=== PATIENT | male | born 1930 | race Caucasian/White ===

== ENCOUNTER 2017-08-28 18:42 | Inpatient (IN) | payer MEDICARE, MEDICAID ==
[~2017-08-28] VITALS: Ht 177.8 cm; Wt 51.3 kg
[2017-08-28 18:55] VITALS: BP 104/70
[2017-08-28] MEDS ORDERED: NS 1000ml 1,600 ML IVLG ONE (19:00)
[2017-08-28] MEDS ORDERED: Piperacillin/Tazobactam 3.375 GM in NS 55 ML IVPB ONE (19:00)
--- NOTE | 2017-08-28 19:00 | Emergency Room Report ---
History of Present Illness General Chief Complaint: Dyspnea/Respdistress Source: Patient, EMS Present Illness HPI Patient was brought in by paramedics for respiratory distress Upon arrival the patient is in acute respiratory failure Muscle retractions Accessory muscle use Not verbal Appears ill Patient required emergent airway intubation History of present illness is significantly limited Patient appears to have history of atrial fibrillation Recent hospitalization with CHF And aspiration pneumonia Allergies: Coded Allergies: No Known Allergies (Unverified , 08/28/17) Patient History Limited by: medical condition Past Medical History: see triage record Pertinent Family History: unable to obtain Reviewed Nursing Documentation: PMH: Agreed, PSxH: Agreed Nursing Documentation-PMH Hx Cardiac Problems: Yes - A-fib; HEP B Hx Dialysis: No - CKD History Of Psychiatric Problem: Yes - Dementia Hx Neurological Problems: Yes - Encephalopathy Review of Systems All Other Systems: limited - Other than the ones mentioned in the history of present illness all others are reviewed however they do stay limited due to the patient's mental status Physical Exam Vital Signs Date Time Temp Pulse Resp B/P (MAP) Pulse Ox O2 Delivery O2 Flow Rate FiO2 08/28/17 18:45 115 36 104/70 86 Non-Rebreather Sp02 EP Interpretation: reviewed, abnormal - Interpretations low at 86% on a nonrebreather, patient require airway intubation on 100% oxygen saturating at 100% which is a normal percentage General Appearance: severe distress - Acute respiratory failure Head: normocephalic, atraumatic Eyes: bilateral eye PERRL ENT: dry mucus membranes Neck: supple, thyroid normal Respiratory: accessory muscle use, other - Acute distress and pending failure Cardiovascular #1: tachycardia, irregularly irregular Gastrointestinal: soft, other - cachectic appearing Musculoskeletal: other - Patient has an acute distress not following commands, Neurologic: other - GCS is significantly decreased patient responds minimally to physical stimuli, otherwise not verbal decreased muscle tone Skin: other - Poor skin turgor Lymphatic: no adenopathy Procedures Critical Care Time Critical Care Time 50 minutes for multiple re\re evaluations, initial critical presentation, findings concerning for respiratory failure and possible , not including any procedural time Intubation Intubation : Consent: Emergent Intubation Method: orotracheal Tube Size (cm): 8.0 Medications: Succinylcholine Breath Sounds after Intubation: equal Intubation Complications: no complications Post Intubation Xray: Yes Progress/Xray Impression: refer to her report Attempts: One Patient Tolerated: Well Complications: None Medical Decision Making Diagnostic Impression: Primary Impression: Respiratory failure Additional Impressions: Atrial fibrillation with rapid ventricular response Aspiration pneumonia ER Course Patient is brought in in critical condition Respiratory failure Required airway intubation upon arrival Patient receiving IV hydration as he clinically appears dehydrated Patient is also tachycardic he does have a history of nature fibrillation however given the respiratory presentation tachycardia Evaluation is made for pulmonary embolism as well Patient was given Lovenox which is providing coverage for the irregular heart rate and also preemptively for concerns of pulmonary embolism patient received IV antibiotics hydration at this time the blood pressure is remaining appropriate Patient is however extremely critical and admitted for further care , Labs Test 08/28/17 18:40 08/28/17 19:29 White Blood Count 7.9 K/UL (4.8-10.8) Red Blood Count 5.05 M/UL (4.70-6.10) Hemoglobin 15.8 G/DL (14.2-18.0) Hematocrit 49.2 % (42.0-52.0) Mean Corpuscular Volume 97 FL (80-99) Mean Corpuscular Hemoglobin 31.3 PG (27.0-31.0) Mean Corpuscular Hemoglobin Concent 32.1 G/DL (32.0-36.0) Red Cell Distribution Width 13.9 % (11.6-14.8) Platelet Count 387 K/UL (150-450) Mean Platelet Volume 6.2 FL (6.5-10.1) Neutrophils (%) (Auto) 84.1 % (45.0-75.0) Lymphocytes (%) (Auto) 4.4 % (20.0-45.0) Monocytes (%) (Auto) 9.7 % (1.0-10.0) Eosinophils (%) (Auto) 0.0 % (0.0-3.0) Basophils (%) (Auto) 1.8 % (0.0-2.0) Prothrombin Time 12.3 SEC (9.30-11.50) Prothromb Time International Ratio 1.2 (0.9-1.1) Activated Partial Thromboplast Time 29 SEC (23-33) Sodium Level 143 MMOL/L (136-145) Potassium Level 5.3 MMOL/L (3.5-5.1) Chloride Level 109 MMOL/L (98-107) Carbon Dioxide Level 23 MMOL/L (21-32) Anion Gap 11 mmol/L (5-15) Blood Urea Nitrogen 41 mg/dL (7-18) Creatinine 1.2 MG/DL (0.55-1.30) Estimat Glomerular Filtration Rate mL/min (>60) Glucose Level 163 MG/DL (74-106) Lactic Acid Level 3.00 mmol/L (0.66-2.22) Calcium Level 9.0 MG/DL (8.5-10.1) Phosphorus Level 5.5 MG/DL (2.5-4.9) Magnesium Level 2.3 MG/DL (1.8-2.4) Total Bilirubin 0.8 MG/DL (0.2-1.0) Aspartate Amino Transf (AST/SGOT) 14 U/L (15-37) Alanine Aminotransferase (ALT/SGPT) 8 U/L (12-78) Alkaline Phosphatase 70 U/L (46-116) Total Creatine Kinase 20 U/L (26-308) Creatine Kinase MB 1.5 NG/ML (0.0-3.6) Creatine Kinase MB Relative Index 7.5 Troponin I 0.048 ng/mL (0.000-0.056) Pro-B-Type Natriuretic Peptide 7012 pg/mL (0-125) Total Protein 8.5 G/DL (6.4-8.2) Albumin 2.6 G/DL (3.4-5.0) Globulin 5.9 g/dL Albumin/Globulin Ratio 0.4 (1.0-2.7) Lipase 42 U/L (73-393) Urine Color Yellow Urine Appearance Clear Urine pH 5 (4.5-8.0) Urine Specific [place] 1.020 (1.005-1.035) Urine Protein 3+ (NEGATIVE) Urine Glucose (UA) Negative (NEGATIVE) Urine Ketones Negative (NEGATIVE) Urine Occult Blood 5+ (NEGATIVE) Urine Nitrite Negative (NEGATIVE) Urine Bilirubin Negative (NEGATIVE) Urine Urobilinogen 1 MG/DL (0.0-1.0) Urine Leukocyte Esterase 1+ (NEGATIVE) Urine RBC 10-15 /HPF (0 - 0) Urine WBC 5-10 /HPF (0 - 0) Urine Squamous Epithelial Cells None /LPF (NONE/OCC) Urine Amorphous Sediment Few /LPF (NONE) Urine Bacteria Many /HPF (NONE) EKG Diagnostic Results Rate: tachycardiac Rhythm: other ST Segments: other - atrial fibrillation rvr, nonspecific st changes Rhythm Strip Diag. Results EP Interpretation: yes Rate: 120 Rhythm: no PVC's, no ectopy, other - A. fib RVR Chest X-Ray Diagnostic Results Chest X-Ray Diagnostic Results : Chest X-Ray Ordered: Yes # of Views/Limited/Complete: 1 View Indication: Shortness of Breath EP Interpretation: Yes Interpretation: no pneumothorax, other - Bilateral right mid and left upper atelectasis, nonspecific markings, possible infiltrate versus chronicity, and other nonspecific markings Impression: Other - Pneumonia versus other Last Vital Signs Date Time Temp Pulse Resp B/P (MAP) Pulse Ox O2 Delivery O2 Flow Rate FiO2 08/28/17 18:45 115 36 104/70 86 Non-Rebreather Status: improved Disposition: ADMITTED INPATIENT Condition: Critical MAURA SAVAGE D.O. Aug 28, 2017 19:00
[2017-08-28] MEDS ORDERED: Zosyn 3.375gm inj ONE (19:16)
[2017-08-28 19:20] LABS: BASOPHILS % (AUTO) 1.8 % (0.0-2.0); HEMATOCRIT 49.2 % (42.0-52.0); HEMOGLOBIN 15.8 G/DL (14.2-18.0); LYMPHOCYTES % (AUTO) 4.4 % (20.0-45.0); MEAN CORPUSCULAR VOLUME 97 FL (80-99); MONOCYTES % (AUTO) 9.7 % (1.0-10.0); NEUTROPHILS % (AUTO) 84.1 % (45.0-75.0); PLATELET COUNT 387 K/UL (150-450); RED BLOOD COUNT 5.05 M/UL (4.70-6.10); RED CELL DISTRIBUTION WIDTH 13.9 % (11.6-14.8); WHITE BLOOD COUNT 7.9 K/UL (4.8-10.8)
[2017-08-28 19:25] LABS: INR 1.2 (0.9-1.1)
[2017-08-28 19:30] LABS: ANION GAP 11 mmol/L (5-15); BLOOD UREA NITROGEN 41 mg/dL (7-18); CARBON DIOXIDE 23 MMOL/L (21-32); CHLORIDE 109 MMOL/L (98-107); CREATININE 1.2 MG/DL (0.55-1.30); POTASSIUM 5.3 MMOL/L (3.5-5.1); SODIUM 143 MMOL/L (136-145)
[2017-08-28 19:45] LABS: ALANINE AMINOTRANSFERASE 8 U/L (12-78); ALBUMIN 2.6 G/DL (3.4-5.0); ALBUMIN/GLOBULIN RATIO 0.4 (1.0-2.7); ALKALINE PHOSPHATASE 70 U/L (46-116); ASPARTATE AMINO TRANSFERASE 14 U/L (15-37); BILIRUBIN,TOTAL 0.8 MG/DL (0.2-1.0); CKMB 1.5 NG/ML (0.0-3.6); CREATINE KINASE 20 U/L (26-308); PHOSPHORUS 5.5 MG/DL (2.5-4.9)
[2017-08-28 19:50] LABS: APPEARANCE,URINE CLEAR; BILIRUBIN, URINE NEGATIVE (NEGATIVE); GLUCOSE, URINE (UA) NEGATIVE (NEGATIVE); KETONES,URINE NEGATIVE (NEGATIVE); LEUKOCYTE ESTERASE ,URINE 1+ (NEGATIVE); NITRITE,URINE NEGATIVE (NEGATIVE); PH,URINE 5 (4.5-8.0); PROTEIN,URINE 3+ (NEGATIVE); UROBILINOGEN,URINE 1 MG/DL (0.0-1.0)
[2017-08-28 19:53] LABS: COLOR,URINE YELLOW
[2017-08-28 19:58] VITALS: BP 99/60
--- NOTE | 2017-08-28 20:29 | Pulmonolgy Critical Care Note ---
Critical Care - Asmt/Plan Problems: (1) Respiratory failure (2) Ventilator dependence (3) Failure to thrive (4) Cachexia (5) Lactic acid acidosis (6) CHF (congestive heart failure) (7) Atrial fibrillation with rapid ventricular response (8) Aspiration pneumonia (9) HCAP (healthcare-associated pneumonia) Assessment/Plan: -Admit to ICU -Continue current vent settings -F/U repeat ABG -Vancomycin/Zosyn -Agree with Lovenox for now -F/U CT-A when able -IVF hydration as tolerated -Monitor rate with IVF -Dig, Dil -Trend trop/ECG -F/U lactic acid -Cards eval -Once stable will start enteral feeds -DVT Px: A/C -FC, address GO D/W ER Respiratory: ABG, other Critical Care - Objective Last 24 Hour Vital Signs Date Time Temp Pulse Resp B/P (MAP) Pulse Ox O2 Delivery O2 Flow Rate FiO2 08/28/17 19:58 99.5 129 31 99/60 100 Non-Rebreather 15.0 100 08/28/17 19:26 133 31 100 08/28/17 19:00 100 08/28/17 18:55 115 36 Non-Rebreather 15.0 100 08/28/17 18:55 99.5 131 31 104/70 87 Non-Rebreather 15.0 08/28/17 18:45 115 36 104/70 86 Non-Rebreather Status: obtunded Condition: critical HEENT: atraumatic, normocephalic, other - ETT Lungs: rhonchi Heart: HR/BP stable Abdomen: soft, non-tender, active bowel sounds Extremities: no C/C/E Critical Care - Subjective ROS Limited/Unobtainable: Yes ICU Day: 1 Intubation Day: 1 Interval Events: BIB EMS for SNF in [place] and AFcRVR, intubated by ER H/O AF not on A/C, CHF, Dementia H/O CHF, Elevated BNP but clinically dehydrated, getting IVF Rate better now, sedated LA elevated Condition: critical IV Access: peripheral EKG Rhythm: Atrial Fibrillation FI02: 100 Vent Support Breath Rate: 20 Vent Support Mode: AC Vent Tidal Volume: 450 Sputum Amount: Moderate PEEP: 5.0 PIP: 21 CXR: B interstitial opacities ET-Tube: 8.0 ET Position: 22 Labs: Laboratory Tests Test 08/28/17 18:40 08/28/17 19:29 White Blood Count 7.9 K/UL (4.8-10.8) Red Blood Count 5.05 M/UL (4.70-6.10) Hemoglobin 15.8 G/DL (14.2-18.0) Hematocrit 49.2 % (42.0-52.0) Mean Corpuscular Volume 97 FL (80-99) Mean Corpuscular Hemoglobin 31.3 PG (27.0-31.0) H Mean Corpuscular Hemoglobin Concent 32.1 G/DL (32.0-36.0) Red Cell Distribution Width 13.9 % (11.6-14.8) Platelet Count 387 K/UL (150-450) Mean Platelet Volume 6.2 FL (6.5-10.1) L Neutrophils (%) (Auto) 84.1 % (45.0-75.0) H Lymphocytes (%) (Auto) 4.4 % (20.0-45.0) L Monocytes (%) (Auto) 9.7 % (1.0-10.0) Eosinophils (%) (Auto) 0.0 % (0.0-3.0) Basophils (%) (Auto) 1.8 % (0.0-2.0) Prothrombin Time 12.3 SEC (9.30-11.50) H Prothromb Time International Ratio 1.2 (0.9-1.1) H Activated Partial Thromboplast Time 29 SEC (23-33) Sodium Level 143 MMOL/L (136-145) Potassium Level 5.3 MMOL/L (3.5-5.1) H Chloride Level 109 MMOL/L (98-107) H Carbon Dioxide Level 23 MMOL/L (21-32) Anion Gap 11 mmol/L (5-15) Blood Urea Nitrogen 41 mg/dL (7-18) H Creatinine 1.2 MG/DL (0.55-1.30) Estimat Glomerular Filtration Rate mL/min (>60) Glucose Level 163 MG/DL (74-106) H Lactic Acid Level 3.00 mmol/L (0.66-2.22) H Calcium Level 9.0 MG/DL (8.5-10.1) Phosphorus Level 5.5 MG/DL (2.5-4.9) H Magnesium Level 2.3 MG/DL (1.8-2.4) Total Bilirubin 0.8 MG/DL (0.2-1.0) Aspartate Amino Transf (AST/SGOT) 14 U/L (15-37) L Alanine Aminotransferase (ALT/SGPT) 8 U/L (12-78) L Alkaline Phosphatase 70 U/L (46-116) Total Creatine Kinase 20 U/L (26-308) L Creatine Kinase MB 1.5 NG/ML (0.0-3.6) Creatine Kinase MB Relative Index 7.5 Troponin I 0.048 ng/mL (0.000-0.056) Pro-B-Type Natriuretic Peptide 7012 pg/mL (0-125) H Total Protein 8.5 G/DL (6.4-8.2) H Albumin 2.6 G/DL (3.4-5.0) L Globulin 5.9 g/dL Albumin/Globulin Ratio 0.4 (1.0-2.7) L Lipase 42 U/L (73-393) L Urine Color Yellow Urine Appearance Clear Urine pH 5 (4.5-8.0) Urine Specific [place] 1.020 (1.005-1.035) Urine Protein 3+ (NEGATIVE) H Urine Glucose (UA) Negative (NEGATIVE) Urine Ketones Negative (NEGATIVE) Urine Occult Blood 5+ (NEGATIVE) H Urine Nitrite Negative (NEGATIVE) Urine Bilirubin Negative (NEGATIVE) Urine Urobilinogen 1 MG/DL (0.0-1.0) H Urine Leukocyte Esterase 1+ (NEGATIVE) H Urine RBC 10-15 /HPF (0 - 0) H Urine WBC 5-10 /HPF (0 - 0) H Urine Squamous Epithelial Cells None /LPF (NONE/OCC) Urine Amorphous Sediment Few /LPF (NONE) H Urine Bacteria Many /HPF (NONE) H LONNY HART M.D. Aug 28, 2017 20:29
[2017-08-28] MEDS ORDERED: Enoxaparin 60mg Inj SUBQ ONE (20:30)
[2017-08-28] MEDS ORDERED: dilTIAZem HCl 25mg/5ml Inj IVP ONE (20:30)
[2017-08-28] MEDS ORDERED: Ipratropium 0.02% Inh Soln 2.5ml UD HHN PRN (20:30)
[2017-08-28] MEDS ORDERED: DIGOXIN0.125 MG/1 PO (21:39)
[2017-08-28] MEDS ORDERED: LISINOPRIL1 GM MC (21:39)
[2017-08-28] MEDS ORDERED: DULCOLAX10 MG RC (21:39)
[2017-08-28] MEDS ORDERED: MINERAL OIL EN133 ML RC (21:39)
[2017-08-28] MEDS ORDERED: FAMOTIDINE20 MG ORAL (21:39)
[2017-08-28] MEDS ORDERED: ASPIRIN500 MG ORAL (21:39)
[2017-08-28] MEDS ORDERED: PROSCAR5 MG ORAL (21:39)
[2017-08-28] MEDS ORDERED: LEVOTHYROXINE200 MCG IV (21:39)
[2017-08-28] MEDS ORDERED: FUROSEMIDE40 MG ORAL (21:39)
[2017-08-28] MEDS ORDERED: Vancomycin 1gm/D5W 275ml IVPB SCH ×2 (23:00)
[2017-08-29] VITALS (40 sets, daily range): BP systolic 77–133; BP diastolic 47–93
[2017-08-29] MEDS ORDERED: Zosyn 3.375gm inj ONE (00:57)
[2017-08-29] MEDS ORDERED: Vancomycin 1gm inj IVPB ONE (00:57)
[2017-08-29] MEDS ORDERED: Piperacillin/Tazobactam 3.375 GM in NS 55 ML IVPB SCH (01:00)
[2017-08-29] MEDS: Vancomycin 1gm/D5W 275ml IVPB SCH ×2 (01:04)
[2017-08-29] MEDS: Ipratropium 0.02% Inh Soln 2.5ml UD HHN SCH ×4 (01:41→19:00)
[2017-08-29] MEDS: Piperacillin/Tazobactam 3.375 GM in NS 55 ML IVPB SCH ×3 (02:11→18:13)
--- NOTE | 2017-08-29 07:53 | Consultation ---
Consult Note Consult Note Cardiology for Dr. Matthew Full consult dictated # [id number] Assessment: Elderly WM w/ hx of dementia, AF ( ? chronic), hypothyroidism, hx of aspiration pneumonia, L humeral fx (10/2016), and chronic hep B. Also ? hx of chf. He is adm w/ respiratory failure, possible pneumonia. He is in AF w/ RVR and has mild trop elevation. ? demand ischemia. BNP is elevated, but he appears intravascularly vol depleted. REC: agree w/ iv abx, iv hydration. Will obtain EKG, troponins to r/o [place]. ECHO to assess LV systolic function. For AF, agree w/ lovenox for cva prevention and will start iv diltiazem for rate control. TAMY DIALLO Aug 29, 2017 07:53
--- NOTE | 2017-08-29 08:12 | Pulmonolgy Critical Care Note ---
Critical Care - Asmt/Plan Problems: (1) Respiratory failure (2) Ventilator dependence (3) Failure to thrive (4) Cachexia (5) Lactic acid acidosis (6) CHF (congestive heart failure) (7) Atrial fibrillation with rapid ventricular response (8) Aspiration pneumonia (9) HCAP (healthcare-associated pneumonia) Assessment/Plan: -Continue ICU care -Continue current vent settings (unclear if last ABG on current settings), F/U STAT ABG and adjust PRN -Vancomycin/Zosyn -Lovenox -Dilt gtt per cards, F/U TTE, IVF, R/O ACS -F/U CT-A when able -Monitor rate with IV -F/U lactic acid -Consider enteral feeds -DVT Px: A/C -FC, address [facility] Critical Care - Objective Last 24 Hour Vital Signs Date Time Temp Pulse Resp B/P (MAP) Pulse Ox O2 Delivery O2 Flow Rate FiO2 08/29/17 08:00 98.0 126 26 119/75 97 Mechanical Ventilator 95 08/29/17 07:19 122 22 100 Mechanical Ventilator 80 08/29/17 07:17 115 22 80 08/29/17 07:10 115 22 98 Mechanical Ventilator 80 08/29/17 07:00 126 21 102/62 97 Mechanical Ventilator 95 08/29/17 06:00 125 23 89/58 98 Mechanical Ventilator 95 08/29/17 05:00 125 26 97/49 97 Mechanical Ventilator 95 08/29/17 04:55 128 26 80 08/29/17 04:00 98.0 123 24 96/64 97 Mechanical Ventilator 08/29/17 04:00 80 08/29/17 03:26 122 26 80 08/29/17 03:07 115 08/29/17 03:00 125 28 115/47 97 Mechanical Ventilator 95 08/29/17 02:30 118 26 105/51 98 Mechanical Ventilator 95 08/29/17 02:00 112 26 109/54 99 Mechanical Ventilator 95 08/29/17 01:50 80 08/29/17 01:49 105 22 100 Mechanical Ventilator 80 08/29/17 01:40 114 26 98 Mechanical Ventilator 80 08/29/17 01:30 108 26 101/51 99 Mechanical Ventilator 95 08/29/17 01:27 112 26 80 08/29/17 01:00 105 24 89/59 100 Mechanical Ventilator 95 08/29/17 00:45 107 25 85/56 98 Mechanical Ventilator 08/29/17 00:30 107 22 83/56 98 Mechanical Ventilator 08/29/17 00:15 107 21 90/52 98 Mechanical Ventilator 08/29/17 00:06 95 08/29/17 00:05 110 08/29/17 00:00 95 08/29/17 00:00 98.0 110 22 104/61 98 Mechanical Ventilator 95 08/28/17 23:50 99.5 131 22 110/86 100 Non-Rebreather 15.0 95 129 08/28/17 22:28 112 22 95 08/28/17 21:42 115 23 100 08/28/17 20:45 130 110/86 08/28/17 19:58 99.5 129 31 99/60 100 Non-Rebreather 15.0 100 08/28/17 19:26 133 31 100 08/28/17 19:00 100 08/28/17 18:55 115 36 Non-Rebreather 15.0 100 08/28/17 18:55 99.5 131 31 104/70 87 Non-Rebreather 15.0 08/28/17 18:45 115 36 104/70 86 Non-Rebreather Status: sedated Condition: critical HEENT: atraumatic, normocephalic Lungs: rhonchi Heart: irregular Abdomen: soft, non-tender, active bowel sounds Extremities: no C/C/E Micro: Microbiology Date/Time Source Procedure Growth Status 08/28/17 19:29 Urine,Clean Catch Urine Culture - Preliminary NO GROWTH Resulted Blood Sugars: BS controlled Critical Care - Subjective ROS Limited/Unobtainable: Yes ICU Day: 2 Intubation Day: 2 Interval Events: Seed by EPS, started on Dilt gtt Tm 99.5, AF 120s, BP stable 7.17/54/110/19/97 Condition: critical IV Access: central EKG Rhythm: Atrial Fibrillation FI02: 95 Vent Support Breath Rate: 22 Vent Support Mode: AC Vent Tidal Volume: 450 Sputum Amount: Moderate PEEP: 5.0 PIP: 23 Secretions: moderate thick secretions Fluids: NS Drips: Dilt I&O: Intake and Output 08/28/17 08/29/17 19:00 07:00 Intake Total 0 ml 330.000 ml Output Total 180 ml Balance 0 ml 150.000 ml Intake Oral 0 ml 0 ml IV Total 330.000 ml Output Urine Total 180 ml # Voids 1 ET-Tube: 8.0 ET Position: 22 Labs: Laboratory Tests Test 08/28/17 18:40 08/28/17 19:29 08/28/17 20:27 08/28/17 23:30 White Blood Count 7.9 K/UL (4.8-10.8) Red Blood Count 5.05 M/UL (4.70-6.10) Hemoglobin 15.8 G/DL (14.2-18.0) Hematocrit 49.2 % (42.0-52.0) Mean Corpuscular Volume 97 FL (80-99) Mean Corpuscular Hemoglobin 31.3 PG (27.0-31.0) H Mean Corpuscular Hemoglobin Concent 32.1 G/DL (32.0-36.0) Red Cell Distribution Width 13.9 % (11.6-14.8) Platelet Count 387 K/UL (150-450) Mean Platelet Volume 6.2 FL (6.5-10.1) L Neutrophils (%) (Auto) 84.1 % (45.0-75.0) H Lymphocytes (%) (Auto) 4.4 % (20.0-45.0) L Monocytes (%) (Auto) 9.7 % (1.0-10.0) Eosinophils (%) (Auto) 0.0 % (0.0-3.0) Basophils (%) (Auto) 1.8 % (0.0-2.0) Prothrombin Time 12.3 SEC (9.30-11.50) H Prothromb Time International Ratio 1.2 (0.9-1.1) H Activated Partial Thromboplast Time 29 SEC (23-33) Sodium Level 143 MMOL/L (136-145) Potassium Level 5.3 MMOL/L (3.5-5.1) H Chloride Level 109 MMOL/L (98-107) H Carbon Dioxide Level 23 MMOL/L (21-32) Anion Gap 11 mmol/L (5-15) Blood Urea Nitrogen 41 mg/dL (7-18) H Creatinine 1.2 MG/DL (0.55-1.30) Estimat Glomerular Filtration Rate mL/min (>60) Glucose Level 163 MG/DL (74-106) H Lactic Acid Level 3.00 mmol/L (0.66-2.22) H 2.90 mmol/L (0.66-2.22) H Calcium Level 9.0 MG/DL (8.5-10.1) Phosphorus Level 5.5 MG/DL (2.5-4.9) H Magnesium Level 2.3 MG/DL (1.8-2.4) Total Bilirubin 0.8 MG/DL (0.2-1.0) Aspartate Amino Transf (AST/SGOT) 14 U/L (15-37) L Alanine Aminotransferase (ALT/SGPT) 8 U/L (12-78) L Alkaline Phosphatase 70 U/L (46-116) Total Creatine Kinase 20 U/L (26-308) L Creatine Kinase MB 1.5 NG/ML (0.0-3.6) Creatine Kinase MB Relative Index 7.5 Troponin I 0.048 ng/mL (0.000-0.056) Pro-B-Type Natriuretic Peptide 6886 pg/mL (0-125) H Total Protein 8.5 G/DL (6.4-8.2) H Albumin 2.6 G/DL (3.4-5.0) L Globulin 5.9 g/dL Albumin/Globulin Ratio 0.4 (1.0-2.7) L Lipase 42 U/L (73-393) L Thyroid Stimulating Hormone (TSH) 2.782 uiU/mL (0.358-3.740) Digoxin Level 1.3 NG/ML (0.5-2.0) Urine Color Yellow Urine Appearance Clear Urine pH 5 (4.5-8.0) Urine Specific [place] 1.020 (1.005-1.035) Urine Protein 3+ (NEGATIVE) H Urine Glucose (UA) Negative (NEGATIVE) Urine Ketones Negative (NEGATIVE) Urine Occult Blood 5+ (NEGATIVE) H Urine Nitrite Negative (NEGATIVE) Urine Bilirubin Negative (NEGATIVE) Urine Urobilinogen 1 MG/DL (0.0-1.0) H Urine Leukocyte Esterase 1+ (NEGATIVE) H Urine RBC 10-15 /HPF (0 - 0) H Urine WBC 5-10 /HPF (0 - 0) H Urine Squamous Epithelial Cells None /LPF (NONE/OCC) Urine Amorphous Sediment Few /LPF (NONE) H Urine Bacteria Many /HPF (NONE) H Arterial Blood pH 7.176 (7.350-7.450) Arterial Blood Partial Pressure CO2 54.7 mmHg (35.0-45.0) H Arterial Blood Partial Pressure O2 110.8 mmHg (75.0-100.0) H Arterial Blood HCO3 19.8 mmol/L (22.0-26.0) L Arterial Blood Oxygen Saturation 96.8 % (92.0-98.0) Arterial Blood Base Excess -9 Garrett Test Positive LONNY HART M.D. Aug 29, 2017 08:12
[2017-08-29] MEDS: Enoxaparin Sodium 300mg/3ml vial SUBQ SCH ×2 (09:00→21:28)
[2017-08-29 09:50] LABS: HEMATOCRIT 42.6 % (42.0-52.0); HEMOGLOBIN 13.4 G/DL (14.2-18.0); MEAN CORPUSCULAR VOLUME 99 FL (80-99); PLATELET COUNT 305 K/UL (150-450); RED BLOOD COUNT 4.32 M/UL (4.70-6.10); RED CELL DISTRIBUTION WIDTH 14.3 % (11.6-14.8); WHITE BLOOD COUNT 10.8 K/UL (4.8-10.8)
[2017-08-29 10:11] LABS: ALANINE AMINOTRANSFERASE < 6 U/L (12-78); ALBUMIN 2.1 G/DL (3.4-5.0); ALBUMIN/GLOBULIN RATIO 0.4 (1.0-2.7); ALKALINE PHOSPHATASE 54 U/L (46-116); ANION GAP 9 mmol/L (5-15); ASPARTATE AMINO TRANSFERASE 14 U/L (15-37); BILIRUBIN,TOTAL 0.5 MG/DL (0.2-1.0); BLOOD UREA NITROGEN 34 mg/dL (7-18); CARBON DIOXIDE 22 MMOL/L (21-32); CHLORIDE 115 MMOL/L (98-107); POTASSIUM 4.4 MMOL/L (3.5-5.1); SODIUM 146 MMOL/L (136-145)
--- NOTE | 2017-08-29 10:15 | Consultation ---
DATE OF CONSULTATION: 08/29/2017 CARDIOLOGY CONSULTATION CONSULTING PHYSICIAN: Cintia Garcia M.D. ATTENDING/REQUESTING PHYSICIAN: Davey Cui M.D. REASON FOR CONSULTATION: Atrial fibrillation. HISTORY OF PRESENT ILLNESS: History is obtained primarily from the chart and treating providers as the patient is intubated and unable to give any history. The patient is an 87-year-old white male with history of dementia, atrial fibrillation, aspiration pneumonia, and congestive heart failure. He was admitted last night with respiratory failure and required intubation and mechanical ventilation in the emergency room. He has been admitted to the intensive care unit. On admission, he was noted to be in atrial fibrillation with ventricular rate of 115 beats per minute on telemetry. Currently, his heart rates have ranged from 110 to 140s. Cardiology evaluation was requested. CURRENT MEDICATIONS: Lovenox 50 mg subcutaneously q.12 hours, Zosyn 3.375 g IV q.8 hours, vancomycin 1 g IV q.24 hours given x1, Atrovent nebulizer q.4 hours p.r.n. ALLERGIES: No known drug allergies. PAST MEDICAL HISTORY: As noted above. History of dementia, hypertension, congestive heart failure and persistent atrial fibrillation, also history of hypothyroidism, chronic hepatitis B, and left humeral fracture (per medical records from 10/2016, admission to [facility]). SOCIAL HISTORY: Not obtainable from the patient or chart. REVIEW OF SYSTEMS: Not obtainable from the patient or chart. PHYSICAL EXAMINATION: VITAL SIGNS: Blood pressure is 99/66, pulse 120 irregularly irregular, respirations 21, temperature 98, oxygen saturation 100% on 80% FiO2. GENERAL: Cachectic, elderly-appearing white male, minimally responsive on the ventilator. HEENT: Left conjunctival injection. Pupils equal, round, and reactive to light. Endotracheal tube in place. NECK: Supple. There is no adenopathy. No jugular venous distention. Carotid pulses are 2+ without bruits. LUNGS: Bilateral rhonchi and upper airway sounds. HEART: Irregularly irregular, tachycardic. S1, S2. No murmur or S3. ABDOMEN: Soft, nontender. Decreased bowel sounds. Nondistended. No palpable mass. EXTREMITIES: Ecchymosis allover the distal lower extremities bilaterally. No cyanosis, clubbing, or edema. A 1+ dorsalis pedis and posterior tibial pulses. SKIN: There is a healed surgical scar in the left upper chest. LABORATORY DATA: Hemoglobin 15.8, hematocrit 49, white blood count 7900, platelets 387,000. Sodium 143, potassium 5.3, chloride 109, bicarbonate 23, BUN 41, creatinine 1.2. ProBNP 6886. Troponin 0.048. TSH 2.7. Chest x-ray is pending. EKG is pending. ASSESSMENT AND RECOMMENDATIONS: The patient is an 87-year-old man with multiple chronic medical problems as outlined above, who was admitted with respiratory failure, possible pneumonia, and congestive heart failure. Marcell due to pneumonia, his BNP is elevated, however, he appears intravascularly volume depleted. He was noted to be in atrial fibrillation with rapid ventricular rates and has mildly elevated troponin. Although BNP is elevated, he appears clinically intravascularly volume depleted. I would agree with intravenous fluids. His pneumonia is being managed as per his primary physician. With regard to the troponin elevation, I suspect this is due to demand ischemia. An EKG will be obtained and serial troponin levels. Echo will be obtained to evaluate left ventricular wall motion and function. Intravenous diltiazem will be started and cautiously titrated for ventricular rate control and atrial fibrillation. He has been started on subcutaneous Lovenox for stroke prevention. His overall prognosis is limited given his advanced age and comorbidities. Thank you for allowing me to participate in his care. Cintia Webb M.D. DR: Amy JOB#: [id number] CC:
--- NOTE | 2017-08-29 10:17 | Diagnostic Imaging Report ---
Indication: Chest pain Technique: Continuous helical transaxial imaging of the chest was obtained from the thoracic inlet to the upper abdomen during rapid intravenous contrast administration. Arterial phase of enhancement obtained. Coronal 2-D reformats were also obtained and maximum intensity projection images in multiple planes. Study obtained in a Siemens sensation [address] Automatic Exposure Control was utilized. Total Dose length Product (DLP): 588.[address] Dose Index Volume (CTDIvol): 12.62 x 3, 25.25, 14.54 mGy Comparison: None Findings: The pulmonary artery is well opacified and shows no filling defects. There is no adenopathy, pleural or pericardial effusions are identified. There is no aortic dissection or aneurysm identified within the chest. Endotracheal tube in good position. Trace bilateral pleural effusions are present. There are chronic changes within the lungs characterized by patchy areas of reticular densities some branching with mild cylindrical bronchiectasis in the upper lobes. Basilar consolidation versus atelectasis also demonstrated especially on the left side. Please correlate clinically. There is partial atelectasis of the middle lobe and lingular segments. Visualized part of the upper abdomen is unremarkable. There is narrowing of intervertebral discs and accompanying endplate osteophyte formation. Hypertrophied facet joints also demonstrated. Impression: No evidence of pulmonary embolus or aortic dissection/aneurysm. Basilar pneumonia may be present. Please correlate clinically. Chronic lung disease as described above Endotracheal tube in good position. [facility] has communicated the preliminary results to the Emergency Department. Their findings are largely concordant with this report. The CT scanner at [facility] is accredited by the [employer] and the scans are performed using dose optimization techniques as appropriate to a performed exam including Automatic Exposure control.
--- NOTE | 2017-08-29 11:54 | History & Physical ---
History and Physical History & Physicial Dictated for Int Med-Dr Cui [facility] no. [id number]. NEIL BENSON Aug 29, 2017 11:54
--- NOTE | 2017-08-29 11:56 | Diagnostic Imaging Report ---
Indication: Dyspnea Comparison: None A single view chest radiograph was obtained. Findings: Acute interstitial opacities are present bilaterally. Heart is mildly enlarged. Endotracheal tube is in good position. Bones are moderately osteopenic. IMPRESSION: Interstitial pulmonary edema
--- NOTE | 2017-08-29 12:44 | Cardiology Report ---
APPROVED REPORT EXAM: Two-dimensional and M-mode echocardiogram with Doppler and color Doppler. INDICATION Chest Pain Other Information Technically limited study due to poor acoustic windows. Technically difficult and limited study due to poor acoustic windows. Only apical and subcostal views obtained. Study quality precludes accurate assessment of regional wall motion. M-mode measurements of left ventricle not obtainable. Normal left ventricular chamber size, systolic function and wall motion to extent visualized. Left ventricular ejection fraction estimated to be 55 %. Mild left ventricular hypertrophy. Anterior Echo-free space, may be due to pericardial fat or effusion. Severe right atrial enlargement. Left atrial chamber size is within normal limits. Right ventricular chamber size is within normal limits. Focal aortic valve sclerosis with adequate cusp excursion. Thickened mitral valve leaflets with normal excursion. Mitral annulus and aortic root calcification. Pulmonic valve not visualized. Normal tricuspid valve structure. IVC dilated at 2.0 cm with physiologic collapse suggestive of increased RA pressure. A color flow and spectral Doppler study was performed and revealed: Trace aortic regurgitation. Moderate mitral regurgitation. Left ventricular diastolic function could not be determined due to A-Fib. Mild tricuspid regurgitation. Tricuspid systolic velocities suggests peak right ventricular systolic pressure of 62 mmHg, consistent with severe pulmonary hypertension. No pulmonic regurgitation present.
--- NOTE | 2017-08-29 16:15 | History and Physical Report ---
DATE OF ADMISSION: 08/28/2017 CHIEF COMPLAINT: The patient is an 87-year-old white male who presents with chief complaint of respiratory failure. HISTORY OF PRESENT ILLNESS: The patient is a resident of [facility]. According to staff at [facility], the patient became short of breath approximately one day prior to admission. The patient was transferred to [facility]. Upon arrival at [facility], the patient was found to be in acute respiratory failure. The patient was emergently intubated in the emergency room. The patient admitted to the intensive care unit with acute respiratory failure. REVIEW OF SYSTEMS: Unable to assess secondary to the patient's mental status. PAST MEDICAL HISTORY: Significant for 1. Hypertension. 2. Congestive heart failure. 3. Atrial fibrillation. PAST SURGICAL HISTORY: Unknown. CURRENT MEDICATIONS: From [facility]: 1. Levoxyl 0.075 mg p.o. daily. 2. Lisinopril 2.5 mg p.o. daily. 3. Metoprolol 25 mg one tablet p.o. three times daily. 4. Multivitamin one tablet p.o. daily. 5. Proscar 5 mg p.o. daily. 6. Flomax 0.4 mg p.o. daily. 7. Amiodarone 200 mg p.o. daily. 8. Digoxin 0.125 mg p.o. daily. 9. Lasix 40 mg p.o. daily. ALLERGIES: No known drug allergies. SOCIAL HISTORY: The patient is a resident of [facility] as above. The patient denies tobacco or alcohol use. PHYSICAL EXAMINATION: VITAL SIGNS: Temperature 98.0, respirations 26, pulse 115 to 126, and blood pressure 119/75. GENERAL: The patient is a thin-appearing elderly male, who is intubated and sedated. HEENT: Eyes, pupils are equal and responsive to light and accommodation. Extraocular movements are intact. NECK: Supple without lymphadenopathy. CHEST: Few expiratory wheezes bilaterally without crackles. ABDOMEN: Soft, nontender, and nondistended. Positive bowel sounds. No evidence of hepatosplenomegaly. Currently, no rebound or guarding noted. EXTREMITIES: Negative for clubbing, cyanosis, or edema. RECTAL/GENITAL: Deferred. LABORATORY AND DIAGNOSTIC STUDIES: On admission, WBC 7.9, hemoglobin 15.8, hematocrit 49.2, and platelets 387,000. Sodium 143, potassium 5.3, chloride 109, CO2 22, BUN 41, creatinine 1.2, and glucose 163. Troponin elevated at 0.048. BNP elevated at 7012. EKG demonstrated atrial fibrillation approximately 120 beats per minute. ASSESSMENT: This is an 87-year-old white male: 1. Pneumonia. 2. Atrial fibrillation. 3. Congestive heart failure. 4. Cachexia. 5. Lactic acidosis. 6. Hypertension . 7. History of encephalopathy. 8. Alzheimer's dementia. 9. Benign prostatic hypertrophy. 10. Hypothyroidism. TREATMENT: 1. Hospital-acquired versus aspiration pneumonia. A Pulmonary consultation has been obtained with Dr. Spears. The patient has been started empirically on Zosyn and vancomycin. We will follow recommendations of Pulmonary for pneumonia and ventilator settings. 2. Atrial fibrillation. A Cardiology consultation has been obtained with Dr. Cintia Webb. We will follow recommendation of Cardiology. 3. Congestive heart failure. As above, a Cardiology consultation has been obtained with Dr. Cintia Webb. 4. Cachexia. This is probably protein malnutrition. 5. Lactic acidosis. 6. Hypertension. The patient is currently hypotensive. We will hold antihypertensive medication. 7. Encephalopathy. 8. Alzheimer's dementia. 9. Benign prostatic hypertrophy. 10. Hypothyroidism. TSH and thyroid panel are pending. Juan Carlos Grigsby M.D. DR: BECK JOB#: [id number] CC:
[2017-08-29] MEDS: Midazolam 2mg/2ml Inj IVP PRN (21:10)
[2017-08-29] MEDS: fentaNYL Citrate 2,500 MCG in NS 200 ML IVLG SCH (22:00)
[2017-08-30] VITALS (60 sets, daily range): BP systolic 72–183; BP diastolic 43–95
[2017-08-30] MEDS: Ipratropium 0.02% Inh Soln 2.5ml UD HHN SCH ×4 (00:53→19:27)
[2017-08-30] MEDS: Vancomycin 1gm/D5W 275ml IVPB SCH ×2 (01:22)
[2017-08-30] MEDS: Piperacillin/Tazobactam 3.375 GM in NS 55 ML IVPB SCH ×3 (01:26→18:05)
[2017-08-30] MEDS: Midazolam 2mg/2ml Inj IVP PRN ×3 (02:44→11:57)
[2017-08-30 05:57] LABS: BASOPHILS % (AUTO) 0.4 % (0.0-2.0); HEMATOCRIT 40.5 % (42.0-52.0); LYMPHOCYTES % (AUTO) 9.8 % (20.0-45.0); MEAN CORPUSCULAR VOLUME 97 FL (80-99); MONOCYTES % (AUTO) 7.1 % (1.0-10.0); NEUTROPHILS % (AUTO) 82.7 % (45.0-75.0); PLATELET COUNT 316 K/UL (150-450); RED BLOOD COUNT 4.17 M/UL (4.70-6.10); RED CELL DISTRIBUTION WIDTH 14.1 % (11.6-14.8); WHITE BLOOD COUNT 9.4 K/UL (4.8-10.8)
[2017-08-30 07:21] LABS: BLOOD UREA NITROGEN 31 mg/dL (7-18); CHLORIDE 117 MMOL/L (98-107); POTASSIUM 3.9 MMOL/L (3.5-5.1); SODIUM 151 MMOL/L (136-145)
[2017-08-30 07:28] LABS: CALCIUM 8.3 MG/DL (8.5-10.1); CARBON DIOXIDE 25 MMOL/L (21-32)
[2017-08-30] MEDS: Enoxaparin Sodium 300mg/3ml vial SUBQ SCH ×2 (09:11→21:00)
--- NOTE | 2017-08-30 10:45 | Diagnostic Imaging Report ---
APPROVED REPORT CPT Code: 47495 Present Symptoms Shortness of breath BILATERAL LOWER EXTREMITY VENOUS DUPLEX: Imaging reveals a patent deep venous system bilaterally. There is no evidence of thrombus within the femoral, popliteal or tibial segments. The greater saphenous veins are also within normal limits. Doppler indicates normal spontaneous flow within these segments. Incidental finding: Right common femoral artery minimal irregular plaque.
[2017-08-30] MEDS: fentaNYL Citrate 2,500 MCG in NS 200 ML IVLG SCH (11:28)
--- NOTE | 2017-08-30 17:16 | Cardiology Progress Note ---
Assessment/Plan Status: stable, progressing Status Narrative Pt w/ respiratory failure, ? aspiration pneumonia and CHF. He remains in AF, w/ controlled v rates on iv diltiazem. Troponin mildly elevated on admission. EKG without acute ischemic changes. Assessment/Plan Will dc iv diltiazem and start iv metoprolol q 6 hrs for rate control in af. continue anticoagulation w/ heparin ( sc lovenox 1 mg/kg) for cva prevention. IV hydration w/ 1/2 NS ( Pt w/ hypernatremia) Continue to trend troponins. EKG w low voltage qrs and loss of r waves inferiorly, but no ST elevation/depression Continue iv antibiotics, vent support as per Pulmonary/ Dr. Spears Subjective ROS Limited/Unobtainable: Yes Subjective Cardiology for Dr. Matthew Events noted. Pt intubated, sedated w/ fentanyl. Objective Last 24 Hour Vital Signs Date Time Temp Pulse Resp B/P (MAP) Pulse Ox O2 Delivery O2 Flow Rate FiO2 08/30/17 17:06 102 26 40 08/30/17 16:30 102 26 83/52 93 Mechanical Ventilator 40 08/30/17 16:00 98.5 107 26 93/50 93 Mechanical Ventilator 40 08/30/17 16:00 40 08/30/17 16:00 99 08/30/17 15:30 103 26 93/51 92 Mechanical Ventilator 40 08/30/17 15:00 126 27 99/66 94 Mechanical Ventilator 40 08/30/17 15:00 27 08/30/17 14:59 133 34 40 08/30/17 14:30 134 28 183/79 97 Mechanical Ventilator 40 08/30/17 14:00 97 26 96/72 95 Mechanical Ventilator 40 08/30/17 14:00 25 08/30/17 13:30 88 26 87/50 93 Mechanical Ventilator 40 08/30/17 13:03 112 26 95 Mechanical Ventilator 40 08/30/17 13:00 94 26 83/51 93 Mechanical Ventilator 40 08/30/17 13:00 27 08/30/17 12:43 114 26 93 Mechanical Ventilator 40 08/30/17 12:42 107 26 40 08/30/17 12:30 111 24 101/62 92 Mechanical Ventilator 40 08/30/17 12:09 98.5 08/30/17 12:00 128 08/30/17 12:00 98.3 135 25 89/53 95 Mechanical Ventilator 40 08/30/17 12:00 26 08/30/17 12:00 40 08/30/17 11:30 137 44 131/86 96 Mechanical Ventilator 40 08/30/17 11:28 28 08/30/17 11:10 97 26 40 08/30/17 11:00 140 38 122/78 96 Mechanical Ventilator 40 08/30/17 10:53 108 95/52 08/30/17 10:30 90 26 94/56 96 Mechanical Ventilator 40 08/30/17 10:00 101 26 86/57 96 Mechanical Ventilator 40 08/30/17 09:30 119 26 105/72 96 Mechanical Ventilator 40 08/30/17 09:04 140 26 40 08/30/17 09:00 150 25 120/85 99 Mechanical Ventilator 40 08/30/17 09:00 40 08/30/17 09:00 117 08/30/17 08:30 118 26 98/66 94 Mechanical Ventilator 40 08/30/17 08:00 98.5 112 26 102/68 99 Mechanical Ventilator 40 08/30/17 07:36 93 26 98 Mechanical Ventilator 40 08/30/17 07:30 98 26 86/45 99 Mechanical Ventilator 40 08/30/17 07:23 99 26 98 Mechanical Ventilator 40 08/30/17 07:20 99 26 40 08/30/17 07:00 84 26 83/51 Mechanical Ventilator 40 08/30/17 06:45 98 26 75/54 Mechanical Ventilator 40 08/30/17 06:30 105 26 83/51 Mechanical Ventilator 40 08/30/17 06:15 108 26 78/45 Mechanical Ventilator 40 08/30/17 06:00 110 26 81/53 Mechanical Ventilator 40 08/30/17 05:45 113 26 86/55 Mechanical Ventilator 40 08/30/17 05:30 141 26 101/60 Mechanical Ventilator 40 08/30/17 05:30 Mechanical Ventilator 40 08/30/17 05:15 136 28 108/74 Mechanical Ventilator 40 08/30/17 05:00 139 26 102/64 Mechanical Ventilator 40 08/30/17 04:58 120 28 40 08/30/17 04:45 141 27 102/74 Mechanical Ventilator 40 08/30/17 04:30 141 25 112/75 Mechanical Ventilator 40 08/30/17 04:30 166 26 137/95 97 Mechanical Ventilator 40 08/30/17 04:15 155 23 113/63 98 Mechanical Ventilator 40 08/30/17 04:00 40 08/30/17 04:00 120 08/30/17 04:00 133 25 107/76 97 Mechanical Ventilator 40 08/30/17 03:45 116 26 90/55 97 Mechanical Ventilator 40 08/30/17 03:30 120 24 92/51 96 Mechanical Ventilator 40 08/30/17 03:15 134 24 90/54 95 Mechanical Ventilator 40 08/30/17 03:10 137 26 40 08/30/17 03:00 140 26 113/80 98 Mechanical Ventilator 40 08/30/17 02:45 143 26 129/83 97 Mechanical Ventilator 40 08/30/17 02:30 139 26 119/91 96 Mechanical Ventilator 40 08/30/17 02:15 Mechanical Ventilator 40 08/30/17 02:15 122 26 122/75 99 Mechanical Ventilator 40 08/30/17 02:00 117 26 126/75 98 Mechanical Ventilator 40 08/30/17 01:45 101 26 108/67 97 Mechanical Ventilator 40 08/30/17 01:30 95 26 83/58 98 Mechanical Ventilator 40 08/30/17 01:15 99 26 84/53 98 Mechanical Ventilator 40 08/30/17 01:10 118 22 98 Mechanical Ventilator 40 08/30/17 01:00 103 26 72/43 97 Mechanical Ventilator 40 08/30/17 00:52 117 26 98 Mechanical Ventilator 40 08/30/17 00:46 117 26 40 08/30/17 00:45 110 26 96/63 96 Mechanical Ventilator 40 08/30/17 00:30 107 26 81/51 96 Mechanical Ventilator 40 08/30/17 00:15 114 26 83/58 96 Mechanical Ventilator 40 08/30/17 00:00 40 08/30/17 00:00 113 08/30/17 00:00 98.9 104 26 81/48 95 Mechanical Ventilator 40 08/30/17 00:00 Mechanical Ventilator 40 08/29/17 23:45 107 26 77/55 95 Mechanical Ventilator 40 08/29/17 23:30 117 26 133/78 96 Mechanical Ventilator 40 08/29/17 23:22 120 26 93/48 95 Mechanical Ventilator 40 08/29/17 23:15 122 26 93/48 95 Mechanical Ventilator 40 08/29/17 23:00 130 24 85/50 95 Mechanical Ventilator 40 08/29/17 22:50 40 08/29/17 22:45 150 24 125/82 97 Mechanical Ventilator 50 08/29/17 22:44 122 28 40 08/29/17 22:39 110 22 85/50 98 Mechanical Ventilator 50 08/29/17 22:30 117 22 85/50 98 Mechanical Ventilator 50 08/29/17 22:15 121 22 114/64 98 Mechanical Ventilator 50 08/29/17 22:00 26 08/29/17 22:00 120 22 99/68 97 Mechanical Ventilator 50 08/29/17 21:45 120 22 113/93 98 Mechanical Ventilator 50 08/29/17 21:30 124 24 88/54 97 Mechanical Ventilator 50 08/29/17 21:15 124 23 82/50 97 Mechanical Ventilator 50 08/29/17 21:10 180 24 50 08/29/17 21:02 138 115/76 08/29/17 21:00 131 24 117/56 97 Mechanical Ventilator 50 08/29/17 20:00 98.8 08/29/17 20:00 50 08/29/17 20:00 138 27 125/76 96 Mechanical Ventilator 50 08/29/17 20:00 146 08/29/17 19:12 Mechanical Ventilator 08/29/17 19:10 150 25 95 Mechanical Ventilator 50 08/29/17 19:10 150 25 50 08/29/17 19:00 144 26 115/66 94 Mechanical Ventilator 50 08/29/17 18:00 128 25 123/74 95 Mechanical Ventilator 50 08/29/17 17:24 50 08/29/17 17:13 109 24 80 General Appearance: cachetic, on vent EENT: PERRL/EOMI, other - ET tube in place Rhythm: Afib Cardiovascular: normal peripheral pulses, normal rate, no gallop/murmur Respiratory/Chest: other - clear anteriorly Abdomen: normal bowel sounds, non tender, soft Extremities: no swelling Intake and Output 08/29/17 08/30/17 19:00 07:00 Intake Total 68.70 ml 366.5 ml Output Total 550 ml 90 ml Balance -481.30 ml 276.5 ml Intake Oral 0 ml 0 ml IV Total 68.70 ml 366.5 ml Output Urine Total 550 ml 90 ml # Voids 2 Laboratory Tests Test 08/29/17 22:24 12/28/17 04:30 Arterial Blood pH 7.330 (7.350-7.450) Arterial Blood Partial Pressure CO2 42.7 mmHg (35.0-45.0) Arterial Blood Partial Pressure O2 71.2 mmHg (75.0-100.0) L Arterial Blood HCO3 22.1 mmol/L (22.0-26.0) Arterial Blood Oxygen Saturation 94.3 % (92.0-98.0) Arterial Blood Base Excess -3.7 Garrett Test Positive White Blood Count 9.4 K/UL (4.8-10.8) Red Blood Count 4.17 M/UL (4.70-6.10) L Hemoglobin 13.0 G/DL (14.2-18.0) L Hematocrit 40.5 % (42.0-52.0) L Mean Corpuscular Volume 97 FL (80-99) Mean Corpuscular Hemoglobin 31.1 PG (27.0-31.0) H Mean Corpuscular Hemoglobin Concent 32.0 G/DL (32.0-36.0) Red Cell Distribution Width 14.1 % (11.6-14.8) Platelet Count 316 K/UL (150-450) Mean Platelet Volume 6.1 FL (6.5-10.1) L Neutrophils (%) (Auto) 82.7 % (45.0-75.0) H Lymphocytes (%) (Auto) 9.8 % (20.0-45.0) L Monocytes (%) (Auto) 7.1 % (1.0-10.0) Eosinophils (%) (Auto) 0.0 % (0.0-3.0) Basophils (%) (Auto) 0.4 % (0.0-2.0) Sodium Level 151 MMOL/L (136-145) H Potassium Level 3.9 MMOL/L (3.5-5.1) Chloride Level 117 MMOL/L (98-107) H Carbon Dioxide Level 25 MMOL/L (21-32) Blood Urea Nitrogen 31 mg/dL (7-18) H Creatinine 1.0 MG/DL (0.55-1.30) Estimat Glomerular Filtration Rate mL/min (>60) Glucose Level 82 MG/DL (74-106) Calcium Level 8.3 MG/DL (8.5-10.1) L Troponin I 0.052 ng/mL (0.000-0.056) Microbiology Date/Time Source Procedure Growth Status 08/28/17 18:50 Blood Blood Culture - Preliminary NO GROWTH AFTER 24 HOURS Resulted 08/28/17 18:45 Blood Blood Culture - Preliminary NO GROWTH AFTER 24 HOURS Resulted 08/28/17 19:29 Urine,Clean Catch Urine Culture - Preliminary NO GROWTH AFTER 24 HOURS Resulted TAMY DIALLO Aug 30, 2017 17:16
--- NOTE | 2017-08-30 17:36 | Internal Med Progress Note ---
Subjective Date of Service: Aug 30, 2017 Physician Name Neil Benson Attending Physician Davey Cui MD Current Medications Medications (Trade) Dose Ordered Sig/Hill Route PRN Reason Start Time Stop Time Status Last Admin Dose Admin Enoxaparin Sodium (Lovenox) 50 mg EVERY 12 HOURS SUBQ 08/29/17 09:00 09/28/17 08:59 08/30/17 09:11 Fentanyl Citrate 2500 mcg/Sodium Chloride 250 ml @ 0 mls/hr Q24H IVLG 08/29/17 22:00 09/05/17 21:59 08/30/17 11:28 Ipratropium [place] (Atrovent) 500 mcg Q4H PRN HHN SOB and wheezing 08/28/17 20:30 09/02/17 20:29 Ipratropium [place] (Atrovent) 500 mcg Q6HRT HHN 08/29/17 01:00 09/03/17 00:59 08/30/17 12:42 Metoprolol Tartrate (Lopressor) 2.5 mg EVERY 6 HOURS IVP 08/30/17 18:00 09/29/17 17:59 Midazolam HCl (Versed 2mg/2ml vial) 1 mg Q2H PRN IVP Agitation 08/29/17 20:45 09/28/17 20:44 08/30/17 11:57 Piperacillin Sod/ Tazobactam Sod 3.375 gm/Sodium Chloride 55 ml @ 13.75 mls/ hr Q8HR@0200,1000,1800 IVPB 08/29/17 02:00 09/05/17 01:59 08/30/17 09:10 Sodium Chloride 1,000 ml @ 75 mls/hr [id number] IV 08/30/17 17:15 09/29/17 17:14 Vancomycin HCl (Vanco rx to dose) 1 ea DAILY PRN MISC Per rx protocol 08/28/17 20:30 09/27/17 20:29 Vancomycin HCl 1 gm/Dextrose 275 ml @ 183.708 mls/hr Q24H IVPB 08/29/17 01:00 09/03/17 00:59 08/30/17 01:22 Allergies: Coded Allergies: No Known Allergies (Unverified , 08/28/17) ROS Limited/Unobtainable: Yes Subjective 87 YO M admitted with Respiratory failure. Cover for Int Med-Dr Cui. ICU. Intubated and sedated. Objective Last Vital Signs Date Time Temp Pulse Resp B/P (MAP) Pulse Ox O2 Delivery O2 Flow Rate FiO2 08/30/17 17:06 102 26 40 08/30/17 16:30 83/52 93 Mechanical Ventilator 08/30/17 16:00 98.5 08/28/17 23:50 15.0 General Appearance: cachetic, thin EENT: PERRL/EOMI, normal ENT inspection Neck: non-tender, normal alignment, supple Cardiovascular: normal peripheral pulses, no gallop/murmur, no JVD, irregularly irregular Respiratory/Chest: respiratory distress, crackles/rales, rhonchi - bilaterally , expiratory wheezing Abdomen: non tender, soft, no organomegaly, decreased bowel sounds Neurologic: manager visual II-XII grossly normal Skin: normal pigmentation, warm/dry Laboratory Tests Test 08/29/17 22:24 08/30/17 04:30 Arterial Blood pH 7.330 (7.350-7.450) Arterial Blood Partial Pressure CO2 42.7 mmHg (35.0-45.0) Arterial Blood Partial Pressure O2 71.2 mmHg (75.0-100.0) L Arterial Blood HCO3 22.1 mmol/L (22.0-26.0) Arterial Blood Oxygen Saturation 94.3 % (92.0-98.0) Arterial Blood Base Excess -3.7 Garrett Test Positive White Blood Count 9.4 K/UL (4.8-10.8) Red Blood Count 4.17 M/UL (4.70-6.10) L Hemoglobin 13.0 G/DL (14.2-18.0) L Hematocrit 40.5 % (42.0-52.0) L Mean Corpuscular Volume 97 FL (80-99) Mean Corpuscular Hemoglobin 31.1 PG (27.0-31.0) H Mean Corpuscular Hemoglobin Concent 32.0 G/DL (32.0-36.0) Red Cell Distribution Width 14.1 % (11.6-14.8) Platelet Count 316 K/UL (150-450) Mean Platelet Volume 6.1 FL (6.5-10.1) L Neutrophils (%) (Auto) 82.7 % (45.0-75.0) H Lymphocytes (%) (Auto) 9.8 % (20.0-45.0) L Monocytes (%) (Auto) 7.1 % (1.0-10.0) Eosinophils (%) (Auto) 0.0 % (0.0-3.0) Basophils (%) (Auto) 0.4 % (0.0-2.0) Sodium Level 151 MMOL/L (136-145) H Potassium Level 3.9 MMOL/L (3.5-5.1) Chloride Level 117 MMOL/L (98-107) H Carbon Dioxide Level 25 MMOL/L (21-32) Blood Urea Nitrogen 31 mg/dL (7-18) H Creatinine 1.0 MG/DL (0.55-1.30) Estimat Glomerular Filtration Rate mL/min (>60) Glucose Level 82 MG/DL (74-106) Calcium Level 8.3 MG/DL (8.5-10.1) L Troponin I 0.052 ng/mL (0.000-0.056) Microbiology Date/Time Source Procedure Growth Status 08/28/17 18:50 Blood Blood Culture - Preliminary NO GROWTH AFTER 24 HOURS Resulted 08/28/17 18:45 Blood Blood Culture - Preliminary NO GROWTH AFTER 24 HOURS Resulted 08/28/17 19:29 Urine,Clean Catch Urine Culture - Preliminary NO GROWTH AFTER 24 HOURS Resulted Intake and Output 08/29/17 08/30/17 19:00 07:00 Intake Total 68.70 ml 366.5 ml Output Total 550 ml 90 ml Balance -481.30 ml 276.5 ml Intake Oral 0 ml 0 ml IV Total 68.70 ml 366.5 ml Output Urine Total 550 ml 90 ml # Voids 2 Assessment/Plan Problem List: (1) HTN (hypertension) Assessment & Plan: Continue lopressor (2) Encephalopathy (3) Alzheimer's dementia (4) BPH (benign prostatic hyperplasia) (5) Hypothyroidism Assessment & Plan: TSH normal. Continue levoxyl. (6) Respiratory failure Assessment & Plan: Intubated. See pulmonary note. (7) Atrial fibrillation with rapid ventricular response Assessment & Plan: D/C diltiazem; start lopressor per cardiology (8) CHF (congestive heart failure) Assessment & Plan: See cardiology note; await echocardiogram (9) Cachexia (10) Lactic acid acidosis (11) Pneumonia Assessment & Plan: See pulmonary note. Cont zosyn and vanco. Status: not improved NEIL BENSON Aug 30, 2017 17:35
[2017-08-30] MEDS: Metoprolol 5mg/5ml Inj IVP SCH (18:05)
--- NOTE | 2017-08-30 19:34 | Pulmonolgy Critical Care Note ---
Critical Care - Asmt/Plan Problems: (1) Respiratory failure (2) Ventilator dependence (3) Failure to thrive (4) Cachexia (5) Lactic acid acidosis (6) CHF (congestive heart failure) (7) Atrial fibrillation with rapid ventricular response (8) Aspiration pneumonia (9) HCAP (healthcare-associated pneumonia) Assessment/Plan: -Continue ICU care -Continue current vent settings -->Inc TV to 550 --> hold sedation @ 6 am for SBT -Vancomycin/Zosyn, F/U Cx's -Lovenox per cards -IV MTP per cards, F/U cards recs -Change IVD to D5W -Consider enteral feeds -DVT Px: A/C -FC, address GOC -Needs NGT for TF's Critical Care - Objective Last 24 Hour Vital Signs Date Time Temp Pulse Resp B/P (MAP) Pulse Ox O2 Delivery O2 Flow Rate FiO2 08/30/17 18:05 102 95/60 08/30/17 18:04 26 08/30/17 18:00 79 26 101/60 93 Mechanical Ventilator 40 08/30/17 17:30 114 23 95/60 100 Mechanical Ventilator 40 08/30/17 17:06 102 26 40 08/30/17 17:00 120 24 90/56 100 Mechanical Ventilator 40 08/30/17 17:00 18 08/30/17 16:30 102 26 83/52 93 Mechanical Ventilator 40 08/30/17 16:00 98.5 107 26 93/50 93 Mechanical Ventilator 40 08/30/17 16:00 40 08/30/17 16:00 19 08/30/17 16:00 99 08/30/17 15:30 103 26 93/51 92 Mechanical Ventilator 40 08/30/17 15:00 126 27 99/66 94 Mechanical Ventilator 40 08/30/17 15:00 27 08/30/17 14:59 133 34 40 08/30/17 14:30 134 28 183/79 97 Mechanical Ventilator 40 08/30/17 14:00 97 26 96/72 95 Mechanical Ventilator 40 08/30/17 14:00 25 08/30/17 13:30 88 26 87/50 93 Mechanical Ventilator 40 08/30/17 13:03 112 26 95 Mechanical Ventilator 40 08/30/17 13:00 94 26 83/51 93 Mechanical Ventilator 40 08/30/17 13:00 27 08/30/17 12:43 114 26 93 Mechanical Ventilator 40 08/30/17 12:42 107 26 40 08/30/17 12:30 111 24 101/62 92 Mechanical Ventilator 40 08/30/17 12:09 98.5 08/30/17 12:00 128 08/30/17 12:00 98.3 135 25 89/53 95 Mechanical Ventilator 40 08/30/17 12:00 26 08/30/17 12:00 40 08/30/17 11:30 137 44 131/86 96 Mechanical Ventilator 40 08/30/17 11:28 28 08/30/17 11:10 97 26 40 08/30/17 11:00 140 38 122/78 96 Mechanical Ventilator 40 08/30/17 10:53 108 95/52 08/30/17 10:30 90 26 94/56 96 Mechanical Ventilator 40 08/30/17 10:00 101 26 86/57 96 Mechanical Ventilator 40 08/30/17 09:30 119 26 105/72 96 Mechanical Ventilator 40 08/30/17 09:04 140 26 40 08/30/17 09:00 150 25 120/85 99 Mechanical Ventilator 40 08/30/17 09:00 40 08/30/17 09:00 117 08/30/17 08:30 118 26 98/66 94 Mechanical Ventilator 40 08/30/17 08:00 98.5 112 26 102/68 99 Mechanical Ventilator 40 08/30/17 07:36 93 26 98 Mechanical Ventilator 40 08/30/17 07:30 98 26 86/45 99 Mechanical Ventilator 40 08/30/17 07:23 99 26 98 Mechanical Ventilator 40 08/30/17 07:20 99 26 40 08/30/17 07:00 84 26 83/51 Mechanical Ventilator 40 08/30/17 06:45 98 26 75/54 Mechanical Ventilator 40 08/30/17 06:30 105 26 83/51 Mechanical Ventilator 40 08/30/17 06:15 108 26 78/45 Mechanical Ventilator 40 08/30/17 06:00 110 26 81/53 Mechanical Ventilator 40 08/30/17 05:45 113 26 86/55 Mechanical Ventilator 40 08/30/17 05:30 141 26 101/60 Mechanical Ventilator 40 08/30/17 05:30 Mechanical Ventilator 40 08/30/17 05:15 136 28 108/74 Mechanical Ventilator 40 08/30/17 05:00 139 26 102/64 Mechanical Ventilator 40 08/30/17 04:58 120 28 40 08/30/17 04:45 141 27 102/74 Mechanical Ventilator 40 08/30/17 04:30 141 25 112/75 Mechanical Ventilator 40 08/30/17 04:30 166 26 137/95 97 Mechanical Ventilator 40 08/30/17 04:15 155 23 113/63 98 Mechanical Ventilator 40 08/30/17 04:00 40 08/30/17 04:00 120 08/30/17 04:00 133 25 107/76 97 Mechanical Ventilator 40 08/30/17 03:45 116 26 90/55 97 Mechanical Ventilator 40 08/30/17 03:30 120 24 92/51 96 Mechanical Ventilator 40 08/30/17 03:15 134 24 90/54 95 Mechanical Ventilator 40 08/30/17 03:10 137 26 40 08/30/17 03:00 140 26 113/80 98 Mechanical Ventilator 40 08/30/17 02:45 143 26 129/83 97 Mechanical Ventilator 40 08/30/17 02:30 139 26 119/91 96 Mechanical Ventilator 40 08/30/17 02:15 Mechanical Ventilator 40 08/30/17 02:15 122 26 122/75 99 Mechanical Ventilator 40 08/30/17 02:00 117 26 126/75 98 Mechanical Ventilator 40 08/30/17 01:45 101 26 108/67 97 Mechanical Ventilator 40 08/30/17 01:30 95 26 83/58 98 Mechanical Ventilator 40 08/30/17 01:15 99 26 84/53 98 Mechanical Ventilator 40 08/30/17 01:10 118 22 98 Mechanical Ventilator 40 08/30/17 01:00 103 26 72/43 97 Mechanical Ventilator 40 08/30/17 00:52 117 26 98 Mechanical Ventilator 40 08/30/17 00:46 117 26 40 08/30/17 00:45 110 26 96/63 96 Mechanical Ventilator 40 08/30/17 00:30 107 26 81/51 96 Mechanical Ventilator 40 08/30/17 00:15 114 26 83/58 96 Mechanical Ventilator 40 08/30/17 00:00 40 08/30/17 00:00 113 08/30/17 00:00 98.9 104 26 81/48 95 Mechanical Ventilator 40 08/30/17 00:00 Mechanical Ventilator 40 08/29/17 23:45 107 26 77/55 95 Mechanical Ventilator 40 08/29/17 23:30 117 26 133/78 96 Mechanical Ventilator 40 08/29/17 23:22 120 26 93/48 95 Mechanical Ventilator 40 08/29/17 23:15 122 26 93/48 95 Mechanical Ventilator 40 08/29/17 23:00 130 24 85/50 95 Mechanical Ventilator 40 08/29/17 22:50 40 08/29/17 22:45 150 24 125/82 97 Mechanical Ventilator 50 08/29/17 22:44 122 28 40 08/29/17 22:39 110 22 85/50 98 Mechanical Ventilator 50 08/29/17 22:30 117 22 85/50 98 Mechanical Ventilator 50 08/29/17 22:15 121 22 114/64 98 Mechanical Ventilator 50 08/29/17 22:00 26 08/29/17 22:00 120 22 99/68 97 Mechanical Ventilator 50 08/29/17 21:45 120 22 113/93 98 Mechanical Ventilator 50 08/29/17 21:30 124 24 88/54 97 Mechanical Ventilator 50 08/29/17 21:15 124 23 82/50 97 Mechanical Ventilator 50 08/29/17 21:10 180 24 50 08/29/17 21:02 138 115/76 08/29/17 21:00 131 24 117/56 97 Mechanical Ventilator 50 08/29/17 20:00 98.8 08/29/17 20:00 50 08/29/17 20:00 138 27 125/76 96 Mechanical Ventilator 50 08/29/17 20:00 146 Status: sedated, other - cachectic Condition: critical HEENT: atraumatic, normocephalic Lungs: clear - but distant Heart: HR/BP unstable, irregular Abdomen: soft, non-tender, active bowel sounds Extremities: no C/C/E Micro: Microbiology Date/Time Source Procedure Growth Status 08/28/17 18:50 Blood Blood Culture - Preliminary NO GROWTH AFTER 24 HOURS Resulted 08/28/17 18:45 Blood Blood Culture - Preliminary NO GROWTH AFTER 24 HOURS Resulted 08/28/17 19:29 Urine,Clean Catch Urine Culture - Preliminary NO GROWTH AFTER 24 HOURS Resulted Critical Care - Subjective ROS Limited/Unobtainable: Yes ICU Day: 3 Intubation Day: 3 Interval Events: in/out AF, rate better O2 needs stable, Na 151, TTE reviewed Condition: critical IV Access: peripheral EKG Rhythm: Atrial Fibrillation FI02: 40 Vent Support Breath Rate: 26 Vent Support Mode: AC Vent Tidal Volume: 500 Sputum Amount: Small PEEP: 5.0 PIP: 22 I&O: Intake and Output 08/29/17 08/30/17 19:00 07:00 Intake Total 68.70 ml 366.5 ml Output Total 550 ml 90 ml Balance -481.30 ml 276.5 ml Intake Oral 0 ml 0 ml IV Total 68.70 ml 366.5 ml Output Urine Total 550 ml 90 ml # Voids 2 ET-Tube: 8.0 ET Position: 22 Labs: Laboratory Tests Test 08/29/17 22:24 08/30/17 04:30 Arterial Blood pH 7.330 (7.350-7.450) Arterial Blood Partial Pressure CO2 42.7 mmHg (35.0-45.0) Arterial Blood Partial Pressure O2 71.2 mmHg (75.0-100.0) L Arterial Blood HCO3 22.1 mmol/L (22.0-26.0) Arterial Blood Oxygen Saturation 94.3 % (92.0-98.0) Arterial Blood Base Excess -3.7 Garrett Test Positive White Blood Count 9.4 K/UL (4.8-10.8) Red Blood Count 4.17 M/UL (4.70-6.10) L Hemoglobin 13.0 G/DL (14.2-18.0) L Hematocrit 40.5 % (42.0-52.0) L Mean Corpuscular Volume 97 FL (80-99) Mean Corpuscular Hemoglobin 31.1 PG (27.0-31.0) H Mean Corpuscular Hemoglobin Concent 32.0 G/DL (32.0-36.0) Red Cell Distribution Width 14.1 % (11.6-14.8) Platelet Count 316 K/UL (150-450) Mean Platelet Volume 6.1 FL (6.5-10.1) L Neutrophils (%) (Auto) 82.7 % (45.0-75.0) H Lymphocytes (%) (Auto) 9.8 % (20.0-45.0) L Monocytes (%) (Auto) 7.1 % (1.0-10.0) Eosinophils (%) (Auto) 0.0 % (0.0-3.0) Basophils (%) (Auto) 0.4 % (0.0-2.0) Sodium Level 151 MMOL/L (136-145) H Potassium Level 3.9 MMOL/L (3.5-5.1) Chloride Level 117 MMOL/L (98-107) H Carbon Dioxide Level 25 MMOL/L (21-32) Blood Urea Nitrogen 31 mg/dL (7-18) H Creatinine 1.0 MG/DL (0.55-1.30) Estimat Glomerular Filtration Rate mL/min (>60) Glucose Level 82 MG/DL (74-106) Calcium Level 8.3 MG/DL (8.5-10.1) L Troponin I 0.052 ng/mL (0.000-0.056) LONNY HART M.D. Aug 30, 2017 19:34
[2017-08-31] VITALS (58 sets, daily range): BP systolic 62–164; BP diastolic 38–111
[2017-08-31] MEDS: Vancomycin 1gm/D5W 275ml IVPB SCH ×2 (01:00)
[2017-08-31] MEDS: Ipratropium 0.02% Inh Soln 2.5ml UD HHN SCH ×4 (01:15→19:47)
[2017-08-31] MEDS: Piperacillin/Tazobactam 3.375 GM in NS 55 ML IVPB SCH ×2 (02:00→09:18)
[2017-08-31] MEDS: Midazolam 2mg/2ml Inj IVP PRN ×2 (04:07→14:12)
[2017-08-31] MEDS: Metoprolol 5mg/5ml Inj IVP SCH ×2 (06:00)
[2017-08-31 06:06] LABS: BASOPHILS % (AUTO) 0.4 % (0.0-2.0); EOSINOPHILS % (AUTO) 0.1 % (0.0-3.0); HEMATOCRIT 37.6 % (42.0-52.0); HEMOGLOBIN 12.4 G/DL (14.2-18.0); LYMPHOCYTES % (AUTO) 9.8 % (20.0-45.0); MEAN CORPUSCULAR VOLUME 97 FL (80-99); NEUTROPHILS % (AUTO) 84.7 % (45.0-75.0); PLATELET COUNT 296 K/UL (150-450); RED BLOOD COUNT 3.87 M/UL (4.70-6.10); RED CELL DISTRIBUTION WIDTH 13.8 % (11.6-14.8); WHITE BLOOD COUNT 11.1 K/UL (4.8-10.8)
[2017-08-31 06:49] LABS: ALANINE AMINOTRANSFERASE 9 U/L (12-78); ALBUMIN/GLOBULIN RATIO 0.4 (1.0-2.7); ALKALINE PHOSPHATASE 52 U/L (46-116); ANION GAP 10 mmol/L (5-15); ASPARTATE AMINO TRANSFERASE 16 U/L (15-37); BILIRUBIN,TOTAL 0.8 MG/DL (0.2-1.0); BLOOD UREA NITROGEN 33 mg/dL (7-18); CALCIUM 7.7 MG/DL (8.5-10.1); CARBON DIOXIDE 23 MMOL/L (21-32); CHLORIDE 115 MMOL/L (98-107); CREATININE 1.1 MG/DL (0.55-1.30); POTASSIUM 3.2 MMOL/L (3.5-5.1); SODIUM 148 MMOL/L (136-145)
--- NOTE | 2017-08-31 07:56 | Cardiology Progress Note ---
Assessment/Plan Problem List: (1) Respiratory failure (2) Atrial fibrillation with rapid ventricular response (3) Aspiration pneumonia (4) Cachexia (5) Ventilator dependence Status: not improved, unchanged Status Narrative Pt w/ respiratory failure, ? aspiration pneumonia and CHF. Pt w/ rapidly conducted AF after changing from iv diltiazem to metoprolol ECHO noted - nl LV systolic function, EF 50s, but severe pulm hypertension. Moderate TR . Troponin mildly elevated on admission. EKG without acute ischemic changes. Assessment/Plan Will change back to iv dilitiazem and titrate based on HR response. Continue sc lovenox for cva prevention. IV hydration - hypernatremia improving w/ hypotonic fluids. supplement K IV antibiotics and vent management per pulmonary. D/w RN. Subjective ROS Limited/Unobtainable: Yes Subjective Cardiology for Dr. Matthew Events noted. Pt intubated, agitated Objective Last 24 Hour Vital Signs Date Time Temp Pulse Resp B/P (MAP) Pulse Ox O2 Delivery O2 Flow Rate FiO2 08/31/17 07:00 08/31/17 07:00 78 26 83/51 98 Mechanical Ventilator 40 08/31/17 06:30 80 26 84/54 100 Mechanical Ventilator 08/31/17 06:15 87 26 75/51 94 Mechanical Ventilator 40 08/31/17 06:00 81 26 62/43 92 Mechanical Ventilator 40 08/31/17 06:00 80 81/52 08/31/17 06:00 08/31/17 05:45 83 26 71/42 94 Mechanical Ventilator 40 08/31/17 05:30 83 26 79/51 94 Mechanical Ventilator 40 08/31/17 05:15 88 26 74/46 93 Mechanical Ventilator 40 08/31/17 05:10 26 08/31/17 05:00 94 26 76/43 92 Mechanical Ventilator 40 08/31/17 05:00 26 08/31/17 04:51 91 28 40 08/31/17 04:45 123 26 72/44 92 Mechanical Ventilator 40 08/31/17 04:45 26 08/31/17 04:30 98.7 122 26 147/84 94 Mechanical Ventilator 40 08/31/17 04:30 26 08/31/17 04:15 152 26 143/101 93 Mechanical Ventilator 40 08/31/17 04:15 26 08/31/17 04:00 40 08/31/17 04:00 147 08/31/17 04:00 26 08/31/17 04:00 98.7 122 26 143/103 94 Mechanical Ventilator 40 08/31/17 03:30 146 26 145/74 98 Mechanical Ventilator 40 08/31/17 03:20 107 28 40 08/31/17 03:00 109 26 154/92 98 Mechanical Ventilator 40 08/31/17 03:00 26 08/31/17 02:30 82 26 103/77 98 Mechanical Ventilator 40 08/31/17 02:00 74 26 101/64 95 Mechanical Ventilator 40 08/31/17 02:00 26 08/31/17 01:30 80 26 97/58 94 Mechanical Ventilator 40 08/31/17 01:24 91 26 98 Mechanical Ventilator 40 08/31/17 01:15 89 26 95 Mechanical Ventilator 40 08/31/17 01:14 96 26 40 08/31/17 01:00 84 26 89/55 97 Mechanical Ventilator 40 08/31/17 01:00 26 08/31/17 00:30 97 26 97/61 97 Mechanical Ventilator 40 08/31/17 00:15 99.2 08/31/17 00:00 95 26 89/62 96 Mechanical Ventilator 40 08/31/17 00:00 40 08/31/17 00:00 105 90/62 08/31/17 00:00 26 08/31/17 00:00 95 08/30/17 23:00 96 26 84/48 97 Mechanical Ventilator 40 08/30/17 23:00 26 08/30/17 22:41 91 26 40 08/30/17 22:30 93 26 98/65 96 Mechanical Ventilator 40 08/30/17 22:00 87 26 94/63 96 Mechanical Ventilator 40 08/30/17 22:00 26 08/30/17 21:30 87 26 94/53 96 Mechanical Ventilator 40 08/30/17 21:09 87 26 40 08/30/17 21:00 93 26 91/60 96 Mechanical Ventilator 40 08/30/17 21:00 26 08/30/17 20:30 93 26 84/62 95 Mechanical Ventilator 40 08/30/17 20:07 92 26 40 08/30/17 20:00 40 08/30/17 20:00 26 08/30/17 20:00 98.9 93 26 97/60 95 Mechanical Ventilator 40 08/30/17 20:00 93 08/30/17 19:37 86 26 97 Mechanical Ventilator 40 08/30/17 19:30 90 26 98/65 95 Mechanical Ventilator 40 08/30/17 19:28 92 26 40 08/30/17 19:27 83 26 93 Mechanical Ventilator 40 08/30/17 19:00 86 26 90/63 93 Mechanical Ventilator 40 08/30/17 18:05 102 95/60 08/30/17 18:04 26 08/30/17 18:00 79 26 101/60 93 Mechanical Ventilator 40 08/30/17 17:30 114 23 95/60 100 Mechanical Ventilator 40 08/30/17 17:06 102 26 40 08/30/17 17:00 120 24 90/56 100 Mechanical Ventilator 40 08/30/17 17:00 18 08/30/17 16:30 102 26 83/52 93 Mechanical Ventilator 40 08/30/17 16:00 98.5 107 26 93/50 93 Mechanical Ventilator 40 08/30/17 16:00 40 08/30/17 16:00 19 08/30/17 16:00 99 08/30/17 15:30 103 26 93/51 92 Mechanical Ventilator 40 08/30/17 15:00 126 27 99/66 94 Mechanical Ventilator 40 08/30/17 15:00 27 08/30/17 14:59 133 34 40 08/30/17 14:30 134 28 183/79 97 Mechanical Ventilator 40 08/30/17 14:00 97 26 96/72 95 Mechanical Ventilator 40 08/30/17 14:00 25 08/30/17 13:30 88 26 87/50 93 Mechanical Ventilator 40 08/30/17 13:03 112 26 95 Mechanical Ventilator 40 08/30/17 13:00 94 26 83/51 93 Mechanical Ventilator 40 08/30/17 13:00 27 08/30/17 12:43 114 26 93 Mechanical Ventilator 40 08/30/17 12:42 107 26 40 08/30/17 12:30 111 24 101/62 92 Mechanical Ventilator 40 08/30/17 12:09 98.5 08/30/17 12:00 128 08/30/17 12:00 98.3 135 25 89/53 95 Mechanical Ventilator 40 08/30/17 12:00 26 08/30/17 12:00 40 08/30/17 11:30 137 44 131/86 96 Mechanical Ventilator 40 08/30/17 11:28 28 08/30/17 11:10 97 26 40 08/30/17 11:00 140 38 122/78 96 Mechanical Ventilator 40 08/30/17 10:53 108 95/52 08/30/17 10:30 90 26 94/56 96 Mechanical Ventilator 40 08/30/17 10:00 101 26 86/57 96 Mechanical Ventilator 40 08/30/17 09:30 119 26 105/72 96 Mechanical Ventilator 40 08/30/17 09:04 140 26 40 08/30/17 09:00 150 25 120/85 99 Mechanical Ventilator 40 08/30/17 09:00 40 08/30/17 09:00 117 08/30/17 08:30 118 26 98/66 94 Mechanical Ventilator 40 08/30/17 08:00 98.5 112 26 102/68 99 Mechanical Ventilator 40 General Appearance: moderate distress, cachetic EENT: other - et tube in place Neck: no JVD Rhythm: Afib Cardiovascular: tachycardia, irregularly irregular Respiratory/Chest: other - dec BS anteriorly Abdomen: non tender, soft Extremities: no swelling Intake and Output 08/30/17 08/31/17 19:00 07:00 Intake Total 126.25 ml 1486.250 ml Output Total 380 ml 945 ml Balance -253.75 ml 541.250 ml Intake Oral 0 ml 0 ml IV Total 126.25 ml 1486.250 ml Output Urine Total 380 ml 945 ml Laboratory Tests Test 08/31/17 04:50 White Blood Count 11.1 K/UL (4.8-10.8) H Red Blood Count 3.87 M/UL (4.70-6.10) L Hemoglobin 12.4 G/DL (14.2-18.0) L Hematocrit 37.6 % (42.0-52.0) L Mean Corpuscular Volume 97 FL (80-99) Mean Corpuscular Hemoglobin 32.0 PG (27.0-31.0) H Mean Corpuscular Hemoglobin Concent 33.0 G/DL (32.0-36.0) Red Cell Distribution Width 13.8 % (11.6-14.8) Platelet Count 296 K/UL (150-450) Mean Platelet Volume 6.4 FL (6.5-10.1) L Neutrophils (%) (Auto) 84.7 % (45.0-75.0) H Lymphocytes (%) (Auto) 9.8 % (20.0-45.0) L Monocytes (%) (Auto) 5.0 % (1.0-10.0) Eosinophils (%) (Auto) 0.1 % (0.0-3.0) Basophils (%) (Auto) 0.4 % (0.0-2.0) Sodium Level 148 MMOL/L (136-145) H Potassium Level 3.2 MMOL/L (3.5-5.1) L Chloride Level 115 MMOL/L (98-107) H Carbon Dioxide Level 23 MMOL/L (21-32) Anion Gap 10 mmol/L (5-15) Blood Urea Nitrogen 33 mg/dL (7-18) H Creatinine 1.1 MG/DL (0.55-1.30) Estimat Glomerular Filtration Rate mL/min (>60) Glucose Level 166 MG/DL (74-106) H Calcium Level 7.7 MG/DL (8.5-10.1) L Total Bilirubin 0.8 MG/DL (0.2-1.0) Aspartate Amino Transf (AST/SGOT) 16 U/L (15-37) Alanine Aminotransferase (ALT/SGPT) 9 U/L (12-78) L Alkaline Phosphatase 52 U/L (46-116) Troponin I 0.050 ng/mL (0.000-0.056) Total Protein 6.6 G/DL (6.4-8.2) Albumin 2.0 G/DL (3.4-5.0) L Globulin 4.6 g/dL Albumin/Globulin Ratio 0.4 (1.0-2.7) L Microbiology Date/Time Source Procedure Growth Status 08/28/17 18:50 Blood Blood Culture - Preliminary NO GROWTH AFTER 48 HOURS Resulted 08/28/17 18:45 Blood Blood Culture - Preliminary NO GROWTH AFTER 48 HOURS Resulted 08/28/17 19:29 Urine,Clean Catch Urine Culture - Preliminary NO GROWTH AFTER 24 HOURS Resulted TAMY DIALLO Aug 31, 2017 07:56
[2017-08-31] MEDS ORDERED: Potassium Chloride 10 MEQ in NS 110 ML IVPB SCH (08:00)
[2017-08-31] MEDS: fentaNYL Citrate 2,500 MCG in NS 200 ML IVLG SCH (08:40)
[2017-08-31] MEDS: Enoxaparin Sodium 300mg/3ml vial SUBQ SCH ×2 (09:19→20:42)
--- NOTE | 2017-08-31 17:13 | Internal Med Progress Note ---
Subjective Date of Service: Aug 31, 2017 Physician Name Juan Carlos Benson Attending Physician Davey Cui MD Current Medications Medications (Trade) Dose Ordered Sig/Hill Route PRN Reason Start Time Stop Time Status Last Admin Dose Admin Dextrose 1,000 ml @ 100 mls/hr Q10H IV 08/30/17 20:00 09/29/17 19:59 08/31/17 14:57 Diltiazem HCl 125 mg/Dextrose 125 ml @ 0 mls/hr Q24H IV 08/31/17 08:00 09/01/17 07:59 Enoxaparin Sodium (Lovenox) 50 mg EVERY 12 HOURS SUBQ 08/29/17 09:00 09/28/17 08:59 08/31/17 09:19 Fentanyl Citrate 2500 mcg/Sodium Chloride 250 ml @ 0 mls/hr Q24H IVLG 08/29/17 22:00 09/05/17 21:59 08/31/17 08:40 Ipratropium Elba (Atrovent) 500 mcg Q4H PRN HHN SOB and wheezing 08/28/17 20:30 09/02/17 20:29 Ipratropium Elba (Atrovent) 500 mcg Q6HRT HHN 08/29/17 01:00 09/03/17 00:59 08/31/17 12:39 Midazolam HCl (Versed 2mg/2ml vial) 1 mg Q2H PRN IVP Agitation 08/29/17 20:45 09/28/17 20:44 08/31/17 14:12 Piperacillin Sod/ Tazobactam Sod 3.375 gm/Sodium Chloride 110 ml @ 27.5 mls/hr Q8HR@0200,1000,1800 IVPB 08/31/17 18:00 09/05/17 01:59 Vancomycin HCl (Vanco rx to dose) 1 ea DAILY PRN MISC Per rx protocol 08/28/17 20:30 09/27/17 20:29 Vancomycin HCl 1 gm/Dextrose 275 ml @ 183.708 mls/hr Q24H IVPB 08/29/17 01:00 09/03/17 00:59 08/31/17 01:00 Allergies: Coded Allergies: No Known Allergies (Unverified , 08/28/17) ROS Limited/Unobtainable: Yes Subjective 87 YO M admitted with Respiratory failure. Cover for Int Med-Dr Cui. ICU. Intubated and sedated. Objective Last Vital Signs Date Time Temp Pulse Resp B/P (MAP) Pulse Ox O2 Delivery O2 Flow Rate FiO2 08/31/17 16:52 91 26 40 08/31/17 13:00 94/62 98 Mechanical Ventilator 08/31/17 12:00 97.2 08/28/17 23:50 15.0 Laboratory Tests Test 08/31/17 04:50 White Blood Count 11.1 K/UL (4.8-10.8) H Red Blood Count 3.87 M/UL (4.70-6.10) L Hemoglobin 12.4 G/DL (14.2-18.0) L Hematocrit 37.6 % (42.0-52.0) L Mean Corpuscular Volume 97 FL (80-99) Mean Corpuscular Hemoglobin 32.0 PG (27.0-31.0) H Mean Corpuscular Hemoglobin Concent 33.0 G/DL (32.0-36.0) Red Cell Distribution Width 13.8 % (11.6-14.8) Platelet Count 296 K/UL (150-450) Mean Platelet Volume 6.4 FL (6.5-10.1) L Neutrophils (%) (Auto) 84.7 % (45.0-75.0) H Lymphocytes (%) (Auto) 9.8 % (20.0-45.0) L Monocytes (%) (Auto) 5.0 % (1.0-10.0) Eosinophils (%) (Auto) 0.1 % (0.0-3.0) Basophils (%) (Auto) 0.4 % (0.0-2.0) Sodium Level 148 MMOL/L (136-145) H Potassium Level 3.2 MMOL/L (3.5-5.1) L Chloride Level 115 MMOL/L (98-107) H Carbon Dioxide Level 23 MMOL/L (21-32) Anion Gap 10 mmol/L (5-15) Blood Urea Nitrogen 33 mg/dL (7-18) H Creatinine 1.1 MG/DL (0.55-1.30) Estimat Glomerular Filtration Rate mL/min (>60) Glucose Level 166 MG/DL (74-106) H Calcium Level 7.7 MG/DL (8.5-10.1) L Total Bilirubin 0.8 MG/DL (0.2-1.0) Aspartate Amino Transf (AST/SGOT) 16 U/L (15-37) Alanine Aminotransferase (ALT/SGPT) 9 U/L (12-78) L Alkaline Phosphatase 52 U/L (46-116) Troponin I 0.050 ng/mL (0.000-0.056) Total Protein 6.6 G/DL (6.4-8.2) Albumin 2.0 G/DL (3.4-5.0) L Globulin 4.6 g/dL Albumin/Globulin Ratio 0.4 (1.0-2.7) L Microbiology Date/Time Source Procedure Growth Status 08/28/17 18:50 Blood Blood Culture - Preliminary NO GROWTH AFTER 48 HOURS Resulted 08/28/17 18:45 Blood Blood Culture - Preliminary NO GROWTH AFTER 48 HOURS Resulted 08/28/17 21:00 Nasal Nares MRSA Culture - Final NO METHICILLIN RESISTANT STAPH AUREUS... Complete 08/28/17 19:29 Urine,Clean Catch Urine Culture - Final NO GROWTH AFTER 48 HOURS Complete 08/28/17 21:00 Rectum VRE Culture - Final Enterococcus Faecalis - Vre Complete Intake and Output 08/30/17 08/31/17 19:00 07:00 Intake Total 126.25 ml 1486.250 ml Output Total 380 ml 990 ml Balance -253.75 ml 496.250 ml Intake Oral 0 ml 0 ml IV Total 126.25 ml 1486.250 ml Output Urine Total 380 ml 990 ml Objective General Appearance: cachetic, thin EENT: PERRL/EOMI, normal ENT inspection Neck: non-tender, normal alignment, supple Cardiovascular: normal peripheral pulses, no gallop/murmur, no JVD, irregularly irregular Respiratory/Chest: respiratory distress, crackles/rales, rhonchi - bilaterally , expiratory wheezing Abdomen: non tender, soft, no organomegaly, decreased bowel sounds 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 Continue levoxyl. (6) Respiratory failure Assessment & Plan: Intubated. See pulmonary note. (7) Atrial fibrillation with rapid ventricular response Assessment & Plan: D/C lopressor; start diltiazem per cardiology (8) CHF (congestive heart failure) Assessment & Plan: See cardiology note; await echocardiogram (9) Cachexia (10) Lactic acid acidosis (11) Pneumonia Assessment & Plan: See pulmonary note. Cont zosyn and vanco. Status: not improved JUAN CARLOS BENSON Aug 31, 2017 17:13
--- NOTE | 2017-08-31 18:00 | Wound Care Consultation ---
Wound Assessment Wound Assessment #1: Wound Number: 1 Wound Present on Admission: Yes New Wound: No Status Change of Wound: No Wound Location Body Site Modif: mid Wound Location Body Site: other - Sacrococcygeal Wound Type: pressure ulcer Ronaldo Test: Does not Ronaldo Pressure Ulcer Stage: Deep Tissue Injury Wound Thickness: Full Thickness Wound Length: 4.0 Wound Width: 4.0 Wound Depth: utd Percent of Wound Purple/Maroon: 100 Wound Drainage Amount: None Wound Drainage Odor: None/Absent Tissue Surrounding Wound: Erythemic Wound General Appearance: Reddened - deep red Wound Assessment #2: Wound Number: 2 Wound Present on Admission: Yes New Wound: No Status Change of Wound: No Wound Location Body Site Modif: right, lower, lateral Wound Location Body Site: leg Wound Type: vascular issue w/vascular changes Ronaldo Test: Does not Ronaldo Vascular Issues: other - open wound/possible venous stasis ulcer Wound Thickness: Full Thickness Wound Length: 3.5 Wound Width: 2.5 Wound Depth: utd Percent of Wound [place]/Red: 70 Percent of Wound Bed Yellow/Wh: 30 Wound Drainage Description: Serosanguineous Wound Drainage Amount: Scant Wound Drainage Odor: None/Absent Tissue Surrounding Wound: hemosiderin staining Wound General Appearance: Reddened Wound Assessment #3: Wound Number: 3 Wound Present on Admission: Yes New Wound: No Status Change of Wound: No Wound Location Body Site Modif: left Wound Location Body Site: heel Wound Type: pressure ulcer Ronaldo Test: Does not Ronaldo Pressure Ulcer Stage: I Wound Length: 2.5 Wound Width: 2.5 Percent of Wound [place]/Red: 100 Wound Drainage Amount: None Wound Drainage Odor: None/Absent Tissue Surrounding Wound: Intact Wound General Appearance: Reddened Wound Assessment #4: Wound Number: 4 Wound Present on Admission: Yes New Wound: No Status Change of Wound: No Wound Location Body Site Modif: left, right, lower Wound Location Body Site: leg Wound Type: other - Hemosiderin staining Ronaldo Test: Does not Ronaldo Percent of Wound Black/Brown: 100 Wound Drainage Amount: None Wound Drainage Odor: None/Absent Tissue Surrounding Wound: Intact Wound General Appearance: Asymptomatic Wound Assessment #5: Wound Number: 5 Wound Present on Admission: Yes New Wound: No Status Change of Wound: No Wound Location Body Site Modif: right Wound Location Body Site: heel Wound Type: pressure ulcer Ronaldo Test: Does not Ronaldo Wound Length: 3.0 Wound Width: 3.0 Percent of Wound [place]/Red: 100 Wound Drainage Amount: None Wound Drainage Odor: None/Absent Tissue Surrounding Wound: Erythemic Wound General Appearance: Reddened Wound Comment #1 Sacrococcygeal DTI pressure ulcer #2 Right lateral lower leg open wound/possible venous stasis ulcer #3 Left and right lower legs with hemosiderin staining #4 Left heel stage I pressure ulcer #5 Right heel stage I pressure ulcer #6 Purple/maroon discoloration on right arm Recommendation -Local wound care per protocol -Keep clean and dry -Turn and reposition -Optimize nutrition -Offload both heels -Low air loss mattress -Heel protector on both heels -Assess and f/u accordingly for any changes VIKKI ROSE RN Aug 31, 2017 18:00
--- NOTE | 2017-08-31 18:20 | Pulmonolgy Critical Care Note ---
Critical Care - Asmt/Plan Problems: (1) Respiratory failure (2) Ventilator dependence (3) Failure to thrive (4) Cachexia (5) Lactic acid acidosis (6) CHF (congestive heart failure) (7) Atrial fibrillation with rapid ventricular response (8) Aspiration pneumonia (9) HCAP (healthcare-associated pneumonia) Assessment/Plan: -Continue ICU care -Continue current vent settings -->SBT in am -Vancomycin/Zosyn, F/U Cx's - consider ID eval -Lovenox per cards -Dilt gtt per cards, F/U cards recs -Continue D5W, monitor UO, F/U renal recs -DVT Px: A/C -FC, address GOC -Needs NGT for TF's Critical Care - Objective Last 24 Hour Vital Signs Date Time Temp Pulse Resp B/P (MAP) Pulse Ox O2 Delivery O2 Flow Rate FiO2 08/31/17 16:52 91 26 40 08/31/17 16:00 40 08/31/17 14:58 75 25 40 08/31/17 13:00 80 26 94/62 98 Mechanical Ventilator 40 08/31/17 13:00 26 08/31/17 12:47 83 25 98 Mechanical Ventilator 40 08/31/17 12:39 77 26 95 Mechanical Ventilator 40 08/31/17 12:38 86 26 40 08/31/17 12:00 77 08/31/17 12:00 26 08/31/17 12:00 97.2 77 26 103/72 94 Mechanical Ventilator 40 08/31/17 12:00 40 08/31/17 11:00 26 08/31/17 11:00 66 26 82/53 99 Mechanical Ventilator 40 08/31/17 10:30 66 26 81/50 99 Mechanical Ventilator 40 08/31/17 10:30 76 22 40 08/31/17 10:00 71 26 82/57 99 Mechanical Ventilator 40 08/31/17 10:00 26 08/31/17 09:30 72 26 82/53 99 Mechanical Ventilator 40 08/31/17 09:20 97.6 08/31/17 09:00 75 26 66/47 92 Mechanical Ventilator 40 08/31/17 09:00 26 08/31/17 08:40 26 08/31/17 08:30 96 26 70/48 96 Mechanical Ventilator 40 08/31/17 08:30 95 26 40 08/31/17 08:00 129 26 116/72 93 Mechanical Ventilator 40 08/31/17 08:00 74 71/45 08/31/17 08:00 85 08/31/17 08:00 40 08/31/17 07:57 130 30 98 Mechanical Ventilator 40 08/31/17 07:48 125 30 95 Mechanical Ventilator 40 08/31/17 07:46 125 31 40 08/31/17 07:30 97.8 146 26 125/111 95 Mechanical Ventilator 40 08/31/17 07:00 26 08/31/17 07:00 78 26 83/51 98 Mechanical Ventilator 40 08/31/17 06:30 80 26 84/54 100 Mechanical Ventilator 08/31/17 06:15 87 26 75/51 94 Mechanical Ventilator 40 08/31/17 06:00 81 26 62/43 92 Mechanical Ventilator 40 08/31/17 06:00 80 81/52 08/31/17 06:00 26 08/31/17 05:45 83 26 71/42 94 Mechanical Ventilator 40 08/31/17 05:30 83 26 79/51 94 Mechanical Ventilator 40 08/31/17 05:15 88 26 74/46 93 Mechanical Ventilator 40 08/31/17 05:10 26 08/31/17 05:00 94 26 76/43 92 Mechanical Ventilator 40 08/31/17 05:00 26 08/31/17 04:51 91 28 40 08/31/17 04:45 123 26 72/44 92 Mechanical Ventilator 40 08/31/17 04:45 26 08/31/17 04:30 98.7 122 26 147/84 94 Mechanical Ventilator 40 08/31/17 04:30 26 08/31/17 04:15 152 26 143/101 93 Mechanical Ventilator 40 08/31/17 04:15 26 08/31/17 04:00 40 08/31/17 04:00 147 08/31/17 04:00 26 08/31/17 04:00 98.7 122 26 143/103 94 Mechanical Ventilator 40 08/31/17 03:30 146 26 145/74 98 Mechanical Ventilator 40 08/31/17 03:20 107 28 40 08/31/17 03:00 109 26 154/92 98 Mechanical Ventilator 40 08/31/17 03:00 26 08/31/17 02:30 82 26 103/77 98 Mechanical Ventilator 40 08/31/17 02:00 74 26 101/64 95 Mechanical Ventilator 40 08/31/17 02:00 26 08/31/17 01:30 80 26 97/58 94 Mechanical Ventilator 40 08/31/17 01:24 91 26 98 Mechanical Ventilator 40 08/31/17 01:15 89 26 95 Mechanical Ventilator 40 08/31/17 01:14 96 26 40 08/31/17 01:00 84 26 89/55 97 Mechanical Ventilator 40 08/31/17 01:00 26 08/31/17 00:30 97 26 97/61 97 Mechanical Ventilator 40 08/31/17 00:15 99.2 08/31/17 00:00 95 26 89/62 96 Mechanical Ventilator 40 08/31/17 00:00 40 08/31/17 00:00 105 90/62 08/31/17 00:00 26 08/31/17 00:00 95 08/30/17 23:00 96 26 84/48 97 Mechanical Ventilator 40 08/30/17 23:00 26 08/30/17 22:41 91 26 40 08/30/17 22:30 93 26 98/65 96 Mechanical Ventilator 40 08/30/17 22:00 87 26 94/63 96 Mechanical Ventilator 40 08/30/17 22:00 26 08/30/17 21:30 87 26 94/53 96 Mechanical Ventilator 40 08/30/17 21:09 87 26 40 08/30/17 21:00 93 26 91/60 96 Mechanical Ventilator 40 08/30/17 21:00 26 08/30/17 20:30 93 26 84/62 95 Mechanical Ventilator 40 08/30/17 20:07 92 26 40 08/30/17 20:00 40 08/30/17 20:00 26 08/30/17 20:00 98.9 93 26 97/60 95 Mechanical Ventilator 40 08/30/17 20:00 93 08/30/17 19:37 86 26 97 Mechanical Ventilator 40 08/30/17 19:30 90 26 98/65 95 Mechanical Ventilator 40 08/30/17 19:28 92 26 40 08/30/17 19:27 83 26 93 Mechanical Ventilator 40 08/30/17 19:00 86 26 90/63 93 Mechanical Ventilator 40 Status: obtunded Condition: critical HEENT: atraumatic, normocephalic Lungs: rhonchi Heart: HR/BP stable Abdomen: soft, non-tender, active bowel sounds Extremities: no C/C/E Micro: Microbiology Date/Time Source Procedure Growth Status 08/28/17 18:50 Blood Blood Culture - Preliminary NO GROWTH AFTER 48 HOURS Resulted 08/28/17 18:45 Blood Blood Culture - Preliminary NO GROWTH AFTER 48 HOURS Resulted 08/28/17 21:00 Nasal Nares MRSA Culture - Final NO METHICILLIN RESISTANT STAPH AUREUS... Complete 08/28/17 19:29 Urine,Clean Catch Urine Culture - Final NO GROWTH AFTER 48 HOURS Complete 08/28/17 21:00 Rectum VRE Culture - Final Enterococcus Faecalis - Vre Complete Blood Sugars: BS controlled Critical Care - Subjective ROS Limited/Unobtainable: Yes ICU Day: 4 Intubation Day: 4 Interval Events: Failed SBT this am Went back into AFcRVR placed back on Dilt gtt No sig secretions Needs an NGT for TF's CX NG Condition: critical IV Access: peripheral EKG Rhythm: Atrial Fibrillation FI02: 40 Vent Support Breath Rate: 26 Vent Support Mode: AC Vent Tidal Volume: 550 Sputum Amount: Small PEEP: 5.0 PIP: 26 Fluids: D5W@100 Drips: Fentalnyl & Diltiazem I&O: Intake and Output 08/30/17 08/31/17 19:00 07:00 Intake Total 126.25 ml 1486.250 ml Output Total 380 ml 990 ml Balance -253.75 ml 496.250 ml Intake Oral 0 ml 0 ml IV Total 126.25 ml 1486.250 ml Output Urine Total 380 ml 990 ml ET-Tube: 8.0 ET Position: 22 Labs: Laboratory Tests Test 08/31/17 04:50 White Blood Count 11.1 K/UL (4.8-10.8) H Red Blood Count 3.87 M/UL (4.70-6.10) L Hemoglobin 12.4 G/DL (14.2-18.0) L Hematocrit 37.6 % (42.0-52.0) L Mean Corpuscular Volume 97 FL (80-99) Mean Corpuscular Hemoglobin 32.0 PG (27.0-31.0) H Mean Corpuscular Hemoglobin Concent 33.0 G/DL (32.0-36.0) Red Cell Distribution Width 13.8 % (11.6-14.8) Platelet Count 296 K/UL (150-450) Mean Platelet Volume 6.4 FL (6.5-10.1) L Neutrophils (%) (Auto) 84.7 % (45.0-75.0) H Lymphocytes (%) (Auto) 9.8 % (20.0-45.0) L Monocytes (%) (Auto) 5.0 % (1.0-10.0) Eosinophils (%) (Auto) 0.1 % (0.0-3.0) Basophils (%) (Auto) 0.4 % (0.0-2.0) Sodium Level 148 MMOL/L (136-145) H Potassium Level 3.2 MMOL/L (3.5-5.1) L Chloride Level 115 MMOL/L (98-107) H Carbon Dioxide Level 23 MMOL/L (21-32) Anion Gap 10 mmol/L (5-15) Blood Urea Nitrogen 33 mg/dL (7-18) H Creatinine 1.1 MG/DL (0.55-1.30) Estimat Glomerular Filtration Rate mL/min (>60) Glucose Level 166 MG/DL (74-106) H Calcium Level 7.7 MG/DL (8.5-10.1) L Total Bilirubin 0.8 MG/DL (0.2-1.0) Aspartate Amino Transf (AST/SGOT) 16 U/L (15-37) Alanine Aminotransferase (ALT/SGPT) 9 U/L (12-78) L Alkaline Phosphatase 52 U/L (46-116) Troponin I 0.050 ng/mL (0.000-0.056) Total Protein 6.6 G/DL (6.4-8.2) Albumin 2.0 G/DL (3.4-5.0) L Globulin 4.6 g/dL Albumin/Globulin Ratio 0.4 (1.0-2.7) L LONNY HART M.D. Aug 31, 2017 18:20
[2017-08-31] MEDS: Piperacillin/Tazobactam 3.375 GM in NS 110 ML IVPB SCH (19:26)
[2017-09-01] VITALS (31 sets, daily range): BP systolic 64–161; BP diastolic 38–124
[2017-09-01] MEDS: Ipratropium 0.02% Inh Soln 2.5ml UD HHN SCH ×4 (01:00→19:00)
[2017-09-01] MEDS: Vancomycin 1gm/D5W 275ml IVPB SCH ×2 (01:47)
[2017-09-01] MEDS: Piperacillin/Tazobactam 3.375 GM in NS 110 ML IVPB SCH ×3 (01:48→17:16)
[2017-09-01 04:47] LABS: BASOPHILS % (AUTO) 0.2 % (0.0-2.0); EOSINOPHILS % (AUTO) 0.1 % (0.0-3.0); HEMATOCRIT 33.1 % (42.0-52.0); HEMOGLOBIN 11.3 G/DL (14.2-18.0); LYMPHOCYTES % (AUTO) 8.1 % (20.0-45.0); MEAN CORPUSCULAR VOLUME 98 FL (80-99); NEUTROPHILS % (AUTO) 84.7 % (45.0-75.0); PLATELET COUNT 218 K/UL (150-450); RED BLOOD COUNT 3.37 M/UL (4.70-6.10); RED CELL DISTRIBUTION WIDTH 14.1 % (11.6-14.8); WHITE BLOOD COUNT 13.5 K/UL (4.8-10.8)
[2017-09-01 05:06] LABS: ANION GAP 9 mmol/L (5-15); BLOOD UREA NITROGEN 27 mg/dL (7-18); CALCIUM 7.1 MG/DL (8.5-10.1); CARBON DIOXIDE 23 MMOL/L (21-32); CHLORIDE 110 MMOL/L (98-107); CREATININE 0.9 MG/DL (0.55-1.30); POTASSIUM 3.8 MMOL/L (3.5-5.1); SODIUM 142 MMOL/L (136-145)
[2017-09-01] MEDS: Midazolam 2mg/2ml Inj IVP PRN ×4 (07:54→23:43)
[2017-09-01] MEDS: Enoxaparin Sodium 300mg/3ml vial SUBQ SCH ×2 (11:04→21:53)
--- NOTE | 2017-09-01 14:03 | Cardiology Progress Note ---
Assessment/Plan Problem List: (1) Respiratory failure (2) Atrial fibrillation with rapid ventricular response (3) Aspiration pneumonia (4) Cachexia (5) Ventilator dependence Status: not improved Status Narrative Pt w/ respiratory failure, ? aspiration pneumonia and CHF. AF- chronic, w/ rates controlled on iv diltiazem WBC increasing and BP lower. Does not appear in CHF - nl LV systolic function by ECHO but severe pulm hypertension Troponin mildly elevated on admission. EKG without acute ischemic changes. Assessment/Plan Continue current medications - sc lovenox and iv diltiazem for AF ? NGT for meds, as does not appear able to be extubated. continue iv antibiotics, vent support, as per primary team. Subjective ROS Limited/Unobtainable: Yes Subjective Cardiology for Dr. Matthwe Pt intubated, not responsive Objective Last 24 Hour Vital Signs Date Time Temp Pulse Resp B/P (MAP) Pulse Ox O2 Delivery O2 Flow Rate FiO2 09/01/17 13:00 131 23 101/52 90 Mechanical Ventilator 40 09/01/17 12:49 Mechanical Ventilator 40 09/01/17 12:49 149 32 96 Mechanical Ventilator 40 09/01/17 12:46 122 31 40 09/01/17 12:00 97.8 73 26 87/50 93 Mechanical Ventilator 40 09/01/17 12:00 71 09/01/17 12:00 40 09/01/17 12:00 24 09/01/17 11:00 26 09/01/17 11:00 79 26 90/48 100 Mechanical Ventilator 40 09/01/17 10:48 66 26 40 09/01/17 10:00 63 26 93/59 95 Mechanical Ventilator 40 09/01/17 10:00 26 09/01/17 09:17 63 26 40 09/01/17 09:01 26 09/01/17 09:00 81 26 73/48 96 Mechanical Ventilator 40 09/01/17 08:00 40 09/01/17 08:00 120 09/01/17 08:00 97.8 115 26 130/72 97 Mechanical Ventilator 40 09/01/17 07:00 26 09/01/17 07:00 120 25 95/59 97 Mechanical Ventilator 40 09/01/17 06:46 128 26 96 Mechanical Ventilator 40 09/01/17 06:46 Mechanical Ventilator 40 09/01/17 06:43 128 26 40 09/01/17 06:30 145 29 102/49 94 Mechanical Ventilator 40 09/01/17 06:00 147 22 144/83 97 Mechanical Ventilator 40 09/01/17 06:00 26 09/01/17 05:34 79 28 40 09/01/17 05:30 154 23 151/124 97 Mechanical Ventilator 40 09/01/17 05:00 96 26 105/60 97 Mechanical Ventilator 40 09/01/17 05:00 22 09/01/17 04:30 67 26 85/38 98 Mechanical Ventilator 40 09/01/17 04:00 40 09/01/17 04:00 23 09/01/17 04:00 97.7 79 26 87/53 98 Mechanical Ventilator 40 09/01/17 03:49 85 09/01/17 03:32 84 26 40 09/01/17 03:00 102 26 86/52 97 Mechanical Ventilator 40 09/01/17 03:00 26 09/01/17 02:30 142 26 114/55 97 Mechanical Ventilator 40 09/01/17 02:00 21 09/01/17 02:00 151 21 125/65 94 Mechanical Ventilator 40 09/01/17 01:30 135 25 105/70 99 Mechanical Ventilator 40 09/01/17 01:26 138 30 97 Mechanical Ventilator 40 09/01/17 01:26 145 31 40 09/01/17 01:26 Mechanical Ventilator 09/01/17 01:00 136 25 139/90 99 Mechanical Ventilator 40 09/01/17 01:00 25 09/01/17 00:30 91 26 79/49 97 Mechanical Ventilator 40 09/01/17 00:15 88 26 78/58 98 Mechanical Ventilator 40 09/01/17 00:06 89 09/01/17 00:00 97.7 82 26 64/38 96 Mechanical Ventilator 40 09/01/17 00:00 26 09/01/17 00:00 40 08/31/17 23:30 92 26 67/47 96 Mechanical Ventilator 40 08/31/17 23:24 104 26 40 08/31/17 23:00 26 08/31/17 23:00 141 26 125/98 97 Mechanical Ventilator 40 08/31/17 22:30 120 26 116/73 98 Mechanical Ventilator 40 08/31/17 22:00 113 26 101/51 98 Mechanical Ventilator 40 08/31/17 22:00 26 08/31/17 21:45 110 26 112/71 99 Mechanical Ventilator 40 08/31/17 21:42 103 26 40 08/31/17 21:30 102 24 98/60 99 Mechanical Ventilator 40 08/31/17 21:15 92 26 67/40 99 Mechanical Ventilator 40 08/31/17 21:00 26 08/31/17 21:00 107 26 77/38 99 Mechanical Ventilator 40 08/31/17 20:45 132 26 99/45 99 Mechanical Ventilator 40 08/31/17 20:30 129 26 87/53 99 Mechanical Ventilator 40 08/31/17 20:15 154 26 113/78 98 Mechanical Ventilator 40 08/31/17 20:00 40 08/31/17 20:00 97.4 147 27 131/65 99 Mechanical Ventilator 40 08/31/17 20:00 27 08/31/17 19:50 Mechanical Ventilator 08/31/17 19:50 150 31 40 08/31/17 19:47 150 31 100 Mechanical Ventilator 40 08/31/17 19:45 160 26 164/111 88 Mechanical Ventilator 40 08/31/17 19:37 164 08/31/17 19:30 160 23 152/79 89 Mechanical Ventilator 40 08/31/17 19:26 155 143/67 08/31/17 19:00 23 08/31/17 19:00 160 23 143/67 88 Mechanical Ventilator 40 08/31/17 18:30 162 21 160/104 90 Mechanical Ventilator 40 08/31/17 18:00 98 25 110/90 92 Mechanical Ventilator 40 08/31/17 18:00 25 08/31/17 17:30 81 26 95/70 92 Mechanical Ventilator 40 08/31/17 17:00 26 08/31/17 17:00 81 26 98/65 94 Mechanical Ventilator 40 08/31/17 16:52 91 26 40 08/31/17 16:30 82 26 95/61 92 Mechanical Ventilator 40 08/31/17 16:00 91 08/31/17 16:00 40 08/31/17 16:00 26 08/31/17 16:00 97.9 82 26 87/61 94 Mechanical Ventilator 40 08/31/17 15:30 83 26 77/52 97 Mechanical Ventilator 40 08/31/17 15:00 26 08/31/17 15:00 86 26 78/53 98 Mechanical Ventilator 40 08/31/17 14:58 75 25 40 08/31/17 14:30 103 26 82/54 97 Mechanical Ventilator 40 08/31/17 14:00 127 26 104/88 96 Mechanical Ventilator 40 08/31/17 14:00 26 General Appearance: cachetic, on vent EENT: other - ET tube. Conj injection Neck: no JVD Rhythm: Afib Cardiovascular: normal rate, no gallop/murmur, irregularly irregular Respiratory/Chest: other - rhonchi bilat Abdomen: non tender, soft Extremities: no swelling Intake and Output 08/31/17 09/01/17 19:00 07:00 Intake Total 1625.00 ml 1544.5 ml Output Total 160 ml 205 ml Balance 1465.00 ml 1339.5 ml Intake Oral 0 ml 0 ml IV Total 1625.00 ml 1544.5 ml Output Urine Total 160 ml 205 ml Laboratory Tests Test 09/01/17 00:40 09/01/17 04:00 Vancomycin Level Trough 11.6 ug/mL (5.0-12.0) White Blood Count 13.5 K/UL (4.8-10.8) H Red Blood Count 3.37 M/UL (4.70-6.10) L Hemoglobin 11.3 G/DL (14.2-18.0) L Hematocrit 33.1 % (42.0-52.0) L Mean Corpuscular Volume 98 FL (80-99) Mean Corpuscular Hemoglobin 33.4 PG (27.0-31.0) H Mean Corpuscular Hemoglobin Concent 34.1 G/DL (32.0-36.0) Red Cell Distribution Width 14.1 % (11.6-14.8) Platelet Count 218 K/UL (150-450) Mean Platelet Volume 6.2 FL (6.5-10.1) L Neutrophils (%) (Auto) 84.7 % (45.0-75.0) H Lymphocytes (%) (Auto) 8.1 % (20.0-45.0) L Monocytes (%) (Auto) 7.0 % (1.0-10.0) Eosinophils (%) (Auto) 0.1 % (0.0-3.0) Basophils (%) (Auto) 0.2 % (0.0-2.0) Sodium Level 142 MMOL/L (136-145) Potassium Level 3.8 MMOL/L (3.5-5.1) Chloride Level 110 MMOL/L (98-107) H Carbon Dioxide Level 23 MMOL/L (21-32) Anion Gap 9 mmol/L (5-15) Blood Urea Nitrogen 27 mg/dL (7-18) H Creatinine 0.9 MG/DL (0.55-1.30) Estimat Glomerular Filtration Rate mL/min (>60) Glucose Level 119 MG/DL (74-106) H Calcium Level 7.1 MG/DL (8.5-10.1) TAMY LEMUS Sep 01, 2017 14:03
[2017-09-01] MEDS: fentaNYL Citrate 2,500 MCG in NS 200 ML IVLG SCH (14:28)
--- NOTE | 2017-09-01 14:50 | Internal Med Progress Note ---
Subjective Date of Service: Sep 01, 2017 Physician Name Neil Benson Attending Physician Davey Cui MD Current Medications Medications (Trade) Dose Ordered Sig/Hill Route PRN Reason Start Time Stop Time Status Last Admin Dose Admin Dextrose 1,000 ml @ 100 mls/hr Q10H IV 08/30/17 20:00 09/29/17 19:59 09/01/17 11:05 Diltiazem HCl 125 mg/Dextrose 125 ml @ 0 mls/hr Q24H IV 09/01/17 15:00 09/04/17 14:59 Enoxaparin Sodium (Lovenox) 50 mg EVERY 12 HOURS SUBQ 08/29/17 09:00 09/28/17 08:59 09/01/17 11:04 Fentanyl Citrate 2500 mcg/Sodium Chloride 250 ml @ 0 mls/hr Q24H IVLG 08/29/17 22:00 09/05/17 21:59 09/01/17 14:28 Ipratropium [place] (Atrovent) 500 mcg Q4H PRN HHN SOB and wheezing 08/28/17 20:30 09/02/17 20:29 Ipratropium [place] (Atrovent) 500 mcg Q6HRT HHN 08/29/17 01:00 09/03/17 00:59 08/31/17 19:47 Midazolam HCl (Versed 2mg/2ml vial) 1 mg Q2H PRN IVP Agitation 08/29/17 20:45 09/28/17 20:44 09/01/17 13:05 Piperacillin Sod/ Tazobactam Sod 3.375 gm/Sodium Chloride 110 ml @ 27.5 mls/hr Q8HR@0200,1000,1800 IVPB 08/31/17 18:00 09/05/17 01:59 09/01/17 09:01 Vancomycin HCl (Vanco rx to dose) 1 ea DAILY PRN MISC Per rx protocol 08/28/17 20:30 09/27/17 20:29 Vancomycin HCl 1 gm/Dextrose 275 ml @ 183.708 mls/hr Q24H IVPB 08/29/17 01:00 09/03/17 00:59 09/01/17 01:47 Allergies: Coded Allergies: No Known Allergies (Unverified , 08/28/17) ROS Limited/Unobtainable: Yes Subjective 87 YO M admitted with Respiratory failure. Cover for Int Jas-Dr Cui. ICU. Intubated and sedated. Objective Last Vital Signs Date Time Temp Pulse Resp B/P (MAP) Pulse Ox O2 Delivery O2 Flow Rate FiO2 09/01/17 14:28 26 09/01/17 14:00 85 106/59 100 Mechanical Ventilator 40 09/01/17 12:00 97.8 08/28/17 23:50 15.0 Laboratory Tests Test 09/01/17 00:40 09/01/17 04:00 Vancomycin Level Trough 11.6 ug/mL (5.0-12.0) White Blood Count 13.5 K/UL (4.8-10.8) H Red Blood Count 3.37 M/UL (4.70-6.10) L Hemoglobin 11.3 G/DL (14.2-18.0) L Hematocrit 33.1 % (42.0-52.0) L Mean Corpuscular Volume 98 FL (80-99) Mean Corpuscular Hemoglobin 33.4 PG (27.0-31.0) H Mean Corpuscular Hemoglobin Concent 34.1 G/DL (32.0-36.0) Red Cell Distribution Width 14.1 % (11.6-14.8) Platelet Count 218 K/UL (150-450) Mean Platelet Volume 6.2 FL (6.5-10.1) L Neutrophils (%) (Auto) 84.7 % (45.0-75.0) H Lymphocytes (%) (Auto) 8.1 % (20.0-45.0) L Monocytes (%) (Auto) 7.0 % (1.0-10.0) Eosinophils (%) (Auto) 0.1 % (0.0-3.0) Basophils (%) (Auto) 0.2 % (0.0-2.0) Sodium Level 142 MMOL/L (136-145) Potassium Level 3.8 MMOL/L (3.5-5.1) Chloride Level 110 MMOL/L (98-107) H Carbon Dioxide Level 23 MMOL/L (21-32) Anion Gap 9 mmol/L (5-15) Blood Urea Nitrogen 27 mg/dL (7-18) H Creatinine 0.9 MG/DL (0.55-1.30) Estimat Glomerular Filtration Rate mL/min (>60) Glucose Level 119 MG/DL (74-106) H Calcium Level 7.1 MG/DL (8.5-10.1) L Intake and Output 08/31/17 09/01/17 19:00 07:00 Intake Total 1625.00 ml 1544.5 ml Output Total 160 ml 205 ml Balance 1465.00 ml 1339.5 ml Intake Oral 0 ml 0 ml IV Total 1625.00 ml 1544.5 ml Output Urine Total 160 ml 205 ml Objective General Appearance: cachetic, thin EENT: PERRL/EOMI, normal ENT inspection Neck: non-tender, normal alignment, supple Cardiovascular: normal peripheral pulses, no gallop/murmur, no JVD, irregularly irregular Respiratory/Chest: respiratory distress, crackles/rales, rhonchi - bilaterally , expiratory wheezing Abdomen: non tender, soft, no organomegaly, decreased bowel sounds Neurologic: strip roller II-XII grossly normal Skin: normal pigmentation, warm/dry Assessment/Plan Problem List: (1) HTN (hypertension) Assessment & Plan: Continue lopressor (2) Encephalopathy (3) Alzheimer's dementia (4) BPH (benign prostatic hyperplasia) (5) Hypothyroidism Assessment & Plan: TSH normal. Continue levoxyl. (6) Respiratory failure Assessment & Plan: Intubated. See pulmonary note. (7) Atrial fibrillation with rapid ventricular response Assessment & Plan: Continue IV diltiazem per cardiology (8) CHF (congestive heart failure) Assessment & Plan: See cardiology note; await echocardiogram (9) Cachexia (10) Lactic acid acidosis (11) Pneumonia Assessment & Plan: See pulmonary note. Cont zosyn and vanco. (12) Dysphagia Assessment & Plan: Place NG tube; nutrition consult. Status: not improved NEIL BENSON Sep 01, 2017 14:50
--- NOTE | 2017-09-01 18:52 | Pulmonolgy Critical Care Note ---
Critical Care - Asmt/Plan Assessment/Plan: (1) Respiratory failure (2) Ventilator dependence (3) Failure to thrive (4) Cachexia (5) Lactic acid acidosis (6) CHF (congestive heart failure) (7) Atrial fibrillation with rapid ventricular response (8) Aspiration pneumonia (9) HCAP (healthcare-associated pneumonia) Assessment/Plan: -Continue ICU care -Continue current vent settings -->unable to wean today, will try again in am check cxr prn nebs pressors for MAP less than 65 mmhg wound care -Vancomycin/Zosyn, F/U Cx's - consider ID eval -Lovenox per cards -Dilt gtt per cards, F/U cards recs -Continue D5W, monitor UO, F/U renal recs -DVT Px: A/C -FC, address GOC -Needs NGT for TF's Respiratory: CXR, ABG Cardiac: start pressors Endocrine: monitor blood sugar Prophylaxis: Protonix Disposition: keep in ICU Time Spent (Minutes): 50 Critical Care - Objective Last 24 Hour Vital Signs Date Time Temp Pulse Resp B/P (MAP) Pulse Ox O2 Delivery O2 Flow Rate FiO2 09/01/17 18:00 66 26 84/59 98 Mechanical Ventilator 40 09/01/17 18:00 26 09/01/17 17:00 26 09/01/17 17:00 66 21 85/54 95 Mechanical Ventilator 40 09/01/17 16:50 76 26 40 09/01/17 16:00 98.2 106 26 145/85 95 Mechanical Ventilator 40 09/01/17 16:00 108 09/01/17 16:00 26 09/01/17 16:00 40 09/01/17 15:53 138 154/85 09/01/17 15:00 26 09/01/17 15:00 101 21 150/90 93 Mechanical Ventilator 40 09/01/17 14:58 97.8 09/01/17 14:54 77 26 40 09/01/17 14:28 26 09/01/17 14:00 26 09/01/17 14:00 85 23 106/59 100 Mechanical Ventilator 40 09/01/17 13:00 131 23 101/52 90 Mechanical Ventilator 40 09/01/17 13:00 26 09/01/17 12:49 Mechanical Ventilator 40 09/01/17 12:49 149 32 96 Mechanical Ventilator 40 09/01/17 12:46 122 31 40 09/01/17 12:00 97.8 73 26 87/50 93 Mechanical Ventilator 40 09/01/17 12:00 71 09/01/17 12:00 40 09/01/17 12:00 24 09/01/17 11:00 26 09/01/17 11:00 79 26 90/48 100 Mechanical Ventilator 40 09/01/17 10:48 66 26 40 09/01/17 10:00 63 26 93/59 95 Mechanical Ventilator 40 09/01/17 10:00 26 09/01/17 09:17 63 26 40 09/01/17 09:01 26 09/01/17 09:00 81 26 73/48 96 Mechanical Ventilator 40 09/01/17 08:00 40 09/01/17 08:00 120 09/01/17 08:00 97.8 115 26 130/72 97 Mechanical Ventilator 40 09/01/17 07:00 26 09/01/17 07:00 120 25 95/59 97 Mechanical Ventilator 40 09/01/17 06:46 128 26 96 Mechanical Ventilator 40 09/01/17 06:46 Mechanical Ventilator 40 09/01/17 06:43 128 26 40 09/01/17 06:30 145 29 102/49 94 Mechanical Ventilator 40 09/01/17 06:00 147 22 144/83 97 Mechanical Ventilator 40 09/01/17 06:00 26 09/01/17 05:34 79 28 40 09/01/17 05:30 154 23 151/124 97 Mechanical Ventilator 40 09/01/17 05:00 96 26 105/60 97 Mechanical Ventilator 40 09/01/17 05:00 22 09/01/17 04:30 67 26 85/38 98 Mechanical Ventilator 40 09/01/17 04:00 40 09/01/17 04:00 23 09/01/17 04:00 97.7 79 26 87/53 98 Mechanical Ventilator 40 09/01/17 03:49 85 09/01/17 03:32 84 26 40 09/01/17 03:00 102 26 86/52 97 Mechanical Ventilator 40 09/01/17 03:00 26 09/01/17 02:30 142 26 114/55 97 Mechanical Ventilator 40 09/01/17 02:00 21 09/01/17 02:00 151 21 125/65 94 Mechanical Ventilator 40 09/01/17 01:30 135 25 105/70 99 Mechanical Ventilator 40 09/01/17 01:26 138 30 97 Mechanical Ventilator 40 09/01/17 01:26 145 31 40 09/01/17 01:26 Mechanical Ventilator 09/01/17 01:00 136 25 139/90 99 Mechanical Ventilator 40 09/01/17 01:00 25 09/01/17 00:30 91 26 79/49 97 Mechanical Ventilator 40 09/01/17 00:15 88 26 78/58 98 Mechanical Ventilator 40 09/01/17 00:06 89 09/01/17 00:00 97.7 82 26 64/38 96 Mechanical Ventilator 40 09/01/17 00:00 26 09/01/17 00:00 40 08/31/17 23:30 92 26 67/47 96 Mechanical Ventilator 40 08/31/17 23:24 104 26 40 08/31/17 23:00 26 08/31/17 23:00 141 26 125/98 97 Mechanical Ventilator 40 08/31/17 22:30 120 26 116/73 98 Mechanical Ventilator 40 08/31/17 22:00 113 26 101/51 98 Mechanical Ventilator 40 08/31/17 22:00 26 08/31/17 21:45 110 26 112/71 99 Mechanical Ventilator 40 08/31/17 21:42 103 26 40 08/31/17 21:30 102 24 98/60 99 Mechanical Ventilator 40 08/31/17 21:15 92 26 67/40 99 Mechanical Ventilator 40 08/31/17 21:00 26 08/31/17 21:00 107 26 77/38 99 Mechanical Ventilator 40 08/31/17 20:45 132 26 99/45 99 Mechanical Ventilator 40 08/31/17 20:30 129 26 87/53 99 Mechanical Ventilator 40 08/31/17 20:15 154 26 113/78 98 Mechanical Ventilator 40 08/31/17 20:00 40 08/31/17 20:00 97.4 147 27 131/65 99 Mechanical Ventilator 40 08/31/17 20:00 27 08/31/17 19:50 Mechanical Ventilator 08/31/17 19:50 150 31 40 08/31/17 19:47 150 31 100 Mechanical Ventilator 40 08/31/17 19:45 160 26 164/111 88 Mechanical Ventilator 40 08/31/17 19:37 164 08/31/17 19:30 160 23 152/79 89 Mechanical Ventilator 40 08/31/17 19:26 155 143/67 08/31/17 19:00 23 08/31/17 19:00 160 23 143/67 88 Mechanical Ventilator 40 Status: somnolent, obtunded Condition: critical Lungs: rhonchi Heart: HR/BP unstable, regular Abdomen: non-tender, active bowel sounds Extremities: no C/C/E Decubiti: stage Critical Care - Subjective ROS Limited/Unobtainable: Yes FI02: 40 Vent Support Breath Rate: 26 Vent Support Mode: AC Vent Tidal Volume: 550 Sputum Amount: Scant PEEP: 5.0 PIP: 28 I&O: Intake and Output 08/31/17 09/01/17 19:00 07:00 Intake Total 1625.00 ml 1544.5 ml Output Total 160 ml 205 ml Balance 1465.00 ml 1339.5 ml Intake Oral 0 ml 0 ml IV Total 1625.00 ml 1544.5 ml Output Urine Total 160 ml 205 ml Subjective: obtudned on the vent hypotensive at this time on TF no fever noted positive uop CXR: no new cxr ET-Tube: 8.0 ET Position: 22 Labs: Laboratory Tests Test 09/01/17 00:40 09/01/17 04:00 Vancomycin Level Trough 11.6 ug/mL (5.0-12.0) White Blood Count 13.5 K/UL (4.8-10.8) H Red Blood Count 3.37 M/UL (4.70-6.10) L Hemoglobin 11.3 G/DL (14.2-18.0) L Hematocrit 33.1 % (42.0-52.0) L Mean Corpuscular Volume 98 FL (80-99) Mean Corpuscular Hemoglobin 33.4 PG (27.0-31.0) H Mean Corpuscular Hemoglobin Concent 34.1 G/DL (32.0-36.0) Red Cell Distribution Width 14.1 % (11.6-14.8) Platelet Count 218 K/UL (150-450) Mean Platelet Volume 6.2 FL (6.5-10.1) L Neutrophils (%) (Auto) 84.7 % (45.0-75.0) H Lymphocytes (%) (Auto) 8.1 % (20.0-45.0) L Monocytes (%) (Auto) 7.0 % (1.0-10.0) Eosinophils (%) (Auto) 0.1 % (0.0-3.0) Basophils (%) (Auto) 0.2 % (0.0-2.0) Sodium Level 142 MMOL/L (136-145) Potassium Level 3.8 MMOL/L (3.5-5.1) Chloride Level 110 MMOL/L (98-107) H Carbon Dioxide Level 23 MMOL/L (21-32) Anion Gap 9 mmol/L (5-15) Blood Urea Nitrogen 27 mg/dL (7-18) H Creatinine 0.9 MG/DL (0.55-1.30) Estimat Glomerular Filtration Rate mL/min (>60) Glucose Level 119 MG/DL (74-106) H Calcium Level 7.1 MG/DL (8.5-10.1) L Current Medications Medications (Trade) Dose Ordered Sig/Hill Route PRN Reason Start Time Stop Time Status Last Admin Dose Admin Dextrose 1,000 ml @ 100 mls/hr Q10H IV 08/30/17 20:00 09/29/17 19:59 09/01/17 11:05 Diltiazem HCl 125 mg/Dextrose 125 ml @ 0 mls/hr Q24H IV 09/01/17 15:00 09/04/17 14:59 09/01/17 15:53 Enoxaparin Sodium (Lovenox) 50 mg EVERY 12 HOURS SUBQ 08/29/17 09:00 09/28/17 08:59 09/01/17 11:04 Fentanyl Citrate 2500 mcg/Sodium Chloride 250 ml @ 0 mls/hr Q24H IVLG 08/29/17 22:00 09/05/17 21:59 09/01/17 14:28 Ipratropium Haslett (Atrovent) 500 mcg Q4H PRN HHN SOB and wheezing 08/28/17 20:30 09/02/17 20:29 Ipratropium Haslett (Atrovent) 500 mcg Q6HRT HHN 08/29/17 01:00 09/03/17 00:59 08/31/17 19:47 Midazolam HCl (Versed 2mg/2ml vial) 1 mg Q2H PRN IVP Agitation 08/29/17 20:45 09/28/17 20:44 09/01/17 16:07 Piperacillin Sod/ Tazobactam Sod 3.375 gm/Sodium Chloride 110 ml @ 27.5 mls/hr Q8HR@0200,1000,1800 IVPB 08/31/17 18:00 09/05/17 01:59 09/01/17 17:16 Vancomycin HCl (Vanco rx to dose) 1 ea DAILY PRN MISC Per rx protocol 08/28/17 20:30 09/27/17 20:29 Vancomycin HCl 1 gm/Dextrose 275 ml @ 183.708 mls/hr Q24H IVPB 08/29/17 01:00 09/03/17 00:59 09/01/17 01:47 MAROI BARON DO Sep 01, 2017 18:52
[2017-09-02] VITALS (33 sets, daily range): BP systolic 87–154; BP diastolic 47–98
[2017-09-02] MEDS: Vancomycin 1gm/D5W 275ml IVPB SCH ×2 (01:19)
[2017-09-02] MEDS: Ipratropium 0.02% Inh Soln 2.5ml UD HHN SCH ×4 (02:07→19:00)
[2017-09-02] MEDS: Piperacillin/Tazobactam 3.375 GM in NS 110 ML IVPB SCH ×3 (02:21→17:51)
[2017-09-02] MEDS: Midazolam 2mg/2ml Inj IVP PRN ×3 (03:36→13:20)
[2017-09-02 04:46] LABS: BASOPHILS % (AUTO) 0.3 % (0.0-2.0); EOSINOPHILS % (AUTO) 0.3 % (0.0-3.0); HEMATOCRIT 34.5 % (42.0-52.0); HEMOGLOBIN 11.7 G/DL (14.2-18.0); LYMPHOCYTES % (AUTO) 10.9 % (20.0-45.0); MEAN CORPUSCULAR VOLUME 95 FL (80-99); MONOCYTES % (AUTO) 6.1 % (1.0-10.0); NEUTROPHILS % (AUTO) 82.5 % (45.0-75.0); PLATELET COUNT 232 K/UL (150-450); RED BLOOD COUNT 3.64 M/UL (4.70-6.10); RED CELL DISTRIBUTION WIDTH 13.5 % (11.6-14.8); WHITE BLOOD COUNT 12.9 K/UL (4.8-10.8)
[2017-09-02 05:34] LABS: ALANINE AMINOTRANSFERASE 7 U/L (12-78); ALBUMIN 1.9 G/DL (3.4-5.0); ALBUMIN/GLOBULIN RATIO 0.5 (1.0-2.7); ALKALINE PHOSPHATASE 44 U/L (46-116); ANION GAP 7 mmol/L (5-15); ASPARTATE AMINO TRANSFERASE 16 U/L (15-37); BILIRUBIN,TOTAL 0.7 MG/DL (0.2-1.0); BLOOD UREA NITROGEN 1 mg/dL (7-18); CALCIUM 6.7 MG/DL (8.5-10.1); CARBON DIOXIDE 25 MMOL/L (21-32); CHLORIDE 106 MMOL/L (98-107); CREATININE 0.8 MG/DL (0.55-1.30); POTASSIUM 2.8 MMOL/L (3.5-5.1); SODIUM 137 MMOL/L (136-145)
[2017-09-02] MEDS ORDERED: Potassium Chloride 40 MEQ in Sodium Chloride 500ML 550 ML IVPB ONE ×2 (08:30→10:30)
[2017-09-02] MEDS: Enoxaparin Sodium 300mg/3ml vial SUBQ SCH ×2 (09:31→21:05)
--- NOTE | 2017-09-02 13:15 | Diagnostic Imaging Report ---
Indication: Dyspnea Technique: XRAY Chest 1v Comparison: 08/28/2017 Findings: Endotracheal tube remains in place, tip above the level of the diana. Heart size and mediastinal contours are stable. There is interval worsening of aeration with increased interstitial opacification/edema and perihilar airspace opacities. There is increased retrocardiac/left basilar atelectasis/consolidation. Probable small layering left pleural effusion. No definite pneumothorax. Biapical pleural parenchymal scarring. Calcified nodule in the right apex consistent with findings of prior CT angiogram the chest. Impression: Interval worsening of aeration with increased interstitial opacification/edema and worsening left basilar/retrocardiac atelectasis/consolidation.
--- NOTE | 2017-09-02 13:25 | Internal Med Progress Note ---
Subjective Date of Service: Sep 02, 2017 Physician Name Benson,Neil Attending Physician Davey Cui MD Current Medications Medications (Trade) Dose Ordered Sig/Hill Route PRN Reason Start Time Stop Time Status Last Admin Dose Admin Dextrose 1,000 ml @ 100 mls/hr Q10H IV 08/30/17 20:00 09/29/17 19:59 09/02/17 05:04 Diltiazem HCl 125 mg/Dextrose 125 ml @ 0 mls/hr Q24H IV 09/01/17 15:00 09/04/17 14:59 09/01/17 15:53 Enoxaparin Sodium (Lovenox) 50 mg EVERY 12 HOURS SUBQ 08/29/17 09:00 09/28/17 08:59 09/02/17 09:31 Fentanyl Citrate 2500 mcg/Sodium Chloride 250 ml @ 0 mls/hr Q24H IVLG 08/29/17 22:00 09/05/17 21:59 09/01/17 14:28 Ipratropium Motley (Atrovent) 500 mcg Q4H PRN HHN SOB and wheezing 08/28/17 20:30 09/02/17 20:29 Ipratropium Motley (Atrovent) 500 mcg Q6HRT HHN 08/29/17 01:00 09/03/17 00:59 09/02/17 06:45 Midazolam HCl (Versed 2mg/2ml vial) 1 mg Q2H PRN IVP Agitation 08/29/17 20:45 09/28/17 20:44 09/02/17 13:20 Piperacillin Sod/ Tazobactam Sod 3.375 gm/Sodium Chloride 110 ml @ 27.5 mls/hr Q8HR@0200,1000,1800 IVPB 08/31/17 18:00 09/05/17 01:59 09/02/17 09:32 Potassium Chloride 40 meq/ Sodium Chloride 570 ml @ 142.5 mls/ hr ONCE ONCE IVPB 09/02/17 10:30 09/02/17 14:29 09/02/17 10:27 Vancomycin HCl (Vanco rx to dose) 1 ea DAILY PRN MISC Per rx protocol 08/28/17 20:30 09/27/17 20:29 Vancomycin HCl 1 gm/Dextrose 275 ml @ 183.708 mls/hr Q24H IVPB 08/29/17 01:00 09/03/17 00:59 09/02/17 01:19 Allergies: Coded Allergies: No Known Allergies (Unverified , 08/28/17) ROS Limited/Unobtainable: Yes Subjective 87 YO M admitted with Respiratory failure. Cover for Cash Cui. ICU. Intubated and sedated. Objective Last Vital Signs Date Time Temp Pulse Resp B/P (MAP) Pulse Ox O2 Delivery O2 Flow Rate FiO2 09/02/17 12:00 98 24 99/66 94 Mechanical Ventilator 40 09/02/17 08:00 98.7 08/28/17 23:50 15.0 Laboratory Tests Test 09/02/17 03:40 White Blood Count 12.9 K/UL (4.8-10.8) H Red Blood Count 3.64 M/UL (4.70-6.10) L Hemoglobin 11.7 G/DL (14.2-18.0) L Hematocrit 34.5 % (42.0-52.0) L Mean Corpuscular Volume 95 FL (80-99) Mean Corpuscular Hemoglobin 32.1 PG (27.0-31.0) H Mean Corpuscular Hemoglobin Concent 33.8 G/DL (32.0-36.0) Red Cell Distribution Width 13.5 % (11.6-14.8) Platelet Count 232 K/UL (150-450) Mean Platelet Volume 6.7 FL (6.5-10.1) Neutrophils (%) (Auto) 82.5 % (45.0-75.0) H Lymphocytes (%) (Auto) 10.9 % (20.0-45.0) L Monocytes (%) (Auto) 6.1 % (1.0-10.0) Eosinophils (%) (Auto) 0.3 % (0.0-3.0) Basophils (%) (Auto) 0.3 % (0.0-2.0) Sodium Level 137 MMOL/L (136-145) Potassium Level 2.8 MMOL/L (3.5-5.1) L Chloride Level 106 MMOL/L (98-107) Carbon Dioxide Level 25 MMOL/L (21-32) Anion Gap 7 mmol/L (5-15) Blood Urea Nitrogen 1 mg/dL (7-18) L Creatinine 0.8 MG/DL (0.55-1.30) Estimat Glomerular Filtration Rate mL/min (>60) Glucose Level 97 MG/DL (74-106) Calcium Level 6.7 MG/DL (8.5-10.1) L Total Bilirubin 0.7 MG/DL (0.2-1.0) Aspartate Amino Transf (AST/SGOT) 16 U/L (15-37) Alanine Aminotransferase (ALT/SGPT) 7 U/L (12-78) L Alkaline Phosphatase 44 U/L (46-116) L Total Protein 6.0 G/DL (6.4-8.2) L Albumin 1.9 G/DL (3.4-5.0) L Globulin 4.1 g/dL Albumin/Globulin Ratio 0.5 (1.0-2.7) L Intake and Output 09/01/17 09/02/17 19:00 07:00 Intake Total 1433.0 ml 1736.208 ml Output Total 1290 ml 1400 ml Balance 143.0 ml 336.208 ml Intake Oral 0 ml 0 ml IV Total 1433.0 ml 1736.208 ml Output Urine Total 1290 ml 1400 ml Objective General Appearance: cachetic, thin EENT: PERRL/EOMI, normal ENT inspection Neck: non-tender, normal alignment, supple Cardiovascular: normal peripheral pulses, no gallop/murmur, no JVD, irregularly irregular Respiratory/Chest: respiratory distress, crackles/rales, rhonchi - bilaterally , expiratory wheezing Abdomen: non tender, soft, no organomegaly, decreased bowel sounds 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 Continue levoxyl. (6) Respiratory failure Assessment & Plan: Intubated. See pulmonary note. (7) Atrial fibrillation with rapid ventricular response Assessment & Plan: Continue IV diltiazem per cardiology (8) CHF (congestive heart failure) Assessment & Plan: See cardiology note; await echocardiogram (9) Cachexia (10) Lactic acid acidosis (11) Pneumonia Assessment & Plan: See pulmonary note. Cont zosyn and vanco. (12) Dysphagia Assessment & Plan: Place NG tube; nutrition consult. (13) Hypokalemia Assessment & Plan: Replace KCL Status: not improved NEIL BENSON Sep 02, 2017 13:25
--- NOTE | 2017-09-02 13:32 | Cardiology Progress Note ---
Assessment/Plan Problem List: (1) Respiratory failure (2) Atrial fibrillation with rapid ventricular response (3) Aspiration pneumonia (4) Cachexia (5) Ventilator dependence Status: stable, unchanged Status Narrative Pt w/ respiratory failure, ? aspiration pneumonia and CHF. AF- chronic, w/elevated ventricular rates . On iv diltiazem Nl LV systolic function by ECHO but severe pulm hypertension Troponin mildly elevated on admission. EKG without acute ischemic changes. Hypokalemia Assessment/Plan Continue current medications - sc lovenox and iv diltiazem for AF Supplement K Monitor fluid status ,i/os. Keep fluid balance appx even continue iv antibiotics, vent support. Will likely need trach/ PEG Subjective ROS Limited/Unobtainable: Yes Subjective Cardiology for Dr. Matthew Pt intubated, minimally responsive Objective Last 24 Hour Vital Signs Date Time Temp Pulse Resp B/P (MAP) Pulse Ox O2 Delivery O2 Flow Rate FiO2 09/02/17 13:00 26 09/02/17 12:00 98 24 99/66 94 Mechanical Ventilator 40 09/02/17 12:00 98 09/02/17 12:00 21 09/02/17 12:00 40 09/02/17 11:00 120 25 140/98 99 Mechanical Ventilator 40 09/02/17 11:00 20 09/02/17 10:47 100 26 40 09/02/17 10:00 109 20 125/94 93 Mechanical Ventilator 40 09/02/17 10:00 26 09/02/17 09:10 127 30 40 09/02/17 09:00 137 29 144/55 96 Mechanical Ventilator 40 09/02/17 08:00 40 09/02/17 08:00 26 09/02/17 08:00 98.7 152 19 129/90 97 Mechanical Ventilator 40 09/02/17 08:00 63 09/02/17 07:03 118 27 98 Mechanical Ventilator 40 09/02/17 07:02 108 34 98 Mechanical Ventilator 40 09/02/17 07:00 29 09/02/17 07:00 107 26 124/81 96 Mechanical Ventilator 40 09/02/17 06:48 109 26 40 09/02/17 06:00 26 09/02/17 06:00 64 26 96/54 98 Mechanical Ventilator 40 09/02/17 05:30 82 26 40 09/02/17 05:00 80 26 124/74 96 Mechanical Ventilator 40 09/02/17 05:00 26 09/02/17 04:00 81 09/02/17 04:00 98.7 81 26 92/47 98 Mechanical Ventilator 40 09/02/17 04:00 40 09/02/17 04:00 26 09/02/17 03:30 88 26 40 09/02/17 03:00 115 26 146/93 96 Mechanical Ventilator 40 09/02/17 03:00 26 09/02/17 02:00 26 09/02/17 02:00 71 26 106/62 96 Mechanical Ventilator 40 09/02/17 02:00 104 27 97 Mechanical Ventilator 40 09/02/17 01:45 99 34 94 Mechanical Ventilator 40 09/02/17 01:30 96 28 40 09/02/17 01:00 62 26 97/52 98 Mechanical Ventilator 40 09/02/17 01:00 26 09/02/17 00:00 99.5 87 26 93/62 93 Mechanical Ventilator 40 09/02/17 00:00 26 09/02/17 00:00 40 09/01/17 23:30 140 30 40 09/01/17 23:00 113 26 161/65 94 Mechanical Ventilator 40 09/01/17 23:00 26 09/01/17 22:00 75 23 91/51 96 Mechanical Ventilator 40 09/01/17 22:00 23 09/01/17 21:00 114 21 112/87 97 Mechanical Ventilator 40 09/01/17 21:00 21 09/01/17 20:44 128 30 40 09/01/17 20:00 98.9 114 23 150/99 95 Mechanical Ventilator 40 09/01/17 20:00 114 09/01/17 20:00 23 09/01/17 20:00 40 09/01/17 19:30 132 29 40 09/01/17 19:00 133 31 92 Mechanical Ventilator 40 09/01/17 19:00 Mechanical Ventilator 09/01/17 19:00 94 20 84/52 98 Mechanical Ventilator 40 09/01/17 19:00 24 09/01/17 18:00 66 26 84/59 98 Mechanical Ventilator 40 09/01/17 18:00 26 09/01/17 17:00 26 09/01/17 17:00 66 21 85/54 95 Mechanical Ventilator 40 09/01/17 16:50 76 26 40 09/01/17 16:00 98.2 106 26 145/85 95 Mechanical Ventilator 40 09/01/17 16:00 108 09/01/17 16:00 26 09/01/17 16:00 40 09/01/17 15:53 138 154/85 09/01/17 15:00 26 09/01/17 15:00 101 21 150/90 93 Mechanical Ventilator 40 09/01/17 14:58 97.8 09/01/17 14:54 77 26 40 09/01/17 14:28 26 09/01/17 14:00 26 09/01/17 14:00 85 23 106/59 100 Mechanical Ventilator 40 General Appearance: cachetic, on vent EENT: PERRL/EOMI, other - conj injection. ET tube in place Neck: supple, no JVD Rhythm: Afib Cardiovascular: no gallop/murmur, tachycardia, irregularly irregular Respiratory/Chest: other - clear anteriorly Abdomen: non tender, soft Extremities: no swelling Intake and Output 09/01/17 09/02/17 19:00 07:00 Intake Total 1433.0 ml 1736.208 ml Output Total 1290 ml 1400 ml Balance 143.0 ml 336.208 ml Intake Oral 0 ml 0 ml IV Total 1433.0 ml 1736.208 ml Output Urine Total 1290 ml 1400 ml Laboratory Tests Test 09/02/17 03:40 White Blood Count 12.9 K/UL (4.8-10.8) H Red Blood Count 3.64 M/UL (4.70-6.10) L Hemoglobin 11.7 G/DL (14.2-18.0) L Hematocrit 34.5 % (42.0-52.0) L Mean Corpuscular Volume 95 FL (80-99) Mean Corpuscular Hemoglobin 32.1 PG (27.0-31.0) H Mean Corpuscular Hemoglobin Concent 33.8 G/DL (32.0-36.0) Red Cell Distribution Width 13.5 % (11.6-14.8) Platelet Count 232 K/UL (150-450) Mean Platelet Volume 6.7 FL (6.5-10.1) Neutrophils (%) (Auto) 82.5 % (45.0-75.0) H Lymphocytes (%) (Auto) 10.9 % (20.0-45.0) L Monocytes (%) (Auto) 6.1 % (1.0-10.0) Eosinophils (%) (Auto) 0.3 % (0.0-3.0) Basophils (%) (Auto) 0.3 % (0.0-2.0) Sodium Level 137 MMOL/L (136-145) Potassium Level 2.8 MMOL/L (3.5-5.1) L Chloride Level 106 MMOL/L (98-107) Carbon Dioxide Level 25 MMOL/L (21-32) Anion Gap 7 mmol/L (5-15) Blood Urea Nitrogen 1 mg/dL (7-18) L Creatinine 0.8 MG/DL (0.55-1.30) Estimat Glomerular Filtration Rate mL/min (>60) Glucose Level 97 MG/DL (74-106) Calcium Level 6.7 MG/DL (8.5-10.1) L Total Bilirubin 0.7 MG/DL (0.2-1.0) Aspartate Amino Transf (AST/SGOT) 16 U/L (15-37) Alanine Aminotransferase (ALT/SGPT) 7 U/L (12-78) L Alkaline Phosphatase 44 U/L (46-116) L Total Protein 6.0 G/DL (6.4-8.2) L Albumin 1.9 G/DL (3.4-5.0) L Globulin 4.1 g/dL Albumin/Globulin Ratio 0.5 (1.0-2.7) L TAMY DIALLO Sep 02, 2017 13:32
[2017-09-02 16:22] LABS: ANION GAP 9 mmol/L (5-15); BLOOD UREA NITROGEN 9 mg/dL (7-18); CALCIUM 6.8 MG/DL (8.5-10.1); CARBON DIOXIDE 23 MMOL/L (21-32); CHLORIDE 108 MMOL/L (98-107); CREATININE 0.7 MG/DL (0.55-1.30); POTASSIUM 3.3 MMOL/L (3.5-5.1); SODIUM 140 MMOL/L (136-145)
[2017-09-02] MEDS ORDERED: Tubing IV Secondary IV ONE (17:10)
[2017-09-02] MEDS ORDERED: NS 500ML ONE (17:10)
[2017-09-02] MEDS ORDERED: Potassium Chloride 20 MEQ in NS 275 ML IVPB ONE (21:00)
--- NOTE | 2017-09-02 21:33 | Pulmonolgy Critical Care Note ---
Critical Care - Asmt/Plan Assessment/Plan: (1) Respiratory failure (2) Ventilator dependence (3) Failure to thrive (4) Cachexia (5) Lactic acid acidosis (6) CHF (congestive heart failure) (7) Atrial fibrillation with rapid ventricular response (8) Aspiration pneumonia (9) HCAP (healthcare-associated pneumonia) Assessment/Plan: -Continue ICU care -Continue current vent settings -->unable to wean cxr is worse, repeat sunday nebs and suction pressors for MAP less than 65 mmhg wound care -Vancomycin/Zosyn, F/U Cx's - consider ID eval -Lovenox per cards -Dilt gtt per cards, F/U cards recs -Continue D5W, monitor UO, F/U renal recs -DVT Px: A/C -FC, address GOC -Needs NGT for TF's Time Spent (Minutes): 50 Critical Care - Objective Last 24 Hour Vital Signs Date Time Temp Pulse Resp B/P (MAP) Pulse Ox O2 Delivery O2 Flow Rate FiO2 09/02/17 21:00 26 09/02/17 21:00 76 26 106/69 97 Mechanical Ventilator 40 09/02/17 20:30 81 26 110/63 96 Mechanical Ventilator 40 09/02/17 20:11 40 09/02/17 20:00 75 09/02/17 20:00 98.9 78 26 108/77 97 Mechanical Ventilator 40 09/02/17 20:00 26 09/02/17 19:45 75 26 101/75 95 Mechanical Ventilator 40 09/02/17 19:30 77 26 98/70 97 Mechanical Ventilator 40 09/02/17 19:15 84 26 96/64 97 Mechanical Ventilator 40 09/02/17 19:11 Mechanical Ventilator 09/02/17 19:10 124 26 98 Mechanical Ventilator 40 09/02/17 19:08 124 28 40 09/02/17 19:00 18 09/02/17 19:00 110 18 101/75 93 Mechanical Ventilator 40 09/02/17 18:00 25 09/02/17 17:45 111 26 130/83 97 Mechanical Ventilator 40 09/02/17 17:30 120 26 125/75 97 Mechanical Ventilator 40 09/02/17 17:15 115 24 154/85 96 Mechanical Ventilator 40 09/02/17 17:14 119 26 40 09/02/17 17:00 26 09/02/17 17:00 101 26 135/90 97 Mechanical Ventilator 40 09/02/17 16:30 112 23 136/95 95 Mechanical Ventilator 40 09/02/17 16:00 26 09/02/17 16:00 99 09/02/17 16:00 40 09/02/17 16:00 97.5 99 24 136/95 94 Mechanical Ventilator 40 09/02/17 15:45 26 09/02/17 15:30 26 09/02/17 15:20 28 09/02/17 15:17 96 26 40 09/02/17 15:11 26 09/02/17 15:10 101 87/53 09/02/17 15:00 87 26 87/53 97 Mechanical Ventilator 40 09/02/17 14:00 80 26 102/58 95 Mechanical Ventilator 40 09/02/17 13:42 92 26 97 Mechanical Ventilator 40 09/02/17 13:37 97 26 40 09/02/17 13:36 111 26 94 Mechanical Ventilator 40 09/02/17 13:00 26 09/02/17 13:00 98.6 118 26 106/57 94 Mechanical Ventilator 40 09/02/17 12:00 98 24 99/66 94 Mechanical Ventilator 40 09/02/17 12:00 98 09/02/17 12:00 21 09/02/17 12:00 40 09/02/17 11:00 120 25 140/98 99 Mechanical Ventilator 40 09/02/17 11:00 20 09/02/17 10:47 100 26 40 09/02/17 10:00 109 20 125/94 93 Mechanical Ventilator 40 09/02/17 10:00 26 09/02/17 09:10 127 30 40 09/02/17 09:00 137 29 144/55 96 Mechanical Ventilator 40 09/02/17 08:00 40 09/02/17 08:00 26 09/02/17 08:00 98.7 152 19 129/90 97 Mechanical Ventilator 40 09/02/17 08:00 63 09/02/17 07:03 118 27 98 Mechanical Ventilator 40 09/02/17 07:02 108 34 98 Mechanical Ventilator 40 09/02/17 07:00 29 09/02/17 07:00 107 26 124/81 96 Mechanical Ventilator 40 09/02/17 06:48 109 26 40 09/02/17 06:00 26 09/02/17 06:00 64 26 96/54 98 Mechanical Ventilator 40 09/02/17 05:30 82 26 40 09/02/17 05:00 80 26 124/74 96 Mechanical Ventilator 40 09/02/17 05:00 26 09/02/17 04:00 81 09/02/17 04:00 98.7 81 26 92/47 98 Mechanical Ventilator 40 09/02/17 04:00 40 09/02/17 04:00 26 09/02/17 03:30 88 26 40 09/02/17 03:00 115 26 146/93 96 Mechanical Ventilator 40 09/02/17 03:00 26 09/02/17 02:00 26 09/02/17 02:00 71 26 106/62 96 Mechanical Ventilator 40 09/02/17 02:00 104 27 97 Mechanical Ventilator 40 09/02/17 01:45 99 34 94 Mechanical Ventilator 40 09/02/17 01:30 96 28 40 09/02/17 01:00 62 26 97/52 98 Mechanical Ventilator 40 09/02/17 01:00 26 09/02/17 00:00 99.5 87 26 93/62 93 Mechanical Ventilator 40 09/02/17 00:00 26 09/02/17 00:00 40 09/01/17 23:30 140 30 40 09/01/17 23:00 113 26 161/65 94 Mechanical Ventilator 40 09/01/17 23:00 26 09/01/17 22:00 75 23 91/51 96 Mechanical Ventilator 40 09/01/17 22:00 23 Status: obtunded Condition: critical Lungs: rhonchi Heart: HR/BP unstable Abdomen: soft, non-tender Extremities: no C/C/E Critical Care - Subjective FI02: 40 Vent Support Breath Rate: 26 Vent Support Mode: AC Vent Tidal Volume: 550 Sputum Amount: Small PEEP: 5.0 PIP: 26 I&O: Intake and Output 09/01/17 09/02/17 19:00 07:00 Intake Total 1433.0 ml 1736.208 ml Output Total 1290 ml 1400 ml Balance 143.0 ml 336.208 ml Intake Oral 0 ml 0 ml IV Total 1433.0 ml 1736.208 ml Output Urine Total 1290 ml 1400 ml Subjective: obtudned on the vent bp better this afternoon not weaning positive secretions on TF no fever noted positive uop CXR: worsening bialteral infiltrates and edema bilaterally ET-Tube: 8.0 ET Position: 22 Labs: Current Medications Medications (Trade) Dose Ordered Sig/Hill Route PRN Reason Start Time Stop Time Status Last Admin Dose Admin Dextrose 1,000 ml @ 100 mls/hr Q10H IV 08/30/17 20:00 09/29/17 19:59 09/02/17 17:50 Diltiazem HCl 125 mg/Dextrose 125 ml @ 0 mls/hr Q24H IV 09/01/17 15:00 09/04/17 14:59 09/02/17 15:10 Enoxaparin Sodium (Lovenox) 50 mg EVERY 12 HOURS SUBQ 08/29/17 09:00 09/28/17 08:59 09/02/17 21:05 Ipratropium [place] (Atrovent) 500 mcg Q6HRT HHN 08/29/17 01:00 09/03/17 00:59 09/02/17 13:35 Midazolam HCl (Versed 2mg/2ml vial) 1 mg Q2H PRN IVP Agitation 08/29/17 20:45 09/28/17 20:44 09/02/17 13:20 Piperacillin Sod/ Tazobactam Sod 3.375 gm/Sodium Chloride 110 ml @ 27.5 mls/hr Q8HR@0200,1000,1800 IVPB 08/31/17 18:00 09/05/17 01:59 09/02/17 17:51 Potassium Chloride 100 ml @ 100 mls/hr Q1H IVPB 09/02/17 21:30 09/02/17 23:29 09/02/17 21:14 Propofol 100 ml @ 0 mls/hr Q24H IV 09/02/17 14:30 09/04/17 14:29 09/02/17 15:11 Vancomycin HCl (Vanco rx to dose) 1 ea DAILY PRN MISC Per rx protocol 08/28/17 20:30 09/27/17 20:29 Vancomycin HCl 1 gm/Dextrose 275 ml @ 183.708 mls/hr Q24H IVPB 08/29/17 01:00 09/07/17 00:59 09/02/17 01:19 Laboratory Tests Test 09/02/17 03:40 09/02/17 15:55 White Blood Count 12.9 K/UL (4.8-10.8) H Red Blood Count 3.64 M/UL (4.70-6.10) L Hemoglobin 11.7 G/DL (14.2-18.0) L Hematocrit 34.5 % (42.0-52.0) L Mean Corpuscular Volume 95 FL (80-99) Mean Corpuscular Hemoglobin 32.1 PG (27.0-31.0) H Mean Corpuscular Hemoglobin Concent 33.8 G/DL (32.0-36.0) Red Cell Distribution Width 13.5 % (11.6-14.8) Platelet Count 232 K/UL (150-450) Mean Platelet Volume 6.7 FL (6.5-10.1) Neutrophils (%) (Auto) 82.5 % (45.0-75.0) H Lymphocytes (%) (Auto) 10.9 % (20.0-45.0) L Monocytes (%) (Auto) 6.1 % (1.0-10.0) Eosinophils (%) (Auto) 0.3 % (0.0-3.0) Basophils (%) (Auto) 0.3 % (0.0-2.0) Sodium Level 137 MMOL/L (136-145) 140 MMOL/L (136-145) Potassium Level 2.8 MMOL/L (3.5-5.1) L 3.3 MMOL/L (3.5-5.1) L Chloride Level 106 MMOL/L (98-107) 108 MMOL/L (98-107) H Carbon Dioxide Level 25 MMOL/L (21-32) 23 MMOL/L (21-32) Anion Gap 7 mmol/L (5-15) 9 mmol/L (5-15) Blood Urea Nitrogen 1 mg/dL (7-18) L 9 mg/dL (7-18) Creatinine 0.8 MG/DL (0.55-1.30) 0.7 MG/DL (0.55-1.30) Estimat Glomerular Filtration Rate mL/min (>60) mL/min (>60) Glucose Level 97 MG/DL (74-106) 105 MG/DL (74-106) Calcium Level 6.7 MG/DL (8.5-10.1) L 6.8 MG/DL (8.5-10.1) L Total Bilirubin 0.7 MG/DL (0.2-1.0) Aspartate Amino Transf (AST/SGOT) 16 U/L (15-37) Alanine Aminotransferase (ALT/SGPT) 7 U/L (12-78) L Alkaline Phosphatase 44 U/L (46-116) L Total Protein 6.0 G/DL (6.4-8.2) L Albumin 1.9 G/DL (3.4-5.0) L Globulin 4.1 g/dL Albumin/Globulin Ratio 0.5 (1.0-2.7) L Triglycerides Level 87 MG/DL (30-150) MARIO BARON DO Sep 02, 2017 21:33
[2017-09-02] MEDS ORDERED: Succinylcholine 20mg/ml 10ml vial ONE (22:45)
[2017-09-03] VITALS (37 sets, daily range): BP systolic 97–167; BP diastolic 48–121
[2017-09-03] MEDS: Vancomycin 1gm/D5W 275ml IVPB SCH ×2 (00:59)
[2017-09-03] MEDS: Piperacillin/Tazobactam 3.375 GM in NS 110 ML IVPB SCH ×3 (02:04→18:06)
[2017-09-03 05:45] LABS: BASOPHILS % (AUTO) 0.5 % (0.0-2.0); HEMATOCRIT 33.2 % (42.0-52.0); HEMOGLOBIN 11.1 G/DL (14.2-18.0); MEAN CORPUSCULAR VOLUME 93 FL (80-99); MONOCYTES % (AUTO) 7.6 % (1.0-10.0); NEUTROPHILS % (AUTO) 75.9 % (45.0-75.0); PLATELET COUNT 231 K/UL (150-450); RED BLOOD COUNT 3.59 M/UL (4.70-6.10); RED CELL DISTRIBUTION WIDTH 12.9 % (11.6-14.8); WHITE BLOOD COUNT 6.6 K/UL (4.8-10.8)
[2017-09-03 06:05] LABS: ANION GAP 9 mmol/L (5-15); BLOOD UREA NITROGEN 6 mg/dL (7-18); CALCIUM 6.9 MG/DL (8.5-10.1); CARBON DIOXIDE 20 MMOL/L (21-32); CHLORIDE 110 MMOL/L (98-107); CREATININE 0.7 MG/DL (0.55-1.30); POTASSIUM 3.2 MMOL/L (3.5-5.1); SODIUM 139 MMOL/L (136-145)
[2017-09-03] MEDS: Enoxaparin Sodium 300mg/3ml vial SUBQ SCH ×2 (09:32→21:15)
--- NOTE | 2017-09-03 11:37 | General Progress Note ---
Assessment/Plan Assessment/Plan GI CONSULT Dictated Assessment - Respiratory failure - malnutrition - OBS/encephaloppathy - a fib - CHF - mild anemia - No family available to discuss Recommendations - place NGT for feeding - elevate HOB - May need eventual PEG, but consent an issue Thank you Kylee Cazares MD Subjective Allergies: Coded Allergies: No Known Allergies (Unverified , 08/28/17) Objective Last 24 Hour Vital Signs Date Time Temp Pulse Resp B/P (MAP) Pulse Ox O2 Delivery O2 Flow Rate FiO2 09/03/17 11:22 92 34 40 09/03/17 11:00 78 26 130/88 97 Mechanical Ventilator 40 09/03/17 11:00 26 09/03/17 10:57 69 134/81 09/03/17 10:00 64 26 112/72 98 Mechanical Ventilator 40 09/03/17 10:00 26 09/03/17 09:30 60 26 121/80 98 Mechanical Ventilator 40 09/03/17 09:01 73 26 40 09/03/17 09:00 26 09/03/17 09:00 66 26 121/80 98 Mechanical Ventilator 40 09/03/17 08:00 40 09/03/17 08:00 55 26 104/69 99 Mechanical Ventilator 40 09/03/17 08:00 26 09/03/17 08:00 97.6 64 26 104/69 97 Mechanical Ventilator 40 09/03/17 08:00 64 09/03/17 07:44 72 26 40 09/03/17 07:30 78 26 134/82 97 Mechanical Ventilator 40 09/03/17 07:00 71 26 134/86 94 Mechanical Ventilator 40 09/03/17 07:00 26 09/03/17 06:30 76 26 125/48 94 Mechanical Ventilator 40 09/03/17 06:00 26 09/03/17 06:00 81 26 123/95 96 Mechanical Ventilator 40 09/03/17 05:30 88 26 138/71 96 Mechanical Ventilator 40 09/03/17 05:05 60 26 40 09/03/17 05:00 26 09/03/17 05:00 64 26 119/70 95 Mechanical Ventilator 40 09/03/17 04:00 40 09/03/17 04:00 26 09/03/17 04:00 63 09/03/17 04:00 79 26 122/67 97 Mechanical Ventilator 40 09/03/17 04:00 98.6 63 26 97/67 98 Mechanical Ventilator 40 09/03/17 03:30 55 26 99/68 95 Mechanical Ventilator 40 09/03/17 03:30 62 24 40 09/03/17 03:00 65 26 104/67 97 Mechanical Ventilator 40 09/03/17 03:00 26 09/03/17 02:30 64 26 130/80 98 Mechanical Ventilator 40 09/03/17 02:21 26 09/03/17 02:00 79 26 128/80 97 Mechanical Ventilator 40 09/03/17 01:30 75 26 108/73 97 Mechanical Ventilator 40 09/03/17 01:13 Mechanical Ventilator 09/03/17 01:13 64 26 40 09/03/17 01:13 Mechanical Ventilator 09/03/17 01:00 76 26 119/80 98 Mechanical Ventilator 40 09/03/17 01:00 26 09/03/17 00:30 84 26 98/75 98 Mechanical Ventilator 40 09/03/17 00:00 98.7 65 26 105/73 97 Mechanical Ventilator 40 09/03/17 00:00 26 09/02/17 23:30 69 26 114/88 99 Mechanical Ventilator 40 09/02/17 23:15 78 26 40 09/02/17 23:00 75 26 118/69 99 Mechanical Ventilator 40 09/02/17 23:00 26 09/02/17 22:30 83 26 120/73 98 Mechanical Ventilator 40 09/02/17 22:00 79 26 110/68 99 Mechanical Ventilator 40 09/02/17 22:00 26 09/02/17 21:30 82 26 40 09/02/17 21:00 26 09/02/17 21:00 76 26 106/69 97 Mechanical Ventilator 40 09/02/17 21:00 77 26 104/73 98 Mechanical Ventilator 40 09/02/17 20:30 81 26 110/63 96 Mechanical Ventilator 40 09/02/17 20:11 40 09/02/17 20:00 75 09/02/17 20:00 98.9 78 26 108/77 97 Mechanical Ventilator 40 09/02/17 20:00 26 09/02/17 19:45 75 26 101/75 95 Mechanical Ventilator 40 09/02/17 19:30 77 26 98/70 97 Mechanical Ventilator 40 09/02/17 19:15 84 26 96/64 97 Mechanical Ventilator 40 09/02/17 19:11 Mechanical Ventilator 09/02/17 19:10 124 26 98 Mechanical Ventilator 40 09/02/17 19:08 124 28 40 09/02/17 19:00 18 09/02/17 19:00 110 18 101/75 93 Mechanical Ventilator 40 09/02/17 18:00 25 09/02/17 17:45 111 26 130/83 97 Mechanical Ventilator 40 09/02/17 17:30 120 26 125/75 97 Mechanical Ventilator 40 09/02/17 17:15 115 24 154/85 96 Mechanical Ventilator 40 09/02/17 17:14 119 26 40 09/02/17 17:00 26 09/02/17 17:00 101 26 135/90 97 Mechanical Ventilator 40 09/02/17 16:30 112 23 136/95 95 Mechanical Ventilator 40 09/02/17 16:00 26 09/02/17 16:00 99 09/02/17 16:00 40 09/02/17 16:00 97.5 99 24 136/95 94 Mechanical Ventilator 40 09/02/17 15:45 26 09/02/17 15:30 26 09/02/17 15:20 28 09/02/17 15:17 96 26 40 09/02/17 15:11 26 09/02/17 15:10 101 87/53 09/02/17 15:00 87 26 87/53 97 Mechanical Ventilator 40 09/02/17 14:00 80 26 102/58 95 Mechanical Ventilator 40 09/02/17 13:42 92 26 97 Mechanical Ventilator 40 09/02/17 13:37 97 26 40 09/02/17 13:36 111 26 94 Mechanical Ventilator 40 09/02/17 13:00 26 09/02/17 13:00 98.6 118 26 106/57 94 Mechanical Ventilator 40 09/02/17 12:00 98 24 99/66 94 Mechanical Ventilator 40 09/02/17 12:00 98 09/02/17 12:00 21 09/02/17 12:00 40 Intake and Output 09/02/17 09/03/17 19:00 07:00 Intake Total 1754.84338 ml 1984.945 ml Output Total 1085 ml 2080 ml Balance 669.83165 ml -95.055 ml Intake Oral 0 ml 0 ml IV Total 1754.47322 ml 1984.945 ml Output Urine Total 1085 ml 2080 ml Laboratory Tests 09/02/17 15:55: Sodium Level 140, Potassium Level 3.3L, Chloride Level 108H, Carbon Dioxide Level 23, Anion Gap 9, Blood Urea Nitrogen 9, Creatinine 0.7, Estimat Glomerular Filtration Rate , Glucose Level 105, Calcium Level 6.8L 09/03/17 04:35: Sodium Level 139, Potassium Level 3.2L, Chloride Level 110H, Carbon Dioxide Level 20L, Anion Gap 9, Blood Urea Nitrogen 6L, Creatinine 0.7, Estimat Glomerular Filtration Rate , Glucose Level 104, Calcium Level 6.9L, White Blood Count 6.6, Red Blood Count 3.59L, Hemoglobin 11.1L, Hematocrit 33.2L, Mean Corpuscular Volume 93, Mean Corpuscular Hemoglobin 30.9, Mean Corpuscular Hemoglobin Concent 33.4, Red Cell Distribution Width 12.9, Platelet Count 231, Mean Platelet Volume 7.2, Neutrophils (%) (Auto) 75.9H, Lymphocytes (%) (Auto) 15.0L, Monocytes (%) (Auto) 7.6, Eosinophils (%) (Auto) 1.0, Basophils (%) (Auto ) 0.5 Height (Feet): 5 Height (Inches): 10.00 Weight (Pounds): 118 KYLEE CAZARES Sep 03, 2017 11:37
--- NOTE | 2017-09-03 14:14 | Internal Med Progress Note ---
Subjective Date of Service: Sep 03, 2017 Physician Name Juan Carlos Benson Attending Physician Davey Cui MD Current Medications Medications (Trade) Dose Ordered Sig/Hill Route PRN Reason Start Time Stop Time Status Last Admin Dose Admin Dextrose 1,000 ml @ 100 mls/hr Q10H IV 08/30/17 20:00 09/29/17 19:59 09/03/17 04:21 Diltiazem HCl 125 mg/Dextrose 125 ml @ 0 mls/hr Q24H IV 09/01/17 15:00 09/04/17 14:59 09/03/17 10:57 Enoxaparin Sodium (Lovenox) 50 mg EVERY 12 HOURS SUBQ 08/29/17 09:00 09/28/17 08:59 09/03/17 09:32 Midazolam HCl (Versed 2mg/2ml vial) 1 mg Q2H PRN IVP Agitation 08/29/17 20:45 09/28/17 20:44 09/02/17 13:20 Piperacillin Sod/ Tazobactam Sod 3.375 gm/Sodium Chloride 110 ml @ 27.5 mls/hr Q8HR@0200,1000,1800 IVPB 08/31/17 18:00 09/05/17 01:59 09/03/17 09:55 Propofol 100 ml @ 0 mls/hr Q24H IV 09/02/17 14:30 09/04/17 14:29 09/03/17 02:21 Vancomycin HCl (Vanco rx to dose) 1 ea DAILY PRN MISC Per rx protocol 08/28/17 20:30 09/27/17 20:29 Vancomycin HCl 1 gm/Dextrose 275 ml @ 183.708 mls/hr Q24H IVPB 08/29/17 01:00 09/07/17 00:59 09/03/17 00:59 Allergies: Coded Allergies: No Known Allergies (Unverified , 08/28/17) ROS Limited/Unobtainable: Yes Subjective 87 YO M admitted with Respiratory failure. Cover for Int Med-Dr Cui. ICU. Intubated and sedated. Objective Last Vital Signs Date Time Temp Pulse Resp B/P (MAP) Pulse Ox O2 Delivery O2 Flow Rate FiO2 09/03/17 13:14 76 26 40 09/03/17 12:00 97.6 167/121 94 Mechanical Ventilator 08/28/17 23:50 15.0 Laboratory Tests Test 09/02/17 15:55 09/03/17 04:35 Sodium Level 140 MMOL/L (136-145) 139 MMOL/L (136-145) Potassium Level 3.3 MMOL/L (3.5-5.1) L 3.2 MMOL/L (3.5-5.1) L Chloride Level 108 MMOL/L (98-107) H 110 MMOL/L (98-107) H Carbon Dioxide Level 23 MMOL/L (21-32) 20 MMOL/L (21-32) L Anion Gap 9 mmol/L (5-15) 9 mmol/L (5-15) Blood Urea Nitrogen 9 mg/dL (7-18) 6 mg/dL (7-18) L Creatinine 0.7 MG/DL (0.55-1.30) 0.7 MG/DL (0.55-1.30) Estimat Glomerular Filtration Rate mL/min (>60) mL/min (>60) Glucose Level 105 MG/DL (74-106) 104 MG/DL (74-106) Calcium Level 6.8 MG/DL (8.5-10.1) L 6.9 MG/DL (8.5-10.1) L White Blood Count 6.6 K/UL (4.8-10.8) Red Blood Count 3.59 M/UL (4.70-6.10) L Hemoglobin 11.1 G/DL (14.2-18.0) L Hematocrit 33.2 % (42.0-52.0) L Mean Corpuscular Volume 93 FL (80-99) Mean Corpuscular Hemoglobin 30.9 PG (27.0-31.0) Mean Corpuscular Hemoglobin Concent 33.4 G/DL (32.0-36.0) Red Cell Distribution Width 12.9 % (11.6-14.8) Platelet Count 231 K/UL (150-450) Mean Platelet Volume 7.2 FL (6.5-10.1) Neutrophils (%) (Auto) 75.9 % (45.0-75.0) H Lymphocytes (%) (Auto) 15.0 % (20.0-45.0) L Monocytes (%) (Auto) 7.6 % (1.0-10.0) Eosinophils (%) (Auto) 1.0 % (0.0-3.0) Basophils (%) (Auto) 0.5 % (0.0-2.0) Intake and Output 09/02/17 09/03/17 19:00 07:00 Intake Total 1754.78210 ml 1984.945 ml Output Total 1085 ml 2080 ml Balance 669.07556 ml -95.055 ml Intake Oral 0 ml 0 ml IV Total 1754.95225 ml 1984.945 ml Output Urine Total 1085 ml 2080 ml Objective General Appearance: cachetic, thin EENT: PERRL/EOMI, normal ENT inspection Neck: non-tender, normal alignment, supple Cardiovascular: normal peripheral pulses, no gallop/murmur, no JVD, irregularly irregular Respiratory/Chest: respiratory distress, crackles/rales, rhonchi - bilaterally , expiratory wheezing Abdomen: non tender, soft, no organomegaly, decreased bowel sounds 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 Continue levoxyl. (6) Respiratory failure Assessment & Plan: Intubated; failed weaning. See pulmonary note. ? need for trach? (7) Atrial fibrillation with rapid ventricular response Assessment & Plan: Continue IV diltiazem per cardiology (8) CHF (congestive heart failure) Assessment & Plan: See cardiology note; await echocardiogram (9) Cachexia (10) Lactic acid acidosis (11) Pneumonia Assessment & Plan: See pulmonary note. Cont zosyn and vanco. (12) Dysphagia Assessment & Plan: Place NG tube; nutrition consult. (13) Hypokalemia Assessment & Plan: Replace KCL Status: not improved JUAN CARLOS BENSON Sep 03, 2017 14:14
--- NOTE | 2017-09-03 15:28 | Cardiology Progress Note ---
Assessment/Plan Problem List: (1) Respiratory failure (2) Atrial fibrillation with rapid ventricular response (3) Aspiration pneumonia (4) Cachexia (5) Ventilator dependence Status: stable, unchanged Status Narrative Pt w/ respiratory failure, ? aspiration pneumonia and CHF. AF- chronic, w/elevated ventricular rates . On iv diltiazem. Severe hypokalemia OG tube has been placed - XR pending to confirm placement Assessment/Plan Continue lovenox for AF ( 1 mg/kg q12 h) Change iv diltiazem to og tube metoprolol bid once tube placement confirmed Supplement K Continue vent support - weaning trial per pulm. d/w RN Subjective ROS Limited/Unobtainable: Yes Subjective Cardiology for Dr. Matthew Pt intubated/ sedated. OG tube placed Objective Last 24 Hour Vital Signs Date Time Temp Pulse Resp B/P (MAP) Pulse Ox O2 Delivery O2 Flow Rate FiO2 09/03/17 13:14 76 26 40 09/03/17 12:00 97.6 107 24 167/121 94 Mechanical Ventilator 40 09/03/17 12:00 95 09/03/17 12:00 24 09/03/17 12:00 40 09/03/17 11:22 92 34 40 09/03/17 11:00 78 26 130/88 97 Mechanical Ventilator 40 09/03/17 11:00 26 09/03/17 10:57 69 134/81 09/03/17 10:00 64 26 112/72 98 Mechanical Ventilator 40 09/03/17 10:00 26 09/03/17 09:30 60 26 121/80 98 Mechanical Ventilator 40 09/03/17 09:01 73 26 40 09/03/17 09:00 26 09/03/17 09:00 66 26 121/80 98 Mechanical Ventilator 40 09/03/17 08:00 40 09/03/17 08:00 55 26 104/69 99 Mechanical Ventilator 40 09/03/17 08:00 26 09/03/17 08:00 97.6 64 26 104/69 97 Mechanical Ventilator 40 09/03/17 08:00 64 09/03/17 07:44 72 26 40 09/03/17 07:30 78 26 134/82 97 Mechanical Ventilator 40 09/03/17 07:00 71 26 134/86 94 Mechanical Ventilator 40 09/03/17 07:00 26 09/03/17 06:30 76 26 125/48 94 Mechanical Ventilator 40 09/03/17 06:00 26 09/03/17 06:00 81 26 123/95 96 Mechanical Ventilator 40 09/03/17 05:30 88 26 138/71 96 Mechanical Ventilator 40 09/03/17 05:05 60 26 40 09/03/17 05:00 26 09/03/17 05:00 64 26 119/70 95 Mechanical Ventilator 40 09/03/17 04:00 40 09/03/17 04:00 26 09/03/17 04:00 63 09/03/17 04:00 79 26 122/67 97 Mechanical Ventilator 40 09/03/17 04:00 98.6 63 26 97/67 98 Mechanical Ventilator 40 09/03/17 03:30 55 26 99/68 95 Mechanical Ventilator 40 09/03/17 03:30 62 24 40 09/03/17 03:00 65 26 104/67 97 Mechanical Ventilator 40 09/03/17 03:00 26 09/03/17 02:30 64 26 130/80 98 Mechanical Ventilator 40 09/03/17 02:21 26 09/03/17 02:00 79 26 128/80 97 Mechanical Ventilator 40 09/03/17 01:30 75 26 108/73 97 Mechanical Ventilator 40 09/03/17 01:13 Mechanical Ventilator 09/03/17 01:13 64 26 40 09/03/17 01:13 Mechanical Ventilator 09/03/17 01:00 76 26 119/80 98 Mechanical Ventilator 40 09/03/17 01:00 26 09/03/17 00:30 84 26 98/75 98 Mechanical Ventilator 40 09/03/17 00:00 98.7 65 26 105/73 97 Mechanical Ventilator 40 09/03/17 00:00 09/02/17 23:30 69 26 114/88 99 Mechanical Ventilator 40 09/02/17 23:15 78 26 40 09/02/17 23:00 75 26 118/69 99 Mechanical Ventilator 40 09/02/17 23:00 09/02/17 22:30 83 26 120/73 98 Mechanical Ventilator 40 09/02/17 22:00 79 26 110/68 99 Mechanical Ventilator 40 09/02/17 22:00 09/02/17 21:30 82 26 40 09/02/17 21:00 09/02/17 21:00 76 26 106/69 97 Mechanical Ventilator 40 09/02/17 21:00 77 26 104/73 98 Mechanical Ventilator 40 09/02/17 20:30 81 26 110/63 96 Mechanical Ventilator 40 09/02/17 20:11 40 09/02/17 20:00 75 09/02/17 20:00 98.9 78 26 108/77 97 Mechanical Ventilator 40 09/02/17 20:00 26 09/02/17 19:45 75 26 101/75 95 Mechanical Ventilator 40 09/02/17 19:30 77 26 98/70 97 Mechanical Ventilator 40 09/02/17 19:15 84 26 96/64 97 Mechanical Ventilator 40 09/02/17 19:11 Mechanical Ventilator 09/02/17 19:10 124 26 98 Mechanical Ventilator 40 09/02/17 19:08 124 28 40 09/02/17 19:00 18 09/02/17 19:00 110 18 101/75 93 Mechanical Ventilator 40 09/02/17 18:00 25 09/02/17 17:45 111 26 130/83 97 Mechanical Ventilator 40 09/02/17 17:30 120 26 125/75 97 Mechanical Ventilator 40 09/02/17 17:15 115 24 154/85 96 Mechanical Ventilator 40 09/02/17 17:14 119 26 40 09/02/17 17:00 26 09/02/17 17:00 101 26 135/90 97 Mechanical Ventilator 40 09/02/17 16:30 112 23 136/95 95 Mechanical Ventilator 40 09/02/17 16:00 26 09/02/17 16:00 99 09/02/17 16:00 40 09/02/17 16:00 97.5 99 24 136/95 94 Mechanical Ventilator 40 09/02/17 15:45 26 09/02/17 15:30 26 General Appearance: thin, on vent, other - sedated EENT: other - et, og tubes Neck: no JVD Rhythm: Afib Cardiovascular: normal rate, no gallop/murmur Respiratory/Chest: other - R rhonchi Abdomen: normal bowel sounds, non tender, soft Extremities: no swelling Intake and Output 09/02/17 09/03/17 19:00 07:00 Intake Total 1754.48286 ml 1984.945 ml Output Total 1085 ml 2080 ml Balance 669.22318 ml -95.055 ml Intake Oral 0 ml 0 ml IV Total 1754.47955 ml 1984.945 ml Output Urine Total 1085 ml 2080 ml Laboratory Tests Test 09/02/17 15:55 09/03/17 04:35 Sodium Level 140 MMOL/L (136-145) 139 MMOL/L (136-145) Potassium Level 3.3 MMOL/L (3.5-5.1) L 3.2 MMOL/L (3.5-5.1) L Chloride Level 108 MMOL/L (98-107) H 110 MMOL/L (98-107) H Carbon Dioxide Level 23 MMOL/L (21-32) 20 MMOL/L (21-32) L Anion Gap 9 mmol/L (5-15) 9 mmol/L (5-15) Blood Urea Nitrogen 9 mg/dL (7-18) 6 mg/dL (7-18) L Creatinine 0.7 MG/DL (0.55-1.30) 0.7 MG/DL (0.55-1.30) Estimat Glomerular Filtration Rate mL/min (>60) mL/min (>60) Glucose Level 105 MG/DL (74-106) 104 MG/DL (74-106) Calcium Level 6.8 MG/DL (8.5-10.1) L 6.9 MG/DL (8.5-10.1) L White Blood Count 6.6 K/UL (4.8-10.8) Red Blood Count 3.59 M/UL (4.70-6.10) L Hemoglobin 11.1 G/DL (14.2-18.0) L Hematocrit 33.2 % (42.0-52.0) L Mean Corpuscular Volume 93 FL (80-99) Mean Corpuscular Hemoglobin 30.9 PG (27.0-31.0) Mean Corpuscular Hemoglobin Concent 33.4 G/DL (32.0-36.0) Red Cell Distribution Width 12.9 % (11.6-14.8) Platelet Count 231 K/UL (150-450) Mean Platelet Volume 7.2 FL (6.5-10.1) Neutrophils (%) (Auto) 75.9 % (45.0-75.0) H Lymphocytes (%) (Auto) 15.0 % (20.0-45.0) L Monocytes (%) (Auto) 7.6 % (1.0-10.0) Eosinophils (%) (Auto) 1.0 % (0.0-3.0) Basophils (%) (Auto) 0.5 % (0.0-2.0) TAMY DIALLO Sep 03, 2017 15:28
[2017-09-03] MEDS ORDERED: Potassium Chloride 20 MEQ/ NS 275 ML IVPB ONE ×2 (16:30)
[2017-09-03] MEDS ORDERED: D5W 275ml ONE (17:30)
[2017-09-03] MEDS ORDERED: Tubing IV Secondary IV ONE ×2 (17:30→17:34)
[2017-09-03] MEDS ORDERED: NS 275ml ONE ×2 (17:30→17:34)
[2017-09-03] MEDS ORDERED: 1/2 NS 1000ml IV ONE (17:34)
[2017-09-03] MEDS ORDERED: NS 500ML ONE (17:34)
[2017-09-03] MEDS: Potassium Chloride 10 MEQ in NS 110 ML IVPB SCH ×2 (17:53→21:07)
[2017-09-03] MEDS: Metoprolol 25mg tab NG SCH (21:12)
--- NOTE | 2017-09-03 21:15 | Pulmonolgy Critical Care Note ---
Critical Care - Asmt/Plan Assessment/Plan: (1) Respiratory failure (2) Ventilator dependence (3) Failure to thrive (4) Cachexia (5) Lactic acid acidosis (6) CHF (congestive heart failure) (7) Atrial fibrillation with rapid ventricular response (8) Aspiration pneumonia (9) HCAP (healthcare-associated pneumonia) Assessment/Plan: -Continue ICU care -Continue current vent settings -->unable to wean ?trach and peg cxr is worse, repeat sunday nebs and suction pressors for MAP less than 65 mmhg wound care -Vancomycin/Zosyn, F/U Cx's - consider ID eval -Lovenox per cards -DVT Px: A/C -FC, address GOC -Needs NGT for TF's Time Spent (Minutes): 50 Critical Care - Objective Last 24 Hour Vital Signs Date Time Temp Pulse Resp B/P (MAP) Pulse Ox O2 Delivery O2 Flow Rate FiO2 09/03/17 20:30 93 26 120/87 97 Mechanical Ventilator 40 09/03/17 20:15 40 09/03/17 20:00 98 09/03/17 20:00 26 09/03/17 20:00 98.4 98 26 165/95 100 Mechanical Ventilator 40 09/03/17 19:30 104 26 158/84 98 Mechanical Ventilator 40 09/03/17 19:00 105 26 146/85 95 Mechanical Ventilator 40 09/03/17 19:00 26 09/03/17 18:59 86 26 40 09/03/17 18:00 26 09/03/17 18:00 75 26 133/87 99 Mechanical Ventilator 40 09/03/17 17:00 66 26 109/67 98 Mechanical Ventilator 40 09/03/17 17:00 26 09/03/17 16:34 71 26 40 09/03/17 16:00 94 09/03/17 16:00 24 09/03/17 16:00 97.6 86 24 149/73 92 Mechanical Ventilator 40 09/03/17 16:00 40 09/03/17 15:29 83 26 40 09/03/17 15:00 26 09/03/17 15:00 87 24 143/81 98 Mechanical Ventilator 40 09/03/17 14:00 67 26 109/74 96 Mechanical Ventilator 40 09/03/17 14:00 26 09/03/17 13:14 76 26 40 09/03/17 13:00 26 09/03/17 13:00 68 26 121/69 97 Mechanical Ventilator 40 09/03/17 12:00 97.6 107 24 167/121 94 Mechanical Ventilator 40 09/03/17 12:00 95 09/03/17 12:00 24 09/03/17 12:00 40 09/03/17 11:22 92 34 40 09/03/17 11:00 78 26 130/88 97 Mechanical Ventilator 40 09/03/17 11:00 26 09/03/17 10:57 69 134/81 09/03/17 10:00 64 26 112/72 98 Mechanical Ventilator 40 09/03/17 10:00 26 09/03/17 09:30 60 26 121/80 98 Mechanical Ventilator 40 09/03/17 09:01 73 26 40 09/03/17 09:00 26 09/03/17 09:00 66 26 121/80 98 Mechanical Ventilator 40 09/03/17 08:00 40 09/03/17 08:00 55 26 104/69 99 Mechanical Ventilator 40 09/03/17 08:00 26 09/03/17 08:00 97.6 64 26 104/69 97 Mechanical Ventilator 40 09/03/17 08:00 64 09/03/17 07:44 72 26 40 09/03/17 07:30 78 26 134/82 97 Mechanical Ventilator 40 09/03/17 07:00 71 26 134/86 94 Mechanical Ventilator 40 09/03/17 07:00 26 09/03/17 06:30 76 26 125/48 94 Mechanical Ventilator 40 09/03/17 06:00 26 09/03/17 06:00 81 26 123/95 96 Mechanical Ventilator 40 09/03/17 05:30 88 26 138/71 96 Mechanical Ventilator 40 09/03/17 05:05 60 26 40 09/03/17 05:00 26 09/03/17 05:00 64 26 119/70 95 Mechanical Ventilator 40 09/03/17 04:00 40 09/03/17 04:00 26 09/03/17 04:00 63 09/03/17 04:00 79 26 122/67 97 Mechanical Ventilator 40 09/03/17 04:00 98.6 63 26 97/67 98 Mechanical Ventilator 40 09/03/17 03:30 55 26 99/68 95 Mechanical Ventilator 40 09/03/17 03:30 62 24 40 09/03/17 03:00 65 26 104/67 97 Mechanical Ventilator 40 09/03/17 03:00 26 09/03/17 02:30 64 26 130/80 98 Mechanical Ventilator 40 09/03/17 02:21 26 09/03/17 02:00 79 26 128/80 97 Mechanical Ventilator 40 09/03/17 01:30 75 26 108/73 97 Mechanical Ventilator 40 09/03/17 01:13 Mechanical Ventilator 09/03/17 01:13 64 26 40 09/03/17 01:13 Mechanical Ventilator 09/03/17 01:00 76 26 119/80 98 Mechanical Ventilator 40 09/03/17 01:00 26 09/03/17 00:30 84 26 98/75 98 Mechanical Ventilator 40 09/03/17 00:00 98.7 65 26 105/73 97 Mechanical Ventilator 40 09/03/17 00:00 26 09/02/17 23:30 69 26 114/88 99 Mechanical Ventilator 40 09/02/17 23:15 78 26 40 09/02/17 23:00 75 26 118/69 99 Mechanical Ventilator 40 09/02/17 23:00 26 09/02/17 22:30 83 26 120/73 98 Mechanical Ventilator 40 09/02/17 22:00 79 26 110/68 99 Mechanical Ventilator 40 09/02/17 22:00 26 09/02/17 21:30 82 26 40 Status: obtunded Condition: critical Lungs: rhonchi Heart: HR/BP unstable Abdomen: soft, non-tender Extremities: edema Decubiti: location Critical Care - Subjective ROS Limited/Unobtainable: Yes Condition: critical FI02: 40 Vent Support Breath Rate: 26 Vent Support Mode: AC Vent Tidal Volume: 550 Sputum Amount: Moderate PEEP: 5.0 PIP: 35 I&O: Intake and Output 09/02/17 09/03/17 19:00 07:00 Intake Total 1754.98414 ml 1984.945 ml Output Total 1085 ml 2080 ml Balance 669.26502 ml -95.055 ml Intake Oral 0 ml 0 ml IV Total 1754.07699 ml 1984.945 ml Output Urine Total 1085 ml 2080 ml Subjective: obtudned on the vent bp better this afternoon not weaning positive secretions on TF no fever noted positive uop CXR: no new cxr ET-Tube: 8.0 ET Position: 22 Labs: Current Medications Medications (Trade) Dose Ordered Sig/Hill Route PRN Reason Start Time Stop Time Status Last Admin Dose Admin Dextrose 1,000 ml @ 100 mls/hr Q10H IV 08/30/17 20:00 09/29/17 19:59 09/03/17 14:27 Enoxaparin Sodium (Lovenox) 50 mg EVERY 12 HOURS SUBQ 08/29/17 09:00 09/28/17 08:59 09/03/17 09:32 Metoprolol Tartrate (Lopressor) 25 mg Q12HR NG 09/03/17 21:00 10/03/17 20:59 Midazolam HCl (Versed 2mg/2ml vial) 1 mg Q2H PRN IVP Agitation 08/29/17 20:45 09/28/17 20:44 09/02/17 13:20 Piperacillin Sod/ Tazobactam Sod 3.375 gm/Sodium Chloride 110 ml @ 27.5 mls/hr Q8HR@0200,1000,1800 IVPB 08/31/17 18:00 09/05/17 01:59 09/03/17 18:06 Propofol 100 ml @ 0 mls/hr Q24H IV 09/02/17 14:30 09/04/17 14:29 09/03/17 02:21 Vancomycin HCl (Vanco rx to dose) 1 ea DAILY PRN MISC Per rx protocol 08/28/17 20:30 09/27/17 20:29 Vancomycin HCl 1 gm/Dextrose 275 ml @ 183.708 mls/hr Q24H IVPB 08/29/17 01:00 09/07/17 00:59 09/03/17 00:59 Laboratory Tests Test 09/03/17 04:35 White Blood Count 6.6 K/UL (4.8-10.8) Red Blood Count 3.59 M/UL (4.70-6.10) L Hemoglobin 11.1 G/DL (14.2-18.0) L Hematocrit 33.2 % (42.0-52.0) L Mean Corpuscular Volume 93 FL (80-99) Mean Corpuscular Hemoglobin 30.9 PG (27.0-31.0) Mean Corpuscular Hemoglobin Concent 33.4 G/DL (32.0-36.0) Red Cell Distribution Width 12.9 % (11.6-14.8) Platelet Count 231 K/UL (150-450) Mean Platelet Volume 7.2 FL (6.5-10.1) Neutrophils (%) (Auto) 75.9 % (45.0-75.0) H Lymphocytes (%) (Auto) 15.0 % (20.0-45.0) L Monocytes (%) (Auto) 7.6 % (1.0-10.0) Eosinophils (%) (Auto) 1.0 % (0.0-3.0) Basophils (%) (Auto) 0.5 % (0.0-2.0) Sodium Level 139 MMOL/L (136-145) Potassium Level 3.2 MMOL/L (3.5-5.1) L Chloride Level 110 MMOL/L (98-107) H Carbon Dioxide Level 20 MMOL/L (21-32) L Anion Gap 9 mmol/L (5-15) Blood Urea Nitrogen 6 mg/dL (7-18) L Creatinine 0.7 MG/DL (0.55-1.30) Estimat Glomerular Filtration Rate mL/min (>60) Glucose Level 104 MG/DL (74-106) Calcium Level 6.9 MG/DL (8.5-10.1) MARIO CRUZ DO Sep 03, 2017 21:15
--- NOTE | 2017-09-03 21:30 | Consultation ---
DATE OF CONSULTATION: 09/03/2017 GASTROENTEROLOGY CONSULTATION CONSULTING PHYSICIAN: Kylee Cazares M.D. REFERRING PHYSICIAN: Juan Carlos Grigsby M.D. and Davey Cui M.D. CHIEF COMPLAINT: I was asked to see this patient by Dr. Juan Carlos Grigsby and Dr. Davey Cui for evaluation of feeding tube and nutrition. HISTORY OF PRESENT ILLNESS: The patient is an unfortunate 87-year-old white man, who was admitted to the hospital at [facility] with respiratory failure. He has been intubated and he is in ICU and is not able to provide any history as he is sedated. There is apparently no family or next of kin or durable power of personal injury attorney on this patient. The patient has failed weaning so far and the concern is that he needs feeding tube placement for long-term enteral access. PAST MEDICAL HISTORY: History of hypertension, history of congestive heart failure, history of atrial fibrillation, and respiratory failure requiring intubation. FAMILY HISTORY: Unavailable. SOCIAL HISTORY: The patient resided in a fdc before coming here. REVIEW OF SYSTEMS: Otherwise negative. PHYSICAL EXAMINATION: GENERAL: Thin, elderly, confused white man on the ventilator, seen with the nurse at bedside. HEENT: Normocephalic and atraumatic. NECK: Supple. CHEST: Reveals coarse breath sounds. CARDIOVASCULAR: Revealed a regular rate. ABDOMEN: Soft, flat with a midline scar of unclear nature. EXTREMITIES: Trace edema. LABORATORY AND DIAGNOSTIC DATA: Laboratory data was noted. ASSESSMENT: This patient has respiratory failure. He is apparently not doing well with weaning trials. If he eventually fails to wean, he needs a tracheostomy, then a gastrostomy tube will be needed on a long-term basis. For the time being, however, I will place a temporary nasogastric tube, so nutritional support can be given to him until further decisions have been made. Should the patient approach eventuality of needing a tracheostomy, then a gastrostomy tube would usually complement that procedure, but some family input is necessary as well. RECOMMENDATIONS: 1. Place nasogastric tube. 2. Begin tube feedings. 3. Elevate head of bed. 4. Input from social services designee regarding next of kin. Thank you for asking me to participate in the care of this patient. Kylee Cazares M.D. DR: RICHARD JOB#: [id number] CC:
[2017-09-04] VITALS (38 sets, daily range): BP systolic 84–139; BP diastolic 50–102
[2017-09-04] MEDS: Vancomycin 1gm/D5W 275ml IVPB SCH ×4 (01:14→01:23)
[2017-09-04] MEDS: Piperacillin/Tazobactam 3.375 GM in NS 110 ML IVPB SCH ×3 (01:55→17:16)
[2017-09-04 06:11] LABS: BASOPHILS % (AUTO) 0.4 % (0.0-2.0); EOSINOPHILS % (AUTO) 0.6 % (0.0-3.0); HEMATOCRIT 36.9 % (42.0-52.0); HEMOGLOBIN 12.5 G/DL (14.2-18.0); LYMPHOCYTES % (AUTO) 14.4 % (20.0-45.0); MEAN CORPUSCULAR VOLUME 93 FL (80-99); MONOCYTES % (AUTO) 8.7 % (1.0-10.0); NEUTROPHILS % (AUTO) 75.9 % (45.0-75.0); PLATELET COUNT 294 K/UL (150-450); RED BLOOD COUNT 3.99 M/UL (4.70-6.10); RED CELL DISTRIBUTION WIDTH 13.5 % (11.6-14.8); WHITE BLOOD COUNT 8.5 K/UL (4.8-10.8)
[2017-09-04 06:23] LABS: ANION GAP 8 mmol/L (5-15); BLOOD UREA NITROGEN 7 mg/dL (7-18); CALCIUM 6.9 MG/DL (8.5-10.1); CARBON DIOXIDE 22 MMOL/L (21-32); CHLORIDE 106 MMOL/L (98-107); CREATININE 0.9 MG/DL (0.55-1.30); POTASSIUM 3.6 MMOL/L (3.5-5.1); SODIUM 136 MMOL/L (136-145)
--- NOTE | 2017-09-04 08:48 | Diagnostic Imaging Report ---
Indication: NG tube placement Technique: XRAY Chest 1v Comparison: 09/02/2017 Findings: Interval placement of nasogastric tube. Tip is in the proximal stomach, sidehole near the GE junction. Advancement is recommended. ET tube remains in place, with the tip above the diana. There is persistent interstitial opacification/edema. Unchanged dense retrocardiac atelectasis/consolidation with small layering left pleural effusion. There is increasing linear right basilar atelectasis/consolidation. No definite pneumothorax. Unchanged nodular calcifications in the right apex. Biapical pleural parenchymal scarring is again seen. No acute osseous abnormality noted. Impression: Interval NG tube placement, tip in the proximal stomach. Side port of the NG tube is in the region of the gastroesophageal junction. Advancement is recommended. This corresponds with the preliminary report issued by the stat rad radiologist. Persistent interstitial opacification/edema with dense retrocardiac atelectasis/consolidation and small left pleural effusion. Interval increase in streaky right basilar atelectasis/consolidation.
[2017-09-04] MEDS: Metoprolol 25mg tab NG SCH ×2 (09:27→21:11)
[2017-09-04] MEDS: Enoxaparin Sodium 300mg/3ml vial SUBQ SCH ×2 (09:34→21:12)
--- NOTE | 2017-09-04 10:40 | Pulmonolgy Critical Care Note ---
Critical Care - Asmt/Plan Problems: (1) Respiratory failure (2) Aspiration pneumonia (3) Atrial fibrillation with rapid ventricular response (4) Encephalopathy (5) HTN (hypertension) (6) Alzheimer's dementia Respiratory: monitor respiratory rate, adjust FIO2, CXR, ABG Cardiac: continue to monitor HR/BP Renal: F/U I&O, keep IV fluid, check electrolytes Infectious Disease: check cultures Gastrointestinal: continue feedings/current rate Endocrine: monitor blood sugar, check TSH Hematologic: transfuse if hgb<8.5 Neurologic: PRN Ativan, PRN Morphine, keep patient comfortable Prophylaxis: Protonix, Heparin Disposition: keep in ICU Notes Reviewed: reinforcement maker, cardio Critical Care - Objective Last 24 Hour Vital Signs Date Time Temp Pulse Resp B/P (MAP) Pulse Ox O2 Delivery O2 Flow Rate FiO2 09/04/17 10:00 85 24 113/65 98 Mechanical Ventilator 40 09/04/17 10:00 24 09/04/17 09:27 103 121/78 09/04/17 09:19 103 28 40 09/04/17 09:00 105 31 121/78 99 Mechanical Ventilator 40 09/04/17 09:00 26 09/04/17 08:00 98.2 110 29 132/102 99 Mechanical Ventilator 40 09/04/17 08:00 27 09/04/17 08:00 40 09/04/17 08:00 94 09/04/17 07:07 112 29 40 09/04/17 07:00 106 27 131/63 98 Mechanical Ventilator 40 09/04/17 07:00 17 09/04/17 06:30 104 24 124/54 98 Mechanical Ventilator 40 09/04/17 06:00 114 26 102/74 99 Mechanical Ventilator 40 09/04/17 06:00 26 09/04/17 05:30 110 24 124/84 98 Mechanical Ventilator 40 09/04/17 05:00 26 09/04/17 05:00 98 26 128/66 98 Mechanical Ventilator 40 09/04/17 04:46 107 28 40 09/04/17 04:30 106 25 135/79 98 Mechanical Ventilator 40 09/04/17 04:00 40 09/04/17 04:00 97.7 107 26 107/60 100 Mechanical Ventilator 40 09/04/17 04:00 107 09/04/17 04:00 24 09/04/17 03:30 99 24 117/64 99 Mechanical Ventilator 40 09/04/17 03:27 103 26 40 09/04/17 03:00 95 25 107/74 100 Mechanical Ventilator 40 09/04/17 03:00 25 09/04/17 02:30 93 24 110/55 100 Mechanical Ventilator 40 09/04/17 02:00 24 09/04/17 02:00 97 24 95/62 98 Mechanical Ventilator 40 09/04/17 01:30 85 24 92/67 99 Mechanical Ventilator 40 09/04/17 01:05 107 28 40 09/04/17 01:00 81 24 92/67 99 Mechanical Ventilator 40 09/04/17 01:00 26 09/04/17 00:30 83 26 139/74 99 Mechanical Ventilator 40 09/04/17 00:00 97.6 94 27 105/69 100 Mechanical Ventilator 40 09/04/17 00:00 94 09/04/17 00:00 40 09/04/17 00:00 27 09/03/17 23:30 79 26 131/74 99 Mechanical Ventilator 40 09/03/17 23:18 75 26 40 09/03/17 23:13 26 09/03/17 23:00 78 26 118/80 99 Mechanical Ventilator 40 09/03/17 22:30 77 26 99/57 100 Mechanical Ventilator 40 09/03/17 22:00 71 26 105/63 98 Mechanical Ventilator 40 09/03/17 22:00 26 09/03/17 21:30 78 26 124/94 96 Mechanical Ventilator 40 09/03/17 21:29 81 26 40 09/03/17 21:12 103 131/107 09/03/17 21:00 110 26 137/107 95 Mechanical Ventilator 40 09/03/17 21:00 26 09/03/17 20:30 93 26 120/87 97 Mechanical Ventilator 40 09/03/17 20:15 40 09/03/17 20:00 98 09/03/17 20:00 26 09/03/17 20:00 98.4 98 26 165/95 100 Mechanical Ventilator 40 09/03/17 19:30 104 26 158/84 98 Mechanical Ventilator 40 09/03/17 19:00 105 26 146/85 95 Mechanical Ventilator 40 09/03/17 19:00 26 09/03/17 18:59 86 26 40 09/03/17 18:00 26 09/03/17 18:00 75 26 133/87 99 Mechanical Ventilator 40 09/03/17 17:00 66 26 109/67 98 Mechanical Ventilator 40 09/03/17 17:00 26 09/03/17 16:34 71 26 40 09/03/17 16:00 94 09/03/17 16:00 24 09/03/17 16:00 97.6 86 24 149/73 92 Mechanical Ventilator 40 09/03/17 16:00 40 09/03/17 15:29 83 26 40 09/03/17 15:00 26 09/03/17 15:00 87 24 143/81 98 Mechanical Ventilator 40 09/03/17 14:00 67 26 109/74 96 Mechanical Ventilator 40 09/03/17 14:00 26 09/03/17 13:14 76 26 40 09/03/17 13:00 26 09/03/17 13:00 68 26 121/69 97 Mechanical Ventilator 40 09/03/17 12:00 97.6 107 24 167/121 94 Mechanical Ventilator 40 09/03/17 12:00 95 09/03/17 12:00 24 09/03/17 12:00 40 09/03/17 11:22 92 34 40 09/03/17 11:00 78 26 130/88 97 Mechanical Ventilator 40 09/03/17 11:00 26 09/03/17 10:57 69 134/81 Status: awake Condition: critical HEENT: atraumatic Heart: HR/BP stable Abdomen: non-tender, active bowel sounds Extremities: no C/C/E Decubiti: location Critical Care - Subjective ROS Limited/Unobtainable: Yes ICU Day: 7 Intubation Day: 7 Condition: critical EKG Rhythm: Sinus Rhythm FI02: 40 Vent Support Breath Rate: 26 Vent Support Mode: AC Vent Tidal Volume: 550 Sputum Amount: Moderate PEEP: 5.0 PIP: 23 Fluids: 1/2 NS 100 cc/hour Drips: Propofol drip Tube Feeding Amount: 40 I&O: Intake and Output 09/03/17 09/04/17 19:00 07:00 Intake Total 4611.100 ml 2393.926 ml Output Total 1030 ml 835 ml Balance 3581.100 ml 1558.926 ml Intake Oral 0 ml 0 ml Free Water 150 ml IV Total 4611.100 ml 1823.926 ml Tube Feeding 420 ml Output Urine Total 1030 ml 835 ml # Bowel Movements 3 CXR: ET in good position extensive chronic changes. ET-Tube: 8.0 ET Position: 22 Labs: Laboratory Tests Test 09/04/17 00:30 09/04/17 05:15 Vancomycin Level Trough 13.8 ug/mL (5.0-12.0) H White Blood Count 8.5 K/UL (4.8-10.8) Red Blood Count 3.99 M/UL (4.70-6.10) L Hemoglobin 12.5 G/DL (14.2-18.0) L Hematocrit 36.9 % (42.0-52.0) L Mean Corpuscular Volume 93 FL (80-99) Mean Corpuscular Hemoglobin 31.3 PG (27.0-31.0) H Mean Corpuscular Hemoglobin Concent 33.9 G/DL (32.0-36.0) Red Cell Distribution Width 13.5 % (11.6-14.8) Platelet Count 294 K/UL (150-450) Mean Platelet Volume 7.1 FL (6.5-10.1) Neutrophils (%) (Auto) 75.9 % (45.0-75.0) H Lymphocytes (%) (Auto) 14.4 % (20.0-45.0) L Monocytes (%) (Auto) 8.7 % (1.0-10.0) Eosinophils (%) (Auto) 0.6 % (0.0-3.0) Basophils (%) (Auto) 0.4 % (0.0-2.0) Sodium Level 136 MMOL/L (136-145) Potassium Level 3.6 MMOL/L (3.5-5.1) Chloride Level 106 MMOL/L (98-107) Carbon Dioxide Level 22 MMOL/L (21-32) Anion Gap 8 mmol/L (5-15) Blood Urea Nitrogen 7 mg/dL (7-18) Creatinine 0.9 MG/DL (0.55-1.30) Estimat Glomerular Filtration Rate mL/min (>60) Glucose Level 124 MG/DL (74-106) H Calcium Level 6.9 MG/DL (8.5-10.1) L BHARGAVI ACKERMAN Sep 04, 2017 10:40
[2017-09-04] MEDS ORDERED: Morphine Sulfate 4mg/ml Inj IVP PRN (10:45)
[2017-09-04] MEDS ORDERED: Midazolam 2mg/2ml Inj IVP PRN (11:00)
--- NOTE | 2017-09-04 11:04 | Consultation ---
History of Present Illness General Date patient seen: Sep 04, 2017 Time patient seen: 11:03 Chief Complaint: Dyspnea/Respdistress Present Illness HPI 87 y/o M with hx of HTN, CHF, Dementia, hypothyroidism, Afib, Hep B [facility] resident presents to ED on 08/29 with 1 day onset of SOB. In ED patient found to be on Afib with RVR and acute resp failure and was intubated Of note, recent admission for CHF and aspiration pneumonia. Afebrile. Mild leukocytosis ,resolved. On IV Vanco and Zosyn. unable to wean. Allergies: Coded Allergies: No Known Allergies (Unverified , 08/28/17) Medication History Scheduled Famotidine (Famotidine), 20 MG ORAL DAILY, (Reported) Finasteride* (Proscar*), 5 MG ORAL DAILY, (Reported) Furosemide* (Lasix*), 40 MG ORAL DAILY, (Reported) Levothyroxine Sodium* (Levothyroxine Sodium), 50 MCG IV DAILY, (Reported) Miscellaneous Medications Aspirin (Aspirin), 500 MG ORAL, (Reported) Bisacodyl (Dulcolax), 10 MG RC, (Reported) Digoxin (Digoxin), 0.125 MG PO, (Reported) Lisinopril (Lisinopril), 2.5 GM MC, (Reported) Mineral Oil (Mineral Oil Enema), 133 ML RC, (Reported) Patient History Healthcare decision maker Resuscitation status Full Code Advanced Directive on File No Patient History Narrative PMhx: as above Shx: unable to obtain Fhx: non contributory Review of Systems ROS Narrative unable to obtain Physical Exam Physical Exam Narrative Status: awake Condition: critical HEENT: atraumatic Heart: HR/BP stable Abdomen: non-tender, active bowel sounds Extremities: no C/C/E Decubiti: location Last 24 Hour Vital Signs Date Time Temp Pulse Resp B/P (MAP) Pulse Ox O2 Delivery O2 Flow Rate FiO2 09/04/17 10:42 94 26 40 09/04/17 10:00 85 24 113/65 98 Mechanical Ventilator 40 09/04/17 10:00 24 09/04/17 09:30 113 26 120/85 99 Mechanical Ventilator 40 09/04/17 09:27 103 121/78 09/04/17 09:19 103 28 40 09/04/17 09:00 105 31 121/78 99 Mechanical Ventilator 40 218 09:00 26 18 08:30 117 25 106/72 99 Mechanical Ventilator 40 2 08:00 98.2 110 29 132/102 99 Mechanical Ventilator 40 2 08:00 27 18 08:00 40 218 08:00 94 18 07:30 109 24 117/68 99 Mechanical Ventilator 40 09/04/17 07:07 112 29 40 09/04/17 07:00 106 27 131/63 98 Mechanical Ventilator 40 218 07:00 17 09/04/17 06:30 104 24 124/54 98 Mechanical Ventilator 40 09/04/17 06:00 114 26 102/74 99 Mechanical Ventilator 40 09/04/17 06:00 26 09/04/17 05:30 110 24 124/84 98 Mechanical Ventilator 40 09/04/17 05:00 26 09/04/17 05:00 98 26 128/66 98 Mechanical Ventilator 40 09/04/17 04:46 107 28 40 09/04/17 04:30 106 25 135/79 98 Mechanical Ventilator 40 09/04/17 04:00 40 09/04/17 04:00 97.7 107 26 107/60 100 Mechanical Ventilator 40 09/04/17 04:00 107 09/04/17 04:00 24 09/04/17 03:30 99 24 117/64 99 Mechanical Ventilator 40 09/04/17 03:27 103 26 40 2 03:00 95 25 107/74 100 Mechanical Ventilator 40 2 03:00 25 09/04/17 02:30 93 24 110/55 100 Mechanical Ventilator 40 2/18 02:00 24 09/04/17 02:00 97 24 95/62 98 Mechanical Ventilator 40 2/18 01:30 85 24 92/67 99 Mechanical Ventilator 40 2/18 01:05 107 28 40 218 01:00 81 24 92/67 99 Mechanical Ventilator 40 /2/18 01:00 26 09/04/17 00:30 83 26 139/74 99 Mechanical Ventilator 40 2/18 00:00 97.6 94 27 105/69 100 Mechanical Ventilator 40 2/ 00:00 94 2 00:00 40 09/04/17 00:00 27 09/03/17 23:30 79 26 131/74 99 Mechanical Ventilator 40 09/03/17 23:18 75 26 40 09/03/17 23:13 26 09/03/17 23:00 78 26 118/80 99 Mechanical Ventilator 40 09/03/17 22:30 77 26 99/57 100 Mechanical Ventilator 40 09/03/17 22:00 71 26 105/63 98 Mechanical Ventilator 40 09/03/17 22:00 26 09/03/17 21:30 78 26 124/94 96 Mechanical Ventilator 40 09/03/17 21:29 81 26 40 09/03/17 21:12 103 131/107 09/03/17 21:00 110 26 137/107 95 Mechanical Ventilator 40 09/03/17 21:00 26 09/03/17 20:30 93 26 120/87 97 Mechanical Ventilator 40 09/03/17 20:15 40 09/03/17 20:00 98 09/03/17 20:00 26 09/03/17 20:00 98.4 98 26 165/95 100 Mechanical Ventilator 40 09/03/17 19:30 104 26 158/84 98 Mechanical Ventilator 40 09/03/17 19:00 105 26 146/85 95 Mechanical Ventilator 40 09/03/17 19:00 26 09/03/17 18:59 86 26 40 09/03/17 18:00 26 09/03/17 18:00 75 26 133/87 99 Mechanical Ventilator 40 09/03/17 17:00 66 26 109/67 98 Mechanical Ventilator 40 09/03/17 17:00 26 09/03/17 16:34 71 26 40 09/03/17 16:00 94 09/03/17 16:00 24 09/03/17 16:00 97.6 86 24 149/73 92 Mechanical Ventilator 40 09/03/17 16:00 40 09/03/17 15:29 83 26 40 09/03/17 15:00 26 09/03/17 15:00 87 24 143/81 98 Mechanical Ventilator 40 09/03/17 14:00 67 26 109/74 96 Mechanical Ventilator 40 09/03/17 14:00 26 09/03/17 13:14 76 26 40 09/03/17 13:00 26 09/03/17 13:00 68 26 121/69 97 Mechanical Ventilator 40 09/03/17 12:00 97.6 107 24 167/121 94 Mechanical Ventilator 40 09/03/17 12:00 95 09/03/17 12:00 24 09/03/17 12:00 40 09/03/17 11:22 92 34 40 Intake and Output 09/03/17 09/04/17 19:00 07:00 Intake Total 4611.100 ml 2393.926 ml Output Total 1030 ml 835 ml Balance 3581.100 ml 1558.926 ml Intake Oral 0 ml 0 ml Free Water 150 ml IV Total 4611.100 ml 1823.926 ml Tube Feeding 420 ml Output Urine Total 1030 ml 835 ml # Bowel Movements 3 Laboratory Tests Test 09/04/17 00:30 09/04/17 05:15 Vancomycin Level Trough 13.8 ug/mL (5.0-12.0) H White Blood Count 8.5 K/UL (4.8-10.8) Red Blood Count 3.99 M/UL (4.70-6.10) L Hemoglobin 12.5 G/DL (14.2-18.0) L Hematocrit 36.9 % (42.0-52.0) L Mean Corpuscular Volume 93 FL (80-99) Mean Corpuscular Hemoglobin 31.3 PG (27.0-31.0) H Mean Corpuscular Hemoglobin Concent 33.9 G/DL (32.0-36.0) Red Cell Distribution Width 13.5 % (11.6-14.8) Platelet Count 294 K/UL (150-450) Mean Platelet Volume 7.1 FL (6.5-10.1) Neutrophils (%) (Auto) 75.9 % (45.0-75.0) H Lymphocytes (%) (Auto) 14.4 % (20.0-45.0) L Monocytes (%) (Auto) 8.7 % (1.0-10.0) Eosinophils (%) (Auto) 0.6 % (0.0-3.0) Basophils (%) (Auto) 0.4 % (0.0-2.0) Sodium Level 136 MMOL/L (136-145) Potassium Level 3.6 MMOL/L (3.5-5.1) Chloride Level 106 MMOL/L (98-107) Carbon Dioxide Level 22 MMOL/L (21-32) Anion Gap 8 mmol/L (5-15) Blood Urea Nitrogen 7 mg/dL (7-18) Creatinine 0.9 MG/DL (0.55-1.30) Estimat Glomerular Filtration Rate mL/min (>60) Glucose Level 124 MG/DL (74-106) H Calcium Level 6.9 MG/DL (8.5-10.1) L Height (Feet): 5 Height (Inches): 10.00 Weight (Pounds): 120 Medications Current Medications Medications (Trade) Dose Ordered Sig/Hill Route PRN Reason Start Time Stop Time Status Last Admin Dose Admin Enoxaparin Sodium (Lovenox) 50 mg EVERY 12 HOURS SUBQ 08/29/17 09:00 09/28/17 08:59 09/04/17 09:34 Lorazepam (Ativan 2mg/ml 1ml) 2 mg Q4H PRN IV For Anxiety 09/04/17 10:45 09/11/17 10:44 Metoprolol Tartrate (Lopressor) 25 mg Q12HR NG 09/03/17 21:00 10/03/17 20:59 09/04/17 09:27 Midazolam HCl (Versed 2mg/2ml vial) 1 mg Q2H PRN IVP Agitation 09/04/17 11:00 09/28/17 20:44 Morphine Sulfate (Morphine Sulfate) 4 mg Q4H PRN IVP PAIN 4-10 09/04/17 10:45 09/11/17 10:44 Pantoprazole (Protonix) 40 mg DAILY IV 09/05/17 09:00 10/05/17 08:59 Piperacillin Sod/ Tazobactam Sod 3.375 gm/Sodium Chloride 110 ml @ 27.5 mls/hr Q8HR@0200,1000,1800 IVPB 08/31/17 18:00 09/05/17 01:59 09/04/17 09:27 Propofol 100 ml @ 0 mls/hr Q24H IV 09/02/17 14:30 09/04/17 14:29 09/03/17 23:13 Vancomycin HCl (Vanco rx to dose) 1 ea DAILY PRN MISC Per rx protocol 08/28/17 20:30 09/27/17 20:29 Vancomycin HCl 500 mg/Dextrose 275 ml @ 275 mls/hr Q12H IVPB 09/04/17 13:30 09/09/17 13:29 Assessment/Plan Assessment/Plan Abx: IV Vanco/Zosyn 08/28- Assessment: PNA-r/o Flu -CTA chest: No evidence of pulmonary embolus or aortic dissection/aneurysm. Basilar pneumonia may be present. Please correlate clinically. Chronic lung disease as described above -CXR 09/03: Persistent interstitial opacification/edema with dense retrocardiac atelectasis/consolidation and small left pleural effusion. Interval increase in streaky right basilar atelectasis/consolidation. Acute respiratory failure s/p intubation- Leukocytosis, resolved -afebrile -Bcx neg -u/amild pyuria, ucx neg Lactic acidosis- resolved Afib with RVR Mild PATRICK, resolved HTN, CHF, Dementia, hypothyroidism, Afib, Hep B SNF resident Plan: -Continue IV Vanco and Zosyn #7/10-14 pending sputum cx and add PO Azithromycina and Tamiflu -obtain sputum cx, Influenza test, Legionella ag urine -f/u cx -Monitor CBC/BMP, temperatures -ETT care -aspiration precautions Thank you for this consultation. Will continue to follow along with you. Discussed with Krystal Esteban M.D. Sep 04, 2017 11:04
[2017-09-04] MEDS: Azithromycin 250mg tab NG SCH (12:11)
[2017-09-04] MEDS: LORazepam Inj 2mg/ml 1ml IV PRN (12:12)
[2017-09-04] MEDS: Oseltamivir 75mg cap ORAL SCH ×2 (13:21→17:16)
[2017-09-04] MEDS: Vancomycin 500mg in D5W 275ml IVPB SCH (13:43)
--- NOTE | 2017-09-04 14:28 | Cardiology Progress Note ---
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 normal lv function with pulm htn blood cx are neg weaning off sedative for attempt to wean old chart data indicates no family no chf continue treatment for pneumonia Subjective ROS Limited/Unobtainable: Yes Subjective not communicative dieudonne vent on sedation Objective Last 24 Hour Vital Signs Date Time Temp Pulse Resp B/P (MAP) Pulse Ox O2 Delivery O2 Flow Rate FiO2 09/04/17 14:00 118 25 107/68 98 Mechanical Ventilator 40 09/04/17 13:30 119 24 116/70 98 Mechanical Ventilator 40 09/04/17 13:00 26 09/04/17 13:00 99 22 114/80 98 Mechanical Ventilator 40 09/04/17 12:53 128 26 40 09/04/17 12:30 101 26 109/72 97 Mechanical Ventilator 40 09/04/17 12:00 98.4 98 26 109/72 97 Mechanical Ventilator 40 09/04/17 12:00 105 09/04/17 12:00 40 09/04/17 12:00 26 09/04/17 11:30 105 24 124/102 98 Mechanical Ventilator 40 09/04/17 11:00 94 26 109/78 100 Mechanical Ventilator 40 09/04/17 11:00 26 09/04/17 10:42 94 26 40 09/04/17 10:30 89 24 85/70 98 Mechanical Ventilator 40 09/04/17 10:00 85 24 113/65 98 Mechanical Ventilator 40 09/04/17 10:00 24 09/04/17 09:30 113 26 120/85 99 Mechanical Ventilator 40 09/04/17 09:27 103 121/78 09/04/17 09:19 103 28 40 09/04/17 09:00 105 31 121/78 99 Mechanical Ventilator 40 09/04/17 09:00 26 09/04/17 08:30 117 25 106/72 99 Mechanical Ventilator 40 09/04/17 08:00 98.2 110 29 132/102 99 Mechanical Ventilator 40 09/04/17 08:00 27 09/04/17 08:00 40 09/04/17 08:00 94 09/04/17 07:30 109 24 117/68 99 Mechanical Ventilator 40 09/04/17 07:07 112 29 40 09/04/17 07:00 106 27 131/63 98 Mechanical Ventilator 40 09/04/17 07:00 17 09/04/17 06:30 104 24 124/54 98 Mechanical Ventilator 40 09/04/17 06:00 114 26 102/74 99 Mechanical Ventilator 40 09/04/17 06:00 26 09/04/17 05:30 110 24 124/84 98 Mechanical Ventilator 40 09/04/17 05:00 26 09/04/17 05:00 98 26 128/66 98 Mechanical Ventilator 40 09/04/17 04:46 107 28 40 09/04/17 04:30 106 25 135/79 98 Mechanical Ventilator 40 09/04/17 04:00 40 09/04/17 04:00 97.7 107 26 107/60 100 Mechanical Ventilator 40 09/04/17 04:00 107 09/04/17 04:00 24 09/04/17 03:30 99 24 117/64 99 Mechanical Ventilator 40 09/04/17 03:27 103 26 40 09/04/17 03:00 95 25 107/74 100 Mechanical Ventilator 40 09/04/17 03:00 25 09/04/17 02:30 93 24 110/55 100 Mechanical Ventilator 40 09/04/17 02:00 24 09/04/17 02:00 97 24 95/62 98 Mechanical Ventilator 40 09/04/17 01:30 85 24 92/67 99 Mechanical Ventilator 40 09/04/17 01:05 107 28 40 09/04/17 01:00 81 24 92/67 99 Mechanical Ventilator 40 09/04/17 01:00 26 09/04/17 00:30 83 26 139/74 99 Mechanical Ventilator 40 09/04/17 00:00 97.6 94 27 105/69 100 Mechanical Ventilator 40 09/04/17 00:00 94 09/04/17 00:00 40 09/04/17 00:00 27 09/03/17 23:30 79 26 131/74 99 Mechanical Ventilator 40 09/03/17 23:18 75 26 40 09/03/17 23:13 26 09/03/17 23:00 78 26 118/80 99 Mechanical Ventilator 40 09/03/17 22:30 77 26 99/57 100 Mechanical Ventilator 40 09/03/17 22:00 71 26 105/63 98 Mechanical Ventilator 40 09/03/17 22:00 26 09/03/17 21:30 78 26 124/94 96 Mechanical Ventilator 40 09/03/17 21:29 81 26 40 09/03/17 21:12 103 131/107 09/03/17 21:00 110 26 137/107 95 Mechanical Ventilator 40 09/03/17 21:00 26 09/03/17 20:30 93 26 120/87 97 Mechanical Ventilator 40 09/03/17 20:15 40 09/03/17 20:00 98 09/03/17 20:00 26 09/03/17 20:00 98.4 98 26 165/95 100 Mechanical Ventilator 40 09/03/17 19:30 104 26 158/84 98 Mechanical Ventilator 40 09/03/17 19:00 105 26 146/85 95 Mechanical Ventilator 40 09/03/17 19:00 26 09/03/17 18:59 86 26 40 09/03/17 18:00 26 09/03/17 18:00 75 26 133/87 99 Mechanical Ventilator 40 09/03/17 17:00 66 26 109/67 98 Mechanical Ventilator 40 09/03/17 17:00 26 09/03/17 16:34 71 26 40 09/03/17 16:00 94 09/03/17 16:00 24 09/03/17 16:00 97.6 86 24 149/73 92 Mechanical Ventilator 40 09/03/17 16:00 40 09/03/17 15:29 83 26 40 09/03/17 15:00 26 09/03/17 15:00 87 24 143/81 98 Mechanical Ventilator 40 General Appearance: no apparent distress, on vent, patient on isolation Neck: supple Cardiovascular: tachycardia, irregularly irregular Respiratory/Chest: other - bronchial bs on bing left side Abdomen: normal bowel sounds, non tender, soft Extremities: no swelling Intake and Output 09/03/17 09/04/17 19:00 07:00 Intake Total 4611.100 ml 2393.926 ml Output Total 1030 ml 835 ml Balance 3581.100 ml 1558.926 ml Intake Oral 0 ml 0 ml Free Water 150 ml IV Total 4611.100 ml 1823.926 ml Tube Feeding 420 ml Output Urine Total 1030 ml 835 ml # Bowel Movements 3 Laboratory Tests Test 09/04/17 00:30 09/04/17 05:15 Vancomycin Level Trough 13.8 ug/mL (5.0-12.0) H White Blood Count 8.5 K/UL (4.8-10.8) Red Blood Count 3.99 M/UL (4.70-6.10) L Hemoglobin 12.5 G/DL (14.2-18.0) L Hematocrit 36.9 % (42.0-52.0) L Mean Corpuscular Volume 93 FL (80-99) Mean Corpuscular Hemoglobin 31.3 PG (27.0-31.0) H Mean Corpuscular Hemoglobin Concent 33.9 G/DL (32.0-36.0) Red Cell Distribution Width 13.5 % (11.6-14.8) Platelet Count 294 K/UL (150-450) Mean Platelet Volume 7.1 FL (6.5-10.1) Neutrophils (%) (Auto) 75.9 % (45.0-75.0) H Lymphocytes (%) (Auto) 14.4 % (20.0-45.0) L Monocytes (%) (Auto) 8.7 % (1.0-10.0) Eosinophils (%) (Auto) 0.6 % (0.0-3.0) Basophils (%) (Auto) 0.4 % (0.0-2.0) Sodium Level 136 MMOL/L (136-145) Potassium Level 3.6 MMOL/L (3.5-5.1) Chloride Level 106 MMOL/L (98-107) Carbon Dioxide Level 22 MMOL/L (21-32) Anion Gap 8 mmol/L (5-15) Blood Urea Nitrogen 7 mg/dL (7-18) Creatinine 0.9 MG/DL (0.55-1.30) Estimat Glomerular Filtration Rate mL/min (>60) Glucose Level 124 MG/DL (74-106) H Calcium Level 6.9 MG/DL (8.5-10.1) SEGUNDO DE LA PAZ Sep 04, 2017 14:27
--- NOTE | 2017-09-04 17:48 | Internal Med Progress Note ---
Subjective Date of Service: Sep 04, 2017 Physician Name Neil Benson Attending Physician Davey Cui MD Current Medications Medications (Trade) Dose Ordered Sig/Hill Route PRN Reason Start Time Stop Time Status Last Admin Dose Admin Azithromycin (Zithromax) 500 mg DAILY NG 09/04/17 12:00 09/08/17 11:59 09/04/17 12:11 Enoxaparin Sodium (Lovenox) 50 mg EVERY 12 HOURS SUBQ 08/29/17 09:00 09/28/17 08:59 09/04/17 09:34 Lorazepam (Ativan 2mg/ml 1ml) 2 mg Q4H PRN IV For Anxiety 09/04/17 10:45 09/11/17 10:44 09/04/17 12:12 Metoprolol Tartrate (Lopressor) 25 mg Q12HR NG 09/03/17 21:00 10/03/17 20:59 09/04/17 09:27 Midazolam HCl (Versed 2mg/2ml vial) 1 mg Q2H PRN IVP Agitation 09/04/17 11:00 09/28/17 20:44 Morphine Sulfate (Morphine Sulfate) 4 mg Q4H PRN IVP PAIN 4-10 09/04/17 10:45 09/11/17 10:44 Oseltamivir Phosphate (Tamiflu) 75 mg TWICE A DAY ORAL 09/04/17 13:00 09/09/17 12:59 09/04/17 17:16 Pantoprazole (Protonix) 40 mg DAILY IV 09/05/17 09:00 10/05/17 08:59 Piperacillin Sod/ Tazobactam Sod 3.375 gm/Sodium Chloride 110 ml @ 27.5 mls/hr Q8HR@0200,1000,1800 IVPB 08/31/17 18:00 09/05/17 01:59 09/04/17 17:16 Vancomycin HCl (Vanco rx to dose) 1 ea DAILY PRN MISC Per rx protocol 08/28/17 20:30 09/27/17 20:29 Vancomycin HCl 500 mg/Dextrose 275 ml @ 275 mls/hr Q12H IVPB 09/04/17 13:30 09/09/17 13:29 09/04/17 13:43 Allergies: Coded Allergies: No Known Allergies (Unverified , 08/28/17) ROS Limited/Unobtainable: Yes Subjective 87 YO M admitted with Respiratory failure. Cover for Int Jas-Dr Cui. ICU. Intubated and sedated. Objective Last Vital Signs Date Time Temp Pulse Resp B/P (MAP) Pulse Ox O2 Delivery O2 Flow Rate FiO2 09/04/17 17:02 130 30 40 09/04/17 17:00 98.3 115/75 99 Mechanical Ventilator 08/28/17 23:50 15.0 Laboratory Tests Test 09/04/17 00:30 09/04/17 05:15 Vancomycin Level Trough 13.8 ug/mL (5.0-12.0) H White Blood Count 8.5 K/UL (4.8-10.8) Red Blood Count 3.99 M/UL (4.70-6.10) L Hemoglobin 12.5 G/DL (14.2-18.0) L Hematocrit 36.9 % (42.0-52.0) L Mean Corpuscular Volume 93 FL (80-99) Mean Corpuscular Hemoglobin 31.3 PG (27.0-31.0) H Mean Corpuscular Hemoglobin Concent 33.9 G/DL (32.0-36.0) Red Cell Distribution Width 13.5 % (11.6-14.8) Platelet Count 294 K/UL (150-450) Mean Platelet Volume 7.1 FL (6.5-10.1) Neutrophils (%) (Auto) 75.9 % (45.0-75.0) H Lymphocytes (%) (Auto) 14.4 % (20.0-45.0) L Monocytes (%) (Auto) 8.7 % (1.0-10.0) Eosinophils (%) (Auto) 0.6 % (0.0-3.0) Basophils (%) (Auto) 0.4 % (0.0-2.0) Sodium Level 136 MMOL/L (136-145) Potassium Level 3.6 MMOL/L (3.5-5.1) Chloride Level 106 MMOL/L (98-107) Carbon Dioxide Level 22 MMOL/L (21-32) Anion Gap 8 mmol/L (5-15) Blood Urea Nitrogen 7 mg/dL (7-18) Creatinine 0.9 MG/DL (0.55-1.30) Estimat Glomerular Filtration Rate mL/min (>60) Glucose Level 124 MG/DL (74-106) H Calcium Level 6.9 MG/DL (8.5-10.1) L Intake and Output 09/03/17 09/04/17 19:00 07:00 Intake Total 4611.100 ml 2393.926 ml Output Total 1030 ml 835 ml Balance 3581.100 ml 1558.926 ml Intake Oral 0 ml 0 ml Free Water 150 ml IV Total 4611.100 ml 1823.926 ml Tube Feeding 420 ml Output Urine Total 1030 ml 835 ml # Bowel Movements 3 Objective General Appearance: cachetic, thin EENT: PERRL/EOMI, normal ENT inspection Neck: non-tender, normal alignment, supple Cardiovascular: normal peripheral pulses, no gallop/murmur, no JVD, irregularly irregular Respiratory/Chest: Mech Vent; respiratory distress, crackles/rales, rhonchi - bilaterally, expiratory wheezing Abdomen: non tender, soft, no organomegaly, decreased bowel sounds 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 Continue levoxyl. (6) Respiratory failure Assessment & Plan: Intubated; failed weaning. See pulmonary note. ? need for trach? (7) Atrial fibrillation with rapid ventricular response Assessment & Plan: Continue IV diltiazem per cardiology (8) CHF (congestive heart failure) Assessment & Plan: See cardiology note; await echocardiogram (9) Cachexia (10) Lactic acid acidosis (11) Pneumonia Assessment & Plan: See pulmonary note. Cont zosyn and vanco. (12) Dysphagia Assessment & Plan: Place NG tube; nutrition consult. (13) Hypokalemia Assessment & Plan: Replace KCL Status: not improved NEIL BENSON Sep 04, 2017 17:48
--- NOTE | 2017-09-04 22:27 | General Progress Note ---
Assessment/Plan Assessment/Plan Assessment - Respiratory failure - malnutrition - OBS/encephaloppathy - a fib - CHF - mild anemia - No family available to discuss Recommendations - OGT for feeding - elevate HOB - May need eventual PEG, but consent an issue Subjective Allergies: Coded Allergies: No Known Allergies (Unverified , 08/28/17) Subjective Non communicative tolerating TF Objective Last 24 Hour Vital Signs Date Time Temp Pulse Resp B/P (MAP) Pulse Ox O2 Delivery O2 Flow Rate FiO2 09/04/17 21:11 100 92/59 09/04/17 21:00 110 30 40 09/04/17 20:00 40 09/04/17 19:09 116 26 40 09/04/17 19:00 109 24 84/59 98 Mechanical Ventilator 40 09/04/17 18:00 106 24 105/68 98 Mechanical Ventilator 40 09/04/17 17:02 130 30 40 09/04/17 17:00 98.3 115 26 115/75 99 Mechanical Ventilator 40 09/04/17 16:00 108 09/04/17 16:00 40 09/04/17 16:00 104 26 91/57 98 Mechanical Ventilator 40 09/04/17 15:28 122 26 40 09/04/17 15:00 108 25 112/76 96 Mechanical Ventilator 40 09/04/17 14:00 118 25 107/68 98 Mechanical Ventilator 40 09/04/17 13:30 119 24 116/70 98 Mechanical Ventilator 40 09/04/17 13:00 26 09/04/17 13:00 99 22 114/80 98 Mechanical Ventilator 40 09/04/17 12:53 128 26 40 09/04/17 12:30 101 26 109/72 97 Mechanical Ventilator 40 09/04/17 12:00 98.4 98 26 109/72 97 Mechanical Ventilator 40 09/04/17 12:00 105 09/04/17 12:00 40 09/04/17 12:00 26 09/04/17 11:30 105 24 124/102 98 Mechanical Ventilator 40 09/04/17 11:00 94 26 109/78 100 Mechanical Ventilator 40 09/04/17 11:00 26 09/04/17 10:42 94 26 40 09/04/17 10:30 89 24 85/70 98 Mechanical Ventilator 40 09/04/17 10:00 85 24 113/65 98 Mechanical Ventilator 40 1/2/18 10:00 24 09/04/17 09:30 113 26 120/85 99 Mechanical Ventilator 40 2/18 09:27 103 121/78 118 09:19 103 28 40 09/04/17 09:00 105 31 121/78 99 Mechanical Ventilator 40 218 09:00 26 09/04/17 08:30 117 25 106/72 99 Mechanical Ventilator 40 2/18 08:00 98.2 110 29 132/102 99 Mechanical Ventilator 40 09/04/17 08:00 27 09/04/17 08:00 40 18 08:00 94 18 07:30 109 24 117/68 99 Mechanical Ventilator 40 09/04/17 07:07 112 29 40 09/04/17 07:00 106 27 131/63 98 Mechanical Ventilator 40 09/04/17 07:00 17 09/04/17 06:30 104 24 124/54 98 Mechanical Ventilator 40 09/04/17 06:00 114 26 102/74 99 Mechanical Ventilator 40 09/04/17 06:00 26 09/04/17 05:30 110 24 124/84 98 Mechanical Ventilator 40 09/04/17 05:00 26 09/04/17 05:00 98 26 128/66 98 Mechanical Ventilator 40 09/04/17 04:46 107 28 40 18 04:30 106 25 135/79 98 Mechanical Ventilator 40 218 04:00 40 18 04:00 97.7 107 26 107/60 100 Mechanical Ventilator 40 2/ 04:00 107 2 04:00 24 09/04/17 03:30 99 24 117/64 99 Mechanical Ventilator 40 2/18 03:27 103 26 40 /2/18 03:00 95 25 107/74 100 Mechanical Ventilator 40 2/18 03:00 25 18 02:30 93 24 110/55 100 Mechanical Ventilator 40 2/18 02:00 24 09/04/17 02:00 97 24 95/62 98 Mechanical Ventilator 40 2/18 01:30 85 24 92/67 99 Mechanical Ventilator 40 /2/18 01:05 107 28 40 2/ 01:00 81 24 92/67 99 Mechanical Ventilator 40 218 01:00 26 09/04/17 00:30 83 26 139/74 99 Mechanical Ventilator 40 09/04/17 00:00 97.6 94 27 105/69 100 Mechanical Ventilator 40 09/04/17 00:00 94 09/04/17 00:00 40 09/04/17 00:00 27 09/03/17 23:30 79 26 131/74 99 Mechanical Ventilator 40 09/03/17 23:18 75 26 40 09/03/17 23:13 26 09/03/17 23:00 78 26 118/80 99 Mechanical Ventilator 40 09/03/17 22:30 77 26 99/57 100 Mechanical Ventilator 40 Intake and Output 09/03/17 09/04/17 19:00 07:00 Intake Total 4611.100 ml 2393.926 ml Output Total 1030 ml 835 ml Balance 3581.100 ml 1558.926 ml Intake Oral 0 ml 0 ml Free Water 150 ml IV Total 4611.100 ml 1823.926 ml Tube Feeding 420 ml Output Urine Total 1030 ml 835 ml # Bowel Movements 3 Laboratory Tests 09/04/17 00:30: Vancomycin Level Trough 13.8H 09/04/17 05:15: White Blood Count 8.5, Red Blood Count 3.99L, Hemoglobin 12.5L, Hematocrit 36.9L , Mean Corpuscular Volume 93, Mean Corpuscular Hemoglobin 31.3H, Mean Corpuscular Hemoglobin Concent 33.9, Red Cell Distribution Width 13.5, Platelet Count 294, Mean Platelet Volume 7.1, Neutrophils (%) (Auto) 75.9H, Lymphocytes ( %) (Auto) 14.4L, Monocytes (%) (Auto) 8.7, Eosinophils (%) (Auto) 0.6, Basophils (%) (Auto) 0.4, Sodium Level 136, Potassium Level 3.6, Chloride Level 106, Carbon Dioxide Level 22, Anion Gap 8, Blood Urea Nitrogen 7, Creatinine 0.9 , Estimat Glomerular Filtration Rate , Glucose Level 124H, Calcium Level 6.9L 09/04/17 11:45: Urine Legionella Antigen [Pending] Height (Feet): 5 Height (Inches): 10.00 Weight (Pounds): 120 Objective NCAT supple coarse BS RR abd soft ND NT no edema DORI WILEY Sep 04, 2017 22:27
[2017-09-05] VITALS (24 sets, daily range): BP systolic 86–140; BP diastolic 62–100
[2017-09-05] MEDS: Vancomycin 500mg in D5W 275ml IVPB SCH ×2 (01:31→12:52)
[2017-09-05 05:53] LABS: BASOPHILS % (AUTO) 0.4 % (0.0-2.0); EOSINOPHILS % (AUTO) 1.3 % (0.0-3.0); HEMATOCRIT 33.8 % (42.0-52.0); HEMOGLOBIN 11.4 G/DL (14.2-18.0); MEAN CORPUSCULAR VOLUME 94 FL (80-99); MONOCYTES % (AUTO) 7.8 % (1.0-10.0); NEUTROPHILS % (AUTO) 75.6 % (45.0-75.0); PLATELET COUNT 270 K/UL (150-450); RED CELL DISTRIBUTION WIDTH 13.6 % (11.6-14.8); WHITE BLOOD COUNT 7.3 K/UL (4.8-10.8)
[2017-09-05 06:06] LABS: ALANINE AMINOTRANSFERASE 9 U/L (12-78); ALBUMIN 1.7 G/DL (3.4-5.0); ALBUMIN/GLOBULIN RATIO 0.4 (1.0-2.7); ALKALINE PHOSPHATASE 63 U/L (46-116); ANION GAP 8 mmol/L (5-15); ASPARTATE AMINO TRANSFERASE 15 U/L (15-37); BILIRUBIN,TOTAL 0.4 MG/DL (0.2-1.0); BLOOD UREA NITROGEN 10 mg/dL (7-18); CALCIUM 6.8 MG/DL (8.5-10.1); CARBON DIOXIDE 24 MMOL/L (21-32); CHLORIDE 109 MMOL/L (98-107); CREATININE 0.8 MG/DL (0.55-1.30); POTASSIUM 3.3 MMOL/L (3.5-5.1); SODIUM 141 MMOL/L (136-145)
[2017-09-05] MEDS: Metoprolol 25mg tab NG SCH ×2 (08:36→20:31)
[2017-09-05] MEDS: Pantoprazole Inj IV SCH (08:36)
[2017-09-05] MEDS: Azithromycin 250mg tab NG SCH (08:36)
[2017-09-05] MEDS: Oseltamivir 75mg cap ORAL SCH ×2 (08:36→17:46)
[2017-09-05] MEDS: Enoxaparin Sodium 300mg/3ml vial SUBQ SCH ×2 (08:37→20:44)
--- NOTE | 2017-09-05 09:45 | Infectious Diseases Prog Note ---
Assessment/Plan Assessment/Plan Abx: IV Vanco/Zosyn 08/28- Assessment: PNA-r/o Flu- r/o fungal pna -CTA chest: No evidence of pulmonary embolus or aortic dissection/aneurysm. Basilar pneumonia may be present. Please correlate clinically. Chronic lung disease as described above -CXR 09/03: Persistent interstitial opacification/edema with dense retrocardiac atelectasis/consolidation and small left pleural effusion. Interval increase in streaky right basilar atelectasis/consolidation. -sp CX 09/03 NTD Acute respiratory failure s/p intubation- Leukocytosis, resolved -afebrile -Bcx neg -u/amild pyuria, ucx neg Lactic acidosis- resolved Afib with RVR Mild PATRICK, resolved HTN, CHF, Dementia, hypothyroidism, Afib, Hep B [facility] resident Plan: -Continue IV Vanco and Zosyn #8/10-14 pending sputum cx and PO Azithromycin and Tamiflu #2 pending tests f/u sputum cx, Influenza test, Legionella ag urine -f/u cx -Monitor CBC/BMP, temperatures -ETT care -aspiration precautions Thank you for this consultation. Will continue to follow along with you. Discussed with RN. Subjective Allergies: Coded Allergies: No Known Allergies (Unverified , 08/28/17) Objective Vital Signs Last 24 Hour Vital Signs Date Time Temp Pulse Resp B/P (MAP) Pulse Ox O2 Delivery O2 Flow Rate FiO2 09/05/17 09:29 97 26 40 09/05/17 09:00 90 26 104/62 99 Mechanical Ventilator 40 09/05/17 08:36 119 131/100 09/05/17 08:00 130 09/05/17 08:00 97.9 104 26 120/74 99 Mechanical Ventilator 40 09/05/17 08:00 40 09/05/17 07:00 119 26 131/100 98 Mechanical Ventilator 40 09/05/17 06:58 135 30 40 09/05/17 06:00 118 26 125/81 99 Mechanical Ventilator 40 09/05/17 05:02 107 30 40 09/05/17 05:00 121 26 118/70 98 Mechanical Ventilator 40 09/05/17 04:00 98.8 123 26 137/94 99 Mechanical Ventilator 40 09/05/17 04:00 40 09/05/17 04:00 125 09/05/17 03:01 101 27 40 1/18 03:00 96 26 100/75 99 Mechanical Ventilator 40 18 02:00 111 25 113/69 99 Mechanical Ventilator 40 18 01:00 118 25 130/93 100 Mechanical Ventilator 40 /3/18 01:00 100 26 40 /3/18 00:00 125 18 00:00 98.6 110 26 111/70 100 Mechanical Ventilator 40 1/2/18 23:00 103 26 40 1/2/18 23:00 90 26 93/62 99 Mechanical Ventilator 40 /2/18 22:00 87 26 91/56 100 Mechanical Ventilator 40 /2/18 21:11 100 92/59 1/2/18 21:00 104 26 87/50 100 Mechanical Ventilator 40 1/2/18 21:00 110 30 40 1/2/18 20:00 103 /2/18 20:00 40 /2/18 20:00 98.4 121 26 115/64 100 Mechanical Ventilator 40 /2/18 19:09 116 26 40 1/2/18 19:00 109 24 84/59 98 Mechanical Ventilator 40 /2/18 18:00 106 24 105/68 98 Mechanical Ventilator 40 /2/18 17:02 130 30 40 1/2/18 17:00 98.3 115 26 115/75 99 Mechanical Ventilator 40 1/2/18 16:00 108 /2/18 16:00 40 1/2/18 16:00 104 26 91/57 98 Mechanical Ventilator 40 1/2/18 15:28 122 26 40 1/2/18 15:00 108 25 112/76 96 Mechanical Ventilator 40 /2/18 14:00 118 25 107/68 98 Mechanical Ventilator 40 1/2/18 13:30 119 24 116/70 98 Mechanical Ventilator 40 1/2/18 13:00 26 1/2/18 13:00 99 22 114/80 98 Mechanical Ventilator 40 1/2/18 12:53 128 26 40 1/2/18 12:30 101 26 109/72 97 Mechanical Ventilator 40 1/2/18 12:00 98.4 98 26 109/72 97 Mechanical Ventilator 40 1/2/18 12:00 105 1/2/18 12:00 40 1/2/18 12:00 26 1/2/18 11:30 105 24 124/102 98 Mechanical Ventilator 40 09/04/17 11:00 94 26 109/78 100 Mechanical Ventilator 40 09/04/17 11:00 26 09/04/17 10:42 94 26 40 09/04/17 10:30 89 24 85/70 98 Mechanical Ventilator 40 09/04/17 10:00 85 24 113/65 98 Mechanical Ventilator 40 09/04/17 10:00 24 Height (Feet): 5 Height (Inches): 10.00 Weight (Pounds): 115 Objective Status: awake Condition: critical HEENT: atraumatic Heart: HR/BP stable Abdomen: non-tender, active bowel sounds Extremities: no C/C/E Decubiti: location Microbiology Date/Time Source Procedure Growth Status 09/04/17 11:45 Sputum Expectorated Gram Stain Pending Resulted 09/04/17 11:45 Sputum Expectorated Sputum Culture - Preliminary NO GROWTH Resulted Laboratory Tests Test 09/04/17 11:45 09/05/17 03:45 09/05/17 08:20 Urine Legionella Antigen Pending White Blood Count 7.3 K/UL (4.8-10.8) Red Blood Count 3.60 M/UL (4.70-6.10) L Hemoglobin 11.4 G/DL (14.2-18.0) L Hematocrit 33.8 % (42.0-52.0) L Mean Corpuscular Volume 94 FL (80-99) Mean Corpuscular Hemoglobin 31.8 PG (27.0-31.0) H Mean Corpuscular Hemoglobin Concent 33.8 G/DL (32.0-36.0) Red Cell Distribution Width 13.6 % (11.6-14.8) Platelet Count 270 K/UL (150-450) Mean Platelet Volume 6.5 FL (6.5-10.1) Neutrophils (%) (Auto) 75.6 % (45.0-75.0) H Lymphocytes (%) (Auto) 15.0 % (20.0-45.0) L Monocytes (%) (Auto) 7.8 % (1.0-10.0) Eosinophils (%) (Auto) 1.3 % (0.0-3.0) Basophils (%) (Auto) 0.4 % (0.0-2.0) Sodium Level 141 MMOL/L (136-145) Potassium Level 3.3 MMOL/L (3.5-5.1) L Chloride Level 109 MMOL/L (98-107) H Carbon Dioxide Level 24 MMOL/L (21-32) Anion Gap 8 mmol/L (5-15) Blood Urea Nitrogen 10 mg/dL (7-18) Creatinine 0.8 MG/DL (0.55-1.30) Estimat Glomerular Filtration Rate mL/min (>60) Glucose Level 131 MG/DL (74-106) H Calcium Level 6.8 MG/DL (8.5-10.1) L Phosphorus Level 2.0 MG/DL (2.5-4.9) L Magnesium Level 1.8 MG/DL (1.8-2.4) Total Bilirubin 0.4 MG/DL (0.2-1.0) Aspartate Amino Transf (AST/SGOT) 15 U/L (15-37) Alanine Aminotransferase (ALT/SGPT) 9 U/L (12-78) L Alkaline Phosphatase 63 U/L (46-116) Total Protein 5.9 G/DL (6.4-8.2) L Albumin 1.7 G/DL (3.4-5.0) L Globulin 4.2 g/dL Albumin/Globulin Ratio 0.4 (1.0-2.7) L Hepatitis B Surface Antigen Pending Hepatitis B Surface Antibody, Quant Pending Hepatitis B Core Total Antibody Pending Hepatitis B DNA (IU/mL) Pending Hepatitis C Antibody Pending Arterial Blood pH 7.442 (7.350-7.450) Arterial Blood Partial Pressure CO2 35.8 mmHg (35.0-45.0) Arterial Blood Partial Pressure O2 83.1 mmHg (75.0-100.0) Arterial Blood HCO3 23.9 mmol/L (22.0-26.0) Arterial Blood Oxygen Saturation 96.4 % (92.0-98.0) Arterial Blood Base Excess 0.1 Garrett Test Positive Current Medications Medications (Trade) Dose Ordered Sig/Hill Route PRN Reason Start Time Stop Time Status Last Admin Dose Admin Azithromycin (Zithromax) 500 mg DAILY NG 09/04/17 12:00 09/08/17 11:59 09/05/17 08:36 Enoxaparin Sodium (Lovenox) 50 mg EVERY 12 HOURS SUBQ 08/29/17 09:00 09/28/17 08:59 09/05/17 08:37 Lorazepam (Ativan 2mg/ml 1ml) 2 mg Q4H PRN IV For Anxiety 09/04/17 10:45 09/11/17 10:44 09/04/17 12:12 Metoprolol Tartrate (Lopressor) 25 mg Q12HR NG 09/03/17 21:00 10/03/17 20:59 09/05/17 08:36 Midazolam HCl (Versed 2mg/2ml vial) 1 mg Q2H PRN IVP Agitation 09/04/17 11:00 09/28/17 20:44 Morphine Sulfate (Morphine Sulfate) 4 mg Q4H PRN IVP PAIN 4-10 09/04/17 10:45 09/11/17 10:44 Oseltamivir Phosphate (Tamiflu) 75 mg TWICE A DAY ORAL 09/04/17 13:00 09/09/17 12:59 09/05/17 08:36 Pantoprazole (Protonix) 40 mg DAILY IV 09/05/17 09:00 10/05/17 08:59 09/05/17 08:36 Vancomycin HCl (Vanco rx to dose) 1 ea DAILY PRN MISC Per rx protocol 08/28/17 20:30 09/27/17 20:29 Vancomycin HCl 500 mg/Dextrose 275 ml @ 275 mls/hr Q12H IVPB 09/04/17 13:30 09/09/17 13:29 09/05/17 01:31 Krystal Kasper M.D. Sep 05, 2017 09:45
--- NOTE | 2017-09-05 09:46 | Infectious Diseases Prog Note ---
Subjective Allergies: Coded Allergies: No Known Allergies (Unverified , 08/28/17) Objective Vital Signs Last 24 Hour Vital Signs Date Time Temp Pulse Resp B/P (MAP) Pulse Ox O2 Delivery O2 Flow Rate FiO2 09/05/17 09:29 97 26 40 09/05/17 09:00 90 26 104/62 99 Mechanical Ventilator 40 09/05/17 08:36 119 131/100 09/05/17 08:00 130 09/05/17 08:00 97.9 104 26 120/74 99 Mechanical Ventilator 40 09/05/17 08:00 40 09/05/17 07:00 119 26 131/100 98 Mechanical Ventilator 40 09/05/17 06:58 135 30 40 09/05/17 06:00 118 26 125/81 99 Mechanical Ventilator 40 09/05/17 05:02 107 30 40 09/05/17 05:00 121 26 118/70 98 Mechanical Ventilator 40 09/05/17 04:00 98.8 123 26 137/94 99 Mechanical Ventilator 40 09/05/17 04:00 40 09/05/17 04:00 125 09/05/17 03:01 101 27 40 09/05/17 03:00 96 26 100/75 99 Mechanical Ventilator 40 09/05/17 02:00 111 25 113/69 99 Mechanical Ventilator 40 09/05/17 01:00 118 25 130/93 100 Mechanical Ventilator 40 09/05/17 01:00 100 26 40 09/05/17 00:00 125 09/05/17 00:00 98.6 110 26 111/70 100 Mechanical Ventilator 40 09/04/17 23:00 103 26 40 09/04/17 23:00 90 26 93/62 99 Mechanical Ventilator 40 09/04/17 22:00 87 26 91/56 100 Mechanical Ventilator 40 09/04/17 21:11 100 92/59 09/04/17 21:00 104 26 87/50 100 Mechanical Ventilator 40 09/04/17 21:00 110 30 40 09/04/17 20:00 103 09/04/17 20:00 40 09/04/17 20:00 98.4 121 26 115/64 100 Mechanical Ventilator 40 09/04/17 19:09 116 26 40 09/04/17 19:00 109 24 84/59 98 Mechanical Ventilator 40 09/04/17 18:00 106 24 105/68 98 Mechanical Ventilator 40 09/04/17 17:02 130 30 40 09/04/17 17:00 98.3 115 26 115/75 99 Mechanical Ventilator 40 09/04/17 16:00 108 09/04/17 16:00 40 09/04/17 16:00 104 26 91/57 98 Mechanical Ventilator 40 09/04/17 15:28 122 26 40 09/04/17 15:00 108 25 112/76 96 Mechanical Ventilator 40 09/04/17 14:00 118 25 107/68 98 Mechanical Ventilator 40 09/04/17 13:30 119 24 116/70 98 Mechanical Ventilator 40 09/04/17 13:00 26 09/04/17 13:00 99 22 114/80 98 Mechanical Ventilator 40 09/04/17 12:53 128 26 40 09/04/17 12:30 101 26 109/72 97 Mechanical Ventilator 40 09/04/17 12:00 98.4 98 26 109/72 97 Mechanical Ventilator 40 09/04/17 12:00 105 09/04/17 12:00 40 09/04/17 12:00 26 09/04/17 11:30 105 24 124/102 98 Mechanical Ventilator 40 09/04/17 11:00 94 26 109/78 100 Mechanical Ventilator 40 09/04/17 11:00 26 09/04/17 10:42 94 26 40 09/04/17 10:30 89 24 85/70 98 Mechanical Ventilator 40 09/04/17 10:00 85 24 113/65 98 Mechanical Ventilator 40 09/04/17 10:00 24 Height (Feet): 5 Height (Inches): 10.00 Weight (Pounds): 115 Microbiology Date/Time Source Procedure Growth Status 09/04/17 11:45 Sputum Expectorated Gram Stain Pending Resulted 09/04/17 11:45 Sputum Expectorated Sputum Culture - Preliminary NO GROWTH Resulted Laboratory Tests Test 09/04/17 11:45 09/05/17 03:45 09/05/17 08:20 Urine Legionella Antigen Pending White Blood Count 7.3 K/UL (4.8-10.8) Red Blood Count 3.60 M/UL (4.70-6.10) L Hemoglobin 11.4 G/DL (14.2-18.0) L Hematocrit 33.8 % (42.0-52.0) L Mean Corpuscular Volume 94 FL (80-99) Mean Corpuscular Hemoglobin 31.8 PG (27.0-31.0) H Mean Corpuscular Hemoglobin Concent 33.8 G/DL (32.0-36.0) Red Cell Distribution Width 13.6 % (11.6-14.8) Platelet Count 270 K/UL (150-450) Mean Platelet Volume 6.5 FL (6.5-10.1) Neutrophils (%) (Auto) 75.6 % (45.0-75.0) H Lymphocytes (%) (Auto) 15.0 % (20.0-45.0) L Monocytes (%) (Auto) 7.8 % (1.0-10.0) Eosinophils (%) (Auto) 1.3 % (0.0-3.0) Basophils (%) (Auto) 0.4 % (0.0-2.0) Sodium Level 141 MMOL/L (136-145) Potassium Level 3.3 MMOL/L (3.5-5.1) L Chloride Level 109 MMOL/L (98-107) H Carbon Dioxide Level 24 MMOL/L (21-32) Anion Gap 8 mmol/L (5-15) Blood Urea Nitrogen 10 mg/dL (7-18) Creatinine 0.8 MG/DL (0.55-1.30) Estimat Glomerular Filtration Rate mL/min (>60) Glucose Level 131 MG/DL (74-106) H Calcium Level 6.8 MG/DL (8.5-10.1) L Phosphorus Level 2.0 MG/DL (2.5-4.9) L Magnesium Level 1.8 MG/DL (1.8-2.4) Total Bilirubin 0.4 MG/DL (0.2-1.0) Aspartate Amino Transf (AST/SGOT) 15 U/L (15-37) Alanine Aminotransferase (ALT/SGPT) 9 U/L (12-78) L Alkaline Phosphatase 63 U/L (46-116) Total Protein 5.9 G/DL (6.4-8.2) L Albumin 1.7 G/DL (3.4-5.0) L Globulin 4.2 g/dL Albumin/Globulin Ratio 0.4 (1.0-2.7) L Hepatitis B Surface Antigen Pending Hepatitis B Surface Antibody, Quant Pending Hepatitis B Core Total Antibody Pending Hepatitis B DNA (IU/mL) Pending Hepatitis C Antibody Pending Arterial Blood pH 7.442 (7.350-7.450) Arterial Blood Partial Pressure CO2 35.8 mmHg (35.0-45.0) Arterial Blood Partial Pressure O2 83.1 mmHg (75.0-100.0) Arterial Blood HCO3 23.9 mmol/L (22.0-26.0) Arterial Blood Oxygen Saturation 96.4 % (92.0-98.0) Arterial Blood Base Excess 0.1 Garrett Test Positive Current Medications Medications (Trade) Dose Ordered Sig/Hill Route PRN Reason Start Time Stop Time Status Last Admin Dose Admin Azithromycin (Zithromax) 500 mg DAILY NG 09/04/17 12:00 09/08/17 11:59 09/05/17 08:36 Enoxaparin Sodium (Lovenox) 50 mg EVERY 12 HOURS SUBQ 08/29/17 09:00 09/28/17 08:59 09/05/17 08:37 Lorazepam (Ativan 2mg/ml 1ml) 2 mg Q4H PRN IV For Anxiety 09/04/17 10:45 09/11/17 10:44 09/04/17 12:12 Metoprolol Tartrate (Lopressor) 25 mg Q12HR NG 09/03/17 21:00 10/03/17 20:59 09/05/17 08:36 Midazolam HCl (Versed 2mg/2ml vial) 1 mg Q2H PRN IVP Agitation 09/04/17 11:00 09/28/17 20:44 Morphine Sulfate (Morphine Sulfate) 4 mg Q4H PRN IVP PAIN 4-10 09/04/17 10:45 09/11/17 10:44 Oseltamivir Phosphate (Tamiflu) 75 mg TWICE A DAY ORAL 09/04/17 13:00 09/09/17 12:59 09/05/17 08:36 Pantoprazole (Protonix) 40 mg DAILY IV 09/05/17 09:00 10/05/17 08:59 09/05/17 08:36 Vancomycin HCl (Vanco rx to dose) 1 ea DAILY PRN MISC Per rx protocol 08/28/17 20:30 09/27/17 20:29 Vancomycin HCl 500 mg/Dextrose 275 ml @ 275 mls/hr Q12H IVPB 09/04/17 13:30 09/09/17 13:29 09/05/17 01:31 Krystal Kasper M.D. Sep 05, 2017 09:46
--- NOTE | 2017-09-05 10:47 | Pulmonolgy Critical Care Note ---
Critical Care - Asmt/Plan Problems: (1) Respiratory failure (2) Aspiration pneumonia (3) Atrial fibrillation with rapid ventricular response (4) Encephalopathy (5) HTN (hypertension) (6) Alzheimer's dementia Respiratory: monitor respiratory rate, adjust FIO2, CXR, weaning trial Cardiac: continue to monitor HR/BP Renal: F/U I&O, keep IV fluid, other - k and phos supplement Infectious Disease: check cultures Gastrointestinal: continue feedings/current rate, hold feedings Endocrine: monitor blood sugar, check HgA1C, continue sliding scale insulin Hematologic: monitor H/H, transfuse if hgb<8.5 Neurologic: PRN Ativan, keep patient comfortable Affect: PRN ativan Prophylaxis: Protonix, Heparin Notes Reviewed: cardio, renal Discussed with: nurses, consultants, casework supervisorasset manager - Objective Last 24 Hour Vital Signs Date Time Temp Pulse Resp B/P (MAP) Pulse Ox O2 Delivery O2 Flow Rate FiO2 09/05/17 10:00 94 23 119/64 99 Mechanical Ventilator 40 09/05/17 09:29 97 26 40 09/05/17 09:00 90 26 104/62 99 Mechanical Ventilator 40 09/05/17 08:36 119 131/100 09/05/17 08:00 130 09/05/17 08:00 97.9 104 26 120/74 99 Mechanical Ventilator 40 09/05/17 08:00 40 09/05/17 07:00 119 26 131/100 98 Mechanical Ventilator 40 09/05/17 06:58 135 30 40 09/05/17 06:00 118 26 125/81 99 Mechanical Ventilator 40 09/05/17 05:02 107 30 40 09/05/17 05:00 121 26 118/70 98 Mechanical Ventilator 40 09/05/17 04:00 98.8 123 26 137/94 99 Mechanical Ventilator 40 09/05/17 04:00 40 09/05/17 04:00 125 09/05/17 03:01 101 27 40 09/05/17 03:00 96 26 100/75 99 Mechanical Ventilator 40 09/05/17 02:00 111 25 113/69 99 Mechanical Ventilator 40 09/05/17 01:00 118 25 130/93 100 Mechanical Ventilator 40 09/05/17 01:00 100 26 40 09/05/17 00:00 125 09/05/17 00:00 98.6 110 26 111/70 100 Mechanical Ventilator 40 09/04/17 23:00 103 26 40 18 23:00 90 26 93/62 99 Mechanical Ventilator 40 09/04/17 22:00 87 26 91/56 100 Mechanical Ventilator 40 09/04/17 21:11 100 92/59 09/04/17 21:00 104 26 87/50 100 Mechanical Ventilator 40 09/04/17 21:00 110 30 40 09/04/17 20:00 103 09/04/17 20:00 40 09/04/17 20:00 98.4 121 26 115/64 100 Mechanical Ventilator 40 09/04/17 19:09 116 26 40 09/04/17 19:00 109 24 84/59 98 Mechanical Ventilator 40 09/04/17 18:00 106 24 105/68 98 Mechanical Ventilator 40 09/04/17 17:02 130 30 40 09/04/17 17:00 98.3 115 26 115/75 99 Mechanical Ventilator 40 09/04/17 16:00 108 09/04/17 16:00 40 09/04/17 16:00 104 26 91/57 98 Mechanical Ventilator 40 09/04/17 15:28 122 26 40 09/04/17 15:00 108 25 112/76 96 Mechanical Ventilator 40 09/04/17 14:00 118 25 107/68 98 Mechanical Ventilator 40 09/04/17 13:30 119 24 116/70 98 Mechanical Ventilator 40 09/04/17 13:00 26 09/04/17 13:00 99 22 114/80 98 Mechanical Ventilator 40 09/04/17 12:53 128 26 40 09/04/17 12:30 101 26 109/72 97 Mechanical Ventilator 40 09/04/17 12:00 98.4 98 26 109/72 97 Mechanical Ventilator 40 09/04/17 12:00 105 09/04/17 12:00 40 09/04/17 12:00 26 09/04/17 11:30 105 24 124/102 98 Mechanical Ventilator 40 09/04/17 11:00 94 26 109/78 100 Mechanical Ventilator 40 09/04/17 11:00 26 Status: awake Condition: critical HEENT: atraumatic Neck: full ROM Heart: HR/BP stable, HR/BP unstable Abdomen: soft, non-tender Extremities: no C/C/E Decubiti: location Micro: Microbiology Date/Time Source Procedure Growth Status 09/04/17 11:45 Sputum Expectorated Gram Stain - Final Resulted 09/04/17 11:45 Sputum Expectorated Sputum Culture - Preliminary NO GROWTH Resulted Critical Care - Subjective ROS Limited/Unobtainable: No ICU Day: 8 Intubation Day: 8 Condition: critical EKG Rhythm: Sinus Bradycardia FI02: 40 Vent Support Breath Rate: 26 Vent Support Mode: AC Vent Tidal Volume: 550 Sputum Amount: Moderate PEEP: 5.0 PIP: 25 Tube Feeding Amount: 55 I&O: Intake and Output 09/04/17 09/05/17 19:00 07:00 Intake Total 1457.271 ml 1085 ml Output Total 1050 ml 960 ml Balance 407.271 ml 125 ml Free Water 50 ml 100 ml IV Total 732.271 ml 275 ml Tube Feeding 575 ml 660 ml Other 100 ml 50 ml Output Urine Total 1050 ml 960 ml # Bowel Movements 2 CXR: no change ET-Tube: 8.0 ET Position: 22 Labs: Laboratory Tests Test 09/04/17 11:45 09/05/17 03:45 09/05/17 08:20 Urine Legionella Antigen Pending White Blood Count 7.3 K/UL (4.8-10.8) Red Blood Count 3.60 M/UL (4.70-6.10) L Hemoglobin 11.4 G/DL (14.2-18.0) L Hematocrit 33.8 % (42.0-52.0) L Mean Corpuscular Volume 94 FL (80-99) Mean Corpuscular Hemoglobin 31.8 PG (27.0-31.0) H Mean Corpuscular Hemoglobin Concent 33.8 G/DL (32.0-36.0) Red Cell Distribution Width 13.6 % (11.6-14.8) Platelet Count 270 K/UL (150-450) Mean Platelet Volume 6.5 FL (6.5-10.1) Neutrophils (%) (Auto) 75.6 % (45.0-75.0) H Lymphocytes (%) (Auto) 15.0 % (20.0-45.0) L Monocytes (%) (Auto) 7.8 % (1.0-10.0) Eosinophils (%) (Auto) 1.3 % (0.0-3.0) Basophils (%) (Auto) 0.4 % (0.0-2.0) Sodium Level 141 MMOL/L (136-145) Potassium Level 3.3 MMOL/L (3.5-5.1) L Chloride Level 109 MMOL/L (98-107) H Carbon Dioxide Level 24 MMOL/L (21-32) Anion Gap 8 mmol/L (5-15) Blood Urea Nitrogen 10 mg/dL (7-18) Creatinine 0.8 MG/DL (0.55-1.30) Estimat Glomerular Filtration Rate mL/min (>60) Glucose Level 131 MG/DL (74-106) H Calcium Level 6.8 MG/DL (8.5-10.1) L Phosphorus Level 2.0 MG/DL (2.5-4.9) L Magnesium Level 1.8 MG/DL (1.8-2.4) Total Bilirubin 0.4 MG/DL (0.2-1.0) Aspartate Amino Transf (AST/SGOT) 15 U/L (15-37) Alanine Aminotransferase (ALT/SGPT) 9 U/L (12-78) L Alkaline Phosphatase 63 U/L (46-116) Total Protein 5.9 G/DL (6.4-8.2) L Albumin 1.7 G/DL (3.4-5.0) L Globulin 4.2 g/dL Albumin/Globulin Ratio 0.4 (1.0-2.7) L Hepatitis B Surface Antigen Pending Hepatitis B Surface Antibody, Quant Pending Hepatitis B Core Total Antibody Pending Hepatitis B DNA (IU/mL) Pending Hepatitis C Antibody Pending Arterial Blood pH 7.442 (7.350-7.450) Arterial Blood Partial Pressure CO2 35.8 mmHg (35.0-45.0) Arterial Blood Partial Pressure O2 83.1 mmHg (75.0-100.0) Arterial Blood HCO3 23.9 mmol/L (22.0-26.0) Arterial Blood Oxygen Saturation 96.4 % (92.0-98.0) Arterial Blood Base Excess 0.1 Garrett Test Positive BHARGAVI ACKERMAN Sep 05, 2017 10:47
[2017-09-05] MEDS ORDERED: Sodium Phosphate 30 MM in NS 275 ML IV ONE (12:00)
--- NOTE | 2017-09-05 12:38 | Diagnostic Imaging Report ---
Indication: Dyspnea Technique: One view of the chest Comparison: 09/03/2017 Findings: Stable satisfactory position of endotracheal tube. Nasogastric tube has advanced. There is persistent right basilar atelectasis and left sided pleural fluid and retrocardiac consolidation. Very slight improvement in generalized interstitial edema. Bilateral upper lung fibronodular scarring with calcification again demonstrated Impression: Interim slight improvement of interstitial edema. Interim improved position of nasogastric tube. Otherwise little approver 2 days. Findings as noted
--- NOTE | 2017-09-05 13:15 | Internal Med Progress Note ---
Subjective Date of Service: Sep 05, 2017 Physician Name Neil Benson Attending Physician Davey Cui MD Current Medications Medications (Trade) Dose Ordered Sig/Hill Route PRN Reason Start Time Stop Time Status Last Admin Dose Admin Azithromycin (Zithromax) 500 mg DAILY NG 09/04/17 12:00 09/08/17 11:59 09/05/17 08:36 Enoxaparin Sodium (Lovenox) 50 mg EVERY 12 HOURS SUBQ 08/29/17 09:00 09/28/17 08:59 09/05/17 08:37 Lorazepam (Ativan 2mg/ml 1ml) 2 mg Q4H PRN IV For Anxiety 09/04/17 10:45 09/11/17 10:44 09/04/17 12:12 Metoprolol Tartrate (Lopressor) 25 mg Q12HR NG 09/03/17 21:00 10/03/17 20:59 09/05/17 08:36 Midazolam HCl (Versed 2mg/2ml vial) 1 mg Q2H PRN IVP Agitation 09/04/17 11:00 09/28/17 20:44 Morphine Sulfate (Morphine Sulfate) 4 mg Q4H PRN IVP PAIN 4-10 09/04/17 10:45 09/11/17 10:44 Oseltamivir Phosphate (Tamiflu) 75 mg TWICE A DAY ORAL 09/04/17 13:00 09/09/17 12:59 09/05/17 08:36 Pantoprazole (Protonix) 40 mg DAILY IV 09/05/17 09:00 10/05/17 08:59 09/05/17 08:36 Sodium Phosphate 30 mm/Sodium Chloride 285 ml @ 47.5 mls/hr ONCE ONCE IV 09/05/17 12:00 09/05/17 17:59 09/05/17 12:30 Vancomycin HCl (Vanco rx to dose) 1 ea DAILY PRN MISC Per rx protocol 08/28/17 20:30 09/27/17 20:29 Vancomycin HCl 500 mg/Dextrose 275 ml @ 275 mls/hr Q12H IVPB 09/04/17 13:30 09/09/17 13:29 09/05/17 12:52 Allergies: Coded Allergies: No Known Allergies (Unverified , 08/28/17) ROS Limited/Unobtainable: Yes Subjective 87 YO M admitted with Respiratory failure. Cover for Int Jas-Dr Cui. ICU. Intubated and sedated. On Weaning protocol Objective Last Vital Signs Date Time Temp Pulse Resp B/P (MAP) Pulse Ox O2 Delivery O2 Flow Rate FiO2 09/05/17 13:00 108 23 118/64 99 Mechanical Ventilator 40 09/05/17 12:00 98.0 08/28/17 23:50 15.0 Laboratory Tests Test 09/05/17 03:45 09/05/17 08:20 White Blood Count 7.3 K/UL (4.8-10.8) Red Blood Count 3.60 M/UL (4.70-6.10) L Hemoglobin 11.4 G/DL (14.2-18.0) L Hematocrit 33.8 % (42.0-52.0) L Mean Corpuscular Volume 94 FL (80-99) Mean Corpuscular Hemoglobin 31.8 PG (27.0-31.0) H Mean Corpuscular Hemoglobin Concent 33.8 G/DL (32.0-36.0) Red Cell Distribution Width 13.6 % (11.6-14.8) Platelet Count 270 K/UL (150-450) Mean Platelet Volume 6.5 FL (6.5-10.1) Neutrophils (%) (Auto) 75.6 % (45.0-75.0) H Lymphocytes (%) (Auto) 15.0 % (20.0-45.0) L Monocytes (%) (Auto) 7.8 % (1.0-10.0) Eosinophils (%) (Auto) 1.3 % (0.0-3.0) Basophils (%) (Auto) 0.4 % (0.0-2.0) Sodium Level 141 MMOL/L (136-145) Potassium Level 3.3 MMOL/L (3.5-5.1) L Chloride Level 109 MMOL/L (98-107) H Carbon Dioxide Level 24 MMOL/L (21-32) Anion Gap 8 mmol/L (5-15) Blood Urea Nitrogen 10 mg/dL (7-18) Creatinine 0.8 MG/DL (0.55-1.30) Estimat Glomerular Filtration Rate mL/min (>60) Glucose Level 131 MG/DL (74-106) H Calcium Level 6.8 MG/DL (8.5-10.1) L Phosphorus Level 2.0 MG/DL (2.5-4.9) L Magnesium Level 1.8 MG/DL (1.8-2.4) Total Bilirubin 0.4 MG/DL (0.2-1.0) Aspartate Amino Transf (AST/SGOT) 15 U/L (15-37) Alanine Aminotransferase (ALT/SGPT) 9 U/L (12-78) L Alkaline Phosphatase 63 U/L (46-116) Total Protein 5.9 G/DL (6.4-8.2) L Albumin 1.7 G/DL (3.4-5.0) L Globulin 4.2 g/dL Albumin/Globulin Ratio 0.4 (1.0-2.7) L Hepatitis B Surface Antigen Pending Hepatitis B Surface Antibody, Quant Pending Hepatitis B Core Total Antibody Pending Hepatitis B DNA (IU/mL) Pending Hepatitis C Antibody Pending Arterial Blood pH 7.442 (7.350-7.450) Arterial Blood Partial Pressure CO2 35.8 mmHg (35.0-45.0) Arterial Blood Partial Pressure O2 83.1 mmHg (75.0-100.0) Arterial Blood HCO3 23.9 mmol/L (22.0-26.0) Arterial Blood Oxygen Saturation 96.4 % (92.0-98.0) Arterial Blood Base Excess 0.1 Garrett Test Positive Microbiology Date/Time Source Procedure Growth Status 09/04/17 11:45 Sputum Expectorated Gram Stain - Final Resulted 09/04/17 11:45 Sputum Expectorated Sputum Culture - Preliminary NO GROWTH Resulted Intake and Output 09/04/17 09/05/17 19:00 07:00 Intake Total 1457.271 ml 1085 ml Output Total 1050 ml 960 ml Balance 407.271 ml 125 ml Free Water 50 ml 100 ml IV Total 732.271 ml 275 ml Tube Feeding 575 ml 660 ml Other 100 ml 50 ml Output Urine Total 1050 ml 960 ml # Bowel Movements 2 Objective General Appearance: cachetic, thin EENT: PERRL/EOMI, normal ENT inspection Neck: non-tender, normal alignment, supple Cardiovascular: normal peripheral pulses, no gallop/murmur, no JVD, irregularly irregular Respiratory/Chest: Mech Vent; respiratory distress, crackles/rales, rhonchi - bilaterally, expiratory wheezing Abdomen: non tender, soft, no organomegaly, decreased bowel sounds 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 Continue levoxyl. (6) Respiratory failure Assessment & Plan: Intubated; currently weaning protocol. See pulmonary note. ? need for trach? (7) Atrial fibrillation with rapid ventricular response Assessment & Plan: Continue IV diltiazem per cardiology (8) CHF (congestive heart failure) Assessment & Plan: See cardiology note; await echocardiogram (9) Cachexia (10) Lactic acid acidosis (11) Pneumonia Assessment & Plan: See pulmonary note. Cont zosyn and vanco. (12) Dysphagia Assessment & Plan: Place NG tube; nutrition consult. (13) Hypokalemia Assessment & Plan: Replace KCL Status: not improved NEIL BENSON Sep 05, 2017 13:15
--- NOTE | 2017-09-05 18:48 | Cardiology Progress Note ---
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 normal lv function with pulm htn blood cx are neg off vent now but tachy despite bb will add low dose cardizem old chart data indicates no family no chf continue treatment for pneumonia Subjective ROS Limited/Unobtainable: Yes Subjective confused Objective Last 24 Hour Vital Signs Date Time Temp Pulse Resp B/P (MAP) Pulse Ox O2 Delivery O2 Flow Rate FiO2 09/05/17 18:00 128 21 138/98 95 Nasal Cannula 4.0 09/05/17 17:00 122 27 119/88 95 Nasal Cannula 4.0 09/05/17 16:00 124 09/05/17 16:00 98.0 128 23 122/80 92 Nasal Cannula 4.0 09/05/17 16:00 4.0 09/05/17 15:15 97 Nasal Cannula 4.0 36 09/05/17 15:14 Nasal Cannula 4.0 36 09/05/17 15:05 Nasal Cannula 4.0 36 09/05/17 15:00 110 23 140/87 99 Mechanical Ventilator 40 09/05/17 14:00 101 23 106/64 98 Mechanical Ventilator 40 09/05/17 13:00 108 23 118/64 99 Mechanical Ventilator 40 09/05/17 12:40 118 23 40 09/05/17 12:00 106 09/05/17 12:00 98.0 100 25 99/65 99 Mechanical Ventilator 40 09/05/17 12:00 40 09/05/17 11:00 110 27 86/73 100 Mechanical Ventilator 40 09/05/17 10:46 96 23 40 09/05/17 10:00 94 23 119/64 99 Mechanical Ventilator 40 09/05/17 09:29 97 26 40 09/05/17 09:00 90 26 104/62 99 Mechanical Ventilator 40 09/05/17 08:36 119 131/100 09/05/17 08:00 130 09/05/17 08:00 97.9 104 26 120/74 99 Mechanical Ventilator 40 09/05/17 08:00 40 09/05/17 07:00 119 26 131/100 98 Mechanical Ventilator 40 09/05/17 06:58 135 30 40 09/05/17 06:00 118 26 125/81 99 Mechanical Ventilator 40 09/05/17 05:02 107 30 40 09/05/17 05:00 121 26 118/70 98 Mechanical Ventilator 40 09/05/17 04:00 98.8 123 26 137/94 99 Mechanical Ventilator 40 09/05/17 04:00 40 09/05/17 04:00 125 09/05/17 03:01 101 27 40 09/05/17 03:00 96 26 100/75 99 Mechanical Ventilator 40 09/05/17 02:00 111 25 113/69 99 Mechanical Ventilator 40 09/05/17 01:00 118 25 130/93 100 Mechanical Ventilator 40 09/05/17 01:00 100 26 40 09/05/17 00:00 125 09/05/17 00:00 98.6 110 26 111/70 100 Mechanical Ventilator 40 09/04/17 23:00 103 26 40 09/04/17 23:00 90 26 93/62 99 Mechanical Ventilator 40 09/04/17 22:00 87 26 91/56 100 Mechanical Ventilator 40 09/04/17 21:11 100 92/59 09/04/17 21:00 104 26 87/50 100 Mechanical Ventilator 40 09/04/17 21:00 110 30 40 09/04/17 20:00 103 09/04/17 20:00 40 09/04/17 20:00 98.4 121 26 115/64 100 Mechanical Ventilator 40 09/04/17 19:09 116 26 40 09/04/17 19:00 109 24 84/59 98 Mechanical Ventilator 40 General Appearance: alert, patient on isolation Neck: supple Cardiovascular: tachycardia, irregularly irregular Respiratory/Chest: rhonchi - bilaterally Abdomen: normal bowel sounds, non tender, soft Extremities: no swelling Intake and Output 09/04/17 09/05/17 19:00 07:00 Intake Total 1457.271 ml 1085 ml Output Total 1050 ml 960 ml Balance 407.271 ml 125 ml Free Water 50 ml 100 ml IV Total 732.271 ml 275 ml Tube Feeding 575 ml 660 ml Other 100 ml 50 ml Output Urine Total 1050 ml 960 ml # Bowel Movements 2 Laboratory Tests Test 09/05/17 03:45 09/05/17 08:20 09/05/17 13:00 White Blood Count 7.3 K/UL (4.8-10.8) Red Blood Count 3.60 M/UL (4.70-6.10) L Hemoglobin 11.4 G/DL (14.2-18.0) L Hematocrit 33.8 % (42.0-52.0) L Mean Corpuscular Volume 94 FL (80-99) Mean Corpuscular Hemoglobin 31.8 PG (27.0-31.0) H Mean Corpuscular Hemoglobin Concent 33.8 G/DL (32.0-36.0) Red Cell Distribution Width 13.6 % (11.6-14.8) Platelet Count 270 K/UL (150-450) Mean Platelet Volume 6.5 FL (6.5-10.1) Neutrophils (%) (Auto) 75.6 % (45.0-75.0) H Lymphocytes (%) (Auto) 15.0 % (20.0-45.0) L Monocytes (%) (Auto) 7.8 % (1.0-10.0) Eosinophils (%) (Auto) 1.3 % (0.0-3.0) Basophils (%) (Auto) 0.4 % (0.0-2.0) Sodium Level 141 MMOL/L (136-145) Potassium Level 3.3 MMOL/L (3.5-5.1) L Chloride Level 109 MMOL/L (98-107) H Carbon Dioxide Level 24 MMOL/L (21-32) Anion Gap 8 mmol/L (5-15) Blood Urea Nitrogen 10 mg/dL (7-18) Creatinine 0.8 MG/DL (0.55-1.30) Estimat Glomerular Filtration Rate mL/min (>60) Glucose Level 131 MG/DL (74-106) H Calcium Level 6.8 MG/DL (8.5-10.1) L Phosphorus Level 2.0 MG/DL (2.5-4.9) L Magnesium Level 1.8 MG/DL (1.8-2.4) Total Bilirubin 0.4 MG/DL (0.2-1.0) Aspartate Amino Transf (AST/SGOT) 15 U/L (15-37) Alanine Aminotransferase (ALT/SGPT) 9 U/L (12-78) L Alkaline Phosphatase 63 U/L (46-116) Total Protein 5.9 G/DL (6.4-8.2) L Albumin 1.7 G/DL (3.4-5.0) L Globulin 4.2 g/dL Albumin/Globulin Ratio 0.4 (1.0-2.7) L Hepatitis B Surface Antigen Pending Hepatitis B Surface Antibody, Quant Pending Hepatitis B Core Total Antibody Pending Hepatitis B DNA (IU/mL) Pending Hepatitis C Antibody Pending Arterial Blood pH 7.442 (7.350-7.450) 7.444 (7.350-7.450) Arterial Blood Partial Pressure CO2 35.8 mmHg (35.0-45.0) 31.7 mmHg (35.0-45.0) L Arterial Blood Partial Pressure O2 83.1 mmHg (75.0-100.0) 96.6 mmHg (75.0-100.0) Arterial Blood HCO3 23.9 mmol/L (22.0-26.0) 21.2 mmol/L (22.0-26.0) L Arterial Blood Oxygen Saturation 96.4 % (92.0-98.0) 97.4 % (92.0-98.0) Arterial Blood Base Excess 0.1 -2.0 Garrett Test Positive Positive Microbiology Date/Time Source Procedure Growth Status 09/04/17 11:45 Sputum Expectorated Gram Stain - Final Resulted 09/04/17 11:45 Sputum Expectorated Sputum Culture - Preliminary NO GROWTH Resulted SEGUNDO CALVERT Sep 05, 2017 18:48
[2017-09-05] MEDS: dilTIAZem HCl 30mg tab NG SCH (19:41)
[2017-09-05] MEDS: LORazepam Inj 2mg/ml 1ml IV PRN (20:16)
--- NOTE | 2017-09-05 22:38 | General Progress Note ---
Assessment/Plan Assessment/Plan Assessment - Respiratory failure - malnutrition - OBS/encephaloppathy - a fib - CHF - mild anemia - No family available to discuss Recommendations - OGT for feeding --> check swallow study in am - elevate HOB - pulmonary follow up Subjective Allergies: Coded Allergies: No Known Allergies (Unverified , 08/28/17) Subjective Seen early am before extubation Non communicative no events overnight Objective Last 24 Hour Vital Signs Date Time Temp Pulse Resp B/P (MAP) Pulse Ox O2 Delivery O2 Flow Rate FiO2 09/05/17 21:09 Nasal Cannula 4.0 36 09/05/17 21:09 96 Nasal Cannula 4.0 36 09/05/17 20:31 130 104/84 09/05/17 19:41 131 134/94 09/05/17 19:00 136 22 103/80 95 Nasal Cannula 4.0 09/05/17 18:00 128 21 138/98 95 Nasal Cannula 4.0 09/05/17 17:00 122 27 119/88 95 Nasal Cannula 4.0 09/05/17 16:00 124 09/05/17 16:00 98.0 128 23 122/80 92 Nasal Cannula 4.0 09/05/17 16:00 4.0 09/05/17 15:15 97 Nasal Cannula 4.0 36 09/05/17 15:14 Nasal Cannula 4.0 36 09/05/17 15:05 Nasal Cannula 4.0 36 09/05/17 15:00 110 23 140/87 99 Mechanical Ventilator 40 09/05/17 14:00 101 23 106/64 98 Mechanical Ventilator 40 09/05/17 13:00 108 23 118/64 99 Mechanical Ventilator 40 09/05/17 12:40 118 23 40 09/05/17 12:00 106 09/05/17 12:00 98.0 100 25 99/65 99 Mechanical Ventilator 40 09/05/17 12:00 40 09/05/17 11:00 110 27 86/73 100 Mechanical Ventilator 40 09/05/17 10:46 96 23 40 09/05/17 10:00 94 23 119/64 99 Mechanical Ventilator 40 09/05/17 09:29 97 26 40 09/05/17 09:00 90 26 104/62 99 Mechanical Ventilator 40 09/05/17 08:36 119 131/100 09/05/17 08:00 130 09/05/17 08:00 97.9 104 26 120/74 99 Mechanical Ventilator 40 09/05/17 08:00 40 09/05/17 07:00 119 26 131/100 98 Mechanical Ventilator 40 09/05/17 06:58 135 30 40 09/05/17 06:00 118 26 125/81 99 Mechanical Ventilator 40 09/05/17 05:02 107 30 40 09/05/17 05:00 121 26 118/70 98 Mechanical Ventilator 40 09/05/17 04:00 98.8 123 26 137/94 99 Mechanical Ventilator 40 09/05/17 04:00 40 09/05/17 04:00 125 09/05/17 03:01 101 27 40 09/05/17 03:00 96 26 100/75 99 Mechanical Ventilator 40 09/05/17 02:00 111 25 113/69 99 Mechanical Ventilator 40 09/05/17 01:00 118 25 130/93 100 Mechanical Ventilator 40 09/05/17 01:00 100 26 40 09/05/17 00:00 125 09/05/17 00:00 98.6 110 26 111/70 100 Mechanical Ventilator 40 09/04/17 23:00 103 26 40 09/04/17 23:00 90 26 93/62 99 Mechanical Ventilator 40 Intake and Output 09/04/17 09/05/17 19:00 07:00 Intake Total 1457.271 ml 1085 ml Output Total 1050 ml 960 ml Balance 407.271 ml 125 ml Free Water 50 ml 100 ml IV Total 732.271 ml 275 ml Tube Feeding 575 ml 660 ml Other 100 ml 50 ml Output Urine Total 1050 ml 960 ml # Bowel Movements 2 Laboratory Tests 09/05/17 03:45: White Blood Count 7.3, Red Blood Count 3.60L, Hemoglobin 11.4L, Hematocrit 33.8L , Mean Corpuscular Volume 94, Mean Corpuscular Hemoglobin 31.8H, Mean Corpuscular Hemoglobin Concent 33.8, Red Cell Distribution Width 13.6, Platelet Count 270, Mean Platelet Volume 6.5, Neutrophils (%) (Auto) 75.6H, Lymphocytes ( %) (Auto) 15.0L, Monocytes (%) (Auto) 7.8, Eosinophils (%) (Auto) 1.3, Basophils (%) (Auto) 0.4, Sodium Level 141, Potassium Level 3.3L, Chloride Level 109H, Carbon Dioxide Level 24, Anion Gap 8, Blood Urea Nitrogen 10, Creatinine 0.8, Estimat Glomerular Filtration Rate , Glucose Level 131H, Calcium Level 6.8L, Phosphorus Level 2.0L, Magnesium Level 1.8, Total Bilirubin 0.4, Aspartate Amino Transf (AST/SGOT) 15, Alanine Aminotransferase (ALT/SGPT) 9L, Alkaline Phosphatase 63, Total Protein 5.9L, Albumin 1.7L, Globulin 4.2, Albumin/Globulin Ratio 0.4L, Hepatitis B Surface Antigen [Pending], Hepatitis B Surface Antibody, Quant [Pending], Hepatitis B Core Total Antibody [Pending], Hepatitis B DNA (IU/mL) [Pending], Hepatitis C Antibody [Pending] 09/05/17 08:20: Arterial Blood pH 7.442, Arterial Blood Partial Pressure CO2 35.8, Arterial Blood Partial Pressure O2 83.1, Arterial Blood HCO3 23.9, Arterial Blood Oxygen Saturation 96.4, Arterial Blood Base Excess 0.1, Garrett Test Positive 09/05/17 13:00: Arterial Blood pH 7.444, Arterial Blood Partial Pressure CO2 31.7L, Arterial Blood Partial Pressure O2 96.6, Arterial Blood HCO3 21.2L, Arterial Blood Oxygen Saturation 97.4, Arterial Blood Base Excess -2.0, Garrett Test Positive Height (Feet): 5 Height (Inches): 10.00 Weight (Pounds): 115 Objective NCAT supple coarse BS RR abd soft ND NT no edema DORI WILEY Sep 05, 2017 22:38
[2017-09-06] VITALS (19 sets, daily range): BP systolic 111–153; BP diastolic 46–102
[2017-09-06] MEDS: LORazepam Inj 2mg/ml 1ml IV PRN ×2 (00:35→21:13)
[2017-09-06] MEDS: Vancomycin 500mg in D5W 275ml IVPB SCH ×2 (01:01→12:33)
[2017-09-06 06:25] LABS: BASOPHILS % (AUTO) 0.4 % (0.0-2.0); EOSINOPHILS % (AUTO) 0.7 % (0.0-3.0); HEMATOCRIT 36.7 % (42.0-52.0); HEMOGLOBIN 12.6 G/DL (14.2-18.0); LYMPHOCYTES % (AUTO) 11.6 % (20.0-45.0); MEAN CORPUSCULAR VOLUME 94 FL (80-99); MONOCYTES % (AUTO) 5.4 % (1.0-10.0); NEUTROPHILS % (AUTO) 81.9 % (45.0-75.0); PLATELET COUNT 338 K/UL (150-450); RED BLOOD COUNT 3.91 M/UL (4.70-6.10); RED CELL DISTRIBUTION WIDTH 13.5 % (11.6-14.8)
[2017-09-06 06:52] LABS: ALANINE AMINOTRANSFERASE 8 U/L (12-78); ALBUMIN/GLOBULIN RATIO 0.4 (1.0-2.7); ALKALINE PHOSPHATASE 66 U/L (46-116); ANION GAP 8 mmol/L (5-15); ASPARTATE AMINO TRANSFERASE 18 U/L (15-37); BILIRUBIN,TOTAL 0.5 MG/DL (0.2-1.0); BLOOD UREA NITROGEN 9 mg/dL (7-18); CALCIUM 7.1 MG/DL (8.5-10.1); CARBON DIOXIDE 23 MMOL/L (21-32); CHLORIDE 111 MMOL/L (98-107); CREATININE 0.7 MG/DL (0.55-1.30); PHOSPHORUS 2.6 MG/DL (2.5-4.9); POTASSIUM 3.3 MMOL/L (3.5-5.1); SODIUM 142 MMOL/L (136-145)
[2017-09-06] MEDS: Pantoprazole Inj IV SCH (08:18)
[2017-09-06] MEDS: Azithromycin 250mg tab NG SCH (08:19)
[2017-09-06] MEDS: dilTIAZem HCl 30mg tab NG SCH ×3 (08:19→18:00)
[2017-09-06] MEDS: Oseltamivir 75mg cap ORAL SCH (08:19)
[2017-09-06] MEDS: Metoprolol 25mg tab NG SCH ×2 (08:19→21:00)
[2017-09-06] MEDS: Enoxaparin Sodium 300mg/3ml vial SUBQ SCH ×2 (08:20→21:27)
--- NOTE | 2017-09-06 10:45 | Diagnostic Imaging Report ---
Indication: Dyspnea Technique: One view of the chest Comparison: 09/05/2017 Findings: Interim removal of endotracheal and nasogastric tubes. Dense retrocardiac consolidation and left-sided pleural fluid persists. Bibasilar atelectasis persists. Generalized interstitial prominence and central bronchial wall thickening persists, unchanged. Fibronodular scarring at both lung bases persist. The heart remains borderline enlarged Impression: Interim endotracheal tube and nasogastric tube removal Otherwise little changer fixer one day
--- NOTE | 2017-09-06 11:22 | Pulmonolgy Critical Care Note ---
Critical Care - Asmt/Plan Problems: (1) Respiratory failure (2) Aspiration pneumonia (3) Atrial fibrillation with rapid ventricular response (4) Encephalopathy (5) HTN (hypertension) (6) Alzheimer's dementia Respiratory: monitor respiratory rate, adjust FIO2, CXR Cardiac: continue to monitor HR/BP, other - frequent suctio Renal: F/U I&O, keep IV fluid Infectious Disease: check cultures Gastrointestinal: hold feedings, other - pulled OG feeding tube Endocrine: monitor blood sugar Hematologic: monitor H/H Neurologic: PRN Ativan Affect: PRN ativan Prophylaxis: Protonix, Heparin Notes Reviewed: personnel records clerk Discussed with: nurses, consultants, supervisor case loadingmanager retail - Objective Last 24 Hour Vital Signs Date Time Temp Pulse Resp B/P (MAP) Pulse Ox O2 Delivery O2 Flow Rate FiO2 09/06/17 11:00 115 24 115/86 92 Nasal Cannula 4.0 09/06/17 10:00 121 26 140/91 91 Nasal Cannula 4.0 09/06/17 09:00 124 28 153/97 91 Nasal Cannula 4.0 09/06/17 08:19 128 133/88 09/06/17 08:19 128 133/88 09/06/17 08:00 130 09/06/17 08:00 97.7 128 28 133/88 91 Nasal Cannula 4.0 09/06/17 07:05 Nasal Cannula 4.0 36 09/06/17 07:05 93 Nasal Cannula 4.0 36 09/06/17 07:00 135 19 113/94 96 Nasal Cannula 4.0 09/06/17 06:00 124 19 136/97 95 Nasal Cannula 4.0 09/06/17 05:00 133 22 136/97 94 Nasal Cannula 4.0 09/06/17 04:00 126 09/06/17 04:00 97.8 129 24 131/93 92 Nasal Cannula 4.0 09/06/17 03:00 134 24 131/93 92 Nasal Cannula 4.0 09/06/17 02:00 122 22 118/81 94 Nasal Cannula 4.0 09/06/17 01:00 119 22 111/78 91 Nasal Cannula 4.0 09/06/17 00:00 97.6 137 27 111/58 92 Nasal Cannula 4.0 09/06/17 00:00 159 09/05/17 23:00 129 24 138/96 95 Nasal Cannula 4.0 09/05/17 22:00 125 23 114/84 94 Nasal Cannula 4.0 09/05/17 21:09 Nasal Cannula 4.0 36 09/05/17 21:09 96 Nasal Cannula 4.0 36 09/05/17 21:00 121 24 123/72 95 Nasal Cannula 4.0 09/05/17 20:31 130 104/84 09/05/17 20:00 124 09/05/17 20:00 97.8 125 22 114/75 95 Nasal Cannula 4.0 09/05/17 19:41 131 134/94 09/05/17 19:00 136 22 103/80 95 Nasal Cannula 4.0 09/05/17 18:00 128 21 138/98 95 Nasal Cannula 4.0 09/05/17 17:00 122 27 119/88 95 Nasal Cannula 4.0 09/05/17 16:00 124 09/05/17 16:00 98.0 128 23 122/80 92 Nasal Cannula 4.0 09/05/17 16:00 4.0 09/05/17 15:15 97 Nasal Cannula 4.0 36 09/05/17 15:14 Nasal Cannula 4.0 36 09/05/17 15:05 Nasal Cannula 4.0 36 09/05/17 15:00 110 23 140/87 99 Mechanical Ventilator 40 09/05/17 14:00 101 23 106/64 98 Mechanical Ventilator 40 09/05/17 13:00 108 23 118/64 99 Mechanical Ventilator 40 09/05/17 12:40 118 23 40 09/05/17 12:00 106 09/05/17 12:00 98.0 100 25 99/65 99 Mechanical Ventilator 40 09/05/17 12:00 40 Condition: critical Neck: full ROM Lungs: clear Heart: HR/BP stable Abdomen: soft, active bowel sounds Extremities: no C/C/E Micro: Microbiology Date/Time Source Procedure Growth Status 09/04/17 11:45 Sputum Expectorated Gram Stain - Final Complete 09/04/17 11:45 Sputum Expectorated Sputum Culture - Final NO GROWTH AFTER 48 HOURS Complete Critical Care - Subjective ROS Limited/Unobtainable: Yes ICU Day: 9 Intubation Day: extubated yesterday Interval Events: tolerated extubation, has now loud audible rhonchi FI02: 36 Vent Support Breath Rate: 26 Vent Support Mode: CPAP Vent Tidal Volume: 550 Sputum Amount: Moderate PEEP: 5.0 PIP: 23 Secretions: large I&O: Intake and Output 09/05/17 09/06/17 19:00 07:00 Intake Total 1150.0 ml 275 ml Output Total 730 ml 1150 ml Balance 420.0 ml -875 ml Free Water 150 ml IV Total 560.0 ml 275 ml Tube Feeding 440 ml Output Urine Total 730 ml 1150 ml # Bowel Movements 3 3 CXR: no change ET-Tube: 8.0 ET Position: 22 Labs: Laboratory Tests Test 09/05/17 13:00 09/06/17 04:55 09/06/17 10:05 Arterial Blood pH 7.444 (7.350-7.450) 7.425 (7.350-7.450) Arterial Blood Partial Pressure CO2 31.7 mmHg (35.0-45.0) L 34.5 mmHg (35.0-45.0) L Arterial Blood Partial Pressure O2 96.6 mmHg (75.0-100.0) 56.3 mmHg (75.0-100.0) L Arterial Blood HCO3 21.2 mmol/L (22.0-26.0) L 22.1 mmol/L (22.0-26.0) Arterial Blood Oxygen Saturation 97.4 % (92.0-98.0) 89.3 % (92.0-98.0) L Arterial Blood Base Excess -2.0 -1.6 Garrett Test Positive Positive White Blood Count 11.0 K/UL (4.8-10.8) #H Red Blood Count 3.91 M/UL (4.70-6.10) L Hemoglobin 12.6 G/DL (14.2-18.0) L Hematocrit 36.7 % (42.0-52.0) L Mean Corpuscular Volume 94 FL (80-99) Mean Corpuscular Hemoglobin 32.3 PG (27.0-31.0) H Mean Corpuscular Hemoglobin Concent 34.4 G/DL (32.0-36.0) Red Cell Distribution Width 13.5 % (11.6-14.8) Platelet Count 338 K/UL (150-450) Mean Platelet Volume 6.6 FL (6.5-10.1) Neutrophils (%) (Auto) 81.9 % (45.0-75.0) H Lymphocytes (%) (Auto) 11.6 % (20.0-45.0) L Monocytes (%) (Auto) 5.4 % (1.0-10.0) Eosinophils (%) (Auto) 0.7 % (0.0-3.0) Basophils (%) (Auto) 0.4 % (0.0-2.0) Sodium Level 142 MMOL/L (136-145) Potassium Level 3.3 MMOL/L (3.5-5.1) L Chloride Level 111 MMOL/L (98-107) H Carbon Dioxide Level 23 MMOL/L (21-32) Anion Gap 8 mmol/L (5-15) Blood Urea Nitrogen 9 mg/dL (7-18) Creatinine 0.7 MG/DL (0.55-1.30) Estimat Glomerular Filtration Rate mL/min (>60) Glucose Level 85 MG/DL (74-106) Calcium Level 7.1 MG/DL (8.5-10.1) L Phosphorus Level 2.6 MG/DL (2.5-4.9) Magnesium Level 2.0 MG/DL (1.8-2.4) Total Bilirubin 0.5 MG/DL (0.2-1.0) Aspartate Amino Transf (AST/SGOT) 18 U/L (15-37) Alanine Aminotransferase (ALT/SGPT) 8 U/L (12-78) L Alkaline Phosphatase 66 U/L (46-116) Total Protein 6.5 G/DL (6.4-8.2) Albumin 2.0 G/DL (3.4-5.0) L Globulin 4.5 g/dL Albumin/Globulin Ratio 0.4 (1.0-2.7) L Coccidioides Antibody (Comp Fix) Pending Cryptococcus Antigen Pending BHARGAVI ACKERMAN Sep 06, 2017 11:22
--- NOTE | 2017-09-06 15:44 | Infectious Diseases Prog Note ---
Assessment/Plan Assessment/Plan Abx: IV Vanco/Zosyn 08/28- Assessment: PNA-r/o Flu- r/o fungal pna -CXR 09/06: Dense retrocardiac consolidation and left-sided pleural fluid persists. Bibasilar atelectasis persists. Generalized interstitial prominence and central bronchial wall thickening persists, unchanged. Fibronodular scarring at both lung bases persist. -CTA chest: No evidence of pulmonary embolus or aortic dissection/aneurysm. Basilar pneumonia may be present. Please correlate clinically. Chronic lung disease as described above -CXR 09/03: Persistent interstitial opacification/edema with dense retrocardiac atelectasis/consolidation and small left pleural effusion. Interval increase in streaky right basilar atelectasis/consolidation. -sp CX 09/03 Neg -Influenza neg -Legionella ag urine neg Acute respiratory failure s/p intubation-; extubated 07/06 Leukocytosis, resolved -afebrile -Bcx neg -u/amild pyuria, ucx neg Lactic acidosis- resolved Afib with RVR Mild PATRICK, resolved HTN, CHF, Dementia, hypothyroidism, Afib, Hep B [facility] resident Plan: -D/c IV Vanco #9, Tamiflu #3 -Continue Zosyn #9/14 and PO azithromycin #3/5 -f/u cx -Monitor CBC/BMP, temperatures -aspiration precautions -f/u cocci ab, Cr Ag Thank you for this consultation. Will continue to follow along with you. Discussed with RN. Subjective Allergies: Coded Allergies: No Known Allergies (Unverified , 08/28/17) Subjective afebrile no leukocytosis extubated yesterday sp cx NTD 48hrs flu neg Objective Vital Signs Last 24 Hour Vital Signs Date Time Temp Pulse Resp B/P (MAP) Pulse Ox O2 Delivery O2 Flow Rate FiO2 09/06/17 15:00 131 25 122/77 95 Nasal Cannula 4.0 09/06/17 14:00 105 19 116/46 97 Nasal Cannula 4.0 09/06/17 13:00 118 22 129/80 93 Nasal Cannula 4.0 09/06/17 12:34 124 140/102 09/06/17 12:00 97.8 124 22 140/102 96 Nasal Cannula 4.0 09/06/17 12:00 107 09/06/17 11:00 115 24 115/86 92 Nasal Cannula 4.0 09/06/17 10:00 121 26 140/91 91 Nasal Cannula 4.0 09/06/17 09:00 124 28 153/97 91 Nasal Cannula 4.0 09/06/17 08:19 128 133/88 09/06/17 08:19 128 133/88 09/06/17 08:00 130 09/06/17 08:00 97.7 128 28 133/88 91 Nasal Cannula 4.0 09/06/17 07:05 Nasal Cannula 4.0 36 09/06/17 07:05 93 Nasal Cannula 4.0 36 09/06/17 07:00 135 19 113/94 96 Nasal Cannula 4.0 09/06/17 06:00 124 19 136/97 95 Nasal Cannula 4.0 09/06/17 05:00 133 22 136/97 94 Nasal Cannula 4.0 09/06/17 04:00 126 09/06/17 04:00 97.8 129 24 131/93 92 Nasal Cannula 4.0 09/06/17 03:00 134 24 131/93 92 Nasal Cannula 4.0 09/06/17 02:00 122 22 118/81 94 Nasal Cannula 4.0 09/06/17 01:00 119 22 111/78 91 Nasal Cannula 4.0 09/06/17 00:00 97.6 137 27 111/58 92 Nasal Cannula 4.0 09/06/17 00:00 159 09/05/17 23:00 129 24 138/96 95 Nasal Cannula 4.0 09/05/17 22:00 125 23 114/84 94 Nasal Cannula 4.0 09/05/17 21:09 Nasal Cannula 4.0 36 09/05/17 21:09 96 Nasal Cannula 4.0 36 09/05/17 21:00 121 24 123/72 95 Nasal Cannula 4.0 09/05/17 20:31 130 104/84 09/05/17 20:00 124 09/05/17 20:00 97.8 125 22 114/75 95 Nasal Cannula 4.0 09/05/17 19:41 131 134/94 09/05/17 19:00 136 22 103/80 95 Nasal Cannula 4.0 09/05/17 18:00 128 21 138/98 95 Nasal Cannula 4.0 09/05/17 17:00 122 27 119/88 95 Nasal Cannula 4.0 09/05/17 16:00 124 09/05/17 16:00 98.0 128 23 122/80 92 Nasal Cannula 4.0 09/05/17 16:00 4.0 Height (Feet): 5 Height (Inches): 10.00 Weight (Pounds): 116 Objective Status: awake Condition: critical HEENT: atraumatic Heart: HR/BP stable Abdomen: non-tender, active bowel sounds Extremities: no C/C/E Decubiti: location Microbiology Date/Time Source Procedure Growth Status 09/06/17 10:50 Nasal Nares Influenza Types A,B Antigen (CONCEPCION) - Final Complete 09/04/17 11:45 Sputum Expectorated Gram Stain - Final Complete 09/04/17 11:45 Sputum Expectorated Sputum Culture - Final NO GROWTH AFTER 48 HOURS Complete Laboratory Tests Test 09/06/17 04:55 09/06/17 10:05 White Blood Count 11.0 K/UL (4.8-10.8) #H Red Blood Count 3.91 M/UL (4.70-6.10) L Hemoglobin 12.6 G/DL (14.2-18.0) L Hematocrit 36.7 % (42.0-52.0) L Mean Corpuscular Volume 94 FL (80-99) Mean Corpuscular Hemoglobin 32.3 PG (27.0-31.0) H Mean Corpuscular Hemoglobin Concent 34.4 G/DL (32.0-36.0) Red Cell Distribution Width 13.5 % (11.6-14.8) Platelet Count 338 K/UL (150-450) Mean Platelet Volume 6.6 FL (6.5-10.1) Neutrophils (%) (Auto) 81.9 % (45.0-75.0) H Lymphocytes (%) (Auto) 11.6 % (20.0-45.0) L Monocytes (%) (Auto) 5.4 % (1.0-10.0) Eosinophils (%) (Auto) 0.7 % (0.0-3.0) Basophils (%) (Auto) 0.4 % (0.0-2.0) Sodium Level 142 MMOL/L (136-145) Potassium Level 3.3 MMOL/L (3.5-5.1) L Chloride Level 111 MMOL/L (98-107) H Carbon Dioxide Level 23 MMOL/L (21-32) Anion Gap 8 mmol/L (5-15) Blood Urea Nitrogen 9 mg/dL (7-18) Creatinine 0.7 MG/DL (0.55-1.30) Estimat Glomerular Filtration Rate mL/min (>60) Glucose Level 85 MG/DL (74-106) Calcium Level 7.1 MG/DL (8.5-10.1) L Phosphorus Level 2.6 MG/DL (2.5-4.9) Magnesium Level 2.0 MG/DL (1.8-2.4) Total Bilirubin 0.5 MG/DL (0.2-1.0) Aspartate Amino Transf (AST/SGOT) 18 U/L (15-37) Alanine Aminotransferase (ALT/SGPT) 8 U/L (12-78) L Alkaline Phosphatase 66 U/L (46-116) Total Protein 6.5 G/DL (6.4-8.2) Albumin 2.0 G/DL (3.4-5.0) L Globulin 4.5 g/dL Albumin/Globulin Ratio 0.4 (1.0-2.7) L Coccidioides Antibody (Comp Fix) Pending Cryptococcus Antigen Pending Arterial Blood pH 7.425 (7.350-7.450) Arterial Blood Partial Pressure CO2 34.5 mmHg (35.0-45.0) L Arterial Blood Partial Pressure O2 56.3 mmHg (75.0-100.0) L Arterial Blood HCO3 22.1 mmol/L (22.0-26.0) Arterial Blood Oxygen Saturation 89.3 % (92.0-98.0) L Arterial Blood Base Excess -1.6 Garrett Test Positive Current Medications Medications (Trade) Dose Ordered Sig/Hill Route PRN Reason Start Time Stop Time Status Last Admin Dose Admin Azithromycin (Zithromax) 500 mg DAILY NG 09/04/17 12:00 09/08/17 11:59 09/06/17 08:19 Dextrose/Sodium Chloride 1,000 ml @ 50 mls/hr Q20H IV 09/06/17 15:45 10/06/17 15:44 Diltiazem HCl (Cardizem) 30 mg TID NG 09/05/17 19:30 10/05/17 19:29 09/06/17 12:34 Enoxaparin Sodium (Lovenox) 50 mg EVERY 12 HOURS SUBQ 08/29/17 09:00 09/28/17 08:59 09/06/17 08:20 Lorazepam (Ativan 2mg/ml 1ml) 2 mg Q4H PRN IV For Anxiety 09/04/17 10:45 09/11/17 10:44 09/06/17 00:35 Metoprolol Tartrate (Lopressor) 25 mg Q12HR NG 09/03/17 21:00 10/03/17 20:59 09/06/17 08:19 Midazolam HCl (Versed 2mg/2ml vial) 1 mg Q2H PRN IVP Agitation 09/04/17 11:00 09/28/17 20:44 Morphine Sulfate (Morphine Sulfate) 4 mg Q4H PRN IVP PAIN 4-10 09/04/17 10:45 09/11/17 10:44 Oseltamivir Phosphate (Tamiflu) 30 mg BID ORAL 09/06/17 18:00 09/11/17 17:59 Pantoprazole (Protonix) 40 mg DAILY IV 09/05/17 09:00 10/05/17 08:59 09/06/17 08:18 Potassium Chloride 100 ml @ 50 mls/hr Q1H IVPB 09/06/17 12:45 09/06/17 16:44 09/06/17 15:19 Vancomycin HCl (Vanco rx to dose) 1 ea DAILY PRN MISC Per rx protocol 08/28/17 20:30 09/27/17 20:29 Vancomycin HCl 500 mg/Dextrose 275 ml @ 275 mls/hr Q12H IVPB 09/04/17 13:30 09/09/17 13:29 09/06/17 12:33 Krystal Kasper M.D. Sep 06, 2017 15:44
[2017-09-06] MEDS ORDERED: D5 1/2NS 1,000 ML IV SCH (15:45)
[2017-09-06] MEDS ORDERED: Midazolam 2mg/2ml Inj IVP PRN (17:00)
--- NOTE | 2017-09-06 17:29 | Internal Med Progress Note ---
Subjective Physician Name GrigsbyNeil harris Attending Physician Davey Cui MD Current Medications Medications (Trade) Dose Ordered Sig/Hill Route PRN Reason Start Time Stop Time Status Last Admin Dose Admin Azithromycin (Zithromax) 500 mg DAILY NG 09/07/17 09:00 09/08/17 11:59 Dextrose/Sodium Chloride 1,000 ml @ 50 mls/hr Q20H IV 09/06/17 17:30 10/06/17 17:29 Diltiazem HCl (Cardizem) 30 mg TID NG 09/06/17 18:00 10/05/17 19:29 Enoxaparin Sodium (Lovenox) 50 mg EVERY 12 HOURS SUBQ 09/06/17 21:00 09/28/17 08:59 Lorazepam (Ativan 2mg/ml 1ml) 2 mg Q4H PRN IV For Anxiety 09/06/17 17:00 09/11/17 16:59 Metoprolol Tartrate (Lopressor) 25 mg Q12HR NG 09/06/17 21:00 10/03/17 20:59 Midazolam HCl (Versed 2mg/2ml vial) 1 mg Q2H PRN IVP Agitation Unrelieved by Ativan 09/06/17 17:00 09/28/17 16:59 Morphine Sulfate (Morphine Sulfate) 4 mg Q4H PRN IVP PAIN 4-10 09/06/17 17:00 09/11/17 16:59 Pantoprazole (Protonix) 40 mg DAILY IV 09/07/17 09:00 10/05/17 08:59 Allergies: Coded Allergies: No Known Allergies (Unverified , 08/28/17) Subjective 87 YO M admitted with Respiratory failure. Cover for Int Med-Dr Cui. ICU. Extubated 09/05/17; tolerating nasal canula Objective Last Vital Signs Date Time Temp Pulse Resp B/P (MAP) Pulse Ox O2 Delivery O2 Flow Rate FiO2 09/06/17 16:45 98.1 117 22 126/97 93 Nasal Cannula 4.0 09/06/17 07:05 36 Laboratory Tests Test 09/06/17 04:55 09/06/17 10:05 White Blood Count 11.0 K/UL (4.8-10.8) #H Red Blood Count 3.91 M/UL (4.70-6.10) L Hemoglobin 12.6 G/DL (14.2-18.0) L Hematocrit 36.7 % (42.0-52.0) L Mean Corpuscular Volume 94 FL (80-99) Mean Corpuscular Hemoglobin 32.3 PG (27.0-31.0) H Mean Corpuscular Hemoglobin Concent 34.4 G/DL (32.0-36.0) Red Cell Distribution Width 13.5 % (11.6-14.8) Platelet Count 338 K/UL (150-450) Mean Platelet Volume 6.6 FL (6.5-10.1) Neutrophils (%) (Auto) 81.9 % (45.0-75.0) H Lymphocytes (%) (Auto) 11.6 % (20.0-45.0) L Monocytes (%) (Auto) 5.4 % (1.0-10.0) Eosinophils (%) (Auto) 0.7 % (0.0-3.0) Basophils (%) (Auto) 0.4 % (0.0-2.0) Sodium Level 142 MMOL/L (136-145) Potassium Level 3.3 MMOL/L (3.5-5.1) L Chloride Level 111 MMOL/L (98-107) H Carbon Dioxide Level 23 MMOL/L (21-32) Anion Gap 8 mmol/L (5-15) Blood Urea Nitrogen 9 mg/dL (7-18) Creatinine 0.7 MG/DL (0.55-1.30) Estimat Glomerular Filtration Rate mL/min (>60) Glucose Level 85 MG/DL (74-106) Calcium Level 7.1 MG/DL (8.5-10.1) L Phosphorus Level 2.6 MG/DL (2.5-4.9) Magnesium Level 2.0 MG/DL (1.8-2.4) Total Bilirubin 0.5 MG/DL (0.2-1.0) Aspartate Amino Transf (AST/SGOT) 18 U/L (15-37) Alanine Aminotransferase (ALT/SGPT) 8 U/L (12-78) L Alkaline Phosphatase 66 U/L (46-116) Total Protein 6.5 G/DL (6.4-8.2) Albumin 2.0 G/DL (3.4-5.0) L Globulin 4.5 g/dL Albumin/Globulin Ratio 0.4 (1.0-2.7) L Coccidioides Antibody (Comp Fix) Pending Cryptococcus Antigen Pending Arterial Blood pH 7.425 (7.350-7.450) Arterial Blood Partial Pressure CO2 34.5 mmHg (35.0-45.0) L Arterial Blood Partial Pressure O2 56.3 mmHg (75.0-100.0) L Arterial Blood HCO3 22.1 mmol/L (22.0-26.0) Arterial Blood Oxygen Saturation 89.3 % (92.0-98.0) L Arterial Blood Base Excess -1.6 Garrett Test Positive Microbiology Date/Time Source Procedure Growth Status 09/06/17 10:50 Nasal Nares Influenza Types A,B Antigen (CONCEPCION) - Final Complete 09/04/17 11:45 Sputum Expectorated Gram Stain - Final Complete 09/04/17 11:45 Sputum Expectorated Sputum Culture - Final NO GROWTH AFTER 48 HOURS Complete Intake and Output 09/05/17 09/06/17 19:00 07:00 Intake Total 1150.0 ml 275 ml Output Total 730 ml 1150 ml Balance 420.0 ml -875 ml Free Water 150 ml IV Total 560.0 ml 275 ml Tube Feeding 440 ml Output Urine Total 730 ml 1150 ml # Bowel Movements 3 3 Objective General Appearance: cachetic, thin EENT: PERRL/EOMI, normal ENT inspection Neck: non-tender, normal alignment, supple Cardiovascular: normal peripheral pulses, no gallop/murmur, no JVD, irregularly irregular Respiratory/Chest: Nasal canula; respiratory distress, crackles/rales, rhonchi - bilaterally, expiratory wheezing Abdomen: non tender, soft, no organomegaly, decreased bowel sounds Neurologic: folder and notcher II-XII grossly normal Skin: normal pigmentation, warm/dry Assessment/Plan Problem List: (1) HTN (hypertension) Assessment & Plan: Continue lopressor (2) Encephalopathy (3) Alzheimer's dementia (4) BPH (benign prostatic hyperplasia) (5) Hypothyroidism Assessment & Plan: TSH normal. Continue levoxyl. (6) Respiratory failure Assessment & Plan: Extubated 09/05/17. Tolerating nasal canula. See pulmonary note. (7) Atrial fibrillation with rapid ventricular response Assessment & Plan: Continue IV diltiazem per cardiology (8) CHF (congestive heart failure) Assessment & Plan: See cardiology note; await echocardiogram (9) Cachexia (10) Lactic acid acidosis (11) Pneumonia Assessment & Plan: See pulmonary note. Cont zosyn and vanco. (12) Dysphagia Assessment & Plan: Place NG tube; nutrition consult. (13) Hypokalemia Assessment & Plan: Replace KCL NEIL GRIGSBY Sep 06, 2017 17:29
[2017-09-06] MEDS: D5 1/2NS 1,000 ML IV SCH (17:32)
--- NOTE | 2017-09-06 17:42 | Cardiology Progress Note ---
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 normal lv function with pulm htn blood cx are neg old chart data indicates no family continue treatment for pneumonia has been moved out of icu however ngt and ogt have been removed and staff have not been able to reposition will try intermittent iv bb if not effective will need to resume cardizem drip until alternative gastric feedign is identified pt failed swallow eval per staff d/w rn Subjective ROS Limited/Unobtainable: Yes Subjective confused Objective Last 24 Hour Vital Signs Date Time Temp Pulse Resp B/P (MAP) Pulse Ox O2 Delivery O2 Flow Rate FiO2 09/06/17 16:45 98.1 117 22 126/97 93 Nasal Cannula 4.0 09/06/17 16:00 124 09/06/17 16:00 137 09/06/17 16:00 98.0 127 22 125/85 96 Nasal Cannula 4.0 09/06/17 15:00 131 25 122/77 95 Nasal Cannula 4.0 09/06/17 14:00 105 19 116/46 97 Nasal Cannula 4.0 09/06/17 13:00 118 22 129/80 93 Nasal Cannula 4.0 09/06/17 12:34 124 140/102 09/06/17 12:00 97.8 124 22 140/102 96 Nasal Cannula 4.0 09/06/17 12:00 107 09/06/17 11:00 115 24 115/86 92 Nasal Cannula 4.0 09/06/17 10:00 121 26 140/91 91 Nasal Cannula 4.0 09/06/17 09:00 124 28 153/97 91 Nasal Cannula 4.0 09/06/17 08:19 128 133/88 09/06/17 08:19 128 133/88 09/06/17 08:00 130 09/06/17 08:00 97.7 128 28 133/88 91 Nasal Cannula 4.0 09/06/17 07:05 Nasal Cannula 4.0 36 09/06/17 07:05 93 Nasal Cannula 4.0 36 09/06/17 07:00 135 19 113/94 96 Nasal Cannula 4.0 09/06/17 06:00 124 19 136/97 95 Nasal Cannula 4.0 09/06/17 05:00 133 22 136/97 94 Nasal Cannula 4.0 09/06/17 04:00 126 09/06/17 04:00 97.8 129 24 131/93 92 Nasal Cannula 4.0 09/06/17 03:00 134 24 131/93 92 Nasal Cannula 4.0 09/06/17 02:00 122 22 118/81 94 Nasal Cannula 4.0 09/06/17 01:00 119 22 111/78 91 Nasal Cannula 4.0 09/06/17 00:00 97.6 137 27 111/58 92 Nasal Cannula 4.0 09/06/17 00:00 159 09/05/17 23:00 129 24 138/96 95 Nasal Cannula 4.0 09/05/17 22:00 125 23 114/84 94 Nasal Cannula 4.0 09/05/17 21:09 Nasal Cannula 4.0 36 09/05/17 21:09 96 Nasal Cannula 4.0 36 09/05/17 21:00 121 24 123/72 95 Nasal Cannula 4.0 09/05/17 20:31 130 104/84 09/05/17 20:00 124 09/05/17 20:00 97.8 125 22 114/75 95 Nasal Cannula 4.0 09/05/17 19:41 131 134/94 09/05/17 19:00 136 22 103/80 95 Nasal Cannula 4.0 09/05/17 18:00 128 21 138/98 95 Nasal Cannula 4.0 General Appearance: no apparent distress, alert Neck: supple Cardiovascular: tachycardia, irregularly irregular Respiratory/Chest: rhonchi - bilaterally Abdomen: normal bowel sounds, non tender, soft Extremities: no swelling Intake and Output 09/05/17 09/06/17 19:00 07:00 Intake Total 1150.0 ml 275 ml Output Total 730 ml 1150 ml Balance 420.0 ml -875 ml Free Water 150 ml IV Total 560.0 ml 275 ml Tube Feeding 440 ml Output Urine Total 730 ml 1150 ml # Bowel Movements 3 3 Laboratory Tests Test 09/06/17 04:55 09/06/17 10:05 White Blood Count 11.0 K/UL (4.8-10.8) #H Red Blood Count 3.91 M/UL (4.70-6.10) L Hemoglobin 12.6 G/DL (14.2-18.0) L Hematocrit 36.7 % (42.0-52.0) L Mean Corpuscular Volume 94 FL (80-99) Mean Corpuscular Hemoglobin 32.3 PG (27.0-31.0) H Mean Corpuscular Hemoglobin Concent 34.4 G/DL (32.0-36.0) Red Cell Distribution Width 13.5 % (11.6-14.8) Platelet Count 338 K/UL (150-450) Mean Platelet Volume 6.6 FL (6.5-10.1) Neutrophils (%) (Auto) 81.9 % (45.0-75.0) H Lymphocytes (%) (Auto) 11.6 % (20.0-45.0) L Monocytes (%) (Auto) 5.4 % (1.0-10.0) Eosinophils (%) (Auto) 0.7 % (0.0-3.0) Basophils (%) (Auto) 0.4 % (0.0-2.0) Sodium Level 142 MMOL/L (136-145) Potassium Level 3.3 MMOL/L (3.5-5.1) L Chloride Level 111 MMOL/L (98-107) H Carbon Dioxide Level 23 MMOL/L (21-32) Anion Gap 8 mmol/L (5-15) Blood Urea Nitrogen 9 mg/dL (7-18) Creatinine 0.7 MG/DL (0.55-1.30) Estimat Glomerular Filtration Rate mL/min (>60) Glucose Level 85 MG/DL (74-106) Calcium Level 7.1 MG/DL (8.5-10.1) L Phosphorus Level 2.6 MG/DL (2.5-4.9) Magnesium Level 2.0 MG/DL (1.8-2.4) Total Bilirubin 0.5 MG/DL (0.2-1.0) Aspartate Amino Transf (AST/SGOT) 18 U/L (15-37) Alanine Aminotransferase (ALT/SGPT) 8 U/L (12-78) L Alkaline Phosphatase 66 U/L (46-116) Total Protein 6.5 G/DL (6.4-8.2) Albumin 2.0 G/DL (3.4-5.0) L Globulin 4.5 g/dL Albumin/Globulin Ratio 0.4 (1.0-2.7) L Coccidioides Antibody (Comp Fix) Pending Cryptococcus Antigen Pending Arterial Blood pH 7.425 (7.350-7.450) Arterial Blood Partial Pressure CO2 34.5 mmHg (35.0-45.0) L Arterial Blood Partial Pressure O2 56.3 mmHg (75.0-100.0) L Arterial Blood HCO3 22.1 mmol/L (22.0-26.0) Arterial Blood Oxygen Saturation 89.3 % (92.0-98.0) L Arterial Blood Base Excess -1.6 Garrett Test Positive Microbiology Date/Time Source Procedure Growth Status 09/06/17 10:50 Nasal Nares Influenza Types A,B Antigen (CONCEPCION) - Final Complete 09/04/17 11:45 Sputum Expectorated Gram Stain - Final Complete 09/04/17 11:45 Sputum Expectorated Sputum Culture - Final NO GROWTH AFTER 48 HOURS Complete SEGUNDO CALVERT Sep 06, 2017 17:42
[2017-09-06] MEDS: Metoprolol 5mg/5ml Inj IVP PRN (17:49)
--- NOTE | 2017-09-06 18:27 | Wound Care Consultation ---
Wound Assessment Wound Assessment : Wound Number: 1 Wound Present on Admission: No New Wound: Yes Status Change of Wound: No Wound Location Body Site: perineal area Wound Type: chemical burn Ronaldo Test: Does not Ronaldo Percent of Wound Thorofare/Red: 100 Wound Drainage Amount: None Wound Drainage Odor: None/Absent Tissue Surrounding Wound: Erythemic Wound General Appearance: Reddened Wound Comment #1 Sacrococcygeal DTI pressure ulcer. Resolving. Good progress noted. Skin intact #2 Right lateral lower leg open wound/possible venous stasis ulcer. Resolving. Noted with dry scab. #3 Left and right lower legs with hemosiderin staining #4 Left heel stage I pressure ulcer. Resolved. #5 Right heel stage I pressure ulcer. Resolved #6 Purple/maroon discoloration on right arm. Skin intact #7 Chemical burn on perineal area Reassessed this pt. Good progress noted. will cont to monitor and follow recommendations below Recommendation -Local wound care per protocol -Keep clean and dry -Turn and reposition -Optimize nutrition -Offload both heels -Low air loss mattress -Heel protector on both heels -Assess and f/u accordingly for any changes VIKKI ROSE RN Sep 06, 2017 18:27
--- NOTE | 2017-09-06 23:26 | General Progress Note ---
Assessment/Plan Assessment/Plan Assessment - Respiratory failure - malnutrition - OBS/encephaloppathy - a fib - CHF - mild anemia - No family available to discuss Recommendations - swallow eval once more awake - elevate HOB - pulmonary follow up Subjective Allergies: Coded Allergies: No Known Allergies (Unverified , 08/28/17) Subjective extubated minimally responsive OGT out Objective Last 24 Hour Vital Signs Date Time Temp Pulse Resp B/P (MAP) Pulse Ox O2 Delivery O2 Flow Rate FiO2 09/06/17 21:00 106 126/84 09/06/17 20:00 97.6 120 20 126/84 93 Nasal Cannula 4.0 09/06/17 20:00 106 09/06/17 17:49 145 126/97 09/06/17 16:45 98.1 117 22 126/97 93 Nasal Cannula 4.0 09/06/17 16:00 124 09/06/17 16:00 137 09/06/17 16:00 98.0 127 22 125/85 96 Nasal Cannula 4.0 09/06/17 15:00 131 25 122/77 95 Nasal Cannula 4.0 09/06/17 14:00 105 19 116/46 97 Nasal Cannula 4.0 09/06/17 13:00 118 22 129/80 93 Nasal Cannula 4.0 09/06/17 12:34 124 140/102 09/06/17 12:00 97.8 124 22 140/102 96 Nasal Cannula 4.0 09/06/17 12:00 107 09/06/17 11:00 115 24 115/86 92 Nasal Cannula 4.0 09/06/17 10:00 121 26 140/91 91 Nasal Cannula 4.0 09/06/17 09:00 124 28 153/97 91 Nasal Cannula 4.0 09/06/17 08:19 128 133/88 09/06/17 08:19 128 133/88 09/06/17 08:00 130 09/06/17 08:00 97.7 128 28 133/88 91 Nasal Cannula 4.0 09/06/17 07:05 Nasal Cannula 4.0 36 09/06/17 07:05 93 Nasal Cannula 4.0 36 09/06/17 07:00 135 19 113/94 96 Nasal Cannula 4.0 09/06/17 06:00 124 19 136/97 95 Nasal Cannula 4.0 09/06/17 05:00 133 22 136/97 94 Nasal Cannula 4.0 09/06/17 04:00 126 09/06/17 04:00 97.8 129 24 131/93 92 Nasal Cannula 4.0 09/06/17 03:00 134 24 131/93 92 Nasal Cannula 4.0 09/06/17 02:00 122 22 118/81 94 Nasal Cannula 4.0 09/06/17 01:00 119 22 111/78 91 Nasal Cannula 4.0 09/06/17 00:00 97.6 137 27 111/58 92 Nasal Cannula 4.0 09/06/17 00:00 159 Intake and Output 09/05/17 09/06/17 19:00 07:00 Intake Total 1150.0 ml 275 ml Output Total 730 ml 1150 ml Balance 420.0 ml -875 ml Free Water 150 ml IV Total 560.0 ml 275 ml Tube Feeding 440 ml Output Urine Total 730 ml 1150 ml # Bowel Movements 3 3 Laboratory Tests 09/06/17 04:55: White Blood Count 11.0#H, Red Blood Count 3.91L, Hemoglobin 12.6L, Hematocrit 36.7L, Mean Corpuscular Volume 94, Mean Corpuscular Hemoglobin 32.3H, Mean Corpuscular Hemoglobin Concent 34.4, Red Cell Distribution Width 13.5, Platelet Count 338, Mean Platelet Volume 6.6, Neutrophils (%) (Auto) 81.9H, Lymphocytes ( %) (Auto) 11.6L, Monocytes (%) (Auto) 5.4, Eosinophils (%) (Auto) 0.7, Basophils (%) (Auto) 0.4, Sodium Level 142, Potassium Level 3.3L, Chloride Level 111H, Carbon Dioxide Level 23, Anion Gap 8, Blood Urea Nitrogen 9, Creatinine 0.7, Estimat Glomerular Filtration Rate , Glucose Level 85, Calcium Level 7.1L, Phosphorus Level 2.6, Magnesium Level 2.0, Total Bilirubin 0.5, Aspartate Amino Transf (AST/SGOT) 18, Alanine Aminotransferase (ALT/SGPT) 8L, Alkaline Phosphatase 66, Total Protein 6.5, Albumin 2.0L, Globulin 4.5, Albumin/ Globulin Ratio 0.4L, Coccidioides Antibody (Comp Fix) [Pending], Cryptococcus Antigen [Pending] 09/06/17 10:05: Arterial Blood pH 7.425, Arterial Blood Partial Pressure CO2 34.5L, Arterial Blood Partial Pressure O2 56.3L, Arterial Blood HCO3 22.1, Arterial Blood Oxygen Saturation 89.3L, Arterial Blood Base Excess -1.6, Garrett Test Positive Height (Feet): 5 Height (Inches): 10.00 Weight (Pounds): 116 Objective NCAT supple coarse BS RR abd soft ND NT no edema DORI WILEY Sep 06, 2017 23:26
[2017-09-07] VITALS: BP 120/83
[2017-09-07 04:00] VITALS: BP 138/100
[2017-09-07] MEDS: LORazepam Inj 2mg/ml 1ml IV PRN (04:25)
[2017-09-07 05:05] LABS: BASOPHILS % (AUTO) 0.8 % (0.0-2.0); EOSINOPHILS % (AUTO) 0.7 % (0.0-3.0); HEMATOCRIT 34.8 % (42.0-52.0); HEMOGLOBIN 12.3 G/DL (14.2-18.0); LYMPHOCYTES % (AUTO) 15.4 % (20.0-45.0); MEAN CORPUSCULAR VOLUME 92 FL (80-99); MONOCYTES % (AUTO) 8.7 % (1.0-10.0); NEUTROPHILS % (AUTO) 74.3 % (45.0-75.0); PLATELET COUNT 370 K/UL (150-450); RED BLOOD COUNT 3.76 M/UL (4.70-6.10); RED CELL DISTRIBUTION WIDTH 13.3 % (11.6-14.8); WHITE BLOOD COUNT 8.3 K/UL (4.8-10.8)
[2017-09-07 05:57] LABS: ALANINE AMINOTRANSFERASE 10 U/L (12-78); ALBUMIN 2.1 G/DL (3.4-5.0); ALBUMIN/GLOBULIN RATIO 0.5 (1.0-2.7); ALKALINE PHOSPHATASE 72 U/L (46-116); ANION GAP 10 mmol/L (5-15); ASPARTATE AMINO TRANSFERASE 20 U/L (15-37); BILIRUBIN,TOTAL 0.6 MG/DL (0.2-1.0); BLOOD UREA NITROGEN 9 mg/dL (7-18); CALCIUM 7.3 MG/DL (8.5-10.1); CARBON DIOXIDE 22 MMOL/L (21-32); CHLORIDE 108 MMOL/L (98-107); CREATININE 0.6 MG/DL (0.55-1.30); PHOSPHORUS 2.3 MG/DL (2.5-4.9); POTASSIUM 3.7 MMOL/L (3.5-5.1); SODIUM 140 MMOL/L (136-145)
[2017-09-07 08:00] VITALS: BP 150/74
[2017-09-07] MEDS: Pantoprazole Inj IV SCH (08:43)
[2017-09-07] MEDS: Metoprolol 5mg/5ml Inj IVP PRN ×4 (08:43→21:15)
[2017-09-07] MEDS: dilTIAZem HCl 30mg tab NG SCH ×3 (09:00→18:00)
[2017-09-07] MEDS: Metoprolol 25mg tab NG SCH ×2 (09:00→21:00)
[2017-09-07] MEDS: Azithromycin 250mg tab NG SCH (09:00)
[2017-09-07] MEDS: Enoxaparin Sodium 300mg/3ml vial SUBQ SCH ×2 (09:35→23:40)
--- NOTE | 2017-09-07 11:17 | Infectious Diseases Prog Note ---
Assessment/Plan Assessment/Plan Assessment: PNA-r/o Flu- r/o fungal pna -CXR 09/06: Dense retrocardiac consolidation and left-sided pleural fluid persists. Bibasilar atelectasis persists. Generalized interstitial prominence and central bronchial wall thickening persists, unchanged. Fibronodular scarring at both lung bases persist. -CTA chest: No evidence of pulmonary embolus or aortic dissection/aneurysm. Basilar pneumonia may be present. Please correlate clinically. Chronic lung disease as described above -CXR 09/03: Persistent interstitial opacification/edema with dense retrocardiac atelectasis/consolidation and small left pleural effusion. Interval increase in streaky right basilar atelectasis/consolidation. -sp CX 09/03 Neg -Influenza neg -Legionella ag urine neg -Cocci ab, CrAg p Acute respiratory failure s/p intubation-; extubated 07/06 Leukocytosis, resolved -afebrile -Bcx neg -u/amild pyuria, ucx neg Lactic acidosis- resolved Afib with RVR Mild PATRICK, resolved HTN, CHF, Dementia, hypothyroidism, Afib, Hep B [facility] resident Plan: -Noticed Zosyn fell off 09/04; will start Ceftriaxone to complete a 10-14 days course for PNA (abx d#8) -Continue PO azithromycin #4/5 -1/2 SP Zosyn #7 -/4 SP IV Vanco #9, Tamiflu #3 -f/u cx -Monitor CBC/BMP, temperatures -aspiration precautions -f/u cocci ab, Cr Ag Thank you for this consultation. Will continue to follow along with you. Discussed with RN. Subjective Allergies: Coded Allergies: No Known Allergies (Unverified , 08/28/17) Subjective afebrile leukocytosis resolved 4l NC Objective Vital Signs Last 24 Hour Vital Signs Date Time Temp Pulse Resp B/P (MAP) Pulse Ox O2 Delivery O2 Flow Rate FiO2 09/07/17 08:43 139 150/74 09/07/17 08:10 98 Nasal Cannula 4.0 36 09/07/17 08:10 Nasal Cannula 4.0 36 09/07/17 08:00 97.7 140 22 150/74 96 Nasal Cannula 4.0 09/07/17 07:49 129 09/07/17 04:00 98.0 116 24 138/100 93 Nasal Cannula 4.0 09/07/17 03:36 144 09/07/17 00:15 Nasal Cannula 4.0 36 09/07/17 00:15 94 Nasal Cannula 4.0 36 09/07/17 00:00 98.2 120 20 120/83 93 Nasal Cannula 4.0 09/07/17 00:00 122 09/06/17 21:00 106 126/84 09/06/17 20:00 97.6 120 20 126/84 93 Nasal Cannula 4.0 09/06/17 20:00 106 09/06/17 17:49 145 126/97 09/06/17 16:45 98.1 117 22 126/97 93 Nasal Cannula 4.0 09/06/17 16:00 124 09/06/17 16:00 137 09/06/17 16:00 98.0 127 22 125/85 96 Nasal Cannula 4.0 09/06/17 15:00 131 25 122/77 95 Nasal Cannula 4.0 09/06/17 14:00 105 19 116/46 97 Nasal Cannula 4.0 09/06/17 13:00 118 22 129/80 93 Nasal Cannula 4.0 09/06/17 12:34 124 140/102 09/06/17 12:00 97.8 124 22 140/102 96 Nasal Cannula 4.0 09/06/17 12:00 107 Height (Feet): 5 Height (Inches): 10.00 Weight (Pounds): 116 Objective Status: awake HEENT: atraumatic, nasal trumpet in palce Heart: HR/BP stable Abdomen: non-tender, active bowel sounds Extremities: no C/C/E Microbiology Date/Time Source Procedure Growth Status 09/06/17 10:50 Nasal Nares Influenza Types A,B Antigen (CONCEPCION) - Final Complete 09/04/17 11:45 Sputum Expectorated Gram Stain - Final Complete 09/04/17 11:45 Sputum Expectorated Sputum Culture - Final NO GROWTH AFTER 48 HOURS Complete Laboratory Tests Test 09/07/17 03:45 09/07/17 08:45 White Blood Count 8.3 K/UL (4.8-10.8) Red Blood Count 3.76 M/UL (4.70-6.10) L Hemoglobin 12.3 G/DL (14.2-18.0) L Hematocrit 34.8 % (42.0-52.0) L Mean Corpuscular Volume 92 FL (80-99) Mean Corpuscular Hemoglobin 32.6 PG (27.0-31.0) H Mean Corpuscular Hemoglobin Concent 35.3 G/DL (32.0-36.0) Red Cell Distribution Width 13.3 % (11.6-14.8) Platelet Count 370 K/UL (150-450) Mean Platelet Volume 6.3 FL (6.5-10.1) L Neutrophils (%) (Auto) 74.3 % (45.0-75.0) Lymphocytes (%) (Auto) 15.4 % (20.0-45.0) L Monocytes (%) (Auto) 8.7 % (1.0-10.0) Eosinophils (%) (Auto) 0.7 % (0.0-3.0) Basophils (%) (Auto) 0.8 % (0.0-2.0) Sodium Level 140 MMOL/L (136-145) Potassium Level 3.7 MMOL/L (3.5-5.1) Chloride Level 108 MMOL/L (98-107) H Carbon Dioxide Level 22 MMOL/L (21-32) Anion Gap 10 mmol/L (5-15) Blood Urea Nitrogen 9 mg/dL (7-18) Creatinine 0.6 MG/DL (0.55-1.30) Estimat Glomerular Filtration Rate mL/min (>60) Glucose Level 98 MG/DL (74-106) Calcium Level 7.3 MG/DL (8.5-10.1) L Phosphorus Level 2.3 MG/DL (2.5-4.9) L Magnesium Level 1.8 MG/DL (1.8-2.4) Total Bilirubin 0.6 MG/DL (0.2-1.0) Aspartate Amino Transf (AST/SGOT) 20 U/L (15-37) Alanine Aminotransferase (ALT/SGPT) 10 U/L (12-78) L Alkaline Phosphatase 72 U/L (46-116) Total Protein 6.6 G/DL (6.4-8.2) Albumin 2.1 G/DL (3.4-5.0) L Globulin 4.5 g/dL Albumin/Globulin Ratio 0.5 (1.0-2.7) L Arterial Blood pH 7.501 (7.350-7.450) Arterial Blood Partial Pressure CO2 30.7 mmHg (35.0-45.0) L Arterial Blood Partial Pressure O2 86.0 mmHg (75.0-100.0) Arterial Blood HCO3 23.5 mmol/L (22.0-26.0) Arterial Blood Oxygen Saturation 96.5 % (92.0-98.0) Arterial Blood Base Excess 1.1 Garrett Test Positive Current Medications Medications (Trade) Dose Ordered Sig/Hill Route PRN Reason Start Time Stop Time Status Last Admin Dose Admin Azithromycin (Zithromax) 500 mg DAILY NG 09/07/17 09:00 09/08/17 11:59 Clotrimazole (Lotrimin) 1 applic EVERY 12 HOURS TOPIC 09/06/17 21:00 10/06/17 20:59 09/07/17 09:34 Dextrose/Sodium Chloride 1,000 ml @ 50 mls/hr Q20H IV 09/06/17 17:30 10/06/17 17:29 09/06/17 17:32 Diltiazem HCl (Cardizem) 30 mg TID NG 09/06/17 18:00 10/05/17 19:29 Enoxaparin Sodium (Lovenox) 50 mg EVERY 12 HOURS SUBQ 09/06/17 21:00 09/28/17 08:59 09/07/17 09:35 Lorazepam (Ativan 2mg/ml 1ml) 2 mg Q4H PRN IV For Anxiety 09/06/17 17:00 09/11/17 16:59 09/07/17 04:25 Metoprolol Tartrate (Lopressor) 5 mg Q4H PRN IVP Per rx protocol 09/06/17 18:00 10/06/17 17:59 09/07/17 08:43 Metoprolol Tartrate (Lopressor) 25 mg Q12HR NG 09/06/17 21:00 10/03/17 20:59 Midazolam HCl (Versed 2mg/2ml vial) 1 mg Q2H PRN IVP Agitation Unrelieved by Ativan 09/06/17 17:00 09/28/17 16:59 Morphine Sulfate (Morphine Sulfate) 4 mg Q4H PRN IVP PAIN 4-10 09/06/17 17:00 09/11/17 16:59 Pantoprazole (Protonix) 40 mg DAILY IV 09/07/17 09:00 10/05/17 08:59 09/07/17 08:43 Krystal Kasper M.D. Sep 07, 2017 11:17
--- NOTE | 2017-09-07 11:41 | Diagnostic Imaging Report ---
Indication: Dyspnea Technique: One view of the chest Comparison: 09/06/2017 Findings: Bilateral pleural effusions persist. Bilateral interstitial parenchymal disease presents, likely representing a combination of chronic fibrosis and acute interstitial edema. Retrocardiac consolidation persists. Heart remains enlarged. Bilateral apical pleural and parenchymal scarring is unchanged Impression: Unchanged, over one day, findings as above.
[2017-09-07 12:00] VITALS: BP 144/105
[2017-09-07] MEDS: cefTRIAXone 1 GM in D5W 55 ML IVPB SCH (12:59)
[2017-09-07] MEDS ORDERED: Haloperidol 5mg/ml Inj IVPB PRN (13:00)
--- NOTE | 2017-09-07 13:00 | Pulmonology Progress Note ---
Assessment/Plan Problems: (1) Respiratory failure (2) Aspiration pneumonia (3) Encephalopathy (4) Failure to thrive (5) Cachexia (6) Alzheimer's dementia Assessment/Plan tolerating off ventilator respiratory status is better titrate fio2 psych evaluation Subjective ROS Limited/Unobtainable: No Interval Events: agitated at times. now sedated after getting benzo Constitutional: Reports: no symptoms HEENT: Repors: no symptoms Respiratory: Reports: no symptoms Allergies: Coded Allergies: No Known Allergies (Unverified , 08/28/17) Objective Last 24 Hour Vital Signs Date Time Temp Pulse Resp B/P (MAP) Pulse Ox O2 Delivery O2 Flow Rate FiO2 09/07/17 12:00 97.5 114 22 144/105 98 Nasal Cannula 4.0 09/07/17 08:43 139 150/74 09/07/17 08:10 98 Nasal Cannula 4.0 36 09/07/17 08:10 Nasal Cannula 4.0 36 09/07/17 08:00 97.7 140 22 150/74 96 Nasal Cannula 4.0 09/07/17 07:49 129 09/07/17 04:00 98.0 116 24 138/100 93 Nasal Cannula 4.0 09/07/17 03:36 144 09/07/17 00:15 Nasal Cannula 4.0 36 09/07/17 00:15 94 Nasal Cannula 4.0 36 09/07/17 00:00 98.2 120 20 120/83 93 Nasal Cannula 4.0 09/07/17 00:00 122 09/06/17 21:00 106 126/84 09/06/17 20:00 97.6 120 20 126/84 93 Nasal Cannula 4.0 09/06/17 20:00 106 09/06/17 17:49 145 126/97 09/06/17 16:45 98.1 117 22 126/97 93 Nasal Cannula 4.0 09/06/17 16:00 124 09/06/17 16:00 137 09/06/17 16:00 98.0 127 22 125/85 96 Nasal Cannula 4.0 09/06/17 15:00 131 25 122/77 95 Nasal Cannula 4.0 09/06/17 14:00 105 19 116/46 97 Nasal Cannula 4.0 09/06/17 13:00 118 22 129/80 93 Nasal Cannula 4.0 Intake and Output 09/06/17 09/07/17 19:00 07:00 Intake Total 598.333 ml 650 ml Output Total 1320 ml 500 ml Balance -721.667 ml 150 ml IV Total 598.333 ml 650 ml Output Urine Total 1320 ml 500 ml # Bowel Movements 2 General Appearance: cachetic HEENT: normocephalic, atraumatic Respiratory/Chest: chest wall non-tender, decreased breath sounds, crackles/ rales Cardiovascular: normal peripheral pulses, normal rate Abdomen: normal bowel sounds, soft, non tender Genitourinary: normal external genitalia Extremities: no cyanosis Skin: no ulcers Neurologic/Psychiatric: no motor/sensory deficits, responsive Lymphatic: no neck adenopathy, no groin adenopathy Musculoskeletal: normal muscle bulk Microbiology Date/Time Source Procedure Growth Status 09/06/17 10:50 Nasal Nares Influenza Types A,B Antigen (CONCEPCION) - Final Complete Laboratory Tests 09/07/17 03:45: White Blood Count 8.3, Red Blood Count 3.76L, Hemoglobin 12.3L, Hematocrit 34.8L , Mean Corpuscular Volume 92, Mean Corpuscular Hemoglobin 32.6H, Mean Corpuscular Hemoglobin Concent 35.3, Red Cell Distribution Width 13.3, Platelet Count 370, Mean Platelet Volume 6.3L, Neutrophils (%) (Auto) 74.3, Lymphocytes ( %) (Auto) 15.4L, Monocytes (%) (Auto) 8.7, Eosinophils (%) (Auto) 0.7, Basophils (%) (Auto) 0.8, Sodium Level 140, Potassium Level 3.7, Chloride Level 108H, Carbon Dioxide Level 22, Anion Gap 10, Blood Urea Nitrogen 9, Creatinine 0.6, Estimat Glomerular Filtration Rate , Glucose Level 98, Calcium Level 7.3L, Phosphorus Level 2.3L, Magnesium Level 1.8, Total Bilirubin 0.6, Aspartate Amino Transf (AST/SGOT) 20, Alanine Aminotransferase (ALT/SGPT) 10L, Alkaline Phosphatase 72, Total Protein 6.6, Albumin 2.1L, Globulin 4.5, Albumin/Globulin Ratio 0.5L 09/07/17 08:45: Arterial Blood pH 7.501H, Arterial Blood Partial Pressure CO2 30.7L, Arterial Blood Partial Pressure O2 86.0, Arterial Blood HCO3 23.5, Arterial Blood Oxygen Saturation 96.5, Arterial Blood Base Excess 1.1, Garrett Test Positive Current Medications Medications (Trade) Dose Ordered Sig/Hill Route PRN Reason Start Time Stop Time Status Last Admin Dose Admin Azithromycin (Zithromax) 500 mg DAILY NG 09/07/17 09:00 09/08/17 11:59 Ceftriaxone Sodium 1 gm/ Dextrose 55 ml @ 110 mls/hr Q24H IVPB 09/07/17 12:00 09/14/17 11:59 Clotrimazole (Lotrimin) 1 applic EVERY 12 HOURS TOPIC 09/06/17 21:00 10/06/17 20:59 09/07/17 09:34 Dextrose/Sodium Chloride 1,000 ml @ 50 mls/hr Q20H IV 09/06/17 17:30 10/06/17 17:29 09/06/17 17:32 Diltiazem HCl (Cardizem) 30 mg TID NG 09/06/17 18:00 10/05/17 19:29 Enoxaparin Sodium (Lovenox) 50 mg EVERY 12 HOURS SUBQ 09/06/17 21:00 09/28/17 08:59 09/07/17 09:35 Lorazepam (Ativan 2mg/ml 1ml) 2 mg Q4H PRN IV For Anxiety 09/06/17 17:00 09/11/17 16:59 09/07/17 04:25 Metoprolol Tartrate (Lopressor) 5 mg Q4H PRN IVP Per rx protocol 09/06/17 18:00 10/06/17 17:59 09/07/17 08:43 Metoprolol Tartrate (Lopressor) 25 mg Q12HR NG 09/06/17 21:00 10/03/17 20:59 Midazolam HCl (Versed 2mg/2ml vial) 1 mg Q2H PRN IVP Agitation Unrelieved by Ativan 09/06/17 17:00 09/28/17 16:59 Morphine Sulfate (Morphine Sulfate) 4 mg Q4H PRN IVP PAIN 4-10 09/06/17 17:00 09/11/17 16:59 Pantoprazole (Protonix) 40 mg DAILY IV 09/07/17 09:00 10/05/17 08:59 09/07/17 08:43 BHARGAVI ACKERMAN 5, 2018 13:00
[2017-09-07] MEDS: D5 1/2NS 1,000 ML IV SCH (13:25)
[2017-09-07] MEDS ORDERED: Haloperidol Lactate 5 MG in D5W 55 ML IVPB PRN (13:30)
--- NOTE | 2017-09-07 15:45 | Internal Med Progress Note ---
Subjective Date of Service: Sep 07, 2017 Physician Name Neil Grigsby Attending Physician Davey Cui MD Current Medications Medications (Trade) Dose Ordered Sig/Hill Route PRN Reason Start Time Stop Time Status Last Admin Dose Admin Azithromycin (Zithromax) 500 mg DAILY NG 09/07/17 09:00 09/08/17 11:59 Ceftriaxone Sodium 1 gm/ Dextrose 55 ml @ 110 mls/hr Q24H IVPB 09/07/17 12:00 09/14/17 11:59 09/07/17 12:59 Clotrimazole (Lotrimin) 1 applic EVERY 12 HOURS TOPIC 09/06/17 21:00 10/06/17 20:59 09/07/17 09:34 Dextrose/Sodium Chloride 1,000 ml @ 50 mls/hr Q20H IV 09/06/17 17:30 10/06/17 17:29 09/07/17 13:25 Diltiazem HCl (Cardizem) 30 mg TID NG 09/06/17 18:00 10/05/17 19:29 Enoxaparin Sodium (Lovenox) 50 mg EVERY 12 HOURS SUBQ 09/06/17 21:00 09/28/17 08:59 09/07/17 09:35 Haloperidol Lactate 5 mg/ Dextrose 56 ml @ 224 mls/hr Q6H PRN IVPB AGITATION 09/07/17 13:30 10/07/17 13:29 Lorazepam (Ativan 2mg/ml 1ml) 2 mg Q4H PRN IV For Anxiety 09/06/17 17:00 09/11/17 16:59 09/07/17 04:25 Metoprolol Tartrate (Lopressor) 5 mg Q4H PRN IVP Per rx protocol 09/06/17 18:00 10/06/17 17:59 09/07/17 13:14 Metoprolol Tartrate (Lopressor) 25 mg Q12HR NG 09/06/17 21:00 10/03/17 20:59 Midazolam HCl (Versed 2mg/2ml vial) 1 mg Q2H PRN IVP Agitation Unrelieved by Ativan 09/06/17 17:00 09/28/17 16:59 Morphine Sulfate (Morphine Sulfate) 4 mg Q4H PRN IVP PAIN 4-10 09/06/17 17:00 09/11/17 16:59 Pantoprazole (Protonix) 40 mg DAILY IV 09/07/17 09:00 10/05/17 08:59 09/07/17 08:43 Allergies: Coded Allergies: No Known Allergies (Unverified , 08/28/17) ROS Limited/Unobtainable: Yes Subjective 87 YO M admitted with Respiratory failure. Cover for Int Med-Dr Cui. LUZMA. Extubated 09/05/17; Patient removed nasal canula Objective Last Vital Signs Date Time Temp Pulse Resp B/P (MAP) Pulse Ox O2 Delivery O2 Flow Rate FiO2 09/07/17 13:14 128 144/105 09/07/17 12:00 97.5 22 98 Nasal Cannula 4.0 09/07/17 08:10 36 Laboratory Tests Test 09/07/17 03:45 09/07/17 08:45 White Blood Count 8.3 K/UL (4.8-10.8) Red Blood Count 3.76 M/UL (4.70-6.10) L Hemoglobin 12.3 G/DL (14.2-18.0) L Hematocrit 34.8 % (42.0-52.0) L Mean Corpuscular Volume 92 FL (80-99) Mean Corpuscular Hemoglobin 32.6 PG (27.0-31.0) H Mean Corpuscular Hemoglobin Concent 35.3 G/DL (32.0-36.0) Red Cell Distribution Width 13.3 % (11.6-14.8) Platelet Count 370 K/UL (150-450) Mean Platelet Volume 6.3 FL (6.5-10.1) L Neutrophils (%) (Auto) 74.3 % (45.0-75.0) Lymphocytes (%) (Auto) 15.4 % (20.0-45.0) L Monocytes (%) (Auto) 8.7 % (1.0-10.0) Eosinophils (%) (Auto) 0.7 % (0.0-3.0) Basophils (%) (Auto) 0.8 % (0.0-2.0) Sodium Level 140 MMOL/L (136-145) Potassium Level 3.7 MMOL/L (3.5-5.1) Chloride Level 108 MMOL/L (98-107) H Carbon Dioxide Level 22 MMOL/L (21-32) Anion Gap 10 mmol/L (5-15) Blood Urea Nitrogen 9 mg/dL (7-18) Creatinine 0.6 MG/DL (0.55-1.30) Estimat Glomerular Filtration Rate mL/min (>60) Glucose Level 98 MG/DL (74-106) Calcium Level 7.3 MG/DL (8.5-10.1) L Phosphorus Level 2.3 MG/DL (2.5-4.9) L Magnesium Level 1.8 MG/DL (1.8-2.4) Total Bilirubin 0.6 MG/DL (0.2-1.0) Aspartate Amino Transf (AST/SGOT) 20 U/L (15-37) Alanine Aminotransferase (ALT/SGPT) 10 U/L (12-78) L Alkaline Phosphatase 72 U/L (46-116) Total Protein 6.6 G/DL (6.4-8.2) Albumin 2.1 G/DL (3.4-5.0) L Globulin 4.5 g/dL Albumin/Globulin Ratio 0.5 (1.0-2.7) L Arterial Blood pH 7.501 (7.350-7.450) Arterial Blood Partial Pressure CO2 30.7 mmHg (35.0-45.0) L Arterial Blood Partial Pressure O2 86.0 mmHg (75.0-100.0) Arterial Blood HCO3 23.5 mmol/L (22.0-26.0) Arterial Blood Oxygen Saturation 96.5 % (92.0-98.0) Arterial Blood Base Excess 1.1 Garrett Test Positive Microbiology Date/Time Source Procedure Growth Status 09/06/17 10:50 Nasal Nares Influenza Types A,B Antigen (CONCEPCION) - Final Complete Intake and Output 09/06/17 09/07/17 19:00 07:00 Intake Total 598.333 ml 650 ml Output Total 1320 ml 500 ml Balance -721.667 ml 150 ml IV Total 598.333 ml 650 ml Output Urine Total 1320 ml 500 ml # Bowel Movements 2 Objective General Appearance: cachetic, thin EENT: PERRL/EOMI, normal ENT inspection Neck: non-tender, normal alignment, supple Cardiovascular: normal peripheral pulses, no gallop/murmur, no JVD, irregularly irregular Respiratory/Chest: Nasal canula; respiratory distress, crackles/rales, rhonchi - bilaterally, expiratory wheezing Abdomen: non tender, soft, no organomegaly, decreased bowel sounds 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 Continue levoxyl. (6) Respiratory failure Assessment & Plan: Extubated 09/05/17. Tolerating nasal canula. See pulmonary note. (7) Atrial fibrillation with rapid ventricular response Assessment & Plan: Continue IV diltiazem per cardiology (8) CHF (congestive heart failure) Assessment & Plan: See cardiology note; await echocardiogram (9) Cachexia (10) Lactic acid acidosis (11) Pneumonia Assessment & Plan: See pulmonary note. Cont zosyn and vanco. (12) Dysphagia Assessment & Plan: Place NG tube; nutrition consult. (13) Hypokalemia Assessment & Plan: Replace KCL Status: not improved Assessment/Plan D/W nurse, NEIL Hopkins Sep 07, 2017 15:45
[2017-09-07 16:00] VITALS: BP 148/92
--- NOTE | 2017-09-07 18:17 | Cardiology Progress Note ---
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 normal lv function with pulm htn continue treatment for pneumonia intermittent iv bb if not effective will need to resume cardizem drip until alternative gastric feedign is identified tele reviwed Subjective ROS Limited/Unobtainable: Yes Subjective confused Objective Last 24 Hour Vital Signs Date Time Temp Pulse Resp B/P (MAP) Pulse Ox O2 Delivery O2 Flow Rate FiO2 09/07/17 17:42 133 148/92 09/07/17 16:30 128 09/07/17 16:00 97.9 116 14 148/92 96 Nasal Cannula 4.0 09/07/17 13:14 128 144/105 09/07/17 12:00 97.5 114 22 144/105 98 Nasal Cannula 4.0 09/07/17 11:40 130 09/07/17 08:43 139 150/74 09/07/17 08:10 98 Nasal Cannula 4.0 36 09/07/17 08:10 Nasal Cannula 4.0 36 09/07/17 08:00 97.7 140 22 150/74 96 Nasal Cannula 4.0 09/07/17 07:49 129 09/07/17 04:00 98.0 116 24 138/100 93 Nasal Cannula 4.0 09/07/17 03:36 144 09/07/17 00:15 Nasal Cannula 4.0 36 09/07/17 00:15 94 Nasal Cannula 4.0 36 09/07/17 00:00 98.2 120 20 120/83 93 Nasal Cannula 4.0 09/07/17 00:00 122 09/06/17 21:00 106 126/84 09/06/17 20:00 97.6 120 20 126/84 93 Nasal Cannula 4.0 09/06/17 20:00 106 General Appearance: no apparent distress, alert Cardiovascular: tachycardia, irregularly irregular Respiratory/Chest: rhonchi - bilaterally Intake and Output 09/06/17 09/07/17 19:00 07:00 Intake Total 598.333 ml 650 ml Output Total 1320 ml 500 ml Balance -721.667 ml 150 ml IV Total 598.333 ml 650 ml Output Urine Total 1320 ml 500 ml # Bowel Movements 2 Laboratory Tests Test 09/07/17 03:45 09/07/17 08:45 White Blood Count 8.3 K/UL (4.8-10.8) Red Blood Count 3.76 M/UL (4.70-6.10) L Hemoglobin 12.3 G/DL (14.2-18.0) L Hematocrit 34.8 % (42.0-52.0) L Mean Corpuscular Volume 92 FL (80-99) Mean Corpuscular Hemoglobin 32.6 PG (27.0-31.0) H Mean Corpuscular Hemoglobin Concent 35.3 G/DL (32.0-36.0) Red Cell Distribution Width 13.3 % (11.6-14.8) Platelet Count 370 K/UL (150-450) Mean Platelet Volume 6.3 FL (6.5-10.1) L Neutrophils (%) (Auto) 74.3 % (45.0-75.0) Lymphocytes (%) (Auto) 15.4 % (20.0-45.0) L Monocytes (%) (Auto) 8.7 % (1.0-10.0) Eosinophils (%) (Auto) 0.7 % (0.0-3.0) Basophils (%) (Auto) 0.8 % (0.0-2.0) Sodium Level 140 MMOL/L (136-145) Potassium Level 3.7 MMOL/L (3.5-5.1) Chloride Level 108 MMOL/L (98-107) H Carbon Dioxide Level 22 MMOL/L (21-32) Anion Gap 10 mmol/L (5-15) Blood Urea Nitrogen 9 mg/dL (7-18) Creatinine 0.6 MG/DL (0.55-1.30) Estimat Glomerular Filtration Rate mL/min (>60) Glucose Level 98 MG/DL (74-106) Calcium Level 7.3 MG/DL (8.5-10.1) L Phosphorus Level 2.3 MG/DL (2.5-4.9) L Magnesium Level 1.8 MG/DL (1.8-2.4) Total Bilirubin 0.6 MG/DL (0.2-1.0) Aspartate Amino Transf (AST/SGOT) 20 U/L (15-37) Alanine Aminotransferase (ALT/SGPT) 10 U/L (12-78) L Alkaline Phosphatase 72 U/L (46-116) Total Protein 6.6 G/DL (6.4-8.2) Albumin 2.1 G/DL (3.4-5.0) L Globulin 4.5 g/dL Albumin/Globulin Ratio 0.5 (1.0-2.7) L Arterial Blood pH 7.501 (7.350-7.450) Arterial Blood Partial Pressure CO2 30.7 mmHg (35.0-45.0) L Arterial Blood Partial Pressure O2 86.0 mmHg (75.0-100.0) Arterial Blood HCO3 23.5 mmol/L (22.0-26.0) Arterial Blood Oxygen Saturation 96.5 % (92.0-98.0) Arterial Blood Base Excess 1.1 Garrett Test Positive Microbiology Date/Time Source Procedure Growth Status 09/06/17 10:50 Nasal Nares Influenza Types A,B Antigen (CONCEPCION) - Final Complete SEGUNDO CALVERT Sep 07, 2017 18:17
[2017-09-07] MEDS: Morphine Sulfate 4mg/ml Inj IVP PRN (18:26)
[2017-09-07 20:00] VITALS: BP 134/83
--- NOTE | 2017-09-07 20:12 | Consultation ---
History of Present Illness General Date patient seen: Sep 07, 2017 Chief Complaint: Dyspnea/Respdistress Present Illness HPI 87-year-old white male who presents with chief complaint of respiratory failure. the pt is agitated, confused and pulled on his IV access. the pt was not responding to my questions and was a poor historian. Allergies: Coded Allergies: No Known Allergies (Unverified , 08/28/17) Medication History Scheduled Famotidine (Famotidine), 20 MG ORAL DAILY, (Reported) Finasteride* (Proscar*), 5 MG ORAL DAILY, (Reported) Furosemide* (Lasix*), 40 MG ORAL DAILY, (Reported) Levothyroxine Sodium* (Levothyroxine Sodium), 50 MCG IV DAILY, (Reported) Miscellaneous Medications Aspirin (Aspirin), 500 MG ORAL, (Reported) Bisacodyl (Dulcolax), 10 MG RC, (Reported) Digoxin (Digoxin), 0.125 MG PO, (Reported) Lisinopril (Lisinopril), 2.5 GM MC, (Reported) Mineral Oil (Mineral Oil Enema), 133 ML RC, (Reported) Patient History History Provided By: Patient, Medical Record, PMD Healthcare decision maker Resuscitation status Full Code Advanced Directive on File No Review of Systems Psychiatric: Reports: prior hx, anxiety, depressed feelings Physical Exam General Appearance: no apparent distress, confused, agitated Neurologic: disoriented, unresponsiveness Last 24 Hour Vital Signs Date Time Temp Pulse Resp B/P (MAP) Pulse Ox O2 Delivery O2 Flow Rate FiO2 09/07/17 17:42 133 148/92 09/07/17 16:30 128 09/07/17 16:00 97.9 116 14 148/92 96 Nasal Cannula 4.0 09/07/17 13:14 128 144/105 09/07/17 12:00 97.5 114 22 144/105 98 Nasal Cannula 4.0 09/07/17 11:40 130 09/07/17 08:43 139 150/74 09/07/17 08:10 98 Nasal Cannula 4.0 36 09/07/17 08:10 Nasal Cannula 4.0 36 09/07/17 08:00 97.7 140 22 150/74 96 Nasal Cannula 4.0 09/07/17 07:49 129 09/07/17 04:00 98.0 116 24 138/100 93 Nasal Cannula 4.0 09/07/17 03:36 144 09/07/17 00:15 Nasal Cannula 4.0 36 09/07/17 00:15 94 Nasal Cannula 4.0 36 09/07/17 00:00 98.2 120 20 120/83 93 Nasal Cannula 4.0 09/07/17 00:00 122 09/06/17 21:00 106 126/84 Intake and Output 09/06/17 09/07/17 19:00 07:00 Intake Total 598.333 ml 650 ml Output Total 1320 ml 500 ml Balance -721.667 ml 150 ml IV Total 598.333 ml 650 ml Output Urine Total 1320 ml 500 ml # Bowel Movements 2 Laboratory Tests Test 09/07/17 03:45 09/07/17 08:45 White Blood Count 8.3 K/UL (4.8-10.8) Red Blood Count 3.76 M/UL (4.70-6.10) L Hemoglobin 12.3 G/DL (14.2-18.0) L Hematocrit 34.8 % (42.0-52.0) L Mean Corpuscular Volume 92 FL (80-99) Mean Corpuscular Hemoglobin 32.6 PG (27.0-31.0) H Mean Corpuscular Hemoglobin Concent 35.3 G/DL (32.0-36.0) Red Cell Distribution Width 13.3 % (11.6-14.8) Platelet Count 370 K/UL (150-450) Mean Platelet Volume 6.3 FL (6.5-10.1) L Neutrophils (%) (Auto) 74.3 % (45.0-75.0) Lymphocytes (%) (Auto) 15.4 % (20.0-45.0) L Monocytes (%) (Auto) 8.7 % (1.0-10.0) Eosinophils (%) (Auto) 0.7 % (0.0-3.0) Basophils (%) (Auto) 0.8 % (0.0-2.0) Sodium Level 140 MMOL/L (136-145) Potassium Level 3.7 MMOL/L (3.5-5.1) Chloride Level 108 MMOL/L (98-107) H Carbon Dioxide Level 22 MMOL/L (21-32) Anion Gap 10 mmol/L (5-15) Blood Urea Nitrogen 9 mg/dL (7-18) Creatinine 0.6 MG/DL (0.55-1.30) Estimat Glomerular Filtration Rate mL/min (>60) Glucose Level 98 MG/DL (74-106) Calcium Level 7.3 MG/DL (8.5-10.1) L Phosphorus Level 2.3 MG/DL (2.5-4.9) L Magnesium Level 1.8 MG/DL (1.8-2.4) Total Bilirubin 0.6 MG/DL (0.2-1.0) Aspartate Amino Transf (AST/SGOT) 20 U/L (15-37) Alanine Aminotransferase (ALT/SGPT) 10 U/L (12-78) L Alkaline Phosphatase 72 U/L (46-116) Total Protein 6.6 G/DL (6.4-8.2) Albumin 2.1 G/DL (3.4-5.0) L Globulin 4.5 g/dL Albumin/Globulin Ratio 0.5 (1.0-2.7) L Arterial Blood pH 7.501 (7.350-7.450) Arterial Blood Partial Pressure CO2 30.7 mmHg (35.0-45.0) L Arterial Blood Partial Pressure O2 86.0 mmHg (75.0-100.0) Arterial Blood HCO3 23.5 mmol/L (22.0-26.0) Arterial Blood Oxygen Saturation 96.5 % (92.0-98.0) Arterial Blood Base Excess 1.1 Garrett Test Positive Height (Feet): 5 Height (Inches): 10.00 Weight (Pounds): 116 Medications Current Medications Medications (Trade) Dose Ordered Sig/Hill Route PRN Reason Start Time Stop Time Status Last Admin Dose Admin Azithromycin (Zithromax) 500 mg DAILY NG 09/07/17 09:00 09/08/17 11:59 Ceftriaxone Sodium 1 gm/ Dextrose 55 ml @ 110 mls/hr Q24H IVPB 09/07/17 12:00 09/14/17 11:59 09/07/17 12:59 Clotrimazole (Lotrimin) 1 applic EVERY 12 HOURS TOPIC 09/06/17 21:00 10/06/17 20:59 09/07/17 09:34 Dextrose/Sodium Chloride 1,000 ml @ 50 mls/hr Q20H IV 09/06/17 17:30 10/06/17 17:29 09/07/17 13:25 Diltiazem HCl (Cardizem) 30 mg TID NG 09/06/17 18:00 10/05/17 19:29 Enoxaparin Sodium (Lovenox) 50 mg EVERY 12 HOURS SUBQ 09/06/17 21:00 09/28/17 08:59 09/07/17 09:35 Haloperidol Lactate 5 mg/ Dextrose 56 ml @ 224 mls/hr Q6H PRN IVPB AGITATION 09/07/17 13:30 10/07/17 13:29 Metoprolol Tartrate (Lopressor) 5 mg Q4H PRN IVP Per rx protocol 09/06/17 18:00 10/06/17 17:59 09/07/17 17:42 Metoprolol Tartrate (Lopressor) 25 mg Q12HR NG 09/06/17 21:00 10/03/17 20:59 Midazolam HCl (Versed 2mg/2ml vial) 1 mg Q2H PRN IVP Agitation Unrelieved by Ativan 09/06/17 17:00 09/28/17 16:59 Morphine Sulfate (Morphine Sulfate) 4 mg Q4H PRN IVP PAIN 4-10 09/06/17 17:00 09/11/17 16:59 09/07/17 18:26 Pantoprazole (Protonix) 40 mg DAILY IV 09/07/17 09:00 10/05/17 08:59 09/07/17 08:43 Assessment/Plan Status: not improved, unchanged Assessment/Plan encephalopathy agitation Mendy Arenas M.D. Sep 07, 2017 20:12
--- NOTE | 2017-09-07 22:09 | General Progress Note ---
Assessment/Plan Assessment/Plan Assessment - Respiratory failure - extubated - malnutrition - OBS/encephaloppathy - a fib - CHF - mild anemia - No family available to discuss Recommendations - swallow eval in am - NPO for now - elevate HOB - pulmonary follow up Subjective Allergies: Coded Allergies: No Known Allergies (Unverified , 08/28/17) Subjective extubated more talkative still confused no feeding tube Objective Last 24 Hour Vital Signs Date Time Temp Pulse Resp B/P (MAP) Pulse Ox O2 Delivery O2 Flow Rate FiO2 09/07/17 21:15 145 134/83 09/07/17 21:00 145 134/83 09/07/17 17:42 133 148/92 09/07/17 16:30 128 09/07/17 16:00 97.9 116 14 148/92 96 Nasal Cannula 4.0 09/07/17 13:14 128 144/105 09/07/17 12:00 97.5 114 22 144/105 98 Nasal Cannula 4.0 09/07/17 11:40 130 09/07/17 08:43 139 150/74 09/07/17 08:10 98 Nasal Cannula 4.0 36 09/07/17 08:10 Nasal Cannula 4.0 36 09/07/17 08:00 97.7 140 22 150/74 96 Nasal Cannula 4.0 09/07/17 07:49 129 09/07/17 04:00 98.0 116 24 138/100 93 Nasal Cannula 4.0 09/07/17 03:36 144 09/07/17 00:15 Nasal Cannula 4.0 36 09/07/17 00:15 94 Nasal Cannula 4.0 36 09/07/17 00:00 98.2 120 20 120/83 93 Nasal Cannula 4.0 09/07/17 00:00 122 Intake and Output 09/06/17 09/07/17 19:00 07:00 Intake Total 598.333 ml 650 ml Output Total 1320 ml 500 ml Balance -721.667 ml 150 ml IV Total 598.333 ml 650 ml Output Urine Total 1320 ml 500 ml # Bowel Movements 2 Laboratory Tests 09/07/17 03:45: White Blood Count 8.3, Red Blood Count 3.76L, Hemoglobin 12.3L, Hematocrit 34.8L , Mean Corpuscular Volume 92, Mean Corpuscular Hemoglobin 32.6H, Mean Corpuscular Hemoglobin Concent 35.3, Red Cell Distribution Width 13.3, Platelet Count 370, Mean Platelet Volume 6.3L, Neutrophils (%) (Auto) 74.3, Lymphocytes ( %) (Auto) 15.4L, Monocytes (%) (Auto) 8.7, Eosinophils (%) (Auto) 0.7, Basophils (%) (Auto) 0.8, Sodium Level 140, Potassium Level 3.7, Chloride Level 108H, Carbon Dioxide Level 22, Anion Gap 10, Blood Urea Nitrogen 9, Creatinine 0.6, Estimat Glomerular Filtration Rate , Glucose Level 98, Calcium Level 7.3L, Phosphorus Level 2.3L, Magnesium Level 1.8, Total Bilirubin 0.6, Aspartate Amino Transf (AST/SGOT) 20, Alanine Aminotransferase (ALT/SGPT) 10L, Alkaline Phosphatase 72, Total Protein 6.6, Albumin 2.1L, Globulin 4.5, Albumin/Globulin Ratio 0.5L 09/07/17 08:45: Arterial Blood pH 7.501H, Arterial Blood Partial Pressure CO2 30.7L, Arterial Blood Partial Pressure O2 86.0, Arterial Blood HCO3 23.5, Arterial Blood Oxygen Saturation 96.5, Arterial Blood Base Excess 1.1, Garrett Test Positive Height (Feet): 5 Height (Inches): 10.00 Weight (Pounds): 116 Objective NCAT supple coarse BS RR abd soft ND NT no edema DORI WILEY Sep 07, 2017 22:09
[2017-09-08] VITALS: BP 146/87
[2017-09-08 04:00] VITALS: BP 105/72
[2017-09-08] MEDS: Metoprolol 5mg/5ml Inj IVP PRN ×3 (04:15→13:28)
[2017-09-08 08:00] VITALS: BP 141/77
[2017-09-08] MEDS: Morphine Sulfate 4mg/ml Inj IVP PRN ×3 (08:08→20:44)
[2017-09-08 08:23] LABS: BASOPHILS % (AUTO) 1.1 % (0.0-2.0); EOSINOPHILS % (AUTO) 0.3 % (0.0-3.0); HEMATOCRIT 36.8 % (42.0-52.0); HEMOGLOBIN 12.2 G/DL (14.2-18.0); LYMPHOCYTES % (AUTO) 12.9 % (20.0-45.0); MEAN CORPUSCULAR VOLUME 95 FL (80-99); MONOCYTES % (AUTO) 9.1 % (1.0-10.0); NEUTROPHILS % (AUTO) 76.5 % (45.0-75.0); PLATELET COUNT 374 K/UL (150-450); RED BLOOD COUNT 3.88 M/UL (4.70-6.10); RED CELL DISTRIBUTION WIDTH 13.8 % (11.6-14.8); WHITE BLOOD COUNT 9.3 K/UL (4.8-10.8)
[2017-09-08] MEDS: Pantoprazole Inj IV SCH (08:33)
[2017-09-08] MEDS: D5 1/2NS 1,000 ML IV SCH ×2 (08:37→23:14)
[2017-09-08] MEDS: dilTIAZem HCl 30mg tab NG SCH ×2 (09:00→13:00)
[2017-09-08] MEDS: Azithromycin 250mg tab NG SCH (09:00)
[2017-09-08] MEDS: Metoprolol 25mg tab NG SCH (09:00)
[2017-09-08] MEDS: Enoxaparin Sodium 300mg/3ml vial SUBQ SCH ×2 (09:18→21:16)
[2017-09-08 09:34] LABS: ANION GAP 11 mmol/L (5-15); BLOOD UREA NITROGEN 10 mg/dL (7-18); CALCIUM 7.1 MG/DL (8.5-10.1); CARBON DIOXIDE 22 MMOL/L (21-32); CHLORIDE 107 MMOL/L (98-107); CREATININE 0.7 MG/DL (0.55-1.30); POTASSIUM 4.8 MMOL/L (3.5-5.1); SODIUM 140 MMOL/L (136-145)
[2017-09-08 12:00] VITALS: BP 125/88
--- NOTE | 2017-09-08 12:08 | General Progress Note ---
Assessment/Plan Assessment/Plan Assessment - Respiratory failure - extubated - malnutrition - OBS/encephaloppathy - a fib - CHF - mild anemia Recommendations - swallow eval was not done given patient could not go down with rapid AVR - NPO for now - elevate HOB - pulmonary follow up Subjective ROS Limited/Unobtainable: No Allergies: Coded Allergies: No Known Allergies (Unverified , 08/28/17) Objective Last 24 Hour Vital Signs Date Time Temp Pulse Resp B/P (MAP) Pulse Ox O2 Delivery O2 Flow Rate FiO2 09/08/17 11:32 115 24 Nasal Cannula 4.0 32 09/08/17 08:52 125 09/08/17 08:28 149 105/72 09/08/17 08:00 97.5 106 20 141/77 97 Nasal Cannula 5.0 09/08/17 07:03 Nasal Cannula 4.0 36 09/08/17 07:03 98 Nasal Cannula 4.0 36 09/08/17 04:15 150 09/08/17 04:00 116 09/08/17 04:00 97.4 120 32 105/72 94 Nasal Cannula 5.0 09/08/17 00:00 97.5 80 32 146/87 95 Nasal Cannula 5.0 09/08/17 00:00 116 09/07/17 21:15 145 134/83 09/07/17 21:00 145 134/83 09/07/17 20:00 107 09/07/17 20:00 98.0 106 32 134/83 95 Nasal Cannula 4.0 09/07/17 17:42 133 148/92 09/07/17 16:30 128 09/07/17 16:00 97.9 116 14 148/92 96 Nasal Cannula 4.0 09/07/17 13:14 128 144/105 Intake and Output 09/07/17 09/08/17 19:00 07:00 Intake Total 634.2 ml 600 ml Output Total 1100 ml 600 ml Balance -465.8 ml 0 ml IV Total 634.2 ml 600 ml Output Urine Total 1100 ml 600 ml Laboratory Tests 09/08/17 07:30: White Blood Count 9.3, Red Blood Count 3.88L, Hemoglobin 12.2L, Hematocrit 36.8L , Mean Corpuscular Volume 95, Mean Corpuscular Hemoglobin 31.5H, Mean Corpuscular Hemoglobin Concent 33.2, Red Cell Distribution Width 13.8, Platelet Count 374, Mean Platelet Volume 6.1L, Neutrophils (%) (Auto) 76.5H, Lymphocytes (%) (Auto) 12.9L, Monocytes (%) (Auto) 9.1, Eosinophils (%) (Auto) 0.3, Basophils (%) (Auto) 1.1, Sodium Level 140, Potassium Level 4.8, Chloride Level 107, Carbon Dioxide Level 22, Anion Gap 11, Blood Urea Nitrogen 10, Creatinine 0.7, Estimat Glomerular Filtration Rate , Glucose Level 83, Calcium Level 7.1L Height (Feet): 5 Height (Inches): 10.00 Weight (Pounds): 114 General Appearance: no apparent distress EENT: normal ENT inspection Neck: supple Cardiovascular: tachycardia Respiratory/Chest: decreased breath sounds Abdomen: normal bowel sounds, non tender, soft Extremities: non-tender LEA VENTURA Sep 08, 2017 12:08
[2017-09-08] MEDS: cefTRIAXone 1 GM in D5W 55 ML IVPB SCH (12:19)
--- NOTE | 2017-09-08 15:08 | Infectious Diseases Prog Note ---
Assessment/Plan Assessment/Plan Assessment: PNA-r/o Flu- r/o fungal pna -CXR 09/06: Dense retrocardiac consolidation and left-sided pleural fluid persists. Bibasilar atelectasis persists. Generalized interstitial prominence and central bronchial wall thickening persists, unchanged. Fibronodular scarring at both lung bases persist. -CTA chest: No evidence of pulmonary embolus or aortic dissection/aneurysm. Basilar pneumonia may be present. Please correlate clinically. Chronic lung disease as described above -CXR 09/03: Persistent interstitial opacification/edema with dense retrocardiac atelectasis/consolidation and small left pleural effusion. Interval increase in streaky right basilar atelectasis/consolidation. -sp CX 09/03 Neg -Influenza neg -Legionella ag urine neg - Neg : Cr Ag Bleeding from the mouth Acute respiratory failure s/p intubation-; extubated 07/06 Leukocytosis, SP Lactic acidosis- resolved Hep B Afib with RVR Mild PATRICK, resolved HTN, CHF, Dementia, hypothyroidism, Afib, SNF resident Plan: - cont Ceftriaxone to complete a 10-14 days course for PNA (abx d# 9 ) - DC azithromycin # 5/5 -1/2 SP Zosyn #7 -1/4 SP IV Vanco #9, Tamiflu #3 -Monitor CBC/BMP, temperatures -aspiration precautions -f/u cocci ab Subjective Allergies: Coded Allergies: No Known Allergies (Unverified , 08/28/17) Objective Vital Signs Last 24 Hour Vital Signs Date Time Temp Pulse Resp B/P (MAP) Pulse Ox O2 Delivery O2 Flow Rate FiO2 09/08/17 13:28 141 125/88 09/08/17 13:00 141 125/88 09/08/17 12:00 97.0 141 18 125/88 97 Nasal Cannula 4.0 09/08/17 11:32 115 24 Nasal Cannula 4.0 32 09/08/17 08:52 125 09/08/17 08:28 149 105/72 09/08/17 08:00 97.5 106 20 141/77 97 Nasal Cannula 5.0 09/08/17 07:03 Nasal Cannula 4.0 36 09/08/17 07:03 98 Nasal Cannula 4.0 36 09/08/17 04:15 150 09/08/17 04:00 116 09/08/17 04:00 97.4 120 32 105/72 94 Nasal Cannula 5.0 09/08/17 00:00 97.5 80 32 146/87 95 Nasal Cannula 5.0 09/08/17 00:00 116 09/07/17 21:15 145 134/83 09/07/17 21:00 145 134/83 09/07/17 20:00 107 09/07/17 20:00 98.0 106 32 134/83 95 Nasal Cannula 4.0 09/07/17 17:42 133 148/92 09/07/17 16:30 128 09/07/17 16:00 97.9 116 14 148/92 96 Nasal Cannula 4.0 Height (Feet): 5 Height (Inches): 10.00 Weight (Pounds): 114 HEENT: anicteric Respiratory/Chest: normal breath sounds Cardiovascular: regularly irregular Abdomen: non distended Microbiology Date/Time Source Procedure Growth Status 09/06/17 10:50 Nasal Nares Influenza Types A,B Antigen (CONCEPCION) - Final Complete Laboratory Tests Test 09/08/17 07:30 White Blood Count 9.3 K/UL (4.8-10.8) Red Blood Count 3.88 M/UL (4.70-6.10) L Hemoglobin 12.2 G/DL (14.2-18.0) L Hematocrit 36.8 % (42.0-52.0) L Mean Corpuscular Volume 95 FL (80-99) Mean Corpuscular Hemoglobin 31.5 PG (27.0-31.0) H Mean Corpuscular Hemoglobin Concent 33.2 G/DL (32.0-36.0) Red Cell Distribution Width 13.8 % (11.6-14.8) Platelet Count 374 K/UL (150-450) Mean Platelet Volume 6.1 FL (6.5-10.1) L Neutrophils (%) (Auto) 76.5 % (45.0-75.0) H Lymphocytes (%) (Auto) 12.9 % (20.0-45.0) L Monocytes (%) (Auto) 9.1 % (1.0-10.0) Eosinophils (%) (Auto) 0.3 % (0.0-3.0) Basophils (%) (Auto) 1.1 % (0.0-2.0) Sodium Level 140 MMOL/L (136-145) Potassium Level 4.8 MMOL/L (3.5-5.1) Chloride Level 107 MMOL/L (98-107) Carbon Dioxide Level 22 MMOL/L (21-32) Anion Gap 11 mmol/L (5-15) Blood Urea Nitrogen 10 mg/dL (7-18) Creatinine 0.7 MG/DL (0.55-1.30) Estimat Glomerular Filtration Rate mL/min (>60) Glucose Level 83 MG/DL (74-106) Calcium Level 7.1 MG/DL (8.5-10.1) L Current Medications Medications (Trade) Dose Ordered Sig/Hill Route PRN Reason Start Time Stop Time Status Last Admin Dose Admin Ceftriaxone Sodium 1 gm/ Dextrose 55 ml @ 110 mls/hr Q24H IVPB 09/07/17 12:00 09/14/17 11:59 09/08/17 12:19 Clotrimazole (Lotrimin) 1 applic EVERY 12 HOURS TOPIC 09/06/17 21:00 10/06/17 20:59 09/08/17 08:28 Dextrose/Sodium Chloride 1,000 ml @ 50 mls/hr Q20H IV 09/06/17 17:30 10/06/17 17:29 09/08/17 08:37 Diltiazem HCl (Cardizem) 30 mg TID NG 09/06/17 18:00 10/05/17 19:29 Enoxaparin Sodium (Lovenox) 50 mg EVERY 12 HOURS SUBQ 09/06/17 21:00 09/28/17 08:59 09/08/17 09:18 Haloperidol Lactate 5 mg/ Dextrose 56 ml @ 224 mls/hr Q6H PRN IVPB AGITATION 09/07/17 13:30 10/07/17 13:29 Metoprolol Tartrate (Lopressor) 5 mg Q4H PRN IVP Per rx protocol 09/06/17 18:00 10/06/17 17:59 09/08/17 13:28 Metoprolol Tartrate (Lopressor) 25 mg Q12HR NG 09/06/17 21:00 10/03/17 20:59 Midazolam HCl (Versed 2mg/2ml vial) 1 mg Q2H PRN IVP Agitation Unrelieved by [place] 09/06/17 17:00 09/28/17 16:59 Morphine Sulfate (Morphine Sulfate) 4 mg Q4H PRN IVP PAIN 4-10 09/06/17 17:00 09/11/17 16:59 09/08/17 12:23 Pantoprazole (Protonix) 40 mg DAILY IV 09/07/17 09:00 10/05/17 08:59 09/08/17 08:33 TASNEEM CRAMER M.D. Sep 08, 2017 15:08
--- NOTE | 2017-09-08 15:44 | Cardiology Progress Note ---
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 normal lv function with pulm htn continue treatment for pneumonia intermittent iv bb iv dig will be addede short term tele reviwed Subjective ROS Limited/Unobtainable: Yes Subjective confused Objective Last 24 Hour Vital Signs Date Time Temp Pulse Resp B/P (MAP) Pulse Ox O2 Delivery O2 Flow Rate FiO2 09/08/17 13:28 141 125/88 09/08/17 13:00 141 125/88 09/08/17 12:20 133 09/08/17 12:00 97.0 141 18 125/88 97 Nasal Cannula 4.0 09/08/17 11:32 115 24 Nasal Cannula 4.0 32 09/08/17 08:52 125 09/08/17 08:28 149 105/72 09/08/17 08:00 97.5 106 20 141/77 97 Nasal Cannula 5.0 09/08/17 07:03 Nasal Cannula 4.0 36 09/08/17 07:03 98 Nasal Cannula 4.0 36 09/08/17 04:15 150 09/08/17 04:00 116 09/08/17 04:00 97.4 120 32 105/72 94 Nasal Cannula 5.0 09/08/17 00:00 97.5 80 32 146/87 95 Nasal Cannula 5.0 09/08/17 00:00 116 09/07/17 21:15 145 134/83 09/07/17 21:00 145 134/83 09/07/17 20:00 107 09/07/17 20:00 98.0 106 32 134/83 95 Nasal Cannula 4.0 09/07/17 17:42 133 148/92 09/07/17 16:30 128 09/07/17 16:00 97.9 116 14 148/92 96 Nasal Cannula 4.0 General Appearance: alert Neck: supple Cardiovascular: tachycardia, irregularly irregular Respiratory/Chest: rhonchi - bilaterally Abdomen: normal bowel sounds, non tender, soft Extremities: no swelling Intake and Output 09/07/17 09/08/17 19:00 07:00 Intake Total 634.2 ml 600 ml Output Total 1100 ml 600 ml Balance -465.8 ml 0 ml IV Total 634.2 ml 600 ml Output Urine Total 1100 ml 600 ml Laboratory Tests Test 09/08/17 07:30 White Blood Count 9.3 K/UL (4.8-10.8) Red Blood Count 3.88 M/UL (4.70-6.10) L Hemoglobin 12.2 G/DL (14.2-18.0) L Hematocrit 36.8 % (42.0-52.0) L Mean Corpuscular Volume 95 FL (80-99) Mean Corpuscular Hemoglobin 31.5 PG (27.0-31.0) H Mean Corpuscular Hemoglobin Concent 33.2 G/DL (32.0-36.0) Red Cell Distribution Width 13.8 % (11.6-14.8) Platelet Count 374 K/UL (150-450) Mean Platelet Volume 6.1 FL (6.5-10.1) L Neutrophils (%) (Auto) 76.5 % (45.0-75.0) H Lymphocytes (%) (Auto) 12.9 % (20.0-45.0) L Monocytes (%) (Auto) 9.1 % (1.0-10.0) Eosinophils (%) (Auto) 0.3 % (0.0-3.0) Basophils (%) (Auto) 1.1 % (0.0-2.0) Sodium Level 140 MMOL/L (136-145) Potassium Level 4.8 MMOL/L (3.5-5.1) Chloride Level 107 MMOL/L (98-107) Carbon Dioxide Level 22 MMOL/L (21-32) Anion Gap 11 mmol/L (5-15) Blood Urea Nitrogen 10 mg/dL (7-18) Creatinine 0.7 MG/DL (0.55-1.30) Estimat Glomerular Filtration Rate mL/min (>60) Glucose Level 83 MG/DL (74-106) Calcium Level 7.1 MG/DL (8.5-10.1) L Microbiology Date/Time Source Procedure Growth Status 09/06/17 10:50 Nasal Nares Influenza Types A,B Antigen (CONCEPCION) - Final Complete SEGUNDO CALVERT Sep 08, 2017 15:44
[2017-09-08] MEDS ORDERED: Digoxin 0.5mg/2ml Inj IVP ONE ×2 (15:45→18:45)
--- NOTE | 2017-09-08 15:49 | Internal Med Progress Note ---
Subjective Date of Service: Sep 08, 2017 Physician Name Neil Grigsby Attending Physician Davey Cui MD Current Medications Medications (Trade) Dose Ordered Sig/Hill Route PRN Reason Start Time Stop Time Status Last Admin Dose Admin Ceftriaxone Sodium 1 gm/ Dextrose 55 ml @ 110 mls/hr Q24H IVPB 09/07/17 12:00 09/14/17 11:59 09/08/17 12:19 Chlorpromazine (Thorazine) 25 mg Q6HR PRN IM Agitation 09/08/17 15:45 10/08/17 15:44 Clotrimazole (Lotrimin) 1 applic EVERY 12 HOURS TOPIC 09/06/17 21:00 10/06/17 20:59 09/08/17 08:28 Dextrose/Sodium Chloride 1,000 ml @ 50 mls/hr Q20H IV 09/06/17 17:30 10/06/17 17:29 09/08/17 08:37 Diltiazem HCl (Cardizem) 30 mg TID NG 09/06/17 18:00 10/05/17 19:29 Enoxaparin Sodium (Lovenox) 50 mg EVERY 12 HOURS SUBQ 09/06/17 21:00 09/28/17 08:59 09/08/17 09:18 Metoprolol Tartrate (Lopressor) 5 mg Q4H PRN IVP Per rx protocol 09/06/17 18:00 10/06/17 17:59 09/08/17 13:28 Metoprolol Tartrate (Lopressor) 25 mg Q12HR NG 09/06/17 21:00 10/03/17 20:59 Morphine Sulfate (Morphine Sulfate) 4 mg Q4H PRN IVP PAIN 4-10 09/06/17 17:00 09/11/17 16:59 09/08/17 12:23 Pantoprazole (Protonix) 40 mg DAILY IV 09/07/17 09:00 10/05/17 08:59 09/08/17 08:33 Allergies: Coded Allergies: No Known Allergies (Unverified , 08/28/17) ROS Limited/Unobtainable: No Constitutional: Reports: no symptoms HEENT: Reports: no symptoms Cardiovascular: Reports: no symptoms Respiratory: Reports: shortness of breath Gastrointestinal/Abdominal: Reports: no symptoms Genitourinary: Reports: no symptoms Neurologic/Psychiatric: Reports: no symptoms Subjective 87 YO M admitted with Respiratory failure. Cover for Int Jas-Dr Cui. LUZMA. Extubated 09/05/17; Tolerating nasal canula Objective Last Vital Signs Date Time Temp Pulse Resp B/P (MAP) Pulse Ox O2 Delivery O2 Flow Rate FiO2 09/08/17 13:28 141 125/88 09/08/17 12:00 97.0 18 97 Nasal Cannula 4.0 09/08/17 11:32 32 Laboratory Tests Test 09/08/17 07:30 White Blood Count 9.3 K/UL (4.8-10.8) Red Blood Count 3.88 M/UL (4.70-6.10) L Hemoglobin 12.2 G/DL (14.2-18.0) L Hematocrit 36.8 % (42.0-52.0) L Mean Corpuscular Volume 95 FL (80-99) Mean Corpuscular Hemoglobin 31.5 PG (27.0-31.0) H Mean Corpuscular Hemoglobin Concent 33.2 G/DL (32.0-36.0) Red Cell Distribution Width 13.8 % (11.6-14.8) Platelet Count 374 K/UL (150-450) Mean Platelet Volume 6.1 FL (6.5-10.1) L Neutrophils (%) (Auto) 76.5 % (45.0-75.0) H Lymphocytes (%) (Auto) 12.9 % (20.0-45.0) L Monocytes (%) (Auto) 9.1 % (1.0-10.0) Eosinophils (%) (Auto) 0.3 % (0.0-3.0) Basophils (%) (Auto) 1.1 % (0.0-2.0) Sodium Level 140 MMOL/L (136-145) Potassium Level 4.8 MMOL/L (3.5-5.1) Chloride Level 107 MMOL/L (98-107) Carbon Dioxide Level 22 MMOL/L (21-32) Anion Gap 11 mmol/L (5-15) Blood Urea Nitrogen 10 mg/dL (7-18) Creatinine 0.7 MG/DL (0.55-1.30) Estimat Glomerular Filtration Rate mL/min (>60) Glucose Level 83 MG/DL (74-106) Calcium Level 7.1 MG/DL (8.5-10.1) L Microbiology Date/Time Source Procedure Growth Status 09/06/17 10:50 Nasal Nares Influenza Types A,B Antigen (CONCEPCION) - Final Complete Intake and Output 09/07/17 09/08/17 19:00 07:00 Intake Total 634.2 ml 600 ml Output Total 1100 ml 600 ml Balance -465.8 ml 0 ml IV Total 634.2 ml 600 ml Output Urine Total 1100 ml 600 ml Objective General Appearance: cachetic, thin EENT: PERRL/EOMI, normal ENT inspection Neck: non-tender, normal alignment, supple Cardiovascular: normal peripheral pulses, no gallop/murmur, no JVD, irregularly irregular Respiratory/Chest: Nasal canula; respiratory distress, crackles/rales, rhonchi - bilaterally, expiratory wheezing Abdomen: non tender, soft, no organomegaly, decreased bowel sounds 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 Continue levoxyl. (6) Respiratory failure Assessment & Plan: Extubated 09/05/17. Tolerating nasal canula. See pulmonary note. (7) Atrial fibrillation with rapid ventricular response Assessment & Plan: Continue cardizem and lopressor per cardiology (8) CHF (congestive heart failure) Assessment & Plan: See cardiology note; await echocardiogram (9) Cachexia (10) Lactic acid acidosis (11) Pneumonia Assessment & Plan: See pulmonary note. Cont zosyn and vanco. (12) Dysphagia Assessment & Plan: Place NG tube; nutrition consult. (13) Hypokalemia Assessment & Plan: Replace KCL Status: not improved Assessment/Plan D/W nurse, NEIL Hopkins Sep 08, 2017 15:49
[2017-09-08 16:00] VITALS: BP 118/76
--- NOTE | 2017-09-08 16:54 | Pulmonology Progress Note ---
Assessment/Plan Assessment/Plan ASSESSMENT Acute RF requiring intubation s/p extubation 09/05 PNA A fib with RVR PATRICK Moderate MR Dehydration Severe pulm HTN Alzheimer dementia chronic hep B Severe protein calorie malnutrition Encephalopathy mild anemia dysphagia PLAN OF CARE in [place] titrate O2 to keep sat above 92% pulm toilet Cardio follows : all troponin negative, ECG negative, thus ruled out for acute [place] ECHO with pEF 55% and RVSP of 62 c/w sev pulm HTN, + moderate MR Rate control with Cardizem and BB a/coagulation with Lovenox Venous Duplex negative CTA no PE, but evidence of basilar PNA Gentle IVF PATRICK resolved, likely due to dehydration Abx, ID follows Sputum, urine, blood cx and influenza all negative Fungal serology pending strict aspiration reflux precautions Swallow eval with evidence of severe dysphagia, VSS pending Non-oral feeding for now start NGT feeding GI follows for possible GT placement, waiting for VSS results for now Psych eval appreciated case discussed and evaluated by supervising physician Subjective Allergies: Coded Allergies: No Known Allergies (Unverified , 08/28/17) Subjective afebrile, no leuk on 4L O2 via NC puls ox stable no signs of resp distress remains in A fib frequent tachycardia Objective Last 24 Hour Vital Signs Date Time Temp Pulse Resp B/P (MAP) Pulse Ox O2 Delivery O2 Flow Rate FiO2 09/08/17 16:00 146 09/08/17 13:28 141 125/88 09/08/17 13:00 141 125/88 09/08/17 12:20 133 09/08/17 12:00 97.0 141 18 125/88 97 Nasal Cannula 4.0 09/08/17 11:32 115 24 Nasal Cannula 4.0 32 09/08/17 08:52 125 09/08/17 08:28 149 105/72 09/08/17 08:00 97.5 106 20 141/77 97 Nasal Cannula 5.0 09/08/17 07:03 Nasal Cannula 4.0 36 09/08/17 07:03 98 Nasal Cannula 4.0 36 09/08/17 04:15 150 09/08/17 04:00 116 09/08/17 04:00 97.4 120 32 105/72 94 Nasal Cannula 5.0 09/08/17 00:00 97.5 80 32 146/87 95 Nasal Cannula 5.0 09/08/17 00:00 116 09/07/17 21:15 145 134/83 09/07/17 21:00 145 134/83 09/07/17 20:00 107 09/07/17 20:00 98.0 106 32 134/83 95 Nasal Cannula 4.0 09/07/17 17:42 133 148/92 Intake and Output 09/07/17 09/08/17 19:00 07:00 Intake Total 634.2 ml 600 ml Output Total 1100 ml 600 ml Balance -465.8 ml 0 ml IV Total 634.2 ml 600 ml Output Urine Total 1100 ml 600 ml General Appearance: no acute distress, cachetic, other - bedridden elderly chronically ill looking male HEENT: normocephalic, atraumatic, other - O2 via NC Respiratory/Chest: rhonchi - few scattered rhonchi Cardiovascular: tachycardia, irregularly irregular - A fib with tachy pn tele Abdomen: normal bowel sounds, soft, non tender Genitourinary: other - Ku Extremities: no edema Neurologic/Psychiatric: abnormal gait, alert, other - awake, responsive, confused, moves all extremities Musculoskeletal: atrophy - BLE Microbiology Date/Time Source Procedure Growth Status 09/06/17 10:50 Nasal Nares Influenza Types A,B Antigen (CONCEPCION) - Final Complete Laboratory Tests 09/08/17 07:30: White Blood Count 9.3, Red Blood Count 3.88L, Hemoglobin 12.2L, Hematocrit 36.8L , Mean Corpuscular Volume 95, Mean Corpuscular Hemoglobin 31.5H, Mean Corpuscular Hemoglobin Concent 33.2, Red Cell Distribution Width 13.8, Platelet Count 374, Mean Platelet Volume 6.1L, Neutrophils (%) (Auto) 76.5H, Lymphocytes (%) (Auto) 12.9L, Monocytes (%) (Auto) 9.1, Eosinophils (%) (Auto) 0.3, Basophils (%) (Auto) 1.1, Sodium Level 140, Potassium Level 4.8, Chloride Level 107, Carbon Dioxide Level 22, Anion Gap 11, Blood Urea Nitrogen 10, Creatinine 0.7, Estimat Glomerular Filtration Rate , Glucose Level 83, Calcium Level 7.1L Current Medications Medications (Trade) Dose Ordered Sig/Hill Route PRN Reason Start Time Stop Time Status Last Admin Dose Admin Ceftriaxone Sodium 1 gm/ Dextrose 55 ml @ 110 mls/hr Q24H IVPB 09/07/17 12:00 09/14/17 11:59 09/08/17 12:19 Chlorpromazine (Thorazine) 25 mg Q6H PRN IM AGITATION 09/08/17 16:30 10/08/17 16:29 Clotrimazole (Lotrimin) 1 applic EVERY 12 HOURS TOPIC 09/06/17 21:00 10/06/17 20:59 09/08/17 08:28 Dextrose/Sodium Chloride 1,000 ml @ 50 mls/hr Q20H IV 09/06/17 17:30 10/06/17 17:29 09/08/17 08:37 Digoxin (Lanoxin) 0.25 mg ONCE ONCE IVP 09/08/17 18:45 09/08/17 18:46 Enoxaparin Sodium (Lovenox) 50 mg EVERY 12 HOURS SUBQ 09/06/17 21:00 09/28/17 08:59 09/08/17 09:18 Metoprolol Tartrate (Lopressor) 5 mg Q4H PRN IVP Per rx protocol 09/06/17 18:00 10/06/17 17:59 09/08/17 13:28 Morphine Sulfate (Morphine Sulfate) 4 mg Q4H PRN IVP PAIN 4-10 09/06/17 17:00 09/11/17 16:59 09/08/17 12:23 Pantoprazole (Protonix) 40 mg DAILY IV 09/07/17 09:00 10/05/17 08:59 09/08/17 08:33 Saundra Najera NP ([facility]) Sep 08, 2017 16:54
[2017-09-08] MEDS ORDERED: Albuterol/Ipratropium 3ml neb HHN PRN (17:00)
[2017-09-08 20:00] VITALS: BP 139/83
[2017-09-08] MEDS ORDERED: Tubing IV Secondary IV ONE (22:54)
[2017-09-09] VITALS (19 sets, daily range): BP systolic 92–136; BP diastolic 43–84
[2017-09-09] MEDS: Metoprolol 5mg/5ml Inj IVP PRN ×3 (00:02→09:24)
[2017-09-09 07:49] LABS: BASOPHILS % (AUTO) 1.2 % (0.0-2.0); EOSINOPHILS % (AUTO) 0.6 % (0.0-3.0); LYMPHOCYTES % (AUTO) 17.3 % (20.0-45.0); MEAN CORPUSCULAR VOLUME 95 FL (80-99); MONOCYTES % (AUTO) 12.4 % (1.0-10.0); NEUTROPHILS % (AUTO) 68.6 % (45.0-75.0); PLATELET COUNT 335 K/UL (150-450); RED BLOOD COUNT 3.91 M/UL (4.70-6.10); WHITE BLOOD COUNT 6.9 K/UL (4.8-10.8)
[2017-09-09 07:58] LABS: ANION GAP 8 mmol/L (5-15); BLOOD UREA NITROGEN 9 mg/dL (7-18); CALCIUM 7.3 MG/DL (8.5-10.1); CARBON DIOXIDE 24 MMOL/L (21-32); CHLORIDE 107 MMOL/L (98-107); CREATININE 0.9 MG/DL (0.55-1.30); POTASSIUM 3.8 MMOL/L (3.5-5.1); SODIUM 139 MMOL/L (136-145)
[2017-09-09] MEDS: Pantoprazole Inj IV SCH (08:48)
[2017-09-09] MEDS: Enoxaparin Sodium 300mg/3ml vial SUBQ SCH ×2 (11:09→21:47)
[2017-09-09] MEDS ORDERED: dilTIAZem HCl 25mg/5ml Inj IVP ONE (11:30)
--- NOTE | 2017-09-09 11:30 | General Progress Note ---
Assessment/Plan Assessment/Plan Assessment - Respiratory failure - extubated - malnutrition - OBS/encephaloppathy - a fib - CHF - mild anemia Recommendations - swallow eval was not done given patient could not go down with rapid AVR - NPO for now - elevate HOB - pulmonary follow up Subjective ROS Limited/Unobtainable: No Allergies: Coded Allergies: No Known Allergies (Unverified , 08/28/17) Objective Last 24 Hour Vital Signs Date Time Temp Pulse Resp B/P (MAP) Pulse Ox O2 Delivery O2 Flow Rate FiO2 09/09/17 11:26 160 106/84 09/09/17 09:24 160 128/84 09/09/17 08:00 102 09/09/17 07:55 Nasal Cannula 4.0 36 09/09/17 07:55 98 Nasal Cannula 4.0 36 09/09/17 05:05 160 09/09/17 04:00 97.4 150 24 128/84 92 Nasal Cannula 4.0 09/09/17 03:36 102 09/09/17 00:02 145 139/83 09/09/17 00:00 97.4 116 32 136/82 94 Nasal Cannula 4.0 09/08/17 23:49 123 09/08/17 20:00 94 09/08/17 20:00 98.1 102 28 139/83 95 Nasal Cannula 4.0 09/08/17 18:51 149 09/08/17 18:50 Nasal Cannula 4.0 36 09/08/17 18:50 97 Nasal Cannula 4.0 36 09/08/17 18:50 79 20 Nasal Cannula 4.0 36 09/08/17 16:16 144 09/08/17 16:00 97.0 131 21 118/76 97 Nasal Cannula 4.0 09/08/17 16:00 146 09/08/17 13:28 141 125/88 09/08/17 13:00 141 125/88 09/08/17 12:20 133 09/08/17 12:00 97.0 141 18 125/88 97 Nasal Cannula 4.0 09/08/17 11:32 115 24 Nasal Cannula 4.0 32 Intake and Output 09/08/17 09/09/17 19:00 07:00 Intake Total 624.2 ml 588 ml Output Total 650 ml 500 ml Balance -25.8 ml 88 ml IV Total 624.2 ml 588 ml Output Urine Total 650 ml 500 ml Laboratory Tests 09/09/17 06:51: White Blood Count 6.9, Red Blood Count 3.91L, Hemoglobin 12.0L, Hematocrit 37.0L , Mean Corpuscular Volume 95, Mean Corpuscular Hemoglobin 30.8, Mean Corpuscular Hemoglobin Concent 32.6, Red Cell Distribution Width 14.0, Platelet Count 335, Mean Platelet Volume 6.4L, Neutrophils (%) (Auto) 68.6, Lymphocytes ( %) (Auto) 17.3L, Monocytes (%) (Auto) 12.4H, Eosinophils (%) (Auto) 0.6, Basophils (%) (Auto) 1.2, Sodium Level 139, Potassium Level 3.8, Chloride Level 107, Carbon Dioxide Level 24, Anion Gap 8, Blood Urea Nitrogen 9, Creatinine 0.9 , Estimat Glomerular Filtration Rate , Glucose Level 95, Calcium Level 7.3L Height (Feet): 5 Height (Inches): 10.00 Weight (Pounds): 115 General Appearance: confused EENT: normal ENT inspection Neck: supple Cardiovascular: normal rate Respiratory/Chest: decreased breath sounds Abdomen: normal bowel sounds, non tender, soft Extremities: non-tender LEA VENTURA Sep 09, 2017 11:30
[2017-09-09] MEDS ORDERED: Albuterol/Ipratropium 3ml neb HHN PRN (12:00)
[2017-09-09] MEDS: cefTRIAXone 1 GM in D5W 55 ML IVPB SCH (12:18)
[2017-09-09] MEDS: D5 1/2NS 1,000 ML IV SCH ×2 (12:19→19:21)
--- NOTE | 2017-09-09 12:39 | Pulmonology Progress Note ---
Assessment/Plan Assessment/Plan ASSESSMENT Acute RF requiring intubation s/p extubation 09/05 PNA A fib with RVR PATRICK Moderate MR Dehydration Severe pulm HTN Alzheimer dementia chronic hep B Severe protein calorie malnutrition Encephalopathy mild anemia dysphagia PLAN OF CARE in [place] titrate O2 to keep sat above 92% pulm toilet Cardio follows : all troponin negative, ECG negative, thus ruled out for acute [place] ECHO with pEF 55% and RVSP of 62 c/w sev pulm HTN, + moderate MR Rate control with Cardizem and BB, still tachy - per cardio a/coagulation with Lovenox Venous Duplex negative CTA no PE, but evidence of basilar PNA Gentle IVF PATRICK resolved, likely due to dehydration Abx, ID follows Sputum, urine, blood cx and influenza all negative Fungal serology pending strict aspiration reflux precautions Swallow eval with evidence of severe dysphagia, VSS pending Non-oral feeding for now nursing unable to place NGT remains NPO GI follows for possible GT placement, waiting for VSS results for now Psych eval appreciated case discussed and evaluated by supervising physician Subjective Allergies: Coded Allergies: No Known Allergies (Unverified , 08/28/17) Subjective afebrile, no leuk on 4L O2 via NC pulse ox stable no signs of resp distress remains in A fib frequent tachycardia nursing unable to place NGT remains NPO Objective Last 24 Hour Vital Signs Date Time Temp Pulse Resp B/P (MAP) Pulse Ox O2 Delivery O2 Flow Rate FiO2 09/09/17 11:26 160 106/84 09/09/17 09:24 160 128/84 09/09/17 08:00 97.9 75 22 131/75 94 Nasal Cannula 4.0 75 09/09/17 08:00 102 09/09/17 07:55 Nasal Cannula 4.0 36 09/09/17 07:55 98 Nasal Cannula 4.0 36 09/09/17 05:05 160 09/09/17 04:00 97.4 150 24 128/84 92 Nasal Cannula 4.0 09/09/17 03:36 102 09/09/17 00:02 145 139/83 09/09/17 00:00 97.4 116 32 136/82 94 Nasal Cannula 4.0 09/08/17 23:49 123 09/08/17 20:00 94 09/08/17 20:00 98.1 102 28 139/83 95 Nasal Cannula 4.0 09/08/17 18:51 149 09/08/17 18:50 Nasal Cannula 4.0 36 09/08/17 18:50 97 Nasal Cannula 4.0 36 09/08/17 18:50 79 20 Nasal Cannula 4.0 36 09/08/17 16:16 144 09/08/17 16:00 97.0 131 21 118/76 97 Nasal Cannula 4.0 09/08/17 16:00 146 09/08/17 13:28 141 125/88 09/08/17 13:00 141 125/88 Intake and Output 09/08/17 09/09/17 19:00 07:00 Intake Total 624.2 ml 588 ml Output Total 650 ml 500 ml Balance -25.8 ml 88 ml IV Total 624.2 ml 588 ml Output Urine Total 650 ml 500 ml Objective GENERAL: Chronically ill bedridden elderly male in NAD HEENT: NC/AT, O2 via NC Respiratory/Chest: lungs clear Cardiovascular: tachycardia, irregularly irregular - A fib with tachy on tele Abdomen: normal bowel sounds, soft, non tender Genitourinary: Ku Extremities: no edema Neurologic/Psychiatric: abnormal gait, awake, responsive, confused, moves all extremities Musculoskeletal: atrophy - BLE Laboratory Tests 09/09/17 06:51: White Blood Count 6.9, Red Blood Count 3.91L, Hemoglobin 12.0L, Hematocrit 37.0L , Mean Corpuscular Volume 95, Mean Corpuscular Hemoglobin 30.8, Mean Corpuscular Hemoglobin Concent 32.6, Red Cell Distribution Width 14.0, Platelet Count 335, Mean Platelet Volume 6.4L, Neutrophils (%) (Auto) 68.6, Lymphocytes ( %) (Auto) 17.3L, Monocytes (%) (Auto) 12.4H, Eosinophils (%) (Auto) 0.6, Basophils (%) (Auto) 1.2, Sodium Level 139, Potassium Level 3.8, Chloride Level 107, Carbon Dioxide Level 24, Anion Gap 8, Blood Urea Nitrogen 9, Creatinine 0.9 , Estimat Glomerular Filtration Rate , Glucose Level 95, Calcium Level 7.3L Current Medications Medications (Trade) Dose Ordered Sig/Hill Route PRN Reason Start Time Stop Time Status Last Admin Dose Admin Albuterol/ Ipratropium (Albuterol/ Ipratropium) 3 ml Q4H PRN HHN Shortness of Breath 09/09/17 12:00 09/13/17 11:59 Ceftriaxone Sodium 1 gm/ Dextrose 55 ml @ 110 mls/hr Q24H IVPB 09/09/17 12:00 09/14/17 11:59 09/09/17 12:18 Chlorpromazine (Thorazine) 25 mg Q6H PRN IM AGITATION 09/09/17 12:00 10/08/17 11:59 Clotrimazole (Lotrimin) 1 applic EVERY 12 HOURS TOPIC 09/09/17 21:00 10/06/17 20:59 Dextrose/Sodium Chloride 1,000 ml @ 50 mls/hr Q20H IV 09/09/17 12:00 10/06/17 17:29 09/09/17 12:19 Diltiazem HCl 125 mg/Dextrose 125 ml @ 8 mls/hr Q24H IV 09/09/17 13:00 09/10/17 12:59 Enoxaparin Sodium (Lovenox) 50 mg EVERY 12 HOURS SUBQ 09/09/17 21:00 09/28/17 08:59 Metoprolol Tartrate (Lopressor) 5 mg Q4H PRN IVP HR > 125 bpm 09/09/17 14:00 10/06/17 17:59 Morphine Sulfate (Morphine Sulfate) 4 mg Q4H PRN IVP PAIN 4-10 09/09/17 13:00 09/11/17 16:59 Pantoprazole (Protonix) 40 mg DAILY IV 09/10/17 09:00 10/05/17 08:59 Saundra Najera NP ([facility]) Sep 09, 2017 12:39
[2017-09-09] MEDS ORDERED: Morphine Sulfate 4mg/ml Inj IVP PRN (13:00)
--- NOTE | 2017-09-09 14:24 | Cardiology Progress Note ---
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 normal lv function with pulm htn continue treatment for pneumonia intermittent iv bb iv dig given yest not helpfull for heart rate control i was contacted by staff about hr ordered cardizem drip now in icu setting to monitor hr adn bp continuaouly as at risk of hypotension tele reviwed no means for feeding yet stff suction blood form Subjective ROS Limited/Unobtainable: Yes Subjective confused got sedated as was sig agitation Objective Last 24 Hour Vital Signs Date Time Temp Pulse Resp B/P (MAP) Pulse Ox O2 Delivery O2 Flow Rate FiO2 09/09/17 13:00 123 22 101/66 93 Nasal Cannula 4.0 09/09/17 12:46 160 106/84 09/09/17 12:00 154 09/09/17 12:00 97.7 154 22 96/67 93 Nasal Cannula 4.0 09/09/17 11:26 160 106/84 09/09/17 09:24 160 128/84 09/09/17 08:00 97.9 75 22 131/75 94 Nasal Cannula 4.0 75 09/09/17 08:00 102 09/09/17 07:55 Nasal Cannula 4.0 36 09/09/17 07:55 98 Nasal Cannula 4.0 36 09/09/17 05:05 160 09/09/17 04:00 97.4 150 24 128/84 92 Nasal Cannula 4.0 09/09/17 03:36 102 09/09/17 00:02 145 139/83 09/09/17 00:00 97.4 116 32 136/82 94 Nasal Cannula 4.0 09/08/17 23:49 123 09/08/17 20:00 94 09/08/17 20:00 98.1 102 28 139/83 95 Nasal Cannula 4.0 09/08/17 18:51 149 09/08/17 18:50 Nasal Cannula 4.0 36 09/08/17 18:50 97 Nasal Cannula 4.0 36 09/08/17 18:50 79 20 Nasal Cannula 4.0 36 09/08/17 16:16 144 09/08/17 16:00 97.0 131 21 118/76 97 Nasal Cannula 4.0 09/08/17 16:00 146 General Appearance: other - sedated atousable Neck: supple Cardiovascular: tachycardia, irregularly irregular Respiratory/Chest: lungs clear Abdomen: normal bowel sounds, non tender, soft Extremities: no swelling Intake and Output 09/08/17 09/09/17 19:00 07:00 Intake Total 624.2 ml 588 ml Output Total 650 ml 500 ml Balance -25.8 ml 88 ml IV Total 624.2 ml 588 ml Output Urine Total 650 ml 500 ml Laboratory Tests Test 09/09/17 06:51 White Blood Count 6.9 K/UL (4.8-10.8) Red Blood Count 3.91 M/UL (4.70-6.10) L Hemoglobin 12.0 G/DL (14.2-18.0) L Hematocrit 37.0 % (42.0-52.0) L Mean Corpuscular Volume 95 FL (80-99) Mean Corpuscular Hemoglobin 30.8 PG (27.0-31.0) Mean Corpuscular Hemoglobin Concent 32.6 G/DL (32.0-36.0) Red Cell Distribution Width 14.0 % (11.6-14.8) Platelet Count 335 K/UL (150-450) Mean Platelet Volume 6.4 FL (6.5-10.1) L Neutrophils (%) (Auto) 68.6 % (45.0-75.0) Lymphocytes (%) (Auto) 17.3 % (20.0-45.0) L Monocytes (%) (Auto) 12.4 % (1.0-10.0) H Eosinophils (%) (Auto) 0.6 % (0.0-3.0) Basophils (%) (Auto) 1.2 % (0.0-2.0) Sodium Level 139 MMOL/L (136-145) Potassium Level 3.8 MMOL/L (3.5-5.1) Chloride Level 107 MMOL/L (98-107) Carbon Dioxide Level 24 MMOL/L (21-32) Anion Gap 8 mmol/L (5-15) Blood Urea Nitrogen 9 mg/dL (7-18) Creatinine 0.9 MG/DL (0.55-1.30) Estimat Glomerular Filtration Rate mL/min (>60) Glucose Level 95 MG/DL (74-106) Calcium Level 7.3 MG/DL (8.5-10.1) SEGUNDO DE LA PAZ Sep 09, 2017 14:24
--- NOTE | 2017-09-09 14:29 | General Progress Note ---
Assessment/Plan Status: unchanged Assessment/Plan encephalopathy agitation -dc haldol -Thorazine prn Subjective Date patient seen: Sep 08, 2017 Neurologic/Psychiatric: Reports: anxiety, depressed Allergies: Coded Allergies: No Known Allergies (Unverified , 08/28/17) Subjective Still agitated Objective Last 24 Hour Vital Signs Date Time Temp Pulse Resp B/P (MAP) Pulse Ox O2 Delivery O2 Flow Rate FiO2 09/09/17 13:00 123 22 101/66 93 Nasal Cannula 4.0 09/09/17 12:46 160 106/84 09/09/17 12:00 154 09/09/17 12:00 97.7 154 22 96/67 93 Nasal Cannula 4.0 09/09/17 11:26 160 106/84 09/09/17 09:24 160 128/84 09/09/17 08:00 97.9 75 22 131/75 94 Nasal Cannula 4.0 75 09/09/17 08:00 102 09/09/17 07:55 Nasal Cannula 4.0 36 09/09/17 07:55 98 Nasal Cannula 4.0 36 09/09/17 05:05 160 09/09/17 04:00 97.4 150 24 128/84 92 Nasal Cannula 4.0 09/09/17 03:36 102 09/09/17 00:02 145 139/83 09/09/17 00:00 97.4 116 32 136/82 94 Nasal Cannula 4.0 09/08/17 23:49 123 09/08/17 20:00 94 09/08/17 20:00 98.1 102 28 139/83 95 Nasal Cannula 4.0 09/08/17 18:51 149 09/08/17 18:50 Nasal Cannula 4.0 36 09/08/17 18:50 97 Nasal Cannula 4.0 36 09/08/17 18:50 79 20 Nasal Cannula 4.0 36 09/08/17 16:16 144 09/08/17 16:00 97.0 131 21 118/76 97 Nasal Cannula 4.0 09/08/17 16:00 146 Intake and Output 09/08/17 09/09/17 19:00 07:00 Intake Total 624.2 ml 588 ml Output Total 650 ml 500 ml Balance -25.8 ml 88 ml IV Total 624.2 ml 588 ml Output Urine Total 650 ml 500 ml Laboratory Tests 09/09/17 06:51: White Blood Count 6.9, Red Blood Count 3.91L, Hemoglobin 12.0L, Hematocrit 37.0L , Mean Corpuscular Volume 95, Mean Corpuscular Hemoglobin 30.8, Mean Corpuscular Hemoglobin Concent 32.6, Red Cell Distribution Width 14.0, Platelet Count 335, Mean Platelet Volume 6.4L, Neutrophils (%) (Auto) 68.6, Lymphocytes ( %) (Auto) 17.3L, Monocytes (%) (Auto) 12.4H, Eosinophils (%) (Auto) 0.6, Basophils (%) (Auto) 1.2, Sodium Level 139, Potassium Level 3.8, Chloride Level 107, Carbon Dioxide Level 24, Anion Gap 8, Blood Urea Nitrogen 9, Creatinine 0.9 , Estimat Glomerular Filtration Rate , Glucose Level 95, Calcium Level 7.3L Height (Feet): 5 Height (Inches): 10.00 Weight (Pounds): 115 General Appearance: no apparent distress, alert, confused, agitated Mendy Frederick M.D. Sep 09, 2017 14:29
--- NOTE | 2017-09-09 14:50 | Internal Med Progress Note ---
Subjective Date of Service: Sep 09, 2017 Physician Name Neil Grigsby Attending Physician Davey Cui MD Current Medications Medications (Trade) Dose Ordered Sig/Hill Route PRN Reason Start Time Stop Time Status Last Admin Dose Admin Albuterol/ Ipratropium (Albuterol/ Ipratropium) 3 ml Q4H PRN HHN Shortness of Breath 09/09/17 12:00 09/13/17 11:59 Ceftriaxone Sodium 1 gm/ Dextrose 55 ml @ 110 mls/hr Q24H IVPB 09/09/17 12:00 09/14/17 11:59 09/09/17 12:18 Chlorpromazine (Thorazine) 25 mg Q6H PRN IM AGITATION 09/09/17 12:00 10/08/17 11:59 Clotrimazole (Lotrimin) 1 applic EVERY 12 HOURS TOPIC 09/09/17 21:00 10/06/17 20:59 Dextrose/Sodium Chloride 1,000 ml @ 50 mls/hr Q20H IV 09/09/17 12:00 10/06/17 17:29 09/09/17 12:19 Diltiazem HCl 125 mg/Dextrose 125 ml @ 8 mls/hr Q24H IV 09/09/17 13:00 09/10/17 12:59 09/09/17 12:46 Enoxaparin Sodium (Lovenox) 50 mg EVERY 12 HOURS SUBQ 09/09/17 21:00 09/28/17 08:59 Metoprolol Tartrate (Lopressor) 5 mg Q4H PRN IVP HR > 125 bpm 09/09/17 14:00 10/06/17 17:59 Morphine Sulfate (Morphine Sulfate) 4 mg Q4H PRN IVP PAIN 4-10 09/09/17 13:00 09/11/17 16:59 Pantoprazole (Protonix) 40 mg DAILY IV 09/10/17 09:00 10/05/17 08:59 Allergies: Coded Allergies: No Known Allergies (Unverified , 08/28/17) ROS Limited/Unobtainable: Yes Subjective 87 YO M admitted with Respiratory failure. Cover for Int Jas-Dr Cui. LUZMA. Extubated 09/05/17; Tolerating nasal canula Objective Last Vital Signs Date Time Temp Pulse Resp B/P (MAP) Pulse Ox O2 Delivery O2 Flow Rate FiO2 1/7/18 13:00 123 22 101/66 93 Nasal Cannula 4.0 09/09/17 12:00 97.7 09/09/17 07:55 36 Laboratory Tests Test 09/09/17 06:51 White Blood Count 6.9 K/UL (4.8-10.8) Red Blood Count 3.91 M/UL (4.70-6.10) L Hemoglobin 12.0 G/DL (14.2-18.0) L Hematocrit 37.0 % (42.0-52.0) L Mean Corpuscular Volume 95 FL (80-99) Mean Corpuscular Hemoglobin 30.8 PG (27.0-31.0) Mean Corpuscular Hemoglobin Concent 32.6 G/DL (32.0-36.0) Red Cell Distribution Width 14.0 % (11.6-14.8) Platelet Count 335 K/UL (150-450) Mean Platelet Volume 6.4 FL (6.5-10.1) L Neutrophils (%) (Auto) 68.6 % (45.0-75.0) Lymphocytes (%) (Auto) 17.3 % (20.0-45.0) L Monocytes (%) (Auto) 12.4 % (1.0-10.0) H Eosinophils (%) (Auto) 0.6 % (0.0-3.0) Basophils (%) (Auto) 1.2 % (0.0-2.0) Sodium Level 139 MMOL/L (136-145) Potassium Level 3.8 MMOL/L (3.5-5.1) Chloride Level 107 MMOL/L (98-107) Carbon Dioxide Level 24 MMOL/L (21-32) Anion Gap 8 mmol/L (5-15) Blood Urea Nitrogen 9 mg/dL (7-18) Creatinine 0.9 MG/DL (0.55-1.30) Estimat Glomerular Filtration Rate mL/min (>60) Glucose Level 95 MG/DL (74-106) Calcium Level 7.3 MG/DL (8.5-10.1) L Intake and Output 09/08/17 09/09/17 19:00 07:00 Intake Total 624.2 ml 588 ml Output Total 650 ml 500 ml Balance -25.8 ml 88 ml IV Total 624.2 ml 588 ml Output Urine Total 650 ml 500 ml Objective General Appearance: cachetic, thin EENT: PERRL/EOMI, normal ENT inspection Neck: non-tender, normal alignment, supple Cardiovascular: normal peripheral pulses, no gallop/murmur, no JVD, irregularly irregular Respiratory/Chest: Nasal canula; respiratory distress, crackles/rales, rhonchi - bilaterally, expiratory wheezing Abdomen: non tender, soft, no organomegaly, decreased bowel sounds 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 Continue levoxyl. (6) Respiratory failure Assessment & Plan: Extubated 09/05/17. Tolerating nasal canula. See pulmonary note. (7) Atrial fibrillation with rapid ventricular response Assessment & Plan: Continue cardizem and lopressor per cardiology (8) CHF (congestive heart failure) Assessment & Plan: See cardiology note; await echocardiogram (9) Cachexia (10) Lactic acid acidosis (11) Pneumonia Assessment & Plan: See pulmonary note. Cont zosyn and vanco. (12) Dysphagia Assessment & Plan: Place NG tube; nutrition consult. (13) Hypokalemia Assessment & Plan: Replace KCL Status: stable Assessment/Plan D/W nurse, NEIL Hopkins Sep 09, 2017 14:50
[2017-09-10] VITALS (48 sets, daily range): BP systolic 90–132; BP diastolic 43–99
[2017-09-10] MEDS: Metoprolol 5mg/5ml Inj IVP PRN (00:54)
[2017-09-10 06:43] LABS: BASOPHILS % (AUTO) 0.7 % (0.0-2.0); EOSINOPHILS % (AUTO) 0.2 % (0.0-3.0); HEMATOCRIT 37.6 % (42.0-52.0); HEMOGLOBIN 12.6 G/DL (14.2-18.0); LYMPHOCYTES % (AUTO) 14.3 % (20.0-45.0); MEAN CORPUSCULAR VOLUME 94 FL (80-99); MONOCYTES % (AUTO) 8.3 % (1.0-10.0); NEUTROPHILS % (AUTO) 76.4 % (45.0-75.0); PLATELET COUNT 381 K/UL (150-450); RED BLOOD COUNT 4.02 M/UL (4.70-6.10); RED CELL DISTRIBUTION WIDTH 13.4 % (11.6-14.8); WHITE BLOOD COUNT 7.8 K/UL (4.8-10.8)
[2017-09-10 06:50] LABS: ANION GAP 10 mmol/L (5-15); BLOOD UREA NITROGEN 7 mg/dL (7-18); CALCIUM 7.4 MG/DL (8.5-10.1); CARBON DIOXIDE 23 MMOL/L (21-32); CHLORIDE 105 MMOL/L (98-107); CREATININE 0.9 MG/DL (0.55-1.30); POTASSIUM 2.9 MMOL/L (3.5-5.1); SODIUM 138 MMOL/L (136-145)
[2017-09-10] MEDS: Pantoprazole Inj IV SCH (08:54)
[2017-09-10] MEDS: Enoxaparin Sodium 300mg/3ml vial SUBQ SCH ×2 (09:00→21:25)
--- NOTE | 2017-09-10 09:59 | Infectious Diseases Prog Note ---
Assessment/Plan Assessment/Plan PNA-r/o Flu- r/o fungal pna -CXR 09/06: Dense retrocardiac consolidation and left-sided pleural fluid persists. Bibasilar atelectasis persists. Generalized interstitial prominence and central bronchial wall thickening persists, unchanged. Fibronodular scarring at both lung bases persist. -CTA chest: No evidence of pulmonary embolus or aortic dissection/aneurysm. Basilar pneumonia may be present. Please correlate clinically. Chronic lung disease as described above -CXR 09/03: Persistent interstitial opacification/edema with dense retrocardiac atelectasis/consolidation and small left pleural effusion. Interval increase in streaky right basilar atelectasis/consolidation. -sp CX 09/03 Neg -Influenza neg -Legionella ag urine neg - Neg : Cr Ag Bleeding from the mouth Acute respiratory failure s/p intubation-; extubated 07/06 Leukocytosis, SP Lactic acidosis- resolved Hep B Afib with RVR Mild PATRICK, resolved HTN, CHF, Dementia, hypothyroidism, Afib, SNF resident Plan: - cont Ceftriaxone abx d# / for PNA -09/08 SP Azithromycin #5 -2 SP Zosyn #7 -09/06 SP IV Vanco #9, Tamiflu #3 -Monitor CBC/BMP, temperatures -aspiration precautions -f/u cocci ab Subjective Allergies: Coded Allergies: No Known Allergies (Unverified , 08/28/17) Subjective afebrile no leukocytosis 4l NC Objective Vital Signs Last 24 Hour Vital Signs Date Time Temp Pulse Resp B/P (MAP) Pulse Ox O2 Delivery O2 Flow Rate FiO2 09/10/17 08:00 119 09/10/17 07:30 114 15 107/60 90 Nasal Cannula 4.0 09/10/17 07:05 Simple Mask 5.0 09/10/17 07:05 84 Simple Mask 5.0 09/10/17 07:00 111 18 117/55 100 Nasal Cannula 4.0 09/10/17 06:30 117 18 108/66 100 Nasal Cannula 4.0 09/10/17 06:00 104 18 107/66 100 Nasal Cannula 4.0 09/10/17 05:30 115 18 106/66 100 Nasal Cannula 4.0 09/10/17 05:00 148 23 112/57 93 Nasal Cannula 4.0 09/10/17 04:30 145 24 114/57 94 Nasal Cannula 4.0 09/10/17 04:00 138 09/10/17 04:00 99.0 138 21 106/62 94 Nasal Cannula 4.0 09/10/17 03:30 107 20 106/62 93 Nasal Cannula 4.0 09/10/17 03:00 111 17 111/64 93 Nasal Cannula 4.0 09/10/17 02:46 120 132/99 09/10/17 02:30 110 22 132/99 94 Nasal Cannula 4.0 09/10/17 02:00 112 21 111/84 95 Nasal Cannula 4.0 09/10/17 01:30 95 16 113/69 93 Nasal Cannula 4.0 09/10/17 01:00 146 16 126/77 94 Nasal Cannula 4.0 09/10/17 01:00 95 24 113/69 94 Nasal Cannula 4.0 09/10/17 00:54 150 114/67 09/10/17 00:30 134 22 114/67 93 Nasal Cannula 4.0 09/10/17 00:00 146 09/10/17 00:00 98.4 146 24 126/77 94 Nasal Cannula 4.0 09/09/17 23:30 140 20 113/49 94 Nasal Cannula 4.0 09/09/17 23:00 122 20 113/60 94 Nasal Cannula 4.0 09/09/17 22:30 116 16 112/60 94 Nasal Cannula 4.0 09/09/17 22:00 143 16 100/55 94 Nasal Cannula 4.0 09/09/17 21:30 114 16 98/56 94 Nasal Cannula 4.0 09/09/17 21:00 105 15 105/43 93 Nasal Cannula 4.0 09/09/17 20:30 105 16 113/43 93 Nasal Cannula 4.0 09/09/17 20:00 98.6 106 16 100/43 95 Nasal Cannula 4.0 09/09/17 20:00 106 09/09/17 19:30 107 13 94/43 95 Nasal Cannula 4.0 09/09/17 18:10 113 13 101/56 95 Nasal Cannula 4.0 09/09/17 17:00 131 20 92/74 93 Nasal Cannula 4.0 09/09/17 16:00 97.1 89 20 112/69 93 Nasal Cannula 4.0 1/7/18 16:00 135 09/09/17 15:10 98 13 103/59 91 Nasal Cannula 4.0 09/09/17 14:00 120 13 100/55 93 Nasal Cannula 4.0 09/09/17 13:00 123 22 101/66 93 Nasal Cannula 4.0 09/09/17 12:46 160 106/84 09/09/17 12:00 154 09/09/17 12:00 97.7 154 22 96/67 93 Nasal Cannula 4.0 09/09/17 11:26 160 106/84 Height (Feet): 5 Height (Inches): 10.00 Weight (Pounds): 115 Objective Status: awake HEENT: atraumatic, nasal trumpet in palce Heart: HR/BP stable Abdomen: non-tender, active bowel sounds Extremities: no C/C/E Laboratory Tests Test 09/10/17 05:20 White Blood Count 7.8 K/UL (4.8-10.8) Red Blood Count 4.02 M/UL (4.70-6.10) L Hemoglobin 12.6 G/DL (14.2-18.0) L Hematocrit 37.6 % (42.0-52.0) L Mean Corpuscular Volume 94 FL (80-99) Mean Corpuscular Hemoglobin 31.5 PG (27.0-31.0) H Mean Corpuscular Hemoglobin Concent 33.6 G/DL (32.0-36.0) Red Cell Distribution Width 13.4 % (11.6-14.8) Platelet Count 381 K/UL (150-450) Mean Platelet Volume 6.5 FL (6.5-10.1) Neutrophils (%) (Auto) 76.4 % (45.0-75.0) H Lymphocytes (%) (Auto) 14.3 % (20.0-45.0) L Monocytes (%) (Auto) 8.3 % (1.0-10.0) Eosinophils (%) (Auto) 0.2 % (0.0-3.0) Basophils (%) (Auto) 0.7 % (0.0-2.0) Sodium Level 138 MMOL/L (136-145) Potassium Level 2.9 MMOL/L (3.5-5.1) L Chloride Level 105 MMOL/L (98-107) Carbon Dioxide Level 23 MMOL/L (21-32) Anion Gap 10 mmol/L (5-15) Blood Urea Nitrogen 7 mg/dL (7-18) Creatinine 0.9 MG/DL (0.55-1.30) Estimat Glomerular Filtration Rate mL/min (>60) Glucose Level 112 MG/DL (74-106) H Calcium Level 7.4 MG/DL (8.5-10.1) L Current Medications Medications (Trade) Dose Ordered Sig/Hill Route PRN Reason Start Time Stop Time Status Last Admin Dose Admin Albuterol/ Ipratropium (Albuterol/ Ipratropium) 3 ml Q4H PRN HHN Shortness of Breath 09/09/17 12:00 09/13/17 11:59 Ceftriaxone Sodium 1 gm/ Dextrose 55 ml @ 110 mls/hr Q24H IVPB 09/09/17 12:00 09/14/17 11:59 09/09/17 12:18 Chlorpromazine (Thorazine) 25 mg Q6H PRN IM AGITATION 09/09/17 12:00 10/08/17 11:59 09/10/17 08:54 Clotrimazole (Lotrimin) 1 applic EVERY 12 HOURS TOPIC 09/09/17 21:00 10/06/17 20:59 09/10/17 08:56 Dextrose/Sodium Chloride 1,000 ml @ 50 mls/hr Q20H IV 09/09/17 12:00 10/06/17 17:29 09/09/17 19:21 Diltiazem HCl 125 mg/Dextrose 125 ml @ 8 mls/hr Q24H IV 09/09/17 13:00 09/10/17 12:59 09/10/17 02:46 Enoxaparin Sodium (Lovenox) 50 mg EVERY 12 HOURS SUBQ 09/09/17 21:00 09/28/17 08:59 09/09/17 21:47 Metoprolol Tartrate (Lopressor) 5 mg Q4H PRN IVP HR > 125 bpm 09/09/17 14:00 10/06/17 17:59 09/10/17 00:54 Morphine Sulfate (Morphine Sulfate) 4 mg Q4H PRN IVP PAIN 4-10 09/09/17 13:00 09/11/17 16:59 Pantoprazole (Protonix) 40 mg DAILY IV 09/10/17 09:00 10/05/17 08:59 09/10/17 08:54 Krystal Kasper M.D. Sep 10, 2017 09:59
[2017-09-10] MEDS ORDERED: Enoxaparin 30mg Inj SUBQ ONE (10:57)
--- NOTE | 2017-09-10 11:29 | Pulmonolgy Critical Care Note ---
Critical Care - Asmt/Plan Problems: (1) Respiratory failure (2) Aspiration pneumonia (3) Atrial fibrillation with rapid ventricular response (4) Encephalopathy (5) HTN (hypertension) (6) Alzheimer's dementia Respiratory: monitor respiratory rate, adjust FIO2, CXR Cardiac: d/c compensation administrator Renal: F/U I&O, keep IV fluid, check electrolytes Infectious Disease: check cultures, continue antibiotics Gastrointestinal: continue feedings/current rate Endocrine: monitor blood sugar, check TSH, continue sliding scale insulin Hematologic: monitor H/H, transfuse if hgb<8.5 Neurologic: PRN Morphine, keep patient comfortable Affect: PRN ativan Prophylaxis: Protonix, Heparin Notes Reviewed: physiological chemist Discussed with: nurses, consultants, 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 makerautomotive quality manager - Objective Last 24 Hour Vital Signs Date Time Temp Pulse Resp B/P (MAP) Pulse Ox O2 Delivery O2 Flow Rate FiO2 09/10/17 11:00 118 24 92/45 89 Nasal Cannula 4.0 09/10/17 10:30 148 24 105/54 90 Nasal Cannula 4.0 09/10/17 10:00 149 15 96/50 89 Nasal Cannula 4.0 09/10/17 09:30 126 15 110/58 90 Nasal Cannula 4.0 09/10/17 09:00 123 15 109/76 90 Nasal Cannula 4.0 09/10/17 08:30 115 15 119/68 90 Nasal Cannula 4.0 09/10/17 08:00 98.5 118 15 117/55 90 Nasal Cannula 4.0 09/10/17 08:00 119 09/10/17 07:30 114 15 107/60 90 Nasal Cannula 4.0 09/10/17 07:05 Simple Mask 5.0 09/10/17 07:05 84 Simple Mask 5.0 09/10/17 07:00 111 18 117/55 100 Nasal Cannula 4.0 09/10/17 06:30 117 18 108/66 100 Nasal Cannula 4.0 09/10/17 06:00 104 18 107/66 100 Nasal Cannula 4.0 09/10/17 05:30 115 18 106/66 100 Nasal Cannula 4.0 09/10/17 05:00 148 23 112/57 93 Nasal Cannula 4.0 09/10/17 04:30 145 24 114/57 94 Nasal Cannula 4.0 09/10/17 04:00 138 09/10/17 04:00 99.0 138 21 106/62 94 Nasal Cannula 4.0 09/10/17 03:30 107 20 106/62 93 Nasal Cannula 4.0 09/10/17 03:00 111 17 111/64 93 Nasal Cannula 4.0 09/10/17 02:46 120 132/99 09/10/17 02:30 110 22 132/99 94 Nasal Cannula 4.0 09/10/17 02:00 112 21 111/84 95 Nasal Cannula 4.0 09/10/17 01:30 95 16 113/69 93 Nasal Cannula 4.0 09/10/17 01:00 146 16 126/77 94 Nasal Cannula 4.0 09/10/17 01:00 95 24 113/69 94 Nasal Cannula 4.0 09/10/17 00:54 150 114/67 09/10/17 00:30 134 22 114/67 93 Nasal Cannula 4.0 09/10/17 00:00 146 09/10/17 00:00 98.4 146 24 126/77 94 Nasal Cannula 4.0 09/09/17 23:30 140 20 113/49 94 Nasal Cannula 4.0 09/09/17 23:00 122 20 113/60 94 Nasal Cannula 4.0 09/09/17 22:30 116 16 112/60 94 Nasal Cannula 4.0 09/09/17 22:00 143 16 100/55 94 Nasal Cannula 4.0 09/09/17 21:30 114 16 98/56 94 Nasal Cannula 4.0 09/09/17 21:00 105 15 105/43 93 Nasal Cannula 4.0 09/09/17 20:30 105 16 113/43 93 Nasal Cannula 4.0 09/09/17 20:00 98.6 106 16 100/43 95 Nasal Cannula 4.0 09/09/17 20:00 106 09/09/17 19:30 107 13 94/43 95 Nasal Cannula 4.0 09/09/17 18:10 113 13 101/56 95 Nasal Cannula 4.0 09/09/17 17:00 131 20 92/74 93 Nasal Cannula 4.0 09/09/17 16:00 97.1 89 20 112/69 93 Nasal Cannula 4.0 09/09/17 16:00 135 09/09/17 15:10 98 13 103/59 91 Nasal Cannula 4.0 09/09/17 14:00 120 13 100/55 93 Nasal Cannula 4.0 09/09/17 13:00 123 22 101/66 93 Nasal Cannula 4.0 09/09/17 12:46 160 106/84 09/09/17 12:00 154 09/09/17 12:00 97.7 154 22 96/67 93 Nasal Cannula 4.0 Status: awake HEENT: atraumatic Lungs: clear Heart: HR/BP stable Abdomen: soft, non-tender Extremities: no C/C/E, edema Decubiti: location Critical Care - Subjective ROS Limited/Unobtainable: Yes ICU Day: 13 Condition: critical EKG Rhythm: Sinus Bradycardia FI02: 36 Vent Support Breath Rate: 26 Vent Support Mode: CPAP Vent Tidal Volume: 550 Sputum Amount: None PEEP: 5.0 PIP: 23 I&O: Intake and Output 09/09/17 09/10/17 19:00 07:00 Intake Total 403 ml 638 ml Output Total 800 ml 540 ml Balance -397 ml 98 ml IV Total 403 ml 638 ml Output Urine Total 800 ml 540 ml CXR: bilateral infiltrate ET-Tube: 8.0 ET Position: 22 Labs: Laboratory Tests Test 09/10/17 05:20 White Blood Count 7.8 K/UL (4.8-10.8) Red Blood Count 4.02 M/UL (4.70-6.10) L Hemoglobin 12.6 G/DL (14.2-18.0) L Hematocrit 37.6 % (42.0-52.0) L Mean Corpuscular Volume 94 FL (80-99) Mean Corpuscular Hemoglobin 31.5 PG (27.0-31.0) H Mean Corpuscular Hemoglobin Concent 33.6 G/DL (32.0-36.0) Red Cell Distribution Width 13.4 % (11.6-14.8) Platelet Count 381 K/UL (150-450) Mean Platelet Volume 6.5 FL (6.5-10.1) Neutrophils (%) (Auto) 76.4 % (45.0-75.0) H Lymphocytes (%) (Auto) 14.3 % (20.0-45.0) L Monocytes (%) (Auto) 8.3 % (1.0-10.0) Eosinophils (%) (Auto) 0.2 % (0.0-3.0) Basophils (%) (Auto) 0.7 % (0.0-2.0) Sodium Level 138 MMOL/L (136-145) Potassium Level 2.9 MMOL/L (3.5-5.1) L Chloride Level 105 MMOL/L (98-107) Carbon Dioxide Level 23 MMOL/L (21-32) Anion Gap 10 mmol/L (5-15) Blood Urea Nitrogen 7 mg/dL (7-18) Creatinine 0.9 MG/DL (0.55-1.30) Estimat Glomerular Filtration Rate mL/min (>60) Glucose Level 112 MG/DL (74-106) H Calcium Level 7.4 MG/DL (8.5-10.1) BHARGAVI MARINELLI Sep 10, 2017 11:29
[2017-09-10] MEDS: cefTRIAXone 1 GM in D5W 55 ML IVPB SCH (12:00)
--- NOTE | 2017-09-10 12:28 | Internal Med Progress Note ---
Subjective Date of Service: Sep 10, 2017 Physician Name Juan Carlos Benson Attending Physician Davey Cui MD Current Medications Medications (Trade) Dose Ordered Sig/Hill Route PRN Reason Start Time Stop Time Status Last Admin Dose Admin Albuterol/ Ipratropium (Albuterol/ Ipratropium) 3 ml Q4H PRN HHN Shortness of Breath 09/09/17 12:00 09/13/17 11:59 Ceftriaxone Sodium 1 gm/ Dextrose 55 ml @ 110 mls/hr Q24H IVPB 09/09/17 12:00 09/14/17 11:59 09/09/17 12:18 Chlorpromazine (Thorazine) 25 mg Q6H PRN IM AGITATION 09/09/17 12:00 10/08/17 11:59 09/10/17 08:54 Clotrimazole (Lotrimin) 1 applic EVERY 12 HOURS TOPIC 09/09/17 21:00 10/06/17 20:59 09/10/17 08:56 Dextrose/Sodium Chloride 1,000 ml @ 50 mls/hr Q20H IV 09/09/17 12:00 10/06/17 17:29 09/09/17 19:21 Diltiazem HCl 125 mg/Dextrose 125 ml @ 8 mls/hr Q24H IV 09/09/17 13:00 09/10/17 12:59 09/10/17 02:46 Enoxaparin Sodium (Lovenox) 50 mg EVERY 12 HOURS SUBQ 09/09/17 21:00 09/28/17 08:59 09/10/17 09:00 Metoprolol Tartrate (Lopressor) 5 mg Q4H PRN IVP HR > 125 bpm 09/09/17 14:00 10/06/17 17:59 09/10/17 00:54 Morphine Sulfate (Morphine Sulfate) 4 mg Q4H PRN IVP PAIN 4-10 09/09/17 13:00 09/11/17 16:59 Pantoprazole (Protonix) 40 mg DAILY IV 09/10/17 09:00 10/05/17 08:59 09/10/17 08:54 Allergies: Coded Allergies: No Known Allergies (Unverified , 08/28/17) Subjective 87 YO M admitted with Respiratory failure. Cover for Int Med-Dr Cui. ICU. Transferred to ICU last evening for atrial fibrillation with rapid ventricular rate. Objective Last Vital Signs Date Time Temp Pulse Resp B/P (MAP) Pulse Ox O2 Delivery O2 Flow Rate FiO2 09/10/17 11:30 119 20 90/45 89 Nasal Cannula 4.0 09/10/17 08:00 98.5 09/09/17 07:55 36 Laboratory Tests Test 09/10/17 05:20 White Blood Count 7.8 K/UL (4.8-10.8) Red Blood Count 4.02 M/UL (4.70-6.10) L Hemoglobin 12.6 G/DL (14.2-18.0) L Hematocrit 37.6 % (42.0-52.0) L Mean Corpuscular Volume 94 FL (80-99) Mean Corpuscular Hemoglobin 31.5 PG (27.0-31.0) H Mean Corpuscular Hemoglobin Concent 33.6 G/DL (32.0-36.0) Red Cell Distribution Width 13.4 % (11.6-14.8) Platelet Count 381 K/UL (150-450) Mean Platelet Volume 6.5 FL (6.5-10.1) Neutrophils (%) (Auto) 76.4 % (45.0-75.0) H Lymphocytes (%) (Auto) 14.3 % (20.0-45.0) L Monocytes (%) (Auto) 8.3 % (1.0-10.0) Eosinophils (%) (Auto) 0.2 % (0.0-3.0) Basophils (%) (Auto) 0.7 % (0.0-2.0) Sodium Level 138 MMOL/L (136-145) Potassium Level 2.9 MMOL/L (3.5-5.1) L Chloride Level 105 MMOL/L (98-107) Carbon Dioxide Level 23 MMOL/L (21-32) Anion Gap 10 mmol/L (5-15) Blood Urea Nitrogen 7 mg/dL (7-18) Creatinine 0.9 MG/DL (0.55-1.30) Estimat Glomerular Filtration Rate mL/min (>60) Glucose Level 112 MG/DL (74-106) H Calcium Level 7.4 MG/DL (8.5-10.1) L Intake and Output 09/09/17 09/10/17 19:00 07:00 Intake Total 403 ml 638 ml Output Total 800 ml 540 ml Balance -397 ml 98 ml IV Total 403 ml 638 ml Output Urine Total 800 ml 540 ml Objective General Appearance: cachetic, thin EENT: PERRL/EOMI, normal ENT inspection Neck: non-tender, normal alignment, supple Cardiovascular: Tachycardia; normal peripheral pulses, no gallop/murmur, no JVD , irregularly irregular Respiratory/Chest: Venturi mask; respiratory distress, crackles/rales, rhonchi - bilaterally, expiratory wheezing Abdomen: non tender, soft, no organomegaly, decreased bowel sounds 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 Continue levoxyl. (6) Respiratory failure Assessment & Plan: Extubated 09/05/17. Tolerating nasal canula. See pulmonary note. (7) Atrial fibrillation with rapid ventricular response Assessment & Plan: Continue IV diltiazem drip per cardiology (8) CHF (congestive heart failure) Assessment & Plan: See cardiology note; await echocardiogram (9) Cachexia (10) Lactic acid acidosis (11) Pneumonia Assessment & Plan: See pulmonary note. Cont zosyn and vanco. (12) Dysphagia Assessment & Plan: Place NG tube; nutrition consult. (13) Hypokalemia Assessment & Plan: Replace KCL JUAN CARLOS BENSON Sep 10, 2017 12:28
[2017-09-10] MEDS ORDERED: Potassium Chloride 40 MEQ in Sodium Chloride 500ML 550 ML IVPB ONE (14:00)
--- NOTE | 2017-09-10 20:34 | Cardiology Progress Note ---
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 normal lv function with pulm htn continue treatment for pneumonia intermittent iv bb now in icu setting to monitor hr adn bp continuaouly as at risk of hypotension tele reviwed no means for feeding yet faile reattempt of dubop on lmwh dig dose Subjective ROS Limited/Unobtainable: Yes Subjective confused got sedated as was sig agitation Objective Last 24 Hour Vital Signs Date Time Temp Pulse Resp B/P (MAP) Pulse Ox O2 Delivery O2 Flow Rate FiO2 09/10/17 19:08 92 Nasal Cannula 4.0 36 09/10/17 19:08 Nasal Cannula 4.0 36 09/10/17 19:00 125 26 93/54 92 Simple Mask 4.0 09/10/17 18:30 138 26 90/45 90 Simple Mask 4.0 09/10/17 18:00 135 26 90/43 90 Simple Mask 4.0 09/10/17 17:30 125 26 92/44 90 Simple Mask 4.0 09/10/17 17:00 133 24 116/52 90 Simple Mask 4.0 09/10/17 16:30 134 24 120/52 92 Simple Mask 4.0 09/10/17 16:10 138 107/82 09/10/17 16:00 98.5 128 24 100/45 91 Simple Mask 4.0 09/10/17 16:00 133 09/10/17 15:30 119 24 115/44 91 Simple Mask 4.0 09/10/17 15:00 130 24 100/50 91 Simple Mask 4.0 09/10/17 14:30 134 24 91/45 91 Nasal Cannula 4.0 09/10/17 14:00 133 24 92/44 91 Nasal Cannula 4.0 09/10/17 13:30 130 24 90/44 91 Nasal Cannula 4.0 09/10/17 13:00 125 22 94/50 91 Nasal Cannula 4.0 09/10/17 12:30 118 23 92/45 91 Nasal Cannula 4.0 09/10/17 12:00 125 09/10/17 12:00 98.4 125 25 100/50 90 Nasal Cannula 4.0 09/10/17 11:30 119 20 90/45 89 Nasal Cannula 4.0 09/10/17 11:00 118 24 92/45 89 Nasal Cannula 4.0 09/10/17 10:30 148 24 105/54 90 Nasal Cannula 4.0 09/10/17 10:00 149 15 96/50 89 Nasal Cannula 4.0 09/10/17 09:30 126 15 110/58 90 Nasal Cannula 4.0 09/10/17 09:00 123 15 109/76 90 Nasal Cannula 4.0 09/10/17 08:30 115 15 119/68 90 Nasal Cannula 4.0 09/10/17 08:00 98.5 118 15 117/55 90 Nasal Cannula 4.0 09/10/17 08:00 119 09/10/17 07:30 114 15 107/60 90 Nasal Cannula 4.0 09/10/17 07:05 Simple Mask 5.0 09/10/17 07:05 84 Simple Mask 5.0 09/10/17 07:00 111 18 117/55 100 Nasal Cannula 4.0 09/10/17 06:30 117 18 108/66 100 Nasal Cannula 4.0 09/10/17 06:00 104 18 107/66 100 Nasal Cannula 4.0 09/10/17 05:30 115 18 106/66 100 Nasal Cannula 4.0 09/10/17 05:00 148 23 112/57 93 Nasal Cannula 4.0 09/10/17 04:30 145 24 114/57 94 Nasal Cannula 4.0 09/10/17 04:00 138 09/10/17 04:00 99.0 138 21 106/62 94 Nasal Cannula 4.0 09/10/17 03:30 107 20 106/62 93 Nasal Cannula 4.0 09/10/17 03:00 111 17 111/64 93 Nasal Cannula 4.0 09/10/17 02:46 120 132/99 09/10/17 02:30 110 22 132/99 94 Nasal Cannula 4.0 09/10/17 02:00 112 21 111/84 95 Nasal Cannula 4.0 09/10/17 01:30 95 16 113/69 93 Nasal Cannula 4.0 09/10/17 01:00 146 16 126/77 94 Nasal Cannula 4.0 09/10/17 01:00 95 24 113/69 94 Nasal Cannula 4.0 09/10/17 00:54 150 114/67 09/10/17 00:30 134 22 114/67 93 Nasal Cannula 4.0 09/10/17 00:00 146 09/10/17 00:00 98.4 146 24 126/77 94 Nasal Cannula 4.0 09/09/17 23:30 140 20 113/49 94 Nasal Cannula 4.0 09/09/17 23:00 122 20 113/60 94 Nasal Cannula 4.0 09/09/17 22:30 116 16 112/60 94 Nasal Cannula 4.0 09/09/17 22:00 143 16 100/55 94 Nasal Cannula 4.0 09/09/17 21:30 114 16 98/56 94 Nasal Cannula 4.0 09/09/17 21:00 105 15 105/43 93 Nasal Cannula 4.0 General Appearance: other - arouisable Neck: supple Cardiovascular: tachycardia, irregularly irregular Respiratory/Chest: lungs clear, normal breath sounds Abdomen: normal bowel sounds, non tender, soft Extremities: no swelling Intake and Output 09/09/17 09/10/17 19:00 07:00 Intake Total 403 ml 638 ml Output Total 800 ml 540 ml Balance -397 ml 98 ml IV Total 403 ml 638 ml Output Urine Total 800 ml 540 ml Laboratory Tests Test 09/10/17 05:20 White Blood Count 7.8 K/UL (4.8-10.8) Red Blood Count 4.02 M/UL (4.70-6.10) L Hemoglobin 12.6 G/DL (14.2-18.0) L Hematocrit 37.6 % (42.0-52.0) L Mean Corpuscular Volume 94 FL (80-99) Mean Corpuscular Hemoglobin 31.5 PG (27.0-31.0) H Mean Corpuscular Hemoglobin Concent 33.6 G/DL (32.0-36.0) Red Cell Distribution Width 13.4 % (11.6-14.8) Platelet Count 381 K/UL (150-450) Mean Platelet Volume 6.5 FL (6.5-10.1) Neutrophils (%) (Auto) 76.4 % (45.0-75.0) H Lymphocytes (%) (Auto) 14.3 % (20.0-45.0) L Monocytes (%) (Auto) 8.3 % (1.0-10.0) Eosinophils (%) (Auto) 0.2 % (0.0-3.0) Basophils (%) (Auto) 0.7 % (0.0-2.0) Sodium Level 138 MMOL/L (136-145) Potassium Level 2.9 MMOL/L (3.5-5.1) L Chloride Level 105 MMOL/L (98-107) Carbon Dioxide Level 23 MMOL/L (21-32) Anion Gap 10 mmol/L (5-15) Blood Urea Nitrogen 7 mg/dL (7-18) Creatinine 0.9 MG/DL (0.55-1.30) Estimat Glomerular Filtration Rate mL/min (>60) Glucose Level 112 MG/DL (74-106) H Calcium Level 7.4 MG/DL (8.5-10.1) SEGUNDO DE LA PAZ Sep 10, 2017 20:34
[2017-09-10] MEDS ORDERED: Digoxin 0.5mg/2ml Inj IVP ONE (20:45)
[2017-09-10] MEDS: D5 1/2NS 1,000 ML IV SCH (21:26)
--- NOTE | 2017-09-10 21:48 | Diagnostic Imaging Report ---
Indication: Dyspnea Comparison: 09/07/2017 A single view chest radiograph was obtained. Findings: Interstitial edema suspected. The heart is mildly enlarged. A right pleural effusion is suspected. Findings are unchanged. IMPRESSION: No exchange mechanic the last few days. Suspected interstitial edema and right pleural effusion
--- NOTE | 2017-09-10 22:29 | General Progress Note ---
Assessment/Plan Assessment/Plan Assessment - Respiratory failure - extubated - malnutrition - OBS/encephaloppathy - fights NGT placement - a fib - CHF - mild anemia - No family available to discuss Recommendations - ST eval and f/u for video swallow - elevate HOB - pulmonary follow up - abx - poor Px Subjective Allergies: Coded Allergies: No Known Allergies (Unverified , 08/28/17) Subjective agitated and uncooperative still confused no feeding tube I was unable to place NGT due to patient agitation during placement Objective Last 24 Hour Vital Signs Date Time Temp Pulse Resp B/P (MAP) Pulse Ox O2 Delivery O2 Flow Rate FiO2 09/10/17 20:54 116 09/10/17 19:08 92 Nasal Cannula 4.0 36 09/10/17 19:08 Nasal Cannula 4.0 36 09/10/17 19:00 125 26 93/54 92 Simple Mask 4.0 09/10/17 18:30 138 26 90/45 90 Simple Mask 4.0 09/10/17 18:00 135 26 90/43 90 Simple Mask 4.0 09/10/17 17:30 125 26 92/44 90 Simple Mask 4.0 09/10/17 17:00 133 24 116/52 90 Simple Mask 4.0 09/10/17 16:30 134 24 120/52 92 Simple Mask 4.0 09/10/17 16:10 138 107/82 09/10/17 16:00 98.5 128 24 100/45 91 Simple Mask 4.0 09/10/17 16:00 133 09/10/17 15:30 119 24 115/44 91 Simple Mask 4.0 09/10/17 15:00 130 24 100/50 91 Simple Mask 4.0 09/10/17 14:30 134 24 91/45 91 Nasal Cannula 4.0 09/10/17 14:00 133 24 92/44 91 Nasal Cannula 4.0 09/10/17 13:30 130 24 90/44 91 Nasal Cannula 4.0 09/10/17 13:00 125 22 94/50 91 Nasal Cannula 4.0 09/10/17 12:30 118 23 92/45 91 Nasal Cannula 4.0 09/10/17 12:00 125 09/10/17 12:00 98.4 125 25 100/50 90 Nasal Cannula 4.0 1/8/18 11:30 119 20 90/45 89 Nasal Cannula 4.0 09/10/17 11:00 118 24 92/45 89 Nasal Cannula 4.0 09/10/17 10:30 148 24 105/54 90 Nasal Cannula 4.0 09/10/17 10:00 149 15 96/50 89 Nasal Cannula 4.0 09/10/17 09:30 126 15 110/58 90 Nasal Cannula 4.0 09/10/17 09:00 123 15 109/76 90 Nasal Cannula 4.0 09/10/17 08:30 115 15 119/68 90 Nasal Cannula 4.0 09/10/17 08:00 98.5 118 15 117/55 90 Nasal Cannula 4.0 09/10/17 08:00 119 09/10/17 07:30 114 15 107/60 90 Nasal Cannula 4.0 09/10/17 07:05 Simple Mask 5.0 09/10/17 07:05 84 Simple Mask 5.0 09/10/17 07:00 111 18 117/55 100 Nasal Cannula 4.0 09/10/17 06:30 117 18 108/66 100 Nasal Cannula 4.0 09/10/17 06:00 104 18 107/66 100 Nasal Cannula 4.0 09/10/17 05:30 115 18 106/66 100 Nasal Cannula 4.0 09/10/17 05:00 148 23 112/57 93 Nasal Cannula 4.0 09/10/17 04:30 145 24 114/57 94 Nasal Cannula 4.0 09/10/17 04:00 138 09/10/17 04:00 99.0 138 21 106/62 94 Nasal Cannula 4.0 09/10/17 03:30 107 20 106/62 93 Nasal Cannula 4.0 09/10/17 03:00 111 17 111/64 93 Nasal Cannula 4.0 09/10/17 02:46 120 132/99 09/10/17 02:30 110 22 132/99 94 Nasal Cannula 4.0 09/10/17 02:00 112 21 111/84 95 Nasal Cannula 4.0 09/10/17 01:30 95 16 113/69 93 Nasal Cannula 4.0 09/10/17 01:00 146 16 126/77 94 Nasal Cannula 4.0 09/10/17 01:00 95 24 113/69 94 Nasal Cannula 4.0 1/8/18 00:54 150 114/67 09/10/17 00:30 134 22 114/67 93 Nasal Cannula 4.0 09/10/17 00:00 146 09/10/17 00:00 98.4 146 24 126/77 94 Nasal Cannula 4.0 09/09/17 23:30 140 20 113/49 94 Nasal Cannula 4.0 09/09/17 23:00 122 20 113/60 94 Nasal Cannula 4.0 09/09/17 22:30 116 16 112/60 94 Nasal Cannula 4.0 Intake and Output 09/09/17 09/10/17 19:00 07:00 Intake Total 403 ml 638 ml Output Total 800 ml 540 ml Balance -397 ml 98 ml IV Total 403 ml 638 ml Output Urine Total 800 ml 540 ml Laboratory Tests 09/10/17 05:20: White Blood Count 7.8, Red Blood Count 4.02L, Hemoglobin 12.6L, Hematocrit 37.6L , Mean Corpuscular Volume 94, Mean Corpuscular Hemoglobin 31.5H, Mean Corpuscular Hemoglobin Concent 33.6, Red Cell Distribution Width 13.4, Platelet Count 381, Mean Platelet Volume 6.5, Neutrophils (%) (Auto) 76.4H, Lymphocytes ( %) (Auto) 14.3L, Monocytes (%) (Auto) 8.3, Eosinophils (%) (Auto) 0.2, Basophils (%) (Auto) 0.7, Sodium Level 138, Potassium Level 2.9L, Chloride Level 105, Carbon Dioxide Level 23, Anion Gap 10, Blood Urea Nitrogen 7, Creatinine 0.9, Estimat Glomerular Filtration Rate , Glucose Level 112H, Calcium Level 7.4L Height (Feet): 5 Height (Inches): 10.00 Weight (Pounds): 114 Objective NCAT supple coarse BS RR abd soft ND NT no edema agitated DORI WILEY Sep 10, 2017 22:29
[2017-09-11] VITALS (39 sets, daily range): BP systolic 88–149; BP diastolic 43–100
[2017-09-11] MEDS: Metoprolol 5mg/5ml Inj IVP PRN (04:48)
[2017-09-11 06:50] LABS: BASOPHILS % (AUTO) 0.6 % (0.0-2.0); EOSINOPHILS % (AUTO) 0.2 % (0.0-3.0); HEMATOCRIT 37.1 % (42.0-52.0); HEMOGLOBIN 12.3 G/DL (14.2-18.0); LYMPHOCYTES % (AUTO) 13.3 % (20.0-45.0); MEAN CORPUSCULAR VOLUME 93 FL (80-99); MONOCYTES % (AUTO) 6.2 % (1.0-10.0); NEUTROPHILS % (AUTO) 79.8 % (45.0-75.0); PLATELET COUNT 381 K/UL (150-450); RED BLOOD COUNT 4.01 M/UL (4.70-6.10); RED CELL DISTRIBUTION WIDTH 13.6 % (11.6-14.8); WHITE BLOOD COUNT 8.4 K/UL (4.8-10.8)
[2017-09-11 07:06] LABS: ALANINE AMINOTRANSFERASE 8 U/L (12-78); ALBUMIN 2.1 G/DL (3.4-5.0); ALBUMIN/GLOBULIN RATIO 0.5 (1.0-2.7); ALKALINE PHOSPHATASE 66 U/L (46-116); ANION GAP 9 mmol/L (5-15); ASPARTATE AMINO TRANSFERASE 21 U/L (15-37); BILIRUBIN,TOTAL 0.5 MG/DL (0.2-1.0); BLOOD UREA NITROGEN 7 mg/dL (7-18); CARBON DIOXIDE 23 MMOL/L (21-32); CHLORIDE 106 MMOL/L (98-107); CREATININE 0.8 MG/DL (0.55-1.30); PHOSPHORUS 2.2 MG/DL (2.5-4.9); POTASSIUM 3.2 MMOL/L (3.5-5.1); SODIUM 138 MMOL/L (136-145)
[2017-09-11] MEDS: Pantoprazole Inj IV SCH (08:02)
[2017-09-11] MEDS: Enoxaparin Sodium 300mg/3ml vial SUBQ SCH ×2 (09:11→20:54)
--- NOTE | 2017-09-11 09:56 | Pulmonolgy Critical Care Note ---
Critical Care - Asmt/Plan Problems: (1) Respiratory failure (2) Aspiration pneumonia (3) Atrial fibrillation with rapid ventricular response (4) Encephalopathy (5) HTN (hypertension) (6) Alzheimer's dementia Respiratory: monitor respiratory rate, adjust FIO2, CXR Cardiac: continue to monitor HR/BP Renal: F/U I&O Infectious Disease: check cultures Gastrointestinal: continue feedings/current rate Endocrine: monitor blood sugar, check HgA1C Hematologic: monitor H/H Neurologic: PRN Morphine Affect: PRN ativan Prophylaxis: Protonix Discussed with: nurses, consultants, manager case management, other - social service consulf for end of life planning Critical Care - Objective Last 24 Hour Vital Signs Date Time Temp Pulse Resp B/P (MAP) Pulse Ox O2 Delivery O2 Flow Rate FiO2 09/11/17 08:32 97.8 09/11/17 08:30 85 12 105/54 95 Nasal Cannula 3.0 09/11/17 08:00 111 21 89/57 92 Nasal Cannula 3.0 09/11/17 07:51 Nasal Cannula 4.0 36 09/11/17 07:50 93 Nasal Cannula 4.0 36 09/11/17 07:30 97.8 106 14 106/90 87 Nasal Cannula 3.0 09/11/17 07:00 88 16 110/55 93 Nasal Cannula 3.0 09/11/17 06:30 85 16 90/55 94 Nasal Cannula 3.0 09/11/17 06:00 83 16 110/59 94 Nasal Cannula 3.0 09/11/17 05:30 81 16 96/64 98 Nasal Cannula 3.0 09/11/17 05:00 85 16 92/55 96 Nasal Cannula 3.0 09/11/17 04:48 149 110/74 09/11/17 04:30 137 16 98/53 94 Nasal Cannula 3.0 09/11/17 04:00 143 09/11/17 04:00 98.4 137 16 120/82 94 Nasal Cannula 3.0 09/11/17 03:30 137 16 89/60 94 Nasal Cannula 3.0 09/11/17 03:00 114 16 97/64 94 Nasal Cannula 3.0 09/11/17 02:30 119 20 88/61 94 Nasal Cannula 3.0 09/11/17 02:00 120 20 100/47 94 Nasal Cannula 3.0 09/11/17 01:30 103 20 89/47 94 Nasal Cannula 3.0 09/11/17 01:00 105 20 101/71 93 Nasal Cannula 3.0 09/11/17 00:30 117 15 95/74 93 Nasal Cannula 3.0 09/11/17 00:00 98.0 119 14 123/100 92 Nasal Cannula 3.0 09/10/17 23:30 98 16 110/64 93 Nasal Cannula 3.0 09/10/17 23:00 121 16 108/64 93 Nasal Cannula 3.0 09/10/17 22:30 120 16 95/50 93 Nasal Cannula 3.0 09/10/17 22:00 128 16 90/48 93 Nasal Cannula 3.0 09/10/17 21:30 115 16 93/48 93 Nasal Cannula 3.0 09/10/17 21:00 110 16 102/48 93 Nasal Cannula 3.0 09/10/17 20:54 116 09/10/17 20:30 110 17 98/48 93 Nasal Cannula 3.0 09/10/17 20:00 98.6 113 20 100/75 92 Nasal Cannula 3.0 09/10/17 20:00 113 09/10/17 19:30 111 16 101/75 92 Nasal Cannula 3.0 09/10/17 19:08 92 Nasal Cannula 4.0 36 09/10/17 19:08 Nasal Cannula 4.0 36 09/10/17 19:00 125 26 93/54 92 Simple Mask 4.0 09/10/17 18:30 138 26 90/45 90 Simple Mask 4.0 09/10/17 18:00 135 26 90/43 90 Simple Mask 4.0 09/10/17 17:30 125 26 92/44 90 Simple Mask 4.0 09/10/17 17:00 133 24 116/52 90 Simple Mask 4.0 09/10/17 16:30 134 24 120/52 92 Simple Mask 4.0 09/10/17 16:10 138 107/82 09/10/17 16:00 98.5 128 24 100/45 91 Simple Mask 4.0 09/10/17 16:00 133 09/10/17 15:30 119 24 115/44 91 Simple Mask 4.0 09/10/17 15:00 130 24 100/50 91 Simple Mask 4.0 09/10/17 14:30 134 24 91/45 91 Nasal Cannula 4.0 09/10/17 14:00 133 24 92/44 91 Nasal Cannula 4.0 09/10/17 13:30 130 24 90/44 91 Nasal Cannula 4.0 09/10/17 13:00 125 22 94/50 91 Nasal Cannula 4.0 09/10/17 12:30 118 23 92/45 91 Nasal Cannula 4.0 09/10/17 12:00 125 09/10/17 12:00 98.4 125 25 100/50 90 Nasal Cannula 4.0 09/10/17 11:30 119 20 90/45 89 Nasal Cannula 4.0 09/10/17 11:00 118 24 92/45 89 Nasal Cannula 4.0 09/10/17 10:30 148 24 105/54 90 Nasal Cannula 4.0 09/10/17 10:00 149 15 96/50 89 Nasal Cannula 4.0 Status: awake Condition: critical HEENT: atraumatic Neck: full ROM Heart: HR/BP stable, HR/BP unstable Abdomen: non-tender, feeding tube Extremities: no C/C/E, edema Critical Care - Subjective ICU Day: 14 Condition: critical EKG Rhythm: Sinus Rhythm FI02: 36 Vent Support Breath Rate: 26 Vent Support Mode: CPAP Vent Tidal Volume: 550 Sputum Amount: None PEEP: 5.0 PIP: 23 Drips: cardizem drip I&O: Intake and Output 09/10/17 09/11/17 19:00 07:00 Intake Total 846 ml 796 ml Output Total 290 ml 340 ml Balance 556 ml 456 ml IV Total 846 ml 796 ml Output Urine Total 290 ml 340 ml # Bowel Movements 1 2 ET-Tube: 8.0 ET Position: 22 Labs: Laboratory Tests Test 09/11/17 05:00 09/11/17 09:00 White Blood Count 8.4 K/UL (4.8-10.8) Red Blood Count 4.01 M/UL (4.70-6.10) L Hemoglobin 12.3 G/DL (14.2-18.0) L Hematocrit 37.1 % (42.0-52.0) L Mean Corpuscular Volume 93 FL (80-99) Mean Corpuscular Hemoglobin 30.5 PG (27.0-31.0) Mean Corpuscular Hemoglobin Concent 33.0 G/DL (32.0-36.0) Red Cell Distribution Width 13.6 % (11.6-14.8) Platelet Count 381 K/UL (150-450) Mean Platelet Volume 6.1 FL (6.5-10.1) L Neutrophils (%) (Auto) 79.8 % (45.0-75.0) H Lymphocytes (%) (Auto) 13.3 % (20.0-45.0) L Monocytes (%) (Auto) 6.2 % (1.0-10.0) Eosinophils (%) (Auto) 0.2 % (0.0-3.0) Basophils (%) (Auto) 0.6 % (0.0-2.0) Sodium Level 138 MMOL/L (136-145) Potassium Level 3.2 MMOL/L (3.5-5.1) L Chloride Level 106 MMOL/L (98-107) Carbon Dioxide Level 23 MMOL/L (21-32) Anion Gap 9 mmol/L (5-15) Blood Urea Nitrogen 7 mg/dL (7-18) Creatinine 0.8 MG/DL (0.55-1.30) Estimat Glomerular Filtration Rate mL/min (>60) Glucose Level 101 MG/DL (74-106) Calcium Level 7.0 MG/DL (8.5-10.1) L Phosphorus Level 2.2 MG/DL (2.5-4.9) L Magnesium Level 1.7 MG/DL (1.8-2.4) L Total Bilirubin 0.5 MG/DL (0.2-1.0) Aspartate Amino Transf (AST/SGOT) 21 U/L (15-37) Alanine Aminotransferase (ALT/SGPT) 8 U/L (12-78) L Alkaline Phosphatase 66 U/L (46-116) Total Protein 6.2 G/DL (6.4-8.2) L Albumin 2.1 G/DL (3.4-5.0) L Globulin 4.1 g/dL Albumin/Globulin Ratio 0.5 (1.0-2.7) L Arterial Blood pH 7.511 (7.350-7.450) Arterial Blood Partial Pressure CO2 26.9 mmHg (35.0-45.0) L Arterial Blood Partial Pressure O2 70.4 mmHg (75.0-100.0) L Arterial Blood HCO3 21.0 mmol/L (22.0-26.0) L Arterial Blood Oxygen Saturation 94.6 % (92.0-98.0) Arterial Blood Base Excess -0.8 Garrett Test Positive BHARGAVI ACKERMAN Sep 11, 2017 09:56
--- NOTE | 2017-09-11 10:20 | Infectious Diseases Prog Note ---
Assessment/Plan Assessment/Plan PNA-r/o Flu- r/o fungal pna -CXR 09/06: Dense retrocardiac consolidation and left-sided pleural fluid persists. Bibasilar atelectasis persists. Generalized interstitial prominence and central bronchial wall thickening persists, unchanged. Fibronodular scarring at both lung bases persist. -CTA chest: No evidence of pulmonary embolus or aortic dissection/aneurysm. Basilar pneumonia may be present. Please correlate clinically. Chronic lung disease as described above -CXR 09/03: Persistent interstitial opacification/edema with dense retrocardiac atelectasis/consolidation and small left pleural effusion. Interval increase in streaky right basilar atelectasis/consolidation. -sp CX 09/03 Neg -Influenza neg -Legionella ag urine neg - Neg : Cr Ag Bleeding from the mouth Acute respiratory failure s/p intubation-; extubated 07/06 Leukocytosis, SP Lactic acidosis- resolved Hep B Afib with RVR Mild PATRICK, resolved HTN, CHF, Dementia, hypothyroidism, Afib, SNF resident Plan: - cont Ceftriaxone abx d# / for PNA -09/08 SP Azithromycin #5 -2 SP Zosyn #7 -09/06 SP IV Vanco #9, Tamiflu #3 -Monitor CBC/BMP, temperatures -aspiration precautions -f/u cocci ab Subjective Allergies: Coded Allergies: No Known Allergies (Unverified , 08/28/17) Subjective afebrile no leukocytosis 3l NC in iCU due to Afib with RVR, on cardizem drip Objective Vital Signs Last 24 Hour Vital Signs Date Time Temp Pulse Resp B/P (MAP) Pulse Ox O2 Delivery O2 Flow Rate FiO2 09/11/17 08:32 97.8 09/11/17 08:30 85 12 105/54 95 Nasal Cannula 3.0 09/11/17 08:00 111 21 89/57 92 Nasal Cannula 3.0 09/11/17 07:51 Nasal Cannula 4.0 36 09/11/17 07:50 93 Nasal Cannula 4.0 36 09/11/17 07:30 97.8 106 14 106/90 87 Nasal Cannula 3.0 09/11/17 07:00 88 16 110/55 93 Nasal Cannula 3.0 09/11/17 06:30 85 16 90/55 94 Nasal Cannula 3.0 09/11/17 06:00 83 16 110/59 94 Nasal Cannula 3.0 09/11/17 05:30 81 16 96/64 98 Nasal Cannula 3.0 09/11/17 05:00 85 16 92/55 96 Nasal Cannula 3.0 09/11/17 04:48 149 110/74 09/11/17 04:30 137 16 98/53 94 Nasal Cannula 3.0 09/11/17 04:00 143 09/11/17 04:00 98.4 137 16 120/82 94 Nasal Cannula 3.0 09/11/17 03:30 137 16 89/60 94 Nasal Cannula 3.0 09/11/17 03:00 114 16 97/64 94 Nasal Cannula 3.0 09/11/17 02:30 119 20 88/61 94 Nasal Cannula 3.0 09/11/17 02:00 120 20 100/47 94 Nasal Cannula 3.0 09/11/17 01:30 103 20 89/47 94 Nasal Cannula 3.0 09/11/17 01:00 105 20 101/71 93 Nasal Cannula 3.0 09/11/17 00:30 117 15 95/74 93 Nasal Cannula 3.0 09/11/17 00:00 98.0 119 14 123/100 92 Nasal Cannula 3.0 09/10/17 23:30 98 16 110/64 93 Nasal Cannula 3.0 09/10/17 23:00 121 16 108/64 93 Nasal Cannula 3.0 09/10/17 22:30 120 16 95/50 93 Nasal Cannula 3.0 09/10/17 22:00 128 16 90/48 93 Nasal Cannula 3.0 09/10/17 21:30 115 16 93/48 93 Nasal Cannula 3.0 09/10/17 21:00 110 16 102/48 93 Nasal Cannula 3.0 09/10/17 20:54 116 09/10/17 20:30 110 17 98/48 93 Nasal Cannula 3.0 09/10/17 20:00 98.6 113 20 100/75 92 Nasal Cannula 3.0 09/10/17 20:00 113 09/10/17 19:30 111 16 101/75 92 Nasal Cannula 3.0 09/10/17 19:08 92 Nasal Cannula 4.0 36 09/10/17 19:08 Nasal Cannula 4.0 36 09/10/17 19:00 125 26 93/54 92 Simple Mask 4.0 09/10/17 18:30 138 26 90/45 90 Simple Mask 4.0 09/10/17 18:00 135 26 90/43 90 Simple Mask 4.0 09/10/17 17:30 125 26 92/44 90 Simple Mask 4.0 09/10/17 17:00 133 24 116/52 90 Simple Mask 4.0 09/10/17 16:30 134 24 120/52 92 Simple Mask 4.0 09/10/17 16:10 138 107/82 09/10/17 16:00 98.5 128 24 100/45 91 Simple Mask 4.0 09/10/17 16:00 133 09/10/17 15:30 119 24 115/44 91 Simple Mask 4.0 09/10/17 15:00 130 24 100/50 91 Simple Mask 4.0 09/10/17 14:30 134 24 91/45 91 Nasal Cannula 4.0 09/10/17 14:00 133 24 92/44 91 Nasal Cannula 4.0 09/10/17 13:30 130 24 90/44 91 Nasal Cannula 4.0 09/10/17 13:00 125 22 94/50 91 Nasal Cannula 4.0 09/10/17 12:30 118 23 92/45 91 Nasal Cannula 4.0 09/10/17 12:00 125 09/10/17 12:00 98.4 125 25 100/50 90 Nasal Cannula 4.0 09/10/17 11:30 119 20 90/45 89 Nasal Cannula 4.0 09/10/17 11:00 118 24 92/45 89 Nasal Cannula 4.0 09/10/17 10:30 148 24 105/54 90 Nasal Cannula 4.0 Height (Feet): 5 Height (Inches): 10.00 Weight (Pounds): 113 Objective Status: awake HEENT: atraumatic, nasal trumpet in palce Heart: HR/BP stable Abdomen: non-tender, active bowel sounds Extremities: no C/C/E Laboratory Tests Test 09/11/17 05:00 09/11/17 09:00 White Blood Count 8.4 K/UL (4.8-10.8) Red Blood Count 4.01 M/UL (4.70-6.10) L Hemoglobin 12.3 G/DL (14.2-18.0) L Hematocrit 37.1 % (42.0-52.0) L Mean Corpuscular Volume 93 FL (80-99) Mean Corpuscular Hemoglobin 30.5 PG (27.0-31.0) Mean Corpuscular Hemoglobin Concent 33.0 G/DL (32.0-36.0) Red Cell Distribution Width 13.6 % (11.6-14.8) Platelet Count 381 K/UL (150-450) Mean Platelet Volume 6.1 FL (6.5-10.1) L Neutrophils (%) (Auto) 79.8 % (45.0-75.0) H Lymphocytes (%) (Auto) 13.3 % (20.0-45.0) L Monocytes (%) (Auto) 6.2 % (1.0-10.0) Eosinophils (%) (Auto) 0.2 % (0.0-3.0) Basophils (%) (Auto) 0.6 % (0.0-2.0) Sodium Level 138 MMOL/L (136-145) Potassium Level 3.2 MMOL/L (3.5-5.1) L Chloride Level 106 MMOL/L (98-107) Carbon Dioxide Level 23 MMOL/L (21-32) Anion Gap 9 mmol/L (5-15) Blood Urea Nitrogen 7 mg/dL (7-18) Creatinine 0.8 MG/DL (0.55-1.30) Estimat Glomerular Filtration Rate mL/min (>60) Glucose Level 101 MG/DL (74-106) Calcium Level 7.0 MG/DL (8.5-10.1) L Phosphorus Level 2.2 MG/DL (2.5-4.9) L Magnesium Level 1.7 MG/DL (1.8-2.4) L Total Bilirubin 0.5 MG/DL (0.2-1.0) Aspartate Amino Transf (AST/SGOT) 21 U/L (15-37) Alanine Aminotransferase (ALT/SGPT) 8 U/L (12-78) L Alkaline Phosphatase 66 U/L (46-116) Total Protein 6.2 G/DL (6.4-8.2) L Albumin 2.1 G/DL (3.4-5.0) L Globulin 4.1 g/dL Albumin/Globulin Ratio 0.5 (1.0-2.7) L Arterial Blood pH 7.511 (7.350-7.450) Arterial Blood Partial Pressure CO2 26.9 mmHg (35.0-45.0) L Arterial Blood Partial Pressure O2 70.4 mmHg (75.0-100.0) L Arterial Blood HCO3 21.0 mmol/L (22.0-26.0) L Arterial Blood Oxygen Saturation 94.6 % (92.0-98.0) Arterial Blood Base Excess -0.8 Garrett Test Positive Current Medications Medications (Trade) Dose Ordered Sig/Hill Route PRN Reason Start Time Stop Time Status Last Admin Dose Admin Albuterol/ Ipratropium (Albuterol/ Ipratropium) 3 ml Q4H PRN HHN Shortness of Breath 09/09/17 12:00 09/13/17 11:59 Ceftriaxone Sodium 1 gm/ Dextrose 55 ml @ 110 mls/hr Q24H IVPB 09/09/17 12:00 09/14/17 11:59 09/10/17 12:00 Chlorpromazine (Thorazine) 25 mg Q6H PRN IM AGITATION 09/09/17 12:00 10/08/17 11:59 09/11/17 06:35 Clotrimazole (Lotrimin) 1 applic EVERY 12 HOURS TOPIC 09/09/17 21:00 10/06/17 20:59 09/11/17 09:55 Dextrose/Sodium Chloride 1,000 ml @ 50 mls/hr Q20H IV 09/09/17 12:00 10/06/17 17:29 09/10/17 21:26 Diltiazem HCl 125 mg/Dextrose 125 ml @ 8 mls/hr Q24H IV 09/10/17 16:00 09/11/17 15:59 09/10/17 16:10 Enoxaparin Sodium (Lovenox) 50 mg EVERY 12 HOURS SUBQ 09/09/17 21:00 09/28/17 08:59 09/11/17 09:11 Metoprolol Tartrate (Lopressor) 5 mg Q4H PRN IVP HR > 125 bpm 09/09/17 14:00 10/06/17 17:59 09/11/17 04:48 Morphine Sulfate (Morphine Sulfate) 4 mg Q4H PRN IVP PAIN 4-10 09/09/17 13:00 09/11/17 16:59 09/11/17 08:02 Pantoprazole (Protonix) 40 mg DAILY IV 09/10/17 09:00 10/05/17 08:59 09/11/17 08:02 Krystal Kasper M.D. Sep 11, 2017 10:20
[2017-09-11] MEDS: cefTRIAXone 1 GM in D5W 55 ML IVPB SCH (11:38)
--- NOTE | 2017-09-11 12:50 | Diagnostic Imaging Report ---
Indication: NG tube placement Comparison: None Single view of the abdomen obtained Findings: Nasogastric tube is in good position with the tube well situated in the stomach. Bowel gas pattern is nonspecific. The bones are osteopenic. Vascular calcifications are present. IMPRESSION: NG tube in good position
--- NOTE | 2017-09-11 12:50 | Diagnostic Imaging Report ---
Indication: NG tube placement Comparison: 09/10/2017 A single view chest radiograph was obtained. Findings: NG tube is present. The ET tube is in good position with the proximal port and tip both within the stomach. No change otherwise. There is evidence of interstitial edema with cardiomegaly. IMPRESSION: NG tube in good position.
[2017-09-11] MEDS ORDERED: Haloperidol 5mg/ml Inj IVPB PRN (13:00)
--- NOTE | 2017-09-11 13:38 | Cardiology Progress Note ---
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 difficult normal lv function with pulm htn continue treatment for pneumonia now in icu setting to monitor hr and bp continuously as at risk of hypotension tele reviewed now has og tube with xray indicated good position on lmwh dig dose dc Cardizem will use some verapamil ot see if able to control heart rate better via og tube Subjective ROS Limited/Unobtainable: Yes Subjective confused got sedated as was sig agitation Objective Last 24 Hour Vital Signs Date Time Temp Pulse Resp B/P (MAP) Pulse Ox O2 Delivery O2 Flow Rate FiO2 09/11/17 13:00 122 19 102/52 89 Nasal Cannula 3.0 09/11/17 12:30 97.6 101 23 102/52 93 Nasal Cannula 3.0 09/11/17 12:00 91 10 107/64 91 Nasal Cannula 3.0 09/11/17 12:00 80 09/11/17 11:39 92 97/54 09/11/17 11:30 89 11 97/54 89 Nasal Cannula 3.0 09/11/17 11:00 70 11 98/59 89 Nasal Cannula 3.0 09/11/17 10:30 81 11 98/59 93 Nasal Cannula 3.0 09/11/17 10:00 95 16 102/57 93 Nasal Cannula 3.0 09/11/17 09:30 105 22 102/60 92 Nasal Cannula 3.0 09/11/17 09:00 131 23 92/61 89 Nasal Cannula 3.0 09/11/17 08:32 97.8 09/11/17 08:30 85 12 105/54 95 Nasal Cannula 3.0 09/11/17 08:00 111 21 89/57 92 Nasal Cannula 3.0 09/11/17 08:00 98 09/11/17 07:51 Nasal Cannula 4.0 36 09/11/17 07:50 93 Nasal Cannula 4.0 36 09/11/17 07:30 97.8 106 14 106/90 87 Nasal Cannula 3.0 09/11/17 07:00 88 16 110/55 93 Nasal Cannula 3.0 09/11/17 06:30 85 16 90/55 94 Nasal Cannula 3.0 09/11/17 06:00 83 16 110/59 94 Nasal Cannula 3.0 09/11/17 05:30 81 16 96/64 98 Nasal Cannula 3.0 09/11/17 05:00 85 16 92/55 96 Nasal Cannula 3.0 09/11/17 04:48 149 110/74 09/11/17 04:30 137 16 98/53 94 Nasal Cannula 3.0 09/11/17 04:00 143 09/11/17 04:00 98.4 137 16 120/82 94 Nasal Cannula 3.0 09/11/17 03:30 137 16 89/60 94 Nasal Cannula 3.0 09/11/17 03:00 114 16 97/64 94 Nasal Cannula 3.0 09/11/17 02:30 119 20 88/61 94 Nasal Cannula 3.0 09/11/17 02:00 120 20 100/47 94 Nasal Cannula 3.0 09/11/17 01:30 103 20 89/47 94 Nasal Cannula 3.0 09/11/17 01:00 105 20 101/71 93 Nasal Cannula 3.0 09/11/17 00:30 117 15 95/74 93 Nasal Cannula 3.0 09/11/17 00:00 98.0 119 14 123/100 92 Nasal Cannula 3.0 09/10/17 23:30 98 16 110/64 93 Nasal Cannula 3.0 09/10/17 23:00 121 16 108/64 93 Nasal Cannula 3.0 09/10/17 22:30 120 16 95/50 93 Nasal Cannula 3.0 09/10/17 22:00 128 16 90/48 93 Nasal Cannula 3.0 09/10/17 21:30 115 16 93/48 93 Nasal Cannula 3.0 09/10/17 21:00 110 16 102/48 93 Nasal Cannula 3.0 09/10/17 20:54 116 09/10/17 20:30 110 17 98/48 93 Nasal Cannula 3.0 09/10/17 20:00 98.6 113 20 100/75 92 Nasal Cannula 3.0 09/10/17 20:00 113 09/10/17 19:30 111 16 101/75 92 Nasal Cannula 3.0 09/10/17 19:08 92 Nasal Cannula 4.0 36 09/10/17 19:08 Nasal Cannula 4.0 36 09/10/17 19:00 125 26 93/54 92 Simple Mask 4.0 09/10/17 18:30 138 26 90/45 90 Simple Mask 4.0 09/10/17 18:00 135 26 90/43 90 Simple Mask 4.0 09/10/17 17:30 125 26 92/44 90 Simple Mask 4.0 09/10/17 17:00 133 24 116/52 90 Simple Mask 4.0 09/10/17 16:30 134 24 120/52 92 Simple Mask 4.0 09/10/17 16:10 138 107/82 09/10/17 16:00 98.5 128 24 100/45 91 Simple Mask 4.0 09/10/17 16:00 133 09/10/17 15:30 119 24 115/44 91 Simple Mask 4.0 09/10/17 15:00 130 24 100/50 91 Simple Mask 4.0 09/10/17 14:30 134 24 91/45 91 Nasal Cannula 4.0 09/10/17 14:00 133 24 92/44 91 Nasal Cannula 4.0 General Appearance: other - confused og tube in place Neck: no JVD Cardiovascular: tachycardia, irregularly irregular Respiratory/Chest: rhonchi - bilaterally Abdomen: normal bowel sounds, non tender, soft Extremities: no swelling Intake and Output 09/10/17 09/11/17 19:00 07:00 Intake Total 846 ml 796 ml Output Total 290 ml 340 ml Balance 556 ml 456 ml IV Total 846 ml 796 ml Output Urine Total 290 ml 340 ml # Bowel Movements 1 2 Laboratory Tests Test 09/11/17 05:00 09/11/17 09:00 White Blood Count 8.4 K/UL (4.8-10.8) Red Blood Count 4.01 M/UL (4.70-6.10) L Hemoglobin 12.3 G/DL (14.2-18.0) L Hematocrit 37.1 % (42.0-52.0) L Mean Corpuscular Volume 93 FL (80-99) Mean Corpuscular Hemoglobin 30.5 PG (27.0-31.0) Mean Corpuscular Hemoglobin Concent 33.0 G/DL (32.0-36.0) Red Cell Distribution Width 13.6 % (11.6-14.8) Platelet Count 381 K/UL (150-450) Mean Platelet Volume 6.1 FL (6.5-10.1) L Neutrophils (%) (Auto) 79.8 % (45.0-75.0) H Lymphocytes (%) (Auto) 13.3 % (20.0-45.0) L Monocytes (%) (Auto) 6.2 % (1.0-10.0) Eosinophils (%) (Auto) 0.2 % (0.0-3.0) Basophils (%) (Auto) 0.6 % (0.0-2.0) Sodium Level 138 MMOL/L (136-145) Potassium Level 3.2 MMOL/L (3.5-5.1) L Chloride Level 106 MMOL/L (98-107) Carbon Dioxide Level 23 MMOL/L (21-32) Anion Gap 9 mmol/L (5-15) Blood Urea Nitrogen 7 mg/dL (7-18) Creatinine 0.8 MG/DL (0.55-1.30) Estimat Glomerular Filtration Rate mL/min (>60) Glucose Level 101 MG/DL (74-106) Calcium Level 7.0 MG/DL (8.5-10.1) L Phosphorus Level 2.2 MG/DL (2.5-4.9) L Magnesium Level 1.7 MG/DL (1.8-2.4) L Total Bilirubin 0.5 MG/DL (0.2-1.0) Aspartate Amino Transf (AST/SGOT) 21 U/L (15-37) Alanine Aminotransferase (ALT/SGPT) 8 U/L (12-78) L Alkaline Phosphatase 66 U/L (46-116) Total Protein 6.2 G/DL (6.4-8.2) L Albumin 2.1 G/DL (3.4-5.0) L Globulin 4.1 g/dL Albumin/Globulin Ratio 0.5 (1.0-2.7) L Arterial Blood pH 7.511 (7.350-7.450) Arterial Blood Partial Pressure CO2 26.9 mmHg (35.0-45.0) L Arterial Blood Partial Pressure O2 70.4 mmHg (75.0-100.0) L Arterial Blood HCO3 21.0 mmol/L (22.0-26.0) L Arterial Blood Oxygen Saturation 94.6 % (92.0-98.0) Arterial Blood Base Excess -0.8 Garrett Test Positive SEGUNDO CALVERT Sep 11, 2017 13:38
[2017-09-11] MEDS: Verapamil 80mg tab NG SCH ×2 (15:00→21:47)
--- NOTE | 2017-09-11 15:43 | General Progress Note ---
Assessment/Plan Status: stable Assessment/Plan encephalopathy agitation -dc haldol -Thorazine prn Subjective Date patient seen: Sep 10, 2017 Neurologic/Psychiatric: Reports: anxiety, depressed Allergies: Coded Allergies: No Known Allergies (Unverified , 08/28/17) Subjective Still agitated Objective Last 24 Hour Vital Signs Date Time Temp Pulse Resp B/P (MAP) Pulse Ox O2 Delivery O2 Flow Rate FiO2 09/11/17 15:00 84 16 123/52 94 Nasal Cannula 3.0 09/11/17 14:30 77 15 129/95 90 Nasal Cannula 3.0 09/11/17 14:00 88 11 129/95 94 Nasal Cannula 3.0 09/11/17 13:00 122 19 102/52 89 Nasal Cannula 3.0 09/11/17 12:30 97.6 101 23 102/52 93 Nasal Cannula 3.0 09/11/17 12:00 91 10 107/64 91 Nasal Cannula 3.0 09/11/17 12:00 80 09/11/17 11:39 92 97/54 09/11/17 11:30 89 11 97/54 89 Nasal Cannula 3.0 09/11/17 11:00 70 11 98/59 89 Nasal Cannula 3.0 09/11/17 10:30 81 11 98/59 93 Nasal Cannula 3.0 09/11/17 10:00 95 16 102/57 93 Nasal Cannula 3.0 09/11/17 09:30 105 22 102/60 92 Nasal Cannula 3.0 09/11/17 09:00 131 23 92/61 89 Nasal Cannula 3.0 09/11/17 08:32 97.8 09/11/17 08:30 85 12 105/54 95 Nasal Cannula 3.0 09/11/17 08:00 111 21 89/57 92 Nasal Cannula 3.0 09/11/17 08:00 98 09/11/17 07:51 Nasal Cannula 4.0 36 09/11/17 07:50 93 Nasal Cannula 4.0 36 09/11/17 07:30 97.8 106 14 106/90 87 Nasal Cannula 3.0 09/11/17 07:00 88 16 110/55 93 Nasal Cannula 3.0 09/11/17 06:30 85 16 90/55 94 Nasal Cannula 3.0 09/11/17 06:00 83 16 110/59 94 Nasal Cannula 3.0 09/11/17 05:30 81 16 96/64 98 Nasal Cannula 3.0 09/11/17 05:00 85 16 92/55 96 Nasal Cannula 3.0 09/11/17 04:48 149 110/74 09/11/17 04:30 137 16 98/53 94 Nasal Cannula 3.0 09/11/17 04:00 143 09/11/17 04:00 98.4 137 16 120/82 94 Nasal Cannula 3.0 09/11/17 03:30 137 16 89/60 94 Nasal Cannula 3.0 09/11/17 03:00 114 16 97/64 94 Nasal Cannula 3.0 09/11/17 02:30 119 20 88/61 94 Nasal Cannula 3.0 09/11/17 02:00 120 20 100/47 94 Nasal Cannula 3.0 09/11/17 01:30 103 20 89/47 94 Nasal Cannula 3.0 09/11/17 01:00 105 20 101/71 93 Nasal Cannula 3.0 09/11/17 00:30 117 15 95/74 93 Nasal Cannula 3.0 09/11/17 00:00 98.0 119 14 123/100 92 Nasal Cannula 3.0 09/10/17 23:30 98 16 110/64 93 Nasal Cannula 3.0 09/10/17 23:00 121 16 108/64 93 Nasal Cannula 3.0 09/10/17 22:30 120 16 95/50 93 Nasal Cannula 3.0 09/10/17 22:00 128 16 90/48 93 Nasal Cannula 3.0 09/10/17 21:30 115 16 93/48 93 Nasal Cannula 3.0 09/10/17 21:00 110 16 102/48 93 Nasal Cannula 3.0 09/10/17 20:54 116 09/10/17 20:30 110 17 98/48 93 Nasal Cannula 3.0 09/10/17 20:00 98.6 113 20 100/75 92 Nasal Cannula 3.0 09/10/17 20:00 113 09/10/17 19:30 111 16 101/75 92 Nasal Cannula 3.0 09/10/17 19:08 92 Nasal Cannula 4.0 36 09/10/17 19:08 Nasal Cannula 4.0 36 09/10/17 19:00 125 26 93/54 92 Simple Mask 4.0 09/10/17 18:30 138 26 90/45 90 Simple Mask 4.0 09/10/17 18:00 135 26 90/43 90 Simple Mask 4.0 09/10/17 17:30 125 26 92/44 90 Simple Mask 4.0 09/10/17 17:00 133 24 116/52 90 Simple Mask 4.0 09/10/17 16:30 134 24 120/52 92 Simple Mask 4.0 09/10/17 16:10 138 107/82 09/10/17 16:00 98.5 128 24 100/45 91 Simple Mask 4.0 09/10/17 16:00 133 Intake and Output 09/10/17 09/11/17 19:00 07:00 Intake Total 846 ml 796 ml Output Total 290 ml 340 ml Balance 556 ml 456 ml IV Total 846 ml 796 ml Output Urine Total 290 ml 340 ml # Bowel Movements 1 2 Laboratory Tests 09/11/17 05:00: White Blood Count 8.4, Red Blood Count 4.01L, Hemoglobin 12.3L, Hematocrit 37.1L , Mean Corpuscular Volume 93, Mean Corpuscular Hemoglobin 30.5, Mean Corpuscular Hemoglobin Concent 33.0, Red Cell Distribution Width 13.6, Platelet Count 381, Mean Platelet Volume 6.1L, Neutrophils (%) (Auto) 79.8H, Lymphocytes (%) (Auto) 13.3L, Monocytes (%) (Auto) 6.2, Eosinophils (%) (Auto) 0.2, Basophils (%) (Auto) 0.6, Sodium Level 138, Potassium Level 3.2L, Chloride Level 106, Carbon Dioxide Level 23, Anion Gap 9, Blood Urea Nitrogen 7, Creatinine 0.8, Estimat Glomerular Filtration Rate , Glucose Level 101, Calcium Level 7.0L, Phosphorus Level 2.2L, Magnesium Level 1.7L, Total Bilirubin 0.5, Aspartate Amino Transf (AST/SGOT) 21, Alanine Aminotransferase (ALT/SGPT) 8L, Alkaline Phosphatase 66, Total Protein 6.2L, Albumin 2.1L, Globulin 4.1, Albumin /Globulin Ratio 0.5L 09/11/17 09:00: Arterial Blood pH 7.511H, Arterial Blood Partial Pressure CO2 26.9L, Arterial Blood Partial Pressure O2 70.4L, Arterial Blood HCO3 21.0L, Arterial Blood Oxygen Saturation 94.6, Arterial Blood Base Excess -0.8, Garrett Test Positive Height (Feet): 5 Height (Inches): 10.00 Weight (Pounds): 113 General Appearance: no apparent distress, lethargic, confused, agitated Neurologic: disoriented, depressed affect Mendy Frederick M.D. Sep 11, 2017 15:43
[2017-09-11] MEDS: Haloperidol Lactate 2 MG in D5W 55 ML IVPB PRN (16:02)
[2017-09-11] MEDS ORDERED: Tubing IV Secondary IV ONE ×2 (17:12→17:36)
[2017-09-11] MEDS ORDERED: NS 500ML ONE ×2 (17:12→17:36)
[2017-09-11] MEDS: D5 1/2NS 1,000 ML IV SCH (17:13)
--- NOTE | 2017-09-11 17:46 | General Progress Note ---
Assessment/Plan Assessment/Plan Assessment - Respiratory failure - extubated - malnutrition - OGT - OBS/encephaloppathy - a fib - CHF - mild anemia - No family available to discuss Recommendations - confirm OGT and begin TF - elevate HOB - pulmonary follow up - abx - poor Px Subjective Allergies: Coded Allergies: No Known Allergies (Unverified , 08/28/17) Subjective More calm today OGT in place wet cough confused Objective Last 24 Hour Vital Signs Date Time Temp Pulse Resp B/P (MAP) Pulse Ox O2 Delivery O2 Flow Rate FiO2 09/11/17 17:00 86 16 108/43 96 Nasal Cannula 3.0 09/11/17 16:00 89 09/11/17 16:00 97.8 95 18 149/64 89 Nasal Cannula 3.0 09/11/17 15:00 84 16 123/52 94 Nasal Cannula 3.0 09/11/17 15:00 85 111/43 09/11/17 14:30 77 15 129/95 90 Nasal Cannula 3.0 09/11/17 14:00 88 11 129/95 94 Nasal Cannula 3.0 09/11/17 13:00 122 19 102/52 89 Nasal Cannula 3.0 09/11/17 12:30 97.6 101 23 102/52 93 Nasal Cannula 3.0 09/11/17 12:00 91 10 107/64 91 Nasal Cannula 3.0 09/11/17 12:00 80 09/11/17 11:39 92 97/54 09/11/17 11:30 89 11 97/54 89 Nasal Cannula 3.0 09/11/17 11:00 70 11 98/59 89 Nasal Cannula 3.0 09/11/17 10:30 81 11 98/59 93 Nasal Cannula 3.0 09/11/17 10:00 95 16 102/57 93 Nasal Cannula 3.0 09/11/17 09:30 105 22 102/60 92 Nasal Cannula 3.0 09/11/17 09:00 131 23 92/61 89 Nasal Cannula 3.0 09/11/17 08:32 97.8 09/11/17 08:30 85 12 105/54 95 Nasal Cannula 3.0 09/11/17 08:00 111 21 89/57 92 Nasal Cannula 3.0 09/11/17 08:00 98 09/11/17 07:51 Nasal Cannula 4.0 36 09/11/17 07:50 93 Nasal Cannula 4.0 36 09/11/17 07:30 97.8 106 14 106/90 87 Nasal Cannula 3.0 09/11/17 07:00 88 16 110/55 93 Nasal Cannula 3.0 09/11/17 06:30 85 16 90/55 94 Nasal Cannula 3.0 09/11/17 06:00 83 16 110/59 94 Nasal Cannula 3.0 09/11/17 05:30 81 16 96/64 98 Nasal Cannula 3.0 09/11/17 05:00 85 16 92/55 96 Nasal Cannula 3.0 09/11/17 04:48 149 110/74 09/11/17 04:30 137 16 98/53 94 Nasal Cannula 3.0 09/11/17 04:00 143 09/11/17 04:00 98.4 137 16 120/82 94 Nasal Cannula 3.0 09/11/17 03:30 137 16 89/60 94 Nasal Cannula 3.0 09/11/17 03:00 114 16 97/64 94 Nasal Cannula 3.0 09/11/17 02:30 119 20 88/61 94 Nasal Cannula 3.0 09/11/17 02:00 120 20 100/47 94 Nasal Cannula 3.0 09/11/17 01:30 103 20 89/47 94 Nasal Cannula 3.0 09/11/17 01:00 105 20 101/71 93 Nasal Cannula 3.0 09/11/17 00:30 117 15 95/74 93 Nasal Cannula 3.0 09/11/17 00:00 98.0 119 14 123/100 92 Nasal Cannula 3.0 09/10/17 23:30 98 16 110/64 93 Nasal Cannula 3.0 09/10/17 23:00 121 16 108/64 93 Nasal Cannula 3.0 09/10/17 22:30 120 16 95/50 93 Nasal Cannula 3.0 09/10/17 22:00 128 16 90/48 93 Nasal Cannula 3.0 09/10/17 21:30 115 16 93/48 93 Nasal Cannula 3.0 09/10/17 21:00 110 16 102/48 93 Nasal Cannula 3.0 09/10/17 20:54 116 09/10/17 20:30 110 17 98/48 93 Nasal Cannula 3.0 09/10/17 20:00 98.6 113 20 100/75 92 Nasal Cannula 3.0 09/10/17 20:00 113 09/10/17 19:30 111 16 101/75 92 Nasal Cannula 3.0 09/10/17 19:08 92 Nasal Cannula 4.0 36 09/10/17 19:08 Nasal Cannula 4.0 36 09/10/17 19:00 125 26 93/54 92 Simple Mask 4.0 09/10/17 18:30 138 26 90/45 90 Simple Mask 4.0 09/10/17 18:00 135 26 90/43 90 Simple Mask 4.0 Intake and Output 09/10/17 09/11/17 19:00 07:00 Intake Total 846 ml 796 ml Output Total 290 ml 340 ml Balance 556 ml 456 ml IV Total 846 ml 796 ml Output Urine Total 290 ml 340 ml # Bowel Movements 1 2 Laboratory Tests 09/11/17 05:00: White Blood Count 8.4, Red Blood Count 4.01L, Hemoglobin 12.3L, Hematocrit 37.1L , Mean Corpuscular Volume 93, Mean Corpuscular Hemoglobin 30.5, Mean Corpuscular Hemoglobin Concent 33.0, Red Cell Distribution Width 13.6, Platelet Count 381, Mean Platelet Volume 6.1L, Neutrophils (%) (Auto) 79.8H, Lymphocytes (%) (Auto) 13.3L, Monocytes (%) (Auto) 6.2, Eosinophils (%) (Auto) 0.2, Basophils (%) (Auto) 0.6, Sodium Level 138, Potassium Level 3.2L, Chloride Level 106, Carbon Dioxide Level 23, Anion Gap 9, Blood Urea Nitrogen 7, Creatinine 0.8, Estimat Glomerular Filtration Rate , Glucose Level 101, Calcium Level 7.0L, Phosphorus Level 2.2L, Magnesium Level 1.7L, Total Bilirubin 0.5, Aspartate Amino Transf (AST/SGOT) 21, Alanine Aminotransferase (ALT/SGPT) 8L, Alkaline Phosphatase 66, Total Protein 6.2L, Albumin 2.1L, Globulin 4.1, Albumin /Globulin Ratio 0.5L 09/11/17 09:00: Arterial Blood pH 7.511H, Arterial Blood Partial Pressure CO2 26.9L, Arterial Blood Partial Pressure O2 70.4L, Arterial Blood HCO3 21.0L, Arterial Blood Oxygen Saturation 94.6, Arterial Blood Base Excess -0.8, Garrett Test Positive Height (Feet): 5 Height (Inches): 10.00 Weight (Pounds): 113 Objective NCAT supple coarse BS / estefania RR abd soft ND NT no edema agitated DORI WILEY Sep 11, 2017 17:46
--- NOTE | 2017-09-11 18:02 | Internal Med Progress Note ---
Subjective Date of Service: Sep 11, 2017 Physician Name Neil Benson Attending Physician Davey Cui MD Current Medications Medications (Trade) Dose Ordered Sig/Hill Route PRN Reason Start Time Stop Time Status Last Admin Dose Admin Albuterol/ Ipratropium (Albuterol/ Ipratropium) 3 ml Q4H PRN HHN Shortness of Breath 09/09/17 12:00 09/13/17 11:59 Ceftriaxone Sodium 1 gm/ Dextrose 55 ml @ 110 mls/hr Q24H IVPB 09/09/17 12:00 09/14/17 11:59 09/11/17 11:38 Chlorpromazine (Thorazine) 25 mg Q6H PRN IM AGITATION 09/09/17 12:00 10/08/17 11:59 09/11/17 06:35 Clotrimazole (Lotrimin) 1 applic EVERY 12 HOURS TOPIC 09/09/17 21:00 10/06/17 20:59 09/11/17 09:55 Dextrose/Sodium Chloride 1,000 ml @ 50 mls/hr Q20H IV 09/09/17 12:00 10/06/17 17:29 09/11/17 17:13 Enoxaparin Sodium (Lovenox) 50 mg EVERY 12 HOURS SUBQ 09/09/17 21:00 09/28/17 08:59 09/11/17 09:11 Haloperidol Lactate 2 mg/ Dextrose 55.4 ml @ 220 mls/hr Q2H PRN IVPB Agitation 09/11/17 13:30 10/11/17 13:29 09/11/17 16:02 Metoprolol Tartrate (Lopressor) 5 mg Q4H PRN IVP HR > 125 bpm 09/09/17 14:00 10/06/17 17:59 09/11/17 04:48 Pantoprazole (Protonix) 40 mg DAILY IV 09/10/17 09:00 10/05/17 08:59 09/11/17 08:02 Verapamil HCl (Calan) 80 mg EVERY 8 HOURS NG 09/11/17 15:00 10/11/17 14:59 09/11/17 15:00 Allergies: Coded Allergies: No Known Allergies (Unverified , 08/28/17) ROS Limited/Unobtainable: Yes Constitutional: Reports: no symptoms Subjective 87 YO M admitted with Respiratory failure. Cover for Int Jas-Dr Cui. ICU. Currently atrial fibrillation with rapid ventricular rate. Objective Last Vital Signs Date Time Temp Pulse Resp B/P (MAP) Pulse Ox O2 Delivery O2 Flow Rate FiO2 09/11/17 17:00 86 16 108/43 96 Nasal Cannula 3.0 09/11/17 16:00 97.8 09/11/17 07:51 36 Laboratory Tests Test 09/11/17 05:00 09/11/17 09:00 White Blood Count 8.4 K/UL (4.8-10.8) Red Blood Count 4.01 M/UL (4.70-6.10) L Hemoglobin 12.3 G/DL (14.2-18.0) L Hematocrit 37.1 % (42.0-52.0) L Mean Corpuscular Volume 93 FL (80-99) Mean Corpuscular Hemoglobin 30.5 PG (27.0-31.0) Mean Corpuscular Hemoglobin Concent 33.0 G/DL (32.0-36.0) Red Cell Distribution Width 13.6 % (11.6-14.8) Platelet Count 381 K/UL (150-450) Mean Platelet Volume 6.1 FL (6.5-10.1) L Neutrophils (%) (Auto) 79.8 % (45.0-75.0) H Lymphocytes (%) (Auto) 13.3 % (20.0-45.0) L Monocytes (%) (Auto) 6.2 % (1.0-10.0) Eosinophils (%) (Auto) 0.2 % (0.0-3.0) Basophils (%) (Auto) 0.6 % (0.0-2.0) Sodium Level 138 MMOL/L (136-145) Potassium Level 3.2 MMOL/L (3.5-5.1) L Chloride Level 106 MMOL/L (98-107) Carbon Dioxide Level 23 MMOL/L (21-32) Anion Gap 9 mmol/L (5-15) Blood Urea Nitrogen 7 mg/dL (7-18) Creatinine 0.8 MG/DL (0.55-1.30) Estimat Glomerular Filtration Rate mL/min (>60) Glucose Level 101 MG/DL (74-106) Calcium Level 7.0 MG/DL (8.5-10.1) L Phosphorus Level 2.2 MG/DL (2.5-4.9) L Magnesium Level 1.7 MG/DL (1.8-2.4) L Total Bilirubin 0.5 MG/DL (0.2-1.0) Aspartate Amino Transf (AST/SGOT) 21 U/L (15-37) Alanine Aminotransferase (ALT/SGPT) 8 U/L (12-78) L Alkaline Phosphatase 66 U/L (46-116) Total Protein 6.2 G/DL (6.4-8.2) L Albumin 2.1 G/DL (3.4-5.0) L Globulin 4.1 g/dL Albumin/Globulin Ratio 0.5 (1.0-2.7) L Arterial Blood pH 7.511 (7.350-7.450) Arterial Blood Partial Pressure CO2 26.9 mmHg (35.0-45.0) L Arterial Blood Partial Pressure O2 70.4 mmHg (75.0-100.0) L Arterial Blood HCO3 21.0 mmol/L (22.0-26.0) L Arterial Blood Oxygen Saturation 94.6 % (92.0-98.0) Arterial Blood Base Excess -0.8 Garrett Test Positive Intake and Output 09/10/17 09/11/17 19:00 07:00 Intake Total 846 ml 796 ml Output Total 290 ml 340 ml Balance 556 ml 456 ml IV Total 846 ml 796 ml Output Urine Total 290 ml 340 ml # Bowel Movements 1 2 Objective General Appearance: cachetic, thin EENT: PERRL/EOMI, normal ENT inspection Neck: non-tender, normal alignment, supple Cardiovascular: Tachycardia; normal peripheral pulses, no gallop/murmur, no JVD , irregularly irregular Respiratory/Chest: Venturi mask; respiratory distress, crackles/rales, rhonchi - bilaterally, expiratory wheezing Abdomen: non tender, soft, no organomegaly, decreased bowel sounds Neurologic: inspector balance bridge II-XII grossly normal Skin: normal pigmentation, warm/dry Assessment/Plan Problem List: (1) HTN (hypertension) Assessment & Plan: Continue lopressor (2) Encephalopathy (3) Alzheimer's dementia (4) BPH (benign prostatic hyperplasia) (5) Hypothyroidism Assessment & Plan: TSH normal. Continue levoxyl. (6) Respiratory failure Assessment & Plan: Extubated 1/3/18. Tolerating nasal canula. See pulmonary note. (7) Atrial fibrillation with rapid ventricular response Assessment & Plan: Continue IV diltiazem drip per cardiology (8) CHF (congestive heart failure) Assessment & Plan: See cardiology note; await echocardiogram (9) Cachexia (10) Lactic acid acidosis (11) Pneumonia Assessment & Plan: See pulmonary note. Cont zosyn and vanco. (12) Dysphagia Assessment & Plan: Place NG tube; nutrition consult. (13) Hypokalemia Assessment & Plan: Replace KCL Status: not improved NEIL BENSON Sep 11, 2017 18:02
[2017-09-12] VITALS (40 sets, daily range): BP systolic 120–151; BP diastolic 25–117
[2017-09-12] MEDS: Haloperidol Lactate 2 MG in D5W 55 ML IVPB PRN (04:08)
[2017-09-12 06:30] LABS: BASOPHILS % (AUTO) 0.9 % (0.0-2.0); EOSINOPHILS % (AUTO) 0.4 % (0.0-3.0); HEMOGLOBIN 11.9 G/DL (14.2-18.0); LYMPHOCYTES % (AUTO) 14.9 % (20.0-45.0); MEAN CORPUSCULAR VOLUME 93 FL (80-99); MONOCYTES % (AUTO) 6.8 % (1.0-10.0); PLATELET COUNT 343 K/UL (150-450); RED BLOOD COUNT 3.67 M/UL (4.70-6.10); RED CELL DISTRIBUTION WIDTH 13.7 % (11.6-14.8); WHITE BLOOD COUNT 7.3 K/UL (4.8-10.8)
[2017-09-12 06:44] LABS: ALANINE AMINOTRANSFERASE 14 U/L (12-78); ALBUMIN/GLOBULIN RATIO 0.5 (1.0-2.7); ALKALINE PHOSPHATASE 72 U/L (46-116); ANION GAP 11 mmol/L (5-15); ASPARTATE AMINO TRANSFERASE 25 U/L (15-37); BILIRUBIN,TOTAL 0.5 MG/DL (0.2-1.0); BLOOD UREA NITROGEN 5 mg/dL (7-18); CARBON DIOXIDE 25 MMOL/L (21-32); CHLORIDE 103 MMOL/L (98-107); CREATININE 0.8 MG/DL (0.55-1.30); POTASSIUM 2.8 MMOL/L (3.5-5.1); SODIUM 139 MMOL/L (136-145)
--- NOTE | 2017-09-12 09:42 | Progress Note ---
DATE: 09/11/2017 SUBJECTIVE: The patient continues to be having episodes of anxiety, agitation, poor insight and judgment. Not engaged during the evaluation and is still attempting to pull out the intravenous access and is confused. MENTAL STATUS EXAMINATION: The patient is lethargic, agitated. Mood is agitated. Affect is constricted, congruent with mood. Thought process is concrete. Thought content, no suicidal or homicidal ideation. ASSESSMENT: 1. Encephalopathy. 2. Agitation. PLAN: 1. We will continue the Thorazine p.r.n. 2. We will continue follow and readjust the medications. Mendy Frederick M.D. DR: ORALIA JOB#: [id number] CC:
[2017-09-12] MEDS: Pantoprazole Inj IV SCH (09:50)
[2017-09-12] MEDS: Enoxaparin Sodium 300mg/3ml vial SUBQ SCH ×2 (09:51→20:45)
--- NOTE | 2017-09-12 10:22 | Infectious Diseases Prog Note ---
Assessment/Plan Assessment/Plan PNA-r/o Flu- r/o fungal pna -CXR 09/11: There is evidence of interstitial edema with cardiomegaly. -CXR 09/06: Dense retrocardiac consolidation and left-sided pleural fluid persists. Bibasilar atelectasis persists. Generalized interstitial prominence and central bronchial wall thickening persists, unchanged. Fibronodular scarring at both lung bases persist. -CTA chest: No evidence of pulmonary embolus or aortic dissection/aneurysm. Basilar pneumonia may be present. Please correlate clinically. Chronic lung disease as described above -CXR 09/03: Persistent interstitial opacification/edema with dense retrocardiac atelectasis/consolidation and small left pleural effusion. Interval increase in streaky right basilar atelectasis/consolidation. -sp CX 09/03 Neg -Influenza neg -Legionella ag urine neg - Neg : Cr Ag Bleeding from the mouth Acute respiratory failure s/p intubation-; extubated 07/06 Leukocytosis, SP Lactic acidosis- resolved Hep B Afib with RVR Mild PATRICK, resolved HTN, CHF, Dementia, hypothyroidism, Afib, SNF resident Plan: - cont Ceftriaxone abx d# 13/14 for PNA -09/08 SP Azithromycin #5 -/2 SP Zosyn #7 -09/06 SP IV Vanco #9, Tamiflu #3 -Monitor CBC/BMP, temperatures -aspiration precautions -f/u cocci ab Subjective Allergies: Coded Allergies: No Known Allergies (Unverified , 08/28/17) Subjective afebrile no leukocytosis HR better controlled remains on ICU Objective Vital Signs Last 24 Hour Vital Signs Date Time Temp Pulse Resp B/P (MAP) Pulse Ox O2 Delivery O2 Flow Rate FiO2 09/12/17 10:00 98 16 144/90 94 Nasal Cannula 4.0 09/12/17 09:00 97 16 129/92 92 Nasal Cannula 4.0 09/12/17 08:34 98 135/69 09/12/17 08:00 98 09/12/17 08:00 98.6 96 14 145/95 92 Nasal Cannula 4.0 09/12/17 07:00 Nasal Cannula 4.0 09/12/17 07:00 95 Nasal Cannula 4.0 09/12/17 07:00 97 16 139/107 92 Nasal Cannula 4.0 09/12/17 06:00 97 16 141/83 94 Nasal Cannula 3.0 09/12/17 05:30 97 16 142/94 94 Nasal Cannula 3.0 09/12/17 05:00 120 18 146/73 92 Nasal Cannula 3.0 09/12/17 04:30 110 18 133/66 92 Nasal Cannula 3.0 09/12/17 04:00 110 09/12/17 04:00 98.2 110 18 142/80 92 Nasal Cannula 3.0 09/12/17 04:00 98 16 128/78 93 Nasal Cannula 3.0 09/12/17 03:30 99 16 125/78 94 Nasal Cannula 3.0 09/12/17 03:00 98 16 128/78 93 Nasal Cannula 3.0 09/12/17 02:30 85 16 138/80 93 Nasal Cannula 3.0 09/12/17 02:00 87 16 137/82 93 Nasal Cannula 3.0 09/12/17 01:30 87 14 137/79 93 Nasal Cannula 3.0 09/12/17 01:00 89 14 134/81 93 Nasal Cannula 3.0 09/12/17 00:30 88 14 134/83 93 Nasal Cannula 3.0 09/12/17 00:00 75 09/12/17 00:00 98.0 89 14 134/64 93 Nasal Cannula 3.0 09/11/17 23:30 89 14 125/58 92 Nasal Cannula 3.0 09/11/17 23:00 84 16 136/76 93 Nasal Cannula 3.0 09/11/17 22:52 99 131/103 09/11/17 22:00 90 16 129/100 93 Nasal Cannula 3.0 09/11/17 21:47 108 130/40 09/11/17 21:00 118 19 113/58 93 Nasal Cannula 3.0 09/11/17 20:00 121 09/11/17 20:00 97.6 121 12 128/96 93 Nasal Cannula 3.0 09/11/17 19:00 92 11 122/76 93 Nasal Cannula 3.0 09/11/17 19:00 94 Nasal Cannula 4.0 36 09/11/17 19:00 Nasal Cannula 4.0 36 09/11/17 18:00 85 12 135/90 91 Nasal Cannula 3.0 09/11/17 17:00 86 16 108/43 96 Nasal Cannula 3.0 09/11/17 16:00 89 09/11/17 16:00 97.8 95 18 149/64 89 Nasal Cannula 3.0 09/11/17 15:00 84 16 123/52 94 Nasal Cannula 3.0 09/11/17 15:00 85 111/43 09/11/17 14:30 77 15 129/95 90 Nasal Cannula 3.0 09/11/17 14:00 88 11 129/95 94 Nasal Cannula 3.0 09/11/17 13:00 122 19 102/52 89 Nasal Cannula 3.0 09/11/17 12:30 97.6 101 23 102/52 93 Nasal Cannula 3.0 09/11/17 12:00 91 10 107/64 91 Nasal Cannula 3.0 09/11/17 12:00 80 09/11/17 11:39 92 97/54 09/11/17 11:30 89 11 97/54 89 Nasal Cannula 3.0 09/11/17 11:00 70 11 98/59 89 Nasal Cannula 3.0 09/11/17 10:30 81 11 98/59 93 Nasal Cannula 3.0 Height (Feet): 5 Height (Inches): 10.00 Weight (Pounds): 113 Objective Status: awake HEENT: atraumatic, nasal trumpet in palce Heart: HR/BP stable Abdomen: non-tender, active bowel sounds Extremities: no C/C/E Laboratory Tests Test 09/12/17 04:45 White Blood Count 7.3 K/UL (4.8-10.8) Red Blood Count 3.67 M/UL (4.70-6.10) L Hemoglobin 11.9 G/DL (14.2-18.0) L Hematocrit 34.0 % (42.0-52.0) L Mean Corpuscular Volume 93 FL (80-99) Mean Corpuscular Hemoglobin 32.4 PG (27.0-31.0) H Mean Corpuscular Hemoglobin Concent 35.0 G/DL (32.0-36.0) Red Cell Distribution Width 13.7 % (11.6-14.8) Platelet Count 343 K/UL (150-450) Mean Platelet Volume 6.1 FL (6.5-10.1) L Neutrophils (%) (Auto) 77.0 % (45.0-75.0) H Lymphocytes (%) (Auto) 14.9 % (20.0-45.0) L Monocytes (%) (Auto) 6.8 % (1.0-10.0) Eosinophils (%) (Auto) 0.4 % (0.0-3.0) Basophils (%) (Auto) 0.9 % (0.0-2.0) Sodium Level 139 MMOL/L (136-145) Potassium Level 2.8 MMOL/L (3.5-5.1) L Chloride Level 103 MMOL/L (98-107) Carbon Dioxide Level 25 MMOL/L (21-32) Anion Gap 11 mmol/L (5-15) Blood Urea Nitrogen 5 mg/dL (7-18) L Creatinine 0.8 MG/DL (0.55-1.30) Estimat Glomerular Filtration Rate mL/min (>60) Glucose Level 97 MG/DL (74-106) Calcium Level 8.0 MG/DL (8.5-10.1) L Total Bilirubin 0.5 MG/DL (0.2-1.0) Aspartate Amino Transf (AST/SGOT) 25 U/L (15-37) Alanine Aminotransferase (ALT/SGPT) 14 U/L (12-78) Alkaline Phosphatase 72 U/L (46-116) Pro-B-Type Natriuretic Peptide 1990 pg/mL (0-125) H Total Protein 6.1 G/DL (6.4-8.2) L Albumin 2.0 G/DL (3.4-5.0) L Globulin 4.1 g/dL Albumin/Globulin Ratio 0.5 (1.0-2.7) L Digoxin Level 1.0 NG/ML (0.5-2.0) Current Medications Medications (Trade) Dose Ordered Sig/Hill Route PRN Reason Start Time Stop Time Status Last Admin Dose Admin Albuterol/ Ipratropium (Albuterol/ Ipratropium) 3 ml Q4H PRN HHN Shortness of Breath 09/09/17 12:00 09/13/17 11:59 Ceftriaxone Sodium 1 gm/ Dextrose 55 ml @ 110 mls/hr Q24H IVPB 09/09/17 12:00 09/14/17 11:59 09/11/17 11:38 Chlorpromazine (Thorazine) 25 mg Q6H PRN IM AGITATION 09/09/17 12:00 10/08/17 11:59 09/11/17 06:35 Clotrimazole (Lotrimin) 1 applic EVERY 12 HOURS TOPIC 09/09/17 21:00 10/06/17 20:59 09/12/17 09:50 Dextrose/Sodium Chloride 1,000 ml @ 50 mls/hr Q20H IV 09/09/17 12:00 10/06/17 17:29 09/11/17 17:13 Diltiazem HCl 125 mg/Dextrose 125 ml @ 8 mls/hr Q24H IV 09/11/17 23:00 09/12/17 22:59 09/12/17 08:34 Enoxaparin Sodium (Lovenox) 50 mg EVERY 12 HOURS SUBQ 09/09/17 21:00 09/28/17 08:59 09/12/17 09:51 Haloperidol Lactate 2 mg/ Dextrose 55.4 ml @ 220 mls/hr Q2H PRN IVPB Agitation 09/11/17 13:30 10/11/17 13:29 09/12/17 04:08 Metoprolol Tartrate (Lopressor) 5 mg Q4H PRN IVP HR > 125 bpm 09/09/17 14:00 10/06/17 17:59 09/11/17 04:48 Pantoprazole (Protonix) 40 mg DAILY IV 09/10/17 09:00 10/05/17 08:59 09/12/17 09:50 Krystal Kasper M.D. Sep 12, 2017 10:22
--- NOTE | 2017-09-12 10:41 | Pulmonolgy Critical Care Note ---
Critical Care - Asmt/Plan Problems: (1) Respiratory failure (2) Aspiration pneumonia (3) Atrial fibrillation with rapid ventricular response (4) Encephalopathy (5) HTN (hypertension) (6) Alzheimer's dementia Respiratory: monitor respiratory rate, adjust FIO2 Cardiac: start pressors, stop pressors Renal: keep IV fluid Infectious Disease: continue antibiotics Gastrointestinal: continue feedings/current rate Endocrine: continue sliding scale insulin Hematologic: transfuse if hgb<8.5 Neurologic: PRN Morphine, keep patient comfortable Prophylaxis: Protonix Discussed with: nurses, consultants, correctional counselor/case managernurse healthcare manager - Objective Last 24 Hour Vital Signs Date Time Temp Pulse Resp B/P (MAP) Pulse Ox O2 Delivery O2 Flow Rate FiO2 09/12/17 10:00 98 16 144/90 94 Nasal Cannula 4.0 09/12/17 09:00 97 16 129/92 92 Nasal Cannula 4.0 09/12/17 08:34 98 135/69 09/12/17 08:00 98 09/12/17 08:00 98.6 96 14 145/95 92 Nasal Cannula 4.0 09/12/17 07:00 Nasal Cannula 4.0 09/12/17 07:00 95 Nasal Cannula 4.0 09/12/17 07:00 97 16 139/107 92 Nasal Cannula 4.0 09/12/17 06:00 97 16 141/83 94 Nasal Cannula 3.0 09/12/17 05:30 97 16 142/94 94 Nasal Cannula 3.0 09/12/17 05:00 120 18 146/73 92 Nasal Cannula 3.0 09/12/17 04:30 110 18 133/66 92 Nasal Cannula 3.0 09/12/17 04:00 110 09/12/17 04:00 98.2 110 18 142/80 92 Nasal Cannula 3.0 09/12/17 04:00 98 16 128/78 93 Nasal Cannula 3.0 09/12/17 03:30 99 16 125/78 94 Nasal Cannula 3.0 09/12/17 03:00 98 16 128/78 93 Nasal Cannula 3.0 09/12/17 02:30 85 16 138/80 93 Nasal Cannula 3.0 09/12/17 02:00 87 16 137/82 93 Nasal Cannula 3.0 09/12/17 01:30 87 14 137/79 93 Nasal Cannula 3.0 09/12/17 01:00 89 14 134/81 93 Nasal Cannula 3.0 09/12/17 00:30 88 14 134/83 93 Nasal Cannula 3.0 09/12/17 00:00 75 09/12/17 00:00 98.0 89 14 134/64 93 Nasal Cannula 3.0 09/11/17 23:30 89 14 125/58 92 Nasal Cannula 3.0 09/11/17 23:00 84 16 136/76 93 Nasal Cannula 3.0 09/11/17 22:52 99 131/103 09/11/17 22:00 90 16 129/100 93 Nasal Cannula 3.0 09/11/17 21:47 108 130/40 09/11/17 21:00 118 19 113/58 93 Nasal Cannula 3.0 09/11/17 20:00 121 09/11/17 20:00 97.6 121 12 128/96 93 Nasal Cannula 3.0 09/11/17 19:00 92 11 122/76 93 Nasal Cannula 3.0 09/11/17 19:00 94 Nasal Cannula 4.0 36 09/11/17 19:00 Nasal Cannula 4.0 36 09/11/17 18:00 85 12 135/90 91 Nasal Cannula 3.0 09/11/17 17:00 86 16 108/43 96 Nasal Cannula 3.0 09/11/17 16:00 89 09/11/17 16:00 97.8 95 18 149/64 89 Nasal Cannula 3.0 09/11/17 15:00 84 16 123/52 94 Nasal Cannula 3.0 09/11/17 15:00 85 111/43 09/11/17 14:30 77 15 129/95 90 Nasal Cannula 3.0 09/11/17 14:00 88 11 129/95 94 Nasal Cannula 3.0 09/11/17 13:00 122 19 102/52 89 Nasal Cannula 3.0 09/11/17 12:30 97.6 101 23 102/52 93 Nasal Cannula 3.0 09/11/17 12:00 91 10 107/64 91 Nasal Cannula 3.0 09/11/17 12:00 80 09/11/17 11:39 92 97/54 09/11/17 11:30 89 11 97/54 89 Nasal Cannula 3.0 09/11/17 11:00 70 11 98/59 89 Nasal Cannula 3.0 Status: awake Condition: critical HEENT: atraumatic Neck: full ROM Lungs: chest wall tender Heart: HR/BP stable, regular Abdomen: non-tender, feeding tube Extremities: edema Critical Care - Subjective ROS Limited/Unobtainable: No ICU Day: 15 Condition: critical FI02: 36 Vent Support Breath Rate: 26 Vent Support Mode: CPAP Vent Tidal Volume: 550 Sputum Amount: None PEEP: 5.0 PIP: 23 I&O: Intake and Output 09/11/17 09/12/17 19:00 07:00 Intake Total 658.4 ml 661 ml Output Total 282 ml 400 ml Balance 376.4 ml 261 ml IV Total 658.4 ml 661 ml Output Urine Total 282 ml 400 ml # Bowel Movements 3 4 CXR: no change ET-Tube: 8.0 ET Position: 22 Labs: Laboratory Tests Test 09/12/17 04:45 White Blood Count 7.3 K/UL (4.8-10.8) Red Blood Count 3.67 M/UL (4.70-6.10) L Hemoglobin 11.9 G/DL (14.2-18.0) L Hematocrit 34.0 % (42.0-52.0) L Mean Corpuscular Volume 93 FL (80-99) Mean Corpuscular Hemoglobin 32.4 PG (27.0-31.0) H Mean Corpuscular Hemoglobin Concent 35.0 G/DL (32.0-36.0) Red Cell Distribution Width 13.7 % (11.6-14.8) Platelet Count 343 K/UL (150-450) Mean Platelet Volume 6.1 FL (6.5-10.1) L Neutrophils (%) (Auto) 77.0 % (45.0-75.0) H Lymphocytes (%) (Auto) 14.9 % (20.0-45.0) L Monocytes (%) (Auto) 6.8 % (1.0-10.0) Eosinophils (%) (Auto) 0.4 % (0.0-3.0) Basophils (%) (Auto) 0.9 % (0.0-2.0) Sodium Level 139 MMOL/L (136-145) Potassium Level 2.8 MMOL/L (3.5-5.1) L Chloride Level 103 MMOL/L (98-107) Carbon Dioxide Level 25 MMOL/L (21-32) Anion Gap 11 mmol/L (5-15) Blood Urea Nitrogen 5 mg/dL (7-18) L Creatinine 0.8 MG/DL (0.55-1.30) Estimat Glomerular Filtration Rate mL/min (>60) Glucose Level 97 MG/DL (74-106) Calcium Level 8.0 MG/DL (8.5-10.1) L Total Bilirubin 0.5 MG/DL (0.2-1.0) Aspartate Amino Transf (AST/SGOT) 25 U/L (15-37) Alanine Aminotransferase (ALT/SGPT) 14 U/L (12-78) Alkaline Phosphatase 72 U/L (46-116) Pro-B-Type Natriuretic Peptide 1990 pg/mL (0-125) H Total Protein 6.1 G/DL (6.4-8.2) L Albumin 2.0 G/DL (3.4-5.0) L Globulin 4.1 g/dL Albumin/Globulin Ratio 0.5 (1.0-2.7) L Digoxin Level 1.0 NG/ML (0.5-2.0) BHARGAVI ACKERMAN Sep 12, 2017 10:41
--- NOTE | 2017-09-12 11:50 | Diagnostic Imaging Report ---
Indication: Dyspnea Comparison: 09/11/2017 A single view chest radiograph was obtained. Findings: Patient is rotated to the left and main to the right. Heart size and mediastinal contours are stable. There is been interval removal of the NG tube. There is persistent interstitial opacification/edema. Apparent interval increase in left-sided pleural effusion with increasing left basilar atelectasis/consolidation. Small right pleural effusion unchanged. No significant interval change in biapical scarring with some nodular densities at the apices. There is osteopenia, scoliosis and degenerative changes spine. Likely chronic fracture deformity of the left humeral head partially visualized IMPRESSION: Interval removal of NG tube. Increase in interstitial opacification/edema compared to one day prior. Apparent increase in left-sided pleural effusion and left basilar atelectasis/consolidation. These findings may be artifactually exaggerated given significant patient rotation.
[2017-09-12] MEDS: cefTRIAXone 1 GM in D5W 55 ML IVPB SCH (12:39)
--- NOTE | 2017-09-12 13:47 | Internal Med Progress Note ---
Subjective Date of Service: Sep 12, 2017 Physician Name Neil Benson Attending Physician Davey Cui MD Current Medications Medications (Trade) Dose Ordered Sig/Hill Route PRN Reason Start Time Stop Time Status Last Admin Dose Admin Albuterol/ Ipratropium (Albuterol/ Ipratropium) 3 ml Q4H PRN HHN Shortness of Breath 09/09/17 12:00 09/13/17 11:59 Ceftriaxone Sodium 1 gm/ Dextrose 55 ml @ 110 mls/hr Q24H IVPB 09/09/17 12:00 09/14/17 11:59 09/12/17 12:39 Chlorpromazine (Thorazine) 25 mg Q6H PRN IM AGITATION 09/09/17 12:00 10/08/17 11:59 09/11/17 06:35 Clotrimazole (Lotrimin) 1 applic EVERY 12 HOURS TOPIC 09/09/17 21:00 10/06/17 20:59 09/12/17 09:50 Dextrose/Sodium Chloride 1,000 ml @ 50 mls/hr Q20H IV 09/09/17 12:00 10/06/17 17:29 09/11/17 17:13 Diltiazem HCl 125 mg/Dextrose 125 ml @ 8 mls/hr Q24H IV 09/11/17 23:00 09/12/17 22:59 09/12/17 08:34 Enoxaparin Sodium (Lovenox) 50 mg EVERY 12 HOURS SUBQ 09/09/17 21:00 09/28/17 08:59 09/12/17 09:51 Haloperidol Lactate 2 mg/ Dextrose 55.4 ml @ 220 mls/hr Q2H PRN IVPB Agitation 09/11/17 13:30 10/11/17 13:29 09/12/17 04:08 Metoprolol Tartrate (Lopressor) 5 mg Q4H PRN IVP HR > 125 bpm 09/09/17 14:00 10/06/17 17:59 09/11/17 04:48 Pantoprazole (Protonix) 40 mg DAILY IV 09/10/17 09:00 10/05/17 08:59 09/12/17 09:50 Potassium Chloride 100 ml @ 100 mls/hr Q1H IVPB 09/12/17 11:00 09/12/17 14:59 09/12/17 13:30 Allergies: Coded Allergies: No Known Allergies (Unverified , 08/28/17) ROS Limited/Unobtainable: Yes Subjective 87 YO M admitted with Respiratory failure. Cover for Int Jas-Dr Cui. ICU. Currently atrial fibrillation with rapid ventricular rate. Objective Last Vital Signs Date Time Temp Pulse Resp B/P (MAP) Pulse Ox O2 Delivery O2 Flow Rate FiO2 09/12/17 10:30 78 16 145/97 92 Nasal Cannula 4.0 09/12/17 08:00 98.6 09/11/17 19:00 36 Laboratory Tests Test 09/12/17 04:45 White Blood Count 7.3 K/UL (4.8-10.8) Red Blood Count 3.67 M/UL (4.70-6.10) L Hemoglobin 11.9 G/DL (14.2-18.0) L Hematocrit 34.0 % (42.0-52.0) L Mean Corpuscular Volume 93 FL (80-99) Mean Corpuscular Hemoglobin 32.4 PG (27.0-31.0) H Mean Corpuscular Hemoglobin Concent 35.0 G/DL (32.0-36.0) Red Cell Distribution Width 13.7 % (11.6-14.8) Platelet Count 343 K/UL (150-450) Mean Platelet Volume 6.1 FL (6.5-10.1) L Neutrophils (%) (Auto) 77.0 % (45.0-75.0) H Lymphocytes (%) (Auto) 14.9 % (20.0-45.0) L Monocytes (%) (Auto) 6.8 % (1.0-10.0) Eosinophils (%) (Auto) 0.4 % (0.0-3.0) Basophils (%) (Auto) 0.9 % (0.0-2.0) Sodium Level 139 MMOL/L (136-145) Potassium Level 2.8 MMOL/L (3.5-5.1) L Chloride Level 103 MMOL/L (98-107) Carbon Dioxide Level 25 MMOL/L (21-32) Anion Gap 11 mmol/L (5-15) Blood Urea Nitrogen 5 mg/dL (7-18) L Creatinine 0.8 MG/DL (0.55-1.30) Estimat Glomerular Filtration Rate mL/min (>60) Glucose Level 97 MG/DL (74-106) Calcium Level 8.0 MG/DL (8.5-10.1) L Total Bilirubin 0.5 MG/DL (0.2-1.0) Aspartate Amino Transf (AST/SGOT) 25 U/L (15-37) Alanine Aminotransferase (ALT/SGPT) 14 U/L (12-78) Alkaline Phosphatase 72 U/L (46-116) Pro-B-Type Natriuretic Peptide 1990 pg/mL (0-125) H Total Protein 6.1 G/DL (6.4-8.2) L Albumin 2.0 G/DL (3.4-5.0) L Globulin 4.1 g/dL Albumin/Globulin Ratio 0.5 (1.0-2.7) L Digoxin Level 1.0 NG/ML (0.5-2.0) Intake and Output 09/11/17 09/12/17 19:00 07:00 Intake Total 658.4 ml 661 ml Output Total 282 ml 400 ml Balance 376.4 ml 261 ml IV Total 658.4 ml 661 ml Output Urine Total 282 ml 400 ml # Bowel Movements 3 4 Objective General Appearance: cachetic, thin EENT: PERRL/EOMI, normal ENT inspection Neck: non-tender, normal alignment, supple Cardiovascular: Tachycardia; normal peripheral pulses, no gallop/murmur, no JVD , irregularly irregular Respiratory/Chest: Venturi mask; respiratory distress, crackles/rales, rhonchi - bilaterally, expiratory wheezing Abdomen: non tender, soft, no organomegaly, decreased bowel sounds 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 Continue levoxyl. (6) Respiratory failure Assessment & Plan: Extubated 09/05/17. Tolerating nasal canula. See pulmonary note. (7) Atrial fibrillation with rapid ventricular response Assessment & Plan: Continue IV diltiazem drip per cardiology (8) CHF (congestive heart failure) Assessment & Plan: See cardiology note; await echocardiogram (9) Cachexia (10) Lactic acid acidosis (11) Pneumonia Assessment & Plan: See pulmonary note. Cont zosyn and vanco. (12) Dysphagia Assessment & Plan: Place NG tube; nutrition consult. (13) Hypokalemia Assessment & Plan: Replace KCL Status: not improved NEIL BENSON Sep 12, 2017 13:47
[2017-09-12] MEDS: Metoprolol 5mg/5ml Inj IVP PRN (15:20)
--- NOTE | 2017-09-12 16:36 | Cardiac Electrophysiology PN ---
Subjective Subjective EP consult dictated. NPO. [id number] Keep Cardizem drip at 5 mg/hr and Digoxin 0.125 iv daily. Objective Last 24 Hour Vital Signs Date Time Temp Pulse Resp B/P (MAP) Pulse Ox O2 Delivery O2 Flow Rate FiO2 09/12/17 16:00 98.4 66 13 128/47 93 Nasal Cannula 4.0 09/12/17 15:20 112 110/62 09/12/17 15:00 94 14 133/62 92 Nasal Cannula 4.0 09/12/17 14:30 88 13 133/62 92 Nasal Cannula 4.0 09/12/17 14:00 87 12 120/63 91 Nasal Cannula 4.0 09/12/17 13:30 88 12 135/85 90 Nasal Cannula 4.0 09/12/17 13:00 88 12 134/86 92 Nasal Cannula 4.0 09/12/17 12:30 100 14 134/86 93 Nasal Cannula 4.0 09/12/17 12:00 98.6 85 12 138/104 92 Nasal Cannula 4.0 09/12/17 12:00 85 09/12/17 11:30 85 12 126/73 93 Nasal Cannula 4.0 09/12/17 11:00 86 13 128/101 92 Nasal Cannula 4.0 09/12/17 10:30 78 16 145/97 92 Nasal Cannula 4.0 09/12/17 10:00 98 16 144/90 94 Nasal Cannula 4.0 09/12/17 09:00 97 16 129/92 92 Nasal Cannula 4.0 09/12/17 08:34 98 135/69 09/12/17 08:00 98 09/12/17 08:00 98.6 96 14 145/95 92 Nasal Cannula 4.0 09/12/17 07:00 Nasal Cannula 4.0 09/12/17 07:00 95 Nasal Cannula 4.0 09/12/17 07:00 97 16 139/107 92 Nasal Cannula 4.0 09/12/17 06:00 97 16 141/83 94 Nasal Cannula 3.0 09/12/17 05:30 97 16 142/94 94 Nasal Cannula 3.0 09/12/17 05:00 120 18 146/73 92 Nasal Cannula 3.0 09/12/17 04:30 110 18 133/66 92 Nasal Cannula 3.0 09/12/17 04:00 110 09/12/17 04:00 98.2 110 18 142/80 92 Nasal Cannula 3.0 09/12/17 04:00 98 16 128/78 93 Nasal Cannula 3.0 09/12/17 03:30 99 16 125/78 94 Nasal Cannula 3.0 09/12/17 03:00 98 16 128/78 93 Nasal Cannula 3.0 09/12/17 02:30 85 16 138/80 93 Nasal Cannula 3.0 09/12/17 02:00 87 16 137/82 93 Nasal Cannula 3.0 09/12/17 01:30 87 14 137/79 93 Nasal Cannula 3.0 09/12/17 01:00 89 14 134/81 93 Nasal Cannula 3.0 09/12/17 00:30 88 14 134/83 93 Nasal Cannula 3.0 09/12/17 00:00 75 09/12/17 00:00 98.0 89 14 134/64 93 Nasal Cannula 3.0 09/11/17 23:30 89 14 125/58 92 Nasal Cannula 3.0 09/11/17 23:00 84 16 136/76 93 Nasal Cannula 3.0 09/11/17 22:52 99 131/103 09/11/17 22:00 90 16 129/100 93 Nasal Cannula 3.0 09/11/17 21:47 108 130/40 09/11/17 21:00 118 19 113/58 93 Nasal Cannula 3.0 09/11/17 20:00 121 09/11/17 20:00 97.6 121 12 128/96 93 Nasal Cannula 3.0 09/11/17 19:00 92 11 122/76 93 Nasal Cannula 3.0 09/11/17 19:00 94 Nasal Cannula 4.0 36 09/11/17 19:00 Nasal Cannula 4.0 36 09/11/17 18:00 85 12 135/90 91 Nasal Cannula 3.0 09/11/17 17:00 86 16 108/43 96 Nasal Cannula 3.0 Intake and Output 09/11/17 09/12/17 19:00 07:00 Intake Total 658.4 ml 661 ml Output Total 282 ml 400 ml Balance 376.4 ml 261 ml IV Total 658.4 ml 661 ml Output Urine Total 282 ml 400 ml # Bowel Movements 3 4 Laboratory Tests Test 09/12/17 04:45 White Blood Count 7.3 K/UL (4.8-10.8) Red Blood Count 3.67 M/UL (4.70-6.10) L Hemoglobin 11.9 G/DL (14.2-18.0) L Hematocrit 34.0 % (42.0-52.0) L Mean Corpuscular Volume 93 FL (80-99) Mean Corpuscular Hemoglobin 32.4 PG (27.0-31.0) H Mean Corpuscular Hemoglobin Concent 35.0 G/DL (32.0-36.0) Red Cell Distribution Width 13.7 % (11.6-14.8) Platelet Count 343 K/UL (150-450) Mean Platelet Volume 6.1 FL (6.5-10.1) L Neutrophils (%) (Auto) 77.0 % (45.0-75.0) H Lymphocytes (%) (Auto) 14.9 % (20.0-45.0) L Monocytes (%) (Auto) 6.8 % (1.0-10.0) Eosinophils (%) (Auto) 0.4 % (0.0-3.0) Basophils (%) (Auto) 0.9 % (0.0-2.0) Sodium Level 139 MMOL/L (136-145) Potassium Level 2.8 MMOL/L (3.5-5.1) L Chloride Level 103 MMOL/L (98-107) Carbon Dioxide Level 25 MMOL/L (21-32) Anion Gap 11 mmol/L (5-15) Blood Urea Nitrogen 5 mg/dL (7-18) L Creatinine 0.8 MG/DL (0.55-1.30) Estimat Glomerular Filtration Rate mL/min (>60) Glucose Level 97 MG/DL (74-106) Calcium Level 8.0 MG/DL (8.5-10.1) L Total Bilirubin 0.5 MG/DL (0.2-1.0) Aspartate Amino Transf (AST/SGOT) 25 U/L (15-37) Alanine Aminotransferase (ALT/SGPT) 14 U/L (12-78) Alkaline Phosphatase 72 U/L (46-116) Pro-B-Type Natriuretic Peptide 1990 pg/mL (0-125) H Total Protein 6.1 G/DL (6.4-8.2) L Albumin 2.0 G/DL (3.4-5.0) L Globulin 4.1 g/dL Albumin/Globulin Ratio 0.5 (1.0-2.7) L Digoxin Level 1.0 NG/ML (0.5-2.0) CLAUDIA AMIN Sep 12, 2017 16:36
--- NOTE | 2017-09-12 19:15 | Cardiology Progress Note ---
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 normal lv function with pulm htn continue treatment for pneumonia now in icu setting to monitor hr and bp continuously as at risk of hypotension tele reviewed now has og tube with xray indicated good position on lmwh dig dose lost orogastric tube yest, so i stopped the verapamil last nite and i reordered Cardizem drip to dee gandara in icu last nite but was not started until reordered by ep today hr now seems again controlled on iv dilt but will need another form of medication eventually if treatment is needed unless in hospice Subjective ROS Limited/Unobtainable: Yes Subjective confused got sedated as was sig agitation Objective Last 24 Hour Vital Signs Date Time Temp Pulse Resp B/P (MAP) Pulse Ox O2 Delivery O2 Flow Rate FiO2 09/12/17 19:00 98.4 76 13 148/106 95 Nasal Cannula 4.0 09/12/17 18:00 77 13 141/109 94 Nasal Cannula 4.0 09/12/17 17:30 82 13 141/109 94 Nasal Cannula 4.0 09/12/17 17:00 76 13 123/78 94 Nasal Cannula 4.0 09/12/17 16:30 77 13 130/71 94 Nasal Cannula 4.0 09/12/17 16:00 77 09/12/17 16:00 98.4 66 13 128/47 93 Nasal Cannula 4.0 09/12/17 15:20 112 110/62 09/12/17 15:00 94 14 133/62 92 Nasal Cannula 4.0 09/12/17 14:30 88 13 133/62 92 Nasal Cannula 4.0 09/12/17 14:00 87 12 120/63 91 Nasal Cannula 4.0 09/12/17 13:30 88 12 135/85 90 Nasal Cannula 4.0 09/12/17 13:00 88 12 134/86 92 Nasal Cannula 4.0 09/12/17 12:30 100 14 134/86 93 Nasal Cannula 4.0 09/12/17 12:00 98.6 85 12 138/104 92 Nasal Cannula 4.0 09/12/17 12:00 85 09/12/17 11:30 85 12 126/73 93 Nasal Cannula 4.0 09/12/17 11:00 86 13 128/101 92 Nasal Cannula 4.0 09/12/17 10:30 78 16 145/97 92 Nasal Cannula 4.0 09/12/17 10:00 98 16 144/90 94 Nasal Cannula 4.0 09/12/17 09:00 97 16 129/92 92 Nasal Cannula 4.0 09/12/17 08:34 98 135/69 09/12/17 08:00 98 09/12/17 08:00 98.6 96 14 145/95 92 Nasal Cannula 4.0 09/12/17 07:00 Nasal Cannula 4.0 09/12/17 07:00 95 Nasal Cannula 4.0 09/12/17 07:00 97 16 139/107 92 Nasal Cannula 4.0 09/12/17 06:00 97 16 141/83 94 Nasal Cannula 3.0 09/12/17 05:30 97 16 142/94 94 Nasal Cannula 3.0 09/12/17 05:00 120 18 146/73 92 Nasal Cannula 3.0 09/12/17 04:30 110 18 133/66 92 Nasal Cannula 3.0 09/12/17 04:00 110 09/12/17 04:00 98.2 110 18 142/80 92 Nasal Cannula 3.0 09/12/17 04:00 98 16 128/78 93 Nasal Cannula 3.0 09/12/17 03:30 99 16 125/78 94 Nasal Cannula 3.0 09/12/17 03:00 98 16 128/78 93 Nasal Cannula 3.0 09/12/17 02:30 85 16 138/80 93 Nasal Cannula 3.0 09/12/17 02:00 87 16 137/82 93 Nasal Cannula 3.0 09/12/17 01:30 87 14 137/79 93 Nasal Cannula 3.0 09/12/17 01:00 89 14 134/81 93 Nasal Cannula 3.0 09/12/17 00:30 88 14 134/83 93 Nasal Cannula 3.0 09/12/17 00:00 75 09/12/17 00:00 98.0 89 14 134/64 93 Nasal Cannula 3.0 09/11/17 23:30 89 14 125/58 92 Nasal Cannula 3.0 09/11/17 23:00 84 16 136/76 93 Nasal Cannula 3.0 09/11/17 22:52 99 131/103 09/11/17 22:00 90 16 129/100 93 Nasal Cannula 3.0 09/11/17 21:47 108 130/40 09/11/17 21:00 118 19 113/58 93 Nasal Cannula 3.0 09/11/17 20:00 121 09/11/17 20:00 97.6 121 12 128/96 93 Nasal Cannula 3.0 General Appearance: no apparent distress, alert Neck: supple Cardiovascular: irregularly irregular Respiratory/Chest: rhonchi - bilaterally Abdomen: normal bowel sounds, non tender, soft Extremities: no swelling Intake and Output 09/11/17 09/12/17 19:00 07:00 Intake Total 658.4 ml 661 ml Output Total 282 ml 400 ml Balance 376.4 ml 261 ml IV Total 658.4 ml 661 ml Output Urine Total 282 ml 400 ml # Bowel Movements 3 4 Laboratory Tests Test 09/12/17 04:45 White Blood Count 7.3 K/UL (4.8-10.8) Red Blood Count 3.67 M/UL (4.70-6.10) L Hemoglobin 11.9 G/DL (14.2-18.0) L Hematocrit 34.0 % (42.0-52.0) L Mean Corpuscular Volume 93 FL (80-99) Mean Corpuscular Hemoglobin 32.4 PG (27.0-31.0) H Mean Corpuscular Hemoglobin Concent 35.0 G/DL (32.0-36.0) Red Cell Distribution Width 13.7 % (11.6-14.8) Platelet Count 343 K/UL (150-450) Mean Platelet Volume 6.1 FL (6.5-10.1) L Neutrophils (%) (Auto) 77.0 % (45.0-75.0) H Lymphocytes (%) (Auto) 14.9 % (20.0-45.0) L Monocytes (%) (Auto) 6.8 % (1.0-10.0) Eosinophils (%) (Auto) 0.4 % (0.0-3.0) Basophils (%) (Auto) 0.9 % (0.0-2.0) Sodium Level 139 MMOL/L (136-145) Potassium Level 2.8 MMOL/L (3.5-5.1) L Chloride Level 103 MMOL/L (98-107) Carbon Dioxide Level 25 MMOL/L (21-32) Anion Gap 11 mmol/L (5-15) Blood Urea Nitrogen 5 mg/dL (7-18) L Creatinine 0.8 MG/DL (0.55-1.30) Estimat Glomerular Filtration Rate mL/min (>60) Glucose Level 97 MG/DL (74-106) Calcium Level 8.0 MG/DL (8.5-10.1) L Total Bilirubin 0.5 MG/DL (0.2-1.0) Aspartate Amino Transf (AST/SGOT) 25 U/L (15-37) Alanine Aminotransferase (ALT/SGPT) 14 U/L (12-78) Alkaline Phosphatase 72 U/L (46-116) Pro-B-Type Natriuretic Peptide 1990 pg/mL (0-125) H Total Protein 6.1 G/DL (6.4-8.2) L Albumin 2.0 G/DL (3.4-5.0) L Globulin 4.1 g/dL Albumin/Globulin Ratio 0.5 (1.0-2.7) L Digoxin Level 1.0 NG/ML (0.5-2.0) SEGUNDO CALVERT Sep 12, 2017 19:15
[2017-09-12] MEDS: D5 1/2NS 1,000 ML IV SCH (19:37)
--- NOTE | 2017-09-12 22:01 | General Progress Note ---
Assessment/Plan Assessment/Plan Assessment - Respiratory failure - malnutrition - OBS/encephalopathy - a fib - CHF - mild anemia - No family available to discuss PEG Recommendations - consider TPN until decision on PEG - elevate HOB - pulmonary follow up - abx - poor Px Subjective Allergies: Coded Allergies: No Known Allergies (Unverified , 08/28/17) Subjective Calm OGT in place wet cough confused OGT out again Objective Last 24 Hour Vital Signs Date Time Temp Pulse Resp B/P (MAP) Pulse Ox O2 Delivery O2 Flow Rate FiO2 09/12/17 19:15 Nasal Cannula 4.0 09/12/17 19:15 96 Nasal Cannula 4.0 09/12/17 19:00 98.4 76 13 148/106 95 Nasal Cannula 4.0 09/12/17 18:00 77 13 141/109 94 Nasal Cannula 4.0 09/12/17 17:30 82 13 141/109 94 Nasal Cannula 4.0 09/12/17 17:00 76 13 123/78 94 Nasal Cannula 4.0 09/12/17 16:30 77 13 130/71 94 Nasal Cannula 4.0 09/12/17 16:00 77 09/12/17 16:00 98.4 66 13 128/47 93 Nasal Cannula 4.0 09/12/17 15:20 112 110/62 09/12/17 15:00 94 14 133/62 92 Nasal Cannula 4.0 09/12/17 14:30 88 13 133/62 92 Nasal Cannula 4.0 09/12/17 14:00 87 12 120/63 91 Nasal Cannula 4.0 09/12/17 13:30 88 12 135/85 90 Nasal Cannula 4.0 09/12/17 13:00 88 12 134/86 92 Nasal Cannula 4.0 09/12/17 12:30 100 14 134/86 93 Nasal Cannula 4.0 09/12/17 12:00 98.6 85 12 138/104 92 Nasal Cannula 4.0 09/12/17 12:00 85 09/12/17 11:30 85 12 126/73 93 Nasal Cannula 4.0 09/12/17 11:00 86 13 128/101 92 Nasal Cannula 4.0 09/12/17 10:30 78 16 145/97 92 Nasal Cannula 4.0 09/12/17 10:00 98 16 144/90 94 Nasal Cannula 4.0 09/12/17 09:00 97 16 129/92 92 Nasal Cannula 4.0 09/12/17 08:34 98 135/69 09/12/17 08:00 98 09/12/17 08:00 98.6 96 14 145/95 92 Nasal Cannula 4.0 09/12/17 07:00 Nasal Cannula 4.0 09/12/17 07:00 95 Nasal Cannula 4.0 09/12/17 07:00 97 16 139/107 92 Nasal Cannula 4.0 09/12/17 06:00 97 16 141/83 94 Nasal Cannula 3.0 09/12/17 05:30 97 16 142/94 94 Nasal Cannula 3.0 09/12/17 05:00 120 18 146/73 92 Nasal Cannula 3.0 09/12/17 04:30 110 18 133/66 92 Nasal Cannula 3.0 09/12/17 04:00 110 09/12/17 04:00 98.2 110 18 142/80 92 Nasal Cannula 3.0 09/12/17 04:00 98 16 128/78 93 Nasal Cannula 3.0 09/12/17 03:30 99 16 125/78 94 Nasal Cannula 3.0 09/12/17 03:00 98 16 128/78 93 Nasal Cannula 3.0 09/12/17 02:30 85 16 138/80 93 Nasal Cannula 3.0 09/12/17 02:00 87 16 137/82 93 Nasal Cannula 3.0 09/12/17 01:30 87 14 137/79 93 Nasal Cannula 3.0 09/12/17 01:00 89 14 134/81 93 Nasal Cannula 3.0 09/12/17 00:30 88 14 134/83 93 Nasal Cannula 3.0 09/12/17 00:00 75 09/12/17 00:00 98.0 89 14 134/64 93 Nasal Cannula 3.0 09/11/17 23:30 89 14 125/58 92 Nasal Cannula 3.0 09/11/17 23:00 84 16 136/76 93 Nasal Cannula 3.0 09/11/17 22:52 99 131/103 09/11/17 22:00 90 16 129/100 93 Nasal Cannula 3.0 Intake and Output 09/11/17 09/12/17 19:00 07:00 Intake Total 658.4 ml 661 ml Output Total 282 ml 400 ml Balance 376.4 ml 261 ml IV Total 658.4 ml 661 ml Output Urine Total 282 ml 400 ml # Bowel Movements 3 4 Laboratory Tests 09/12/17 04:45: White Blood Count 7.3, Red Blood Count 3.67L, Hemoglobin 11.9L, Hematocrit 34.0L , Mean Corpuscular Volume 93, Mean Corpuscular Hemoglobin 32.4H, Mean Corpuscular Hemoglobin Concent 35.0, Red Cell Distribution Width 13.7, Platelet Count 343, Mean Platelet Volume 6.1L, Neutrophils (%) (Auto) 77.0H, Lymphocytes (%) (Auto) 14.9L, Monocytes (%) (Auto) 6.8, Eosinophils (%) (Auto) 0.4, Basophils (%) (Auto) 0.9, Sodium Level 139, Potassium Level 2.8L, Chloride Level 103, Carbon Dioxide Level 25, Anion Gap 11, Blood Urea Nitrogen 5L, Creatinine 0.8, Estimat Glomerular Filtration Rate , Glucose Level 97, Calcium Level 8.0L, Total Bilirubin 0.5, Aspartate Amino Transf (AST/SGOT) 25, Alanine Aminotransferase (ALT/SGPT) 14, Alkaline Phosphatase 72, Pro-B-Type Natriuretic Peptide 1990H, Total Protein 6.1L, Albumin 2.0L, Globulin 4.1, Albumin/Globulin Ratio 0.5L, Digoxin Level 1.0 Height (Feet): 5 Height (Inches): 10.00 Weight (Pounds): 113 Objective NCAT supple coarse BS / estefania RR abd soft ND NT no edema agitated DORI WILEY Sep 12, 2017 22:01
[2017-09-12] MEDS ORDERED: NS 275ml ONE (22:27)
[2017-09-12] MEDS ORDERED: Tubing IV Secondary IV ONE (22:27)
[2017-09-12] MEDS ORDERED: Sterile Water Irrig 1000ml IRRIG ONE (22:27)
[2017-09-12] MEDS ORDERED: D5 1/2NS 1000ml IV ONE (22:27)
--- NOTE | 2017-09-13 02:45 | Consultation ---
DATE OF CONSULTATION: 09/12/2017 CARDIAC ELECTROPHYSIOLOGY CONSULTATION CONSULTING PHYSICIAN: Nick Mead M.D. REFERRING PHYSICIAN: Davey Cui M.D. REASON FOR CONSULTATION: Atrial fibrillation with rapid ventricular response, difficult to control in the intensive care. HISTORY OF PRESENT ILLNESS: The patient is an 87-year-old gentleman, who was admitted to [facility] on 08/28/2017 with respiratory failure. The patient was initially intubated in the intensive care unit and subsequently was extubated. At the time of my evaluation, the patient is off the ventilator, however, has had recurrent episodes of atrial fibrillation with rapid ventricular response. The patient has been on Cardizem drip, but despite that has episodes of bradycardia and tachycardia. Cardiac Electrophysiology consultation was obtained for further evaluation and management. REVIEW OF SYSTEMS: Cannot be obtained. PAST MEDICAL HISTORY: 1. Hypertension. 2. Congestive heart failure. 3. Atrial fibrillation. 4. History of respiratory failure requiring intubation. 5. Sepsis. MEDICATIONS: His medications per reconciliation, but prior to the admission, the patient was on metoprolol 25 mg two times daily, amiodarone 200 mg daily, and digoxin. SOCIAL HISTORY: He is a resident of [facility]. Does not smoke or drink alcohol. PHYSICAL EXAMINATION: VITAL SIGNS: Blood pressure is 120/47, pulse is ranging between 50 to 120, respirations 14, and temperature 98.4. HEAD AND NECK: Showed positive JVD. LUNGS: Coarse rhonchi. CARDIOVASCULAR: Shows irregularly irregular S1, S2 with no gallop or murmur. ABDOMEN: Soft. EXTREMITIES: No pitting edema. LABORATORY AND DIAGNOSTIC DATA: His echocardiogram showed ejection fraction of 55%. Telemetry strip showed episodes of atrial fibrillation with rapid ventricular response up to beats per minute yesterday. His labs show a white count of 7.3, hemoglobin 11.9, hematocrit 34, and platelet count is 343,000. Sodium 139, potassium is 2.8, BUN of 5, creatinine 0.8, and glucose of 97. Digoxin level is 1. INR is 1.2. ASSESSMENT AND PLAN: 1. Atrial fibrillation with rapid ventricular response. The patient pulled out NG tube and has no p.o. access and the only medication he can get is only intravenous medications. The patient is on Cardizem drip at 5 mg/hour. At this time, I will give additional dose of digoxin 0.125 mg IV daily. The patient is also on as needed intravenous metoprolol, however, hopefully we can control with combination of digoxin and intravenous Cardizem until the patient has the NG tube back in so we can start him on p.o. medications. In the meantime, it is important hypokalemia as this patient's potassium was only 2.8 today. 2. Status post respiratory failure. The patient was extubated. 3. Hypertension. Continue Cardizem drip that will control the heart rate as well. 4. Alzheimer's dementia. 5. Encephalopathy. 6. Hypothyroidism. 7. Benign prostatic hypertrophy. 8. Pneumonia. 9. Dysphagia. Further evaluation by Dr. Cazares. Thank you very much, Dr. Cui, for allowing me to participate in the care of this gentleman. Please do not hesitate to contact me for any questions regarding my evaluation. Nick Mead M.D. DR: DAVIN JOB#: [id number] CC:
[2017-09-13] MEDS ORDERED: Digoxin 0.5mg/2ml Inj IVP SCH (09:00)
--- NOTE | 2017-09-14 23:03 | Discharge Summary ---
Discharge Summary Hospital Course Date of Admission Aug 28, 2017 at 19:18 Date of Discharge Sep 12, 2017 at 22:28 Admitting Diagnosis RESPIRATORY FAILURE HPI Cristhian Valiente is a 87 year old male who was admitted on Aug 28, 2017 at 19:18 for Respiratory Failure Hospital Course [id number] Discharge Discharge Disposition Patient was discharged to Acute Care Facility(02) Discharge Diagnoses: Saima Mejia NP Sep 14, 2017 23:03
--- NOTE | 2017-09-15 03:30 | Discharge Summary 2 SIG ---
DATE OF ADMISSION: 08/28/2017 DATE OF DISCHARGE: 09/12/2017 BRIEF HOSPITAL COURSE: The patient is an 87-year-old white male who presented to ED with complaints of respiratory failure. He is a resident of [facility] and the patient became short of breath. On arrival to the emergency room, the patient was in respiratory failure with use of accessory muscles of respiration and muscle retraction. He required emergent airway intubation. He has a history of atrial fibrillation, congestive heart failure, pneumonia, hypothyroidism, hepatitis B, dementia, and hypertension. He was admitted to ICU for acute respiratory failure and atrial fibrillation. He was started empirically on Zosyn and vancomycin for hospital-acquired versus aspiration pneumonia. He was given IV hydration and was started on Lovenox for stroke prevention. Venous duplex of lower extremity done was negative for DVT. He had a chest CTA with no evidence of pulmonary embolus, aortic dissection, or aneurysm. Echocardiogram done showed technically difficult with left ventricular ejection fraction estimated to be 55%, right ventricular systolic pressure 62 consistent with severe pulmonary hypertension. He was given IV diltiazem. He had mild troponin elevation on admission. However, EKG was without any acute ischemic changes. Blood culture did not isolate any growth. Urinalysis showed mild pyuria although urine culture was negative. Influenza screen was negative. He was given Tamiflu and azithromycin. Legionella antigen was negative. He was able to be finally extubated on 09/05/2017 and was placed on nasal cannula. The patient had been agitated and had pulled out NGT and OGT and had been difficult to reinsert. He failed swallow evaluation. He was given intermittent IV beta-blockers. He was restarted on Cardizem drip. He had severe tachycardia and failed IV beta-blockers. There was no means of feeding. He was given Thorazine as needed as he was attempting to pull out IV access and was confused and agitated. He was given combination of digoxin and IV Cardizem. Electrolytes were also repleted. He was eventually transferred to [facility]. FINAL DIAGNOSES: 1. Acute respiratory failure requiring intubation status post extubation on 09/05/2017. 2. Atrial fibrillation with rapid ventricular response. 3. Acute kidney injury. 4. Pneumonia. 5. Dehydration. 6. Severe pulmonary hypertension. 7. Dysphagia. 8. Hypertension. 9. Encephalopathy. 10. Hypothyroidism. 11. Benign prostatic hypertrophy. 12. Alzheimer's dementia. 13. Malnutrition. 14. Mild anemia. 15. Chronic hepatitis B. 16. Agitation/encephalopathy. 17. Sacrococcygeal deep tissue injury pressure ulcer, right and left heel stage I pressure ulcer, right lower leg open wound, possible venostasis ulcer present on admission. DISPOSITION: The patient was transferred to [facility]. Davey Cui M.D. I have been assigned to dictate discharge summary on this account and I was not involved in the patient's management. Saima Mejia N.P. DR: KARAN JOB#: [id number] CC: BISI
--- NOTE | 2017-09-15 19:04 | Geriatric Progress Note ---
Subjective Interval Events 09/10/17 Geriatric Geriatric Height (Feet): 5 Height (Inches): 10.00 Weight (Pounds): 113 Mendy Frederick M.D. Sep 15, 2017 19:04
== END 2017-09-12 22:28 | disposition short-term general hospital (02) | DRG 207 ==
LOC: EDBD 18:42 → EMR 19:12 → ICU 19:18 → EDBEDREQ 20:59 → 2W 09-06 16:53 → ICU 09-09 19:41
PROC: 5A1955Z Respiratory Ventilation, Greater than 96 Consecutive Hours (ICD-10-PCS; principal; 2017-08-29)
PROC: 0BH17EZ Insertion of Endotracheal Airway into Trachea, Via Natural or Artificial Opening (ICD-10-PCS; principal; 2017-08-29)
DX: J96.00 Acute respiratory failure, unspecified whether with hypoxia or hypercapnia (principal); J69.0 Pneumonitis due to inhalation of food and vomit; N17.9 Acute kidney failure, unspecified; G93.40 Encephalopathy, unspecified; L89.150 Pressure ulcer of sacral region, unstageable; E46 Unspecified protein-calorie malnutrition; R64 Cachexia; E87.2 Acidosis; Z68.1 Body mass index [BMI] 19.9 or less, adult; B18.1 Chronic viral hepatitis B without delta-agent; I27.20 Pulmonary hypertension, unspecified; I48.91 Unspecified atrial fibrillation; R13.10 Dysphagia, unspecified; I10 Essential (primary) hypertension; I50.9 Heart failure, unspecified; E86.0 Dehydration; G30.9 Alzheimer's disease, unspecified; F02.80 Dementia in other diseases classified elsewhere, unspecified severity, without behavioral disturbance, psychotic disturbance, mood disturbance, and anxiety; N40.0 Benign prostatic hyperplasia without lower urinary tract symptoms; D64.9 Anemia, unspecified; L89.621 Pressure ulcer of left heel, stage 1; L89.611 Pressure ulcer of right heel, stage 1; I87.2 Venous insufficiency (chronic) (peripheral); R62.7 Adult failure to thrive; I34.0 Nonrheumatic mitral (valve) insufficiency; R45.1 Restlessness and agitation; E87.6 Hypokalemia
CPT/HCPCS: 31500; 36415; 36600; 71010; 71045; 71275; 74018; 80048; 80053; 80162; 80202; 81003; 82164; 82550; 82553; 82803; 83605; 83690; 83735; 83880; 84100; 84443; 84478; 84484; 85007; 85025; 85610; 85730; 86635; 86704; 86706; 86710; 86803; 87040; 87070; 87081; 87086; 87205; 87449; 87516; 93005; 93306; 93970; 94002; 94003; 94640; 94664; 94760; J2250; J8499